=== PATIENT | male | born 1995 | race African-American/Black ===

== ENCOUNTER 2023-03-18 09:49 | Inpatient (IN) | payer OTHER, SELFPAY ==
[2023-03-18 09:55] VITALS: BP 158/92; PULSE 88; O2SAT 97
[2023-03-18 10:01] VITALS: BP 141/85; PULSE 95; RESP 18; TEMP 37; O2SAT 96; BMI 43.0
--- NOTE | 2023-03-18 10:01 | ED_ITS ---
HPI - Psych General Chief Complaint: Anxiety Stated Complaint: ANXIETY Time Seen by Provider: 03/18/23 09:56 Source: patient and EMS Mode of arrival: EMS Limitations: no limitations History of Present Illness HPI Narrative: 27 yo male who reportedly has a history of bipolar disorder comes via EMS after having a verbal argument with his mother. Patient cannot recall what the arugment was about. He tells me this happens to him occasionally and he needs to separate himself from his mother to calm down. He is currently calm and cooperative. He denies SI/HI,hallucinations. He tells me that he takes his medications when he remembers but sometimes he does forget to do this. He currently has no complaints. Related Data Home Medications Medication Instructions Recorded Confirmed amlodipine 5 mg tablet 5 mg PO DAILY 03/18/23 03/18/23 cariprazine 6 mg capsule (Vraylar) 6 mg PO DAILY 03/18/23 03/18/23 guanfacine 1 mg tablet 1 mg PO QPM 03/18/23 03/18/23 guanfacine 3 mg tablet,extended 3 mg PO QAM 03/18/23 03/18/23 release 24 hr lithium carbonate 300 mg capsule 900 mg PO DAILY 03/18/23 03/18/23 metformin 1,000 mg tablet 1,000 mg PO BID 03/18/23 03/18/23 propranolol 80 mg capsule,24 80 mg PO DAILY 03/18/23 03/18/23 hr,extended release Allergies Allergy/AdvReac Type Severity Reaction Status Date / Time No Known Allergies Allergy Verified 03/18/23 10:01 Review of Systems Review of Systems: Yes all other systems are reviewed and are negative Constitutional: Constitutional: Reports no additional constitutional complaints, Denies body ache(s), Denies chills, Denies fever(s), Denies headache(s) and Denies weakness Eyes: Eyes: Reports no additional eye complaints and Denies change in vision ENT: Reports system reviewed and no additional complaints, except as document ed, Denies dizziness, Denies headache(s), Denies nasal congestion, Denies nasal discharge and Denies neck pain Cardiovascular: Cardiovascular: Reports no additional cardiovascular complaints, Denies chest pain, Denies leg edema and Denies dyspnea Respiratory: Respiratory: Reports no additional respiratory complaints, Denies cough and Denies dyspnea Gastrointestinal: Gastrointestinal: Reports no additional gastrointestinal complaints, Denies abdominal pain, Denies diarrhea, Denies nausea and Denies vomiting Genitourinary: Genitourinary: Denies urinary incontinence Musculoskeletal: Musculoskeletal: Reports no additional musculoskeletal complaints, Denies back pain, Denies arthralgias, Denies joint swelling, Denies neck pain, Denies numbness and Denies tingling Integumentary/Breasts: Skin/Breast: Reports system reviewed and no additional complaints, except as docu and Denies rash Neurologic: Reports system reviewed and no additional complaints, except as documented, Denies Abnormal speech present, Denies dizziness, Denies headache(s) , Denies numbness, Denies tingling and Denies weakness Psychiatric: Psychiatric: Denies anxiety, Denies depression, Denies homicidal ideation and Denies suicidal ideation [facility] Past Medical History Attestation statement: The following information was validated with the patient. Source: old records reviewed and nursing notes reviewed Social History Social History Advance Directives: No Advance Directives Information Provided: Yes Physical Exam Vital Signs: Vital Signs: Last Vital Signs Temp 97.1 F 03/18/23 15:43 Pulse 94 03/18/23 15:43 Resp 18 03/18/23 15:43 BP 127/86 03/18/23 15:43 Pulse Ox 96 03/18/23 15:43 O2 Del Method Room Air 03/18/23 15:43 BMI result Body Mass Index 43.0 Const: General: cooperative, healthy appearing, comfortable and no acute distress Orientation/consciousness: patient oriented x3 Limitations: no limitations HEENT: Head: Yes normal to inspection Ears: hearing grossly normal bilaterally General nose exam: Normal external nose present Face and sinus: Yes normal facial exam Mouth: Normal oral and palatal mucosa present Throat: Yes posterior oropharynx normal Eyes: General: appearance normal, both eyes and all related structures Pupils: Equal, round and reactive pupils present Neck: Neck: Yes normal visual inspection Chest: Chest palpation & inspection: normal inspection of the chest Resp: Effort & Inspection: normal respiratory effort Auscultation: clear to auscultation bilaterally Cardio: Rate: regular rate Rhythm: regular rhythm Peripheral pulses: Peripheral pulses 2+ throughout GI: Inspection: Yes normal to inspection Palpation (GI): Soft to palpation and nontender Auscultation: normal bowel sounds Back/Spine/Pelvis: Thoracic/Lumbar Spine: thoracic and lumbar spine normal to inspection Skin: General skin exam: no rashes or lesions noted Neuro: General: patient oriented x3, no focal motor deficits and normal sensation to monofilament Cranial nerves: Yes Equal, round and reactive pupils present Cognition (Neuro): normal cognition Speech: No Abnormal speech present Gait exam (Neuro): Normal gait present Motor exam (neuro): 5/5 motor strength present throughout Extrem: General: Yes normal to inspection Course Course Course Narrative: 1230-plan is for inpatient bed search on Section 12. Charge nurse and patients nurse was notified. Patient will be moved to the behavioral pod. Will obtain labs, drug screen Medical Decision Making Medical Decision Making MDM Narrative: 27 yo male who has a reported history of bipolar disorder here after having a verbal argument with his mother. Patient has no current complaints, he is calm and cooperative. He arrives via EMS alone. He is unsure what additional medical history he has, what his allergies are. Unclear if patient also has developmental delay or if he is responsible for making his own decisions. I did attempt to contact his mother to obtain additional information but she did not answer and so I left a voicemail. Differential Diagnosis Differential Diagnoses: The differential diagnosis associated with the presentation includes adjustment disorder Consult Healthcare Provider Management of the patient was discussed with: Network Services Project Manager Patient was seen by care team-they were able to obtain collateral information from the mother. Patient has a history of bipolar disorder and developmental delay but is his own guardian. Mom is concerned because he has had increasing aggressive outbursts over the last few weeks and has been non med compliant. Plan is for patient to be placed on a Section 12 for inpatient bed search Lab Data 03/18/23 13:55 03/18/23 13:55 Labs: Lab Results 03/18/23 03/18/23 03/18/23 Range/Units 13:39 13:39 13:55 WBC 10.9 H (4.8-10.8) X10*3/uL RBC 5.47 (4.60-5.80) X10*6/uL Hgb 15.1 (14.0-18.0) g/dl Hct 45.1 (42.0-52.0) % MCV 82.4 (80.0-98.0) fL MCH 27.6 (27.0-33.0) pg MCHC 33.5 (31.0-36.0) g/dl RDW 13.0 (11.0-16.0) % Plt Count 261 (160-400) X10*3/uL MPV 9.6 (9.4-12.4) fL Immature Gran % (Auto) 0.6 H (0.0-0.4) % Neut % (Auto) 60.2 (45-73) % Lymph % (Auto) 28.9 (20-40) % Henry % (Auto) 4.7 (2-11) % Eos % (Auto) 5.0 H (0-4) % Baso % (Auto) 0.6 (0-2) % Lymph # (Auto) 3.2 (1.2-4.9) X10*3/uL Henry # (Auto) 0.5 (0.1-1.2) X10*3/uL Eos # (Auto) 0.6 H (0.0-0.4) X10*3/uL Baso # (Auto) 0.1 (0.0-0.2) X10*3/uL Abs Immat Gran (auto) 0.07 H (0.00-0.03) X10*3/uL Absolute Neuts (auto) 6.6 (2.0-8.3) x10*3/uL Absolute Nucleated RBC 0.000 (0.0-0.012) X10*3/uL Nucleated RBC % (auto) 0.0 (0.0-0.2) /100WBC Sodium (135-145) mmol/L Potassium (3.3-5.1) mmol/L Chloride (96-108) mmol/L Carbon Dioxide (22-29) mmol/L Anion Gap (12-20) BUN (9-16) mg/dL Creatinine (0.5-1.4) mg/dL Estim Creat Clear Calc Estimated GFR Random Glucose (60-115) mg/dL Calcium (8.4-10.2) mg/dL Total Bilirubin (0.0-1.0) mg/dL Direct Bilirubin (0.0-0.5) mg/dL AST (5-37) U/L ALT (0-40) U/L Alkaline Phosphatase (39-117) U/L Total Protein (6.5-8.0) g/dL Albumin (3.5-5.0) g/dL Urine Opiates Screen Not Detected (Not Detect) Urine Fentanyl Screen Not Detected (Not Detect) Ur Barbiturates Screen Not Detected (Not Detect) Ur Phencyclidine Scrn Not Detected (Not Detect) Ur Amphetamines Screen Not Detected (Not Detect) U Benzodiazepines Scrn Not Detected (Not Detect) Urine Cocaine Screen Not Detected (Not Detect) U Marijuana (THC) Screen Not Detected (Not Detect) Ethyl Alcohol mg/dL COVID-19 ([facility]) Negative (Negative) COVID-19 Clin Com See Note 03/18/23 Range/Units 13:55 WBC (4.8-10.8) X10*3/uL RBC (4.60-5.80) X10*6/uL Hgb (14.0-18.0) g/dl Hct (42.0-52.0) % MCV (80.0-98.0) fL MCH (27.0-33.0) pg MCHC (31.0-36.0) g/dl RDW (11.0-16.0) % Plt Count (160-400) X10*3/uL MPV (9.4-12.4) fL Immature Gran % (Auto) (0.0-0.4) % Neut % (Auto) (45-73) % Lymph % (Auto) (20-40) % Henry % (Auto) (2-11) % Eos % (Auto) (0-4) % Baso % (Auto) (0-2) % Lymph # (Auto) (1.2-4.9) X10*3/uL Henry # (Auto) (0.1-1.2) X10*3/uL Eos # (Auto) (0.0-0.4) X10*3/uL Baso # (Auto) (0.0-0.2) X10*3/uL Abs Immat Gran (auto) (0.00-0.03) X10*3/uL Absolute Neuts (auto) (2.0-8.3) x10*3/uL Absolute Nucleated RBC (0.0-0.012) X10*3/uL Nucleated RBC % (auto) (0.0-0.2) /100WBC Sodium 141 (135-145) mmol/L Potassium 4.3 (3.3-5.1) mmol/L Chloride 106 (96-108) mmol/L Carbon Dioxide 24 (22-29) mmol/L Anion Gap 15 (12-20) BUN 12 (9-16) mg/dL Creatinine 1.02 (0.5-1.4) mg/dL Estim Creat Clear Calc 161.6 Estimated GFR > 60 Random Glucose 148 H (60-115) mg/dL Calcium 10.8 H (8.4-10.2) mg/dL Total Bilirubin 0.8 (0.0-1.0) mg/dL Direct Bilirubin 0.2 (0.0-0.5) mg/dL AST 59 H (5-37) U/L ALT 120 H (0-40) U/L Alkaline Phosphatase 97 (39-117) U/L Total Protein 7.9 (6.5-8.0) g/dL Albumin 5.2 H (3.5-5.0) g/dL Urine Opiates Screen (Not Detect) Urine Fentanyl Screen (Not Detect) Ur Barbiturates Screen (Not Detect) Ur Phencyclidine Scrn (Not Detect) Ur Amphetamines Screen (Not Detect) U Benzodiazepines Scrn (Not Detect) Urine Cocaine Screen (Not Detect) U Marijuana (THC) Screen (Not Detect) Ethyl Alcohol < 10 mg/dL COVID-19 ([facility]) (Negative) COVID-19 Clin Com Independent Historian Clinical information obtained from an independent historian. History obtained from or confirmed by: EMS Discharge Plan Discharge Clinical Impression: Bipolar disorder Patient Disposition: Still a Patient Prescriptions: No Action amlodipine 5 mg tablet 5 mg PO DAILY lithium carbonate 300 mg capsule 900 mg PO DAILY metformin 1,000 mg tablet 1,000 mg PO BID propranolol 80 mg capsule,extended release 24hr 80 mg PO DAILY guanfacine 1 mg tablet 1 mg PO QPM Vraylar 6 mg capsule 6 mg PO DAILY guanfacine 3 mg tablet extended release 24 hr 3 mg PO QAM
[2023-03-18 13:56] LABS: COVID-19 Test Negative (Negative); IDNOW Serial# BCCEAD1C
[2023-03-18 14:00] LABS: MANUAL DIFF FLAG NO
[2023-03-18 14:04] LABS: Basophils Absolute Auto 0.1 X10*3/uL (0.0-0.2); Basophils Percent Auto 0.6 % (0-2); Eosinophils Absolute Auto 0.6 X10*3/uL (0.0-0.4); Hematocrit 45.1 % (42.0-52.0); Hemoglobin 15.1 g/dl (14.0-18.0); Imm Gran Abs Auto 0.07 X10*3/uL (0.00-0.03); Imm Gran Pct Auto 0.6 % (0.0-0.4); Lymphocytes Absolute Auto 3.2 X10*3/uL (1.2-4.9); Lymphocytes Percent Auto 28.9 % (20-40); Mean Corpuscular HGB Conc 33.5 g/dl (31.0-36.0); Mean Corpuscular Hemoglobin 27.6 pg (27.0-33.0); Mean Corpuscular Volume 82.4 fL (80.0-98.0); Mean Platelet Volume 9.6 fL (9.4-12.4); Monocytes Absolute Auto 0.5 X10*3/uL (0.1-1.2); Monocytes Percent Auto 4.7 % (2-11); Neutrophils Absolute Auto 6.6 x10*3/uL (2.0-8.3); Neutrophils Percent Auto 60.2 % (45-73); Platelet Count 261 X10*3/uL (160-400); Red Blood Count 5.47 X10*6/uL (4.60-5.80); White Blood Count 10.9 X10*3/uL (4.8-10.8)
[2023-03-18 14:11] LABS: Amphetamine Screen Urine Not Detected (Not Detect); Barbiturates, Urine Not Detected (Not Detect); Benzodiazepines Screen Urine Not Detected (Not Detect); Cannabinoid Screen Urine Not Detected (Not Detect); Cocaine Screen Urine Not Detected (Not Detect); Fentanyl, urine Not Detected (Not Detect); Opiate Screen Urine Not Detected (Not Detect); Phencyclidine Screen Urine Not Detected (Not Detect)
[2023-03-18 14:25] LABS: Alanine Aminotransferase 120 U/L (0-40); Albumin Level 5.2 g/dL (3.5-5.0); Alkaline Phosphatase 97 U/L (39-117); Anion Gap 15 (12-20); Aspartate Amino Transferase 59 U/L (5-37); Bilirubin Direct 0.2 mg/dL (0.0-0.5); Bilirubin Total 0.8 mg/dL (0.0-1.0); Blood Urea Nitrogen 12 mg/dL (9-16); Calcium 10.8 mg/dL (8.4-10.2); Carbon Dioxide 24 mmol/L (22-29); Chloride 106 mmol/L (96-108); Creatinine Clr Calc Pharmacy 161.6; Estimated Glomerular Filt Rate > 60; Ethanol < 10 mg/dL; Glucose Random 148 mg/dL (60-115); Potassium 4.3 mmol/L (3.3-5.1); Sodium 141 mmol/L (135-145); Total Protein 7.9 g/dL (6.5-8.0)
[2023-03-18 15:43] VITALS: BP 127/86; PULSE 94; RESP 18; TEMP 36.2; O2SAT 96
--- NOTE | 2023-03-19 | ECG_ITS ---
Test Reason : check qt interval Blood Pressure : / mmHG Vent. Rate : 074 BPM Atrial Rate : 074 BPM P-R Int : 170 ms QRS Dur : 102 ms QT Int : 372 ms P-R-T Axes : 009 -16 039 degrees QTc Int : 412 ms Normal sinus rhythm Minimal voltage criteria for LVH, may be normal variant ( R in aVL ) Cannot rule out Anterior infarct , age undetermined Abnormal ECG No previous ECGs available Referred By: Matt Doe Electronically Signed By:JESSEE SUMMERS MD
[2023-03-19 04:19] VITALS: RESP 12
--- NOTE | 2023-03-19 04:20 | PC.NURSE ---
Pt sleeping at the bedside in no apparent distress. Breaths are even, regular, and unlabored with equal chest rises. Will continue to monitor.
[2023-03-19 06:14] VITALS: BP 126/69; PULSE 71; RESP 17; TEMP 37.1; O2SAT 98
--- NOTE | 2023-03-19 07:54 | PC.NURSE ---
pharmacy called for propranolol and intuniv.
[2023-03-19 08:02] VITALS: BP 144/80; PULSE 86; RESP 20; TEMP 36.7; O2SAT 94
[2023-03-19 08:32] LABS: Lithium 0.35 mmol/L (0.60-1.20)
[2023-03-19] MEDS: Lithium Carbonate 300 MG CAPSULE 900 MG PO (09:02)
[2023-03-19] MEDS: amLODIPine Besylate 5 MG TABLET PO (09:03)
[2023-03-19] MEDS: metFORMIN HCl 1,000 MG TABLET 1000 MG PO ×2 (09:03→17:10)
[2023-03-19] MEDS: Cariprazine HCl 3 MG CAPSULE 6 MG PO (09:03)
[2023-03-19] MEDS: Propranolol HCL LA 80 MG CAP.SA.24H PO (10:31)
[2023-03-19] MEDS: guanFACINE HCl ER 1 MG TAB.ER.24H 3 MG PO (10:32)
[2023-03-19 16:04] VITALS: BP 110/61; PULSE 64; RESP 18; TEMP 36.5; O2SAT 93
--- NOTE | 2023-03-19 18:27 | PC.ADMIT ---
Addendum entered by Jocelyn Torres RN 03/19/23 18:46: AST and ALT elevated. Dr. Tan aware prior to arrival. Tox screen negative. Original Note: Lit was admitted to M3 on a CV from [facility] at 17:50 for treatment of Unspecified Bipolar and Unspecified intellectual disability. Patient is alert and oriented x3. Admission was completed using crisis assessment as patient reported that he didn't want to talk right now . Patient is a 27 year old male coming from home. Presented after an altercation, verbal and physical, with his mom. Per moms report patient has had multiple aggressive outbursts in the last few weeks that are escalating quickly and more frequently. Per crisis patient will react violently when upset and can not self regulate. Patient denies SI/HI/AH/VH upon admission. Endorsed anxiety due to being here. Patient reported I sometimes just get really angry and will need space . Does not appear to be responding to internal stimuli. Reports that sleep and appetite are appropriate. Did report I may get up a few times in the middle of the night to pee . Patient carries a medical diagnosis of diabetes and hypertension. 15 minute safety checks initiated.
[2023-03-19 21:36] VITALS: BP 141/92; PULSE 95; TEMP 36.7; O2SAT 96
[2023-03-20 07:59] LABS: Alanine Aminotransferase 93 U/L (0-40); Albumin Level 4.5 g/dL (3.5-5.0); Alkaline Phosphatase 92 U/L (39-117); Anion Gap 13 (12-20); Aspartate Amino Transferase 36 U/L (5-37); Bilirubin Total 0.4 mg/dL (0.0-1.0); Blood Urea Nitrogen 12 mg/dL (9-16); Calcium 10.1 mg/dL (8.4-10.2); Carbon Dioxide 24 mmol/L (22-29); Chloride 109 mmol/L (96-108); Cholesterol 218 mg/dL; Creatinine Clr Calc Pharmacy 208.7; Estimated Glomerular Filt Rate > 60; Glucose Fasting 115 mg/dL (60-99); HDL Cholesterol 23 mg/dL; Potassium 3.8 mmol/L (3.3-5.1); Sodium 142 mmol/L (135-145); Total Protein 6.7 g/dL (6.5-8.0); Triglycerides 560 mg/dL
[2023-03-20 08:02] VITALS: BP 146/85; PULSE 85; RESP 18; TEMP 35.6; O2SAT 96
[2023-03-20 08:02] LABS: Glucose, Whole Blood 149 mg/dL (60-115)
[2023-03-20] MEDS: amLODIPine Besylate 5 MG TABLET PO (08:05)
[2023-03-20] MEDS: Lithium Carbonate 300 MG CAPSULE 900 MG PO (08:06)
[2023-03-20] MEDS: Propranolol HCL LA 80 MG CAP.SA.24H PO (08:06)
[2023-03-20] MEDS: Acetaminophen 325 MG TABLET 650 MG PO (08:07)
[2023-03-20] MEDS: guanFACINE HCl ER 1 MG TAB.ER.24H 3 MG PO (08:07)
[2023-03-20] MEDS: metFORMIN HCl 1,000 MG TABLET 1000 MG PO ×2 (08:08→17:39)
[2023-03-20] MEDS: Cariprazine HCl 3 MG CAPSULE 6 MG PO (08:08)
[2023-03-20 08:19] LABS: Estimated Average Glucose 140 mg/dL; Hemoglobin A1c % 6.5 %
[2023-03-20 08:30] LABS: Folate 15.2 ng/mL (> or = 4.0); Free T4 (Free Thyroxine) 0.94 ng/dL (0.71-1.85); Vitamin B12 868 pg/mL (200-900)
--- NOTE | 2023-03-20 10:27 | HO.PSYADMNOT ---
HPI Date of Service: 03/20/23 Chief Complaint: Aggressive Behaviors Sources of Information: patient interviewed, chart reviewed and crisis/core team assessment reviewed HPI Subjective Notes: Fleming Warning (given and shows understanding) and Conditional Voluntary Narrative: Mr. Noriega is a 27 year-old male with hx of intellectual disability, intermittent explosive disorder who was assessed by crisis after pt presented as agitated, breaking things. In the ED, utox is negative. On the unit, pt presented as calm and cooperative. Pt reports he got very upset and was breaking things in the home. When asked what provoked his reaction, pt states he can't remember and asked this sql report writer to contact his mother for further details as to triggers to behavioral outburst. Pt denies SI/HI. He also denies hx of visual or auditory hallucinations. Pt reports that when he gets upset and not given space he has tendency to loose control over his reactions and quickly breaks objects and becomes quiet explosive. He reports taking his medications as prescribed. He does have a bilateral tremor- most likely related to lithium. He reports sleeping and eating well. Collateral information was gathered by EMELI Reed from [facility] worker who reports pt was at [facility] long-term for years up until 2021 when mother decided to take him out of long-term apparently due to mother being upset that pt's brother was not employed at long-term due to not passing background check. Per [facility], pt did not have any episodes of explosive behaviors nor required inpatient level of care while he was at the long-term. Family recently moved from [place] to [place] and pt still pending to be connected with [facility] office. Past Psychiatric History: Inpatient: total of 6- most recent ones in 2021 OP: [facility] Parrish Past medication trials: lithium, guanfacine, propanolol Hx of suicide attempts: denies. Medical Evaluation Reviewed: Yes [facility] Family History: unknown Social History: Pt currently lives with father, mother and brother. Pt used to live at [facility] long-term up until last year. Mother took him out apparently because pt's brother was not employed at such [facility] due to not passing background checks. Substance History: None Trauma History: denies Diagnostics Vital Signs (24Hr): Vital Signs - 24 hr 03/19/23 16:04 03/19/23 21:36 03/20/23 08:02 Temperature 97.7 F 98.1 F 96.1 F L Pulse Rate 64 95 85 Respiratory Rate 18 18 Blood Pressure 110/61 141/92 H 146/85 H Pulse Oximetry 93 96 96 Oxygen Delivery Method Room Air Room Air Room Air BMI result Body Mass Index 43.0 Labs 03/18/23 13:55 03/20/23 07:00 Labs: Laboratory Results - last 48 hr 03/18/23 03/18/23 03/18/23 13:39 13:39 13:55 WBC 10.9 H RBC 5.47 Hgb 15.1 Hct 45.1 MCV 82.4 MCH 27.6 MCHC 33.5 RDW 13.0 Plt Count 261 MPV 9.6 Immature Gran % (Auto) 0.6 H Neut % (Auto) 60.2 Lymph % (Auto) 28.9 Mckean % (Auto) 4.7 Eos % (Auto) 5.0 H Baso % (Auto) 0.6 Lymph # (Auto) 3.2 Mckean # (Auto) 0.5 Eos # (Auto) 0.6 H Baso # (Auto) 0.1 Abs Immat Gran (auto) 0.07 H Absolute Neuts (auto) 6.6 Absolute Nucleated RBC 0.000 Nucleated RBC % (auto) 0.0 Sodium Potassium Chloride Carbon Dioxide Anion Gap BUN Creatinine Estim Creat Clear Calc Estimated GFR POC Glucose Random Glucose Fasting Glucose Estimat Average Glucose Hemoglobin A1c % Calcium Total Bilirubin Direct Bilirubin AST ALT Alkaline Phosphatase Total Protein Albumin Triglycerides Cholesterol LDL Cholesterol, Calc HDL Cholesterol Vitamin B12 Folate TSH Free T4 Urine Opiates Screen Not Detected Urine Fentanyl Screen Not Detected Ur Barbiturates Screen Not Detected Ur Phencyclidine Scrn Not Detected Ur Amphetamines Screen Not Detected U Benzodiazepines Scrn Not Detected [place] Urine Cocaine Screen Not Detected U Marijuana (THC) Screen Not Detected Ethyl Alcohol COVID-19 ([facility]) Negative COVID-19 Clin Com See Note 03/18/23 03/19/23 03/20/23 13:55 08:01 07:00 WBC RBC Hgb Hct MCV MCH MCHC RDW Plt Count MPV Immature Gran % (Auto) Neut % (Auto) Lymph % (Auto) Mckean % (Auto) Eos % (Auto) Baso % (Auto) Lymph # (Auto) Mckean # (Auto) Eos # (Auto) Baso # (Auto) Abs Immat Gran (auto) Absolute Neuts (auto) Absolute Nucleated RBC Nucleated RBC % (auto) Sodium 141 142 Potassium 4.3 3.8 Chloride 106 109 H Carbon Dioxide 24 24 Anion Gap 15 13 BUN 12 12 Creatinine 1.02 0.79 Estim Creat Clear Calc 161.6 208.7 Estimated GFR > 60 > 60 POC Glucose Random Glucose 148 H Fasting Glucose 115 H Estimat Average Glucose Hemoglobin A1c % Calcium 10.8 H 10.1 D Total Bilirubin 0.8 0.4 Direct Bilirubin 0.2 AST 59 H 36 ALT 120 H 93 H Alkaline Phosphatase 97 92 Total Protein 7.9 6.7 Albumin 5.2 H 4.5 Triglycerides 560 Cholesterol 218 LDL Cholesterol, Calc TNP HDL Cholesterol 23 Vitamin B12 868 Folate 15.2 TSH 1.50 Free T4 0.94 Urine Opiates Screen Urine Fentanyl Screen Ur Barbiturates Screen Ur Phencyclidine Scrn Ur Amphetamines Screen U Benzodiazepines Scrn [place] 0.35 L Urine Cocaine Screen U Marijuana (THC) Screen Ethyl Alcohol < 10 COVID-19 ([facility]) COVID-[place] 03/20/23 03/20/23 07:00 07:59 WBC RBC Hgb Hct MCV MCH MCHC RDW Plt Count MPV Immature Gran % (Auto) Neut % (Auto) Lymph % (Auto) Mckean % (Auto) Eos % (Auto) Baso % (Auto) Lymph # (Auto) Mckean # (Auto) Eos # (Auto) Baso # (Auto) Abs Immat Gran (auto) Absolute Neuts (auto) Absolute Nucleated RBC Nucleated RBC % (auto) Sodium Potassium Chloride Carbon Dioxide Anion Gap BUN Creatinine Estim Creat Clear Calc Estimated GFR POC Glucose 149 H Random Glucose Fasting Glucose Estimat Average Glucose 140 Hemoglobin A1c % 6.5 Calcium Total Bilirubin Direct Bilirubin AST ALT Alkaline Phosphatase Total Protein Albumin Triglycerides Cholesterol LDL Cholesterol, Calc HDL Cholesterol Vitamin B12 Folate TSH Free T4 Urine Opiates Screen Urine Fentanyl Screen Ur Barbiturates Screen Ur Phencyclidine Scrn Ur Amphetamines Screen U Benzodiazepines Scrn [place] Urine Cocaine Screen U Marijuana (THC) Screen Ethyl Alcohol COVID-19 ([facility]) COVID-19 [employer] Meds/Allergies Meds Home Medications Medication Instructions Recorded Confirmed Type amlodipine 5 mg tablet 5 mg PO DAILY 03/18/23 03/18/23 History cariprazine 6 mg capsule (Vraylar) 6 mg PO DAILY 03/18/23 03/18/23 History guanfacine 1 mg tablet 1 mg PO QPM 03/18/23 03/18/23 History guanfacine 3 mg tablet,extended 3 mg PO QAM 03/18/23 03/18/23 History release 24 hr lithium carbonate 300 mg capsule 900 mg PO DAILY 03/18/23 03/18/23 History metformin 1,000 mg tablet 1,000 mg PO BID 03/18/23 03/18/23 History propranolol 80 mg capsule,24 80 mg PO DAILY 03/18/23 03/18/23 History hr,extended release Allergies Allergies Allergy/AdvReac Type Severity Reaction Status Date / Time No Known Allergies Allergy Verified 03/18/23 10:01 Mental Status Exam Mental Status Exam Narrative: Appearance: MO, casually groomed, fair hygiene, somewhat malodorous, in NAD behavior: friendly, cooperative Psychomotor: bilat resting tremors, suspect s/s to lithium Speech: clear, normal rate/rhythm/volume, spontaneous TP: mostly linear, TC: no signs of psychosis, future oriented in that he hopes to return home soon Mood: fine Affect: congruent SI: none HI: none AH/VH: none Delusions: none Insight/judgment: poor-fair Memory/cog: alert, oriented x 3. underlying intellectual disability. Assessment & Plan Assessment & Plan (1) Intermittent explosive disorder in adult: Status: Acute Code(s): F63.81 - Intermittent explosive disorder (2) Intellectual disability: Status: Acute Code(s): F79 - Unspecified intellectual disabilities Plan Mr. Noriega is a 27 year-old male with hx of intellectual/developmental disability and intermittent explosive behaviors who was brought via EMS to [facility] ED due to pt presenting with explosive destructive behaviors at home. On the unit, pt reports he does not remember why he was so upset but does report that he has tendency to lose control when frustrated. It appears that [facility] but has struggled with explosive behaviors since he has been at home with mother. Pt's family also recently relocated from [place] to [place] and pt not connected with services in the area. However, DDS worker and psychiatric prescriber from [facility] are managing pt's care until connected here. PLAN 1. Admit to , CV, 15 minutes checks 2. continue current medications 3. obtain collateral information 4. Aftercare planning. Patient educated on: diagnosis and medication risk/benefits Reason for continued inpatient stay Substantial Risk for: harm to others and inability to function Statement Statement: I have reviewed the history and physical and performed a pertinent examination on my patient. No changes have occurred unless specified. If the History and Physical was not performed prior to admission, the Hospitalist's service will be consulted for completing the admission physical. Time Spent With Patient Time: Total time managing care of this patient today ____ minutes.
[2023-03-20 20:00] VITALS: BP 138/71; PULSE 78; RESP 16; TEMP 36.6; O2SAT 94
[2023-03-21] MEDS: Acetaminophen 325 MG TABLET 650 MG PO ×2 (05:56→16:03)
[2023-03-21 06:05] LABS: Glucose, Whole Blood 135 mg/dL (60-115)
[2023-03-21] MEDS: Cariprazine HCl 3 MG CAPSULE 6 MG PO (08:40)
[2023-03-21] MEDS: Lithium Carbonate 300 MG CAPSULE 900 MG PO (08:40)
[2023-03-21] MEDS: amLODIPine Besylate 5 MG TABLET PO (08:40)
[2023-03-21] MEDS: guanFACINE HCl ER 1 MG TAB.ER.24H 3 MG PO (08:40)
[2023-03-21] MEDS: Propranolol HCL LA 80 MG CAP.SA.24H PO (08:40)
[2023-03-21] MEDS: metFORMIN HCl 1,000 MG TABLET 1000 MG PO ×2 (08:40→16:03)
[2023-03-21 10:15] VITALS: BP 134/82; PULSE 78; RESP 18; TEMP 37.1; O2SAT 93
[2023-03-21 16:25] VITALS: BP 137/66; PULSE 73; RESP 18; TEMP 36.7; O2SAT 96
[2023-03-21 20:15] VITALS: BP 129/60; PULSE 80; RESP 16; TEMP 36.7; O2SAT 97
--- NOTE | 2023-03-21 21:32 | P.PNPSI_ITS ---
Subjective Subjective Date of Service: 03/21/23 Reason For Visit: Aggressive Behaviors Subjective Notes: Conditional Voluntary Interim History: Pt reports sleeping and eating well, which was confirmed by nursing. Pt denies symptoms of depression or anxiety. He reports tolerating the medications. He has been visible and has attended some groups. He denies SI/HI. Insight into how when frustrated can lose control over reactions and break things. We discussed increasing lithium to more therapeutic dose. Medication Compliance: Yes Side effects from medications: No Review of Systems Review of Systems Pt denies chest pain, changes in vision. Pt denies abdominal pain, denies vomiting/nausea, constipation or diarrhea. He reports back pain No headaches, no hx of seizures. Yes all other systems are reviewed and are negative Constitutional: Reports no additional constitutional complaints, Denies body ach e(s), Denies chills, Denies fever(s), Denies headache(s) and Denies weakness Eyes: Reports no additional eye complaints and Denies change in vision Reports system reviewed and no additional complaints, except as documented, Denies dizziness, Denies headache(s), Denies nasal congestion, Denies nasal discharge and Denies neck pain Cardiovascular: Reports no additional cardiovascular complaints, Denies chest pain, Denies leg edema and Denies dyspnea Respiratory: Reports no additional respiratory complaints, Denies cough and D enies dyspnea Gastrointestinal: Reports no additional gastrointestinal complaints, Denies abdominal pain, Denies diarrhea, Denies nausea and Denies vomiting Genitourinary: Denies urinary incontinence Musculoskeletal: Reports no additional musculoskeletal complaints, Denies back pain, Denies arthralgias, Denies joint swelling, Denies neck pain, Denies numbness and Denies tingling Skin/Breast: Reports system reviewed and no additional complaints, except as docu and Denies rash Reports system reviewed and no additional complaints, except as documented, Denies Abnormal speech present, Denies dizziness, Denies headache(s), Denies numbness, Denies tingling and Denies weakness Psychiatric: Denies anxiety, Denies depression, Denies homicidal ideation and Denies suicidal ideation Mental Status Exam Mental Status Exam Narrative: Appearance: MO, casually groomed, fair hygiene, somewhat malodorous, in NAD behavior: friendly, cooperative Psychomotor: bilat resting tremors, suspect s/s to lithium Speech: clear, normal rate/rhythm/volume, spontaneous TP: mostly linear, TC: no signs of psychosis, future oriented in that he hopes to return home soon Mood: fine Affect: congruent SI: none HI: none AH/VH: none Delusions: none Insight/judgment: poor-fair Memory/cog: alert, oriented x 3. underlying intellectual disability. Diagnostics Vital Signs (24Hr): Vital Signs - 24 hr 03/21/23 10:15 03/21/23 16:25 03/21/23 20:15 Temperature 98.7 F 98.1 F 98.1 F Pulse Rate 78 73 80 Respiratory Rate 18 18 16 Blood Pressure 134/82 137/66 129/60 Pulse Oximetry 93 96 97 Oxygen Delivery Method Room Air Room Air Room Air BMI result Body Mass Index 43.0 Labs 03/18/23 13:55 03/20/23 07:00 Labs: Laboratory Results - last 48 hr 03/20/23 03/20/23 03/20/23 07:00 07:00 07:59 Sodium 142 Potassium 3.8 Chloride 109 H Carbon Dioxide 24 Anion Gap 13 BUN 12 Creatinine 0.79 Estim Creat Clear Calc 208.7 Estimated GFR > 60 POC Glucose 149 H Fasting Glucose 115 H Estimat Average Glucose 140 Hemoglobin A1c % 6.5 Calcium 10.1 D Total Bilirubin 0.4 AST 36 ALT 93 H Alkaline Phosphatase 92 Total Protein 6.7 Albumin 4.5 Triglycerides 560 Cholesterol 218 LDL Cholesterol, Calc TNP HDL Cholesterol 23 Vitamin B12 868 Folate 15.2 TSH 1.50 Free T4 0.94 03/21/23 06:00 Sodium Potassium Chloride Carbon Dioxide Anion Gap BUN Creatinine Estim Creat Clear Calc Estimated GFR POC Glucose 135 H Fasting Glucose Estimat Average Glucose Hemoglobin A1c % Calcium Total Bilirubin AST ALT Alkaline Phosphatase Total Protein Albumin Triglycerides Cholesterol LDL Cholesterol, Calc HDL Cholesterol Vitamin B12 Folate TSH Free T4 Medications Medications Current Medications Acetaminophen (Acetaminophen 325 Mg Tablet) 650 mg PO Q6H PRN PRN Reason: Headache/Pain Mild Scale (1-3) Last Admin: 03/21/23 16:03 Dose: 650 mg Al Hydroxide/Mg Hydroxide (Magnesium Hydrox/Alum Hydrox 30 Ml Oral.Susp) 30 ml PO Q6H PRN PRN Reason: Heartburn/Nausea Amlodipine Besylate (Amlodipine Besylate 5 Mg Tablet) 5 mg PO DAILY [facility]; Protocol Last Admin: 03/21/23 08:40 Dose: 5 mg Cariprazine (Cariprazine Hcl 3 Mg Capsule) 6 mg PO DAILY [facility] Last Admin: 03/21/23 08:40 Dose: 6 mg Guanfacine HCl (Guanfacine Hcl Er 1 Mg Tab.Er.24h) 3 mg PO DAILY [facility] Last Admin: 03/21/23 08:40 Dose: 3 mg Hydroxyzine HCl (Hydroxyzine Hcl 25 Mg Tablet) 25 mg PO Q6H PRN PRN Reason: Anxiety [place] Carbonate ([place] Carbonate Er 300 Mg Tablet.Er) 1,200 mg PO BEDTIME [facility] Magnesium Hydroxide (Milk Of Magnesia 30 Ml Oral.Susp) 30 ml PO DAILY PRN PRN Reason: Constipation Metformin HCl (Metformin Hcl 1,000 Mg Tablet) 1,000 mg PO BIDWM [facility] Last Admin: 03/21/23 16:03 Dose: 1,000 mg Nicotine Polacrilex (Nicotine Polacrilex 2 Mg Gum) 4 mg BUCCAL Q2H PRN PRN Reason: Nicotine Cravings Non-Formulary Medication (Guanfacine) 1 mg PO BEDTIME [facility] Propranolol HCl (Propranolol Hcl La 80 Mg Cap.Sa.24h) 80 mg PO DAILY [facility]; Protocol Last Admin: 03/21/23 08:40 Dose: 80 mg Trazodone HCl (Trazodone Hcl 50 Mg Tablet) 50 mg PO BEDTIME MRX1 PRN PRN Reason: Insomnia Allergies Allergies Allergy/AdvReac Type Severity Reaction Status Date / Time No Known Allergies Allergy Verified 03/18/23 10:01 Assessment & Plan Assessment & Plan (1) Intermittent explosive disorder in adult: Status: Acute Code(s): F63.81 - Intermittent explosive disorder (2) Intellectual disability: Status: Acute Code(s): F79 - Unspecified intellectual disabilities Plan Mr. Noriega is a 27 year-old male with hx of intellectual/developmental disability and intermittent explosive behaviors who was brought via EMS to [facility] due to pt presenting with explosive destructive behaviors at home. On the unit, pt reports he does not remember why he was so upset but does report that he has tendency to lose control when frustrated. It appears that [facility] but has struggled with explosive behaviors since he has been at home with mother. Pt's family also recently relocated from [place] to [place] and pt not connected with services in the area. However, DDS worker and psychiatric prescriber from [facility] are managing pt's care until connected here. PLAN 1. Admit to M3, CV, 15 minutes checks 2. continue current medications / continue tx. increase lithium to 1200mg po qhs extended release bedtime dose. Reason for continued inpatient stay Substantial Risk for: inability to function Time Spent With Patient Time: Total time managing care of this patient today ____ minutes.
[2023-03-22] MEDS: Propranolol HCL LA 80 MG CAP.SA.24H PO (08:10)
[2023-03-22] MEDS: Cariprazine HCl 3 MG CAPSULE 6 MG PO (08:10)
[2023-03-22] MEDS: amLODIPine Besylate 5 MG TABLET PO (08:10)
[2023-03-22] MEDS: guanFACINE HCl ER 1 MG TAB.ER.24H 3 MG PO (08:10)
[2023-03-22] MEDS: metFORMIN HCl 1,000 MG TABLET 1000 MG PO ×2 (08:10→16:05)
[2023-03-22 10:37] LABS: Glucose, Whole Blood 255 mg/dL (60-115)
[2023-03-22 11:04] VITALS: BMI 42.3
[2023-03-22 11:07] VITALS: BP 110/80; PULSE 80; TEMP 36.9; O2SAT 96
[2023-03-22 20:35] VITALS: BP 136/72; PULSE 74; RESP 18; TEMP 36.4; O2SAT 97
[2023-03-22] MEDS: Throat Lozenge, Medicated LOZENGE 1 LOZENGE MUCOUS MEM (21:00)
[2023-03-22] MEDS: Lithium Carbonate ER 300 MG TABLET.ER 1200 MG PO (21:00)
[2023-03-23 06:00] VITALS: BP 132/82; PULSE 82; RESP 16; TEMP 36.4; O2SAT 96
--- NOTE | 2023-03-23 07:10 | HO.PSYCHPN ---
Subjective Subjective Date of Service: 03/22/23 Reason For Visit: Aggressive Behaviors Subjective Notes: Conditional Voluntary Interim History: Pt continues to report sleeping and eating well, which was confirmed by nursing. Pt denies symptoms of depression or anxiety. He reports tolerating the medications. He has been visible and has attended some groups. He denies SI/HI. We discussed increasing lithium to more therapeutic dose. Medication Compliance: Yes Side effects from medications: No Review of Systems Review of Systems Pt denies chest pain, changes in vision. Pt denies abdominal pain, denies vomiting/nausea, constipation or diarrhea. He reports back pain No headaches, no hx of seizures. Yes all other systems are reviewed and are negative Constitutional: Reports no additional constitutional complaints, Denies body ache(s), Denies chills, Denies fever(s), Denies headache(s) and Denies weakness Eyes: Reports no additional eye complaints and Denies change in vision Reports system reviewed and no additional complaints, except as documented, Denies dizziness, Denies headache(s), Denies nasal congestion, Denies nasal discharge and Denies neck pain Cardiovascular: Reports no additional cardiovascular complaints, Denies chest pain, Denies leg edema and Denies dyspnea Respiratory: Reports no additional respiratory complaints, Denies cough and Denies dyspnea Gastrointestinal: Reports no additional gastrointestinal complaints, Denies abdominal pain, Denies diarrhea, Denies nausea and Denies vomiting Genitourinary: Denies urinary incontinence Musculoskeletal: Reports no additional musculoskeletal complaints, Denies back pain, Denies arthralgias, Denies joint swelling, Denies neck pain, Denies numbness and Denies tingling Skin/Breast: Reports system reviewed and no additional complaints, except as docu and Denies rash Reports system reviewed and no additional complaints, except as documented, Denies Abnormal speech present, Denies dizziness, Denies headache(s), Denies numbness, Denies tingling and Denies weakness Psychiatric: Denies anxiety, Denies depression, Denies homicidal ideation and Denies suicidal ideation Mental Status Exam Mental Status Exam Narrative: Appearance: MO, casually groomed, fair hygiene, somewhat malodorous, in NAD behavior: friendly, cooperative Psychomotor: bilat resting tremors, suspect s/s to lithium Speech: clear, normal rate/rhythm/volume, spontaneous TP: mostly linear, TC: no signs of psychosis, future oriented in that he hopes to return home soon Mood: fine Affect: congruent SI: none HI: none AH/VH: none Delusions: none Insight/judgment: poor-fair Memory/cog: alert, oriented x 3. underlying intellectual disability. Diagnostics Vital Signs (24Hr): Vital Signs - 24 hr 03/22/23 11:07 03/22/23 20:35 Temperature 98.4 F 97.6 F Pulse Rate 80 74 Respiratory Rate 18 Blood Pressure 110/80 136/72 Pulse Oximetry 96 97 Oxygen Delivery Method Room Air Room Air BMI result Body Mass Index 42.3 Labs 03/18/23 13:55 03/20/23 07:00 Labs: Laboratory Results - last 48 hr 03/22/23 10:25 POC Glucose 255 H Medications Medications Current Medications Acetaminophen (Acetaminophen 325 Mg Tablet) 650 mg PO Q6H PRN PRN Reason: Headache/Pain Mild Scale (1-3) Last Admin: 03/21/23 16:03 Dose: 650 mg Al Hydroxide/Mg Hydroxide (Magnesium Hydrox/Alum Hydrox 30 Ml Oral.Susp) 30 ml PO Q6H PRN PRN Reason: Heartburn/Nausea Amlodipine Besylate (Amlodipine Besylate 5 Mg Tablet) 5 mg PO DAILY [facility]; Protocol Last Admin: 03/22/23 08:10 Dose: 5 mg Benzocaine (Throat Lozenge, Medicated Lozenge) 1 lozenge MUCOUS MEM Q2H PRN PRN Reason: Sore Throat Last Admin: 03/22/23 21:00 Dose: 1 lozenge Cariprazine (Cariprazine Hcl 3 Mg Capsule) 6 mg PO DAILY [facility] Last Admin: 03/22/23 08:10 Dose: 6 mg Guanfacine HCl (Guanfacine Hcl Er 1 Mg Tab.Er.24h) 3 mg PO DAILY [facility] Last Admin: 03/22/23 08:10 Dose: 3 mg Hydroxyzine HCl (Hydroxyzine Hcl 25 Mg Tablet) 25 mg PO Q6H PRN PRN Reason: Anxiety [place] Carbonate ([place] Carbonate Er 300 Mg Tablet.Er) 1,200 mg PO BEDTIME [facility] Last Admin: 03/22/23 21:00 Dose: 1,200 mg Magnesium Hydroxide (Milk Of Magnesia 30 Ml Oral.Susp) 30 ml PO DAILY PRN PRN Reason: Constipation Metformin HCl (Metformin Hcl 1,000 Mg Tablet) 1,000 mg PO BIDWM [facility] Last Admin: 03/22/23 16:05 Dose: 1,000 mg Multi-Ingred Medicated Throat [place] (Throat [place], Medicated 177 Ml Bottle) 1 spray MUCOUS MEM Q2H PRN PRN Reason: Sore Throat Nicotine Polacrilex (Nicotine Polacrilex 2 Mg Gum) 4 mg BUCCAL Q2H PRN PRN Reason: Nicotine Cravings Non-Formulary Medication (Guanfacine) 1 mg PO BEDTIME [facility] Propranolol HCl (Propranolol Hcl La 80 Mg Cap.Sa.24h) 80 mg PO DAILY [facility]; Protocol Last Admin: 03/22/23 08:10 Dose: 80 mg Trazodone HCl (Trazodone Hcl 50 Mg Tablet) 50 mg PO BEDTIME MRX1 PRN PRN Reason: Insomnia Allergies Allergies Allergy/AdvReac Type Severity Reaction Status Date / Time No Known Allergies Allergy Verified 03/18/23 10:01 Assessment & Plan Assessment & Plan (1) Intermittent explosive disorder in adult: Status: Acute Code(s): F63.81 - Intermittent explosive disorder (2) Intellectual disability: Status: Acute Code(s): F79 - Unspecified intellectual disabilities Plan Mr. Noriega is a 27 year-old male with hx of intellectual/developmental disability and intermittent explosive behaviors who was brought via EMS to [facility] due to pt presenting with explosive destructive behaviors at home. On the unit, pt reports he does not remember why he was so upset but does report that he has tendency to lose control when frustrated. It appears that pt had been [facility] but has struggled with explosive behaviors since he has been at home with mother. Pt's family also recently relocated from [place] to [place] and pt not connected with services in the area. However, DDS worker and psychiatric prescriber from [facility] are managing pt's care until connected here. PLAN 1. Admit to M3, CV, 15 minutes checks 2. continue current medications 3. obtain collateral information 4. Aftercare planning. 03/22 continue tx. Reason for continued inpatient stay Substantial Risk for: rapid decompensation Time Spent With Patient Time: Total time managing care of this patient today ____ minutes.
[2023-03-23] MEDS: guanFACINE HCl ER 1 MG TAB.ER.24H 3 MG PO (08:21)
[2023-03-23] MEDS: amLODIPine Besylate 5 MG TABLET PO (08:21)
[2023-03-23] MEDS: metFORMIN HCl 1,000 MG TABLET 1000 MG PO ×2 (08:21→16:20)
[2023-03-23] MEDS: Cariprazine HCl 3 MG CAPSULE 6 MG PO (08:21)
[2023-03-23] MEDS: Propranolol HCL LA 80 MG CAP.SA.24H PO (08:21)
[2023-03-23 08:47] LABS: Glucose, Whole Blood 126 mg/dL (60-115)
--- NOTE | 2023-03-23 10:32 | P.PNPSI_ITS ---
Subjective Subjective Date of Service: 03/23/23 Reason For Visit: Aggressive Behaviors Subjective Notes: Conditional Voluntary Interim History: Pt continues to report sleeping and eating well, which was confirmed by nursing. Pt denies symptoms of depression or anxiety. He reports tolerating the medications. He has been visible and has attended some groups. He denies SI/HI. No aggression towards self or others. Review of Systems Review of Systems Pt denies chest pain, changes in vision. Pt denies abdominal pain, denies vomiting/nausea, constipation or diarrhea. He reports back pain No headaches, no hx of seizures. Yes all other systems are reviewed and are negative Constitutional: Reports no additional constitutional complaints, Denies body ache(s), Denies chills, Denies fever(s), Denies headache(s) and Denies weakness Eyes: Reports no additional eye complaints and Denies change in vision Reports system reviewed and no additional complaints, except as documented, Denies dizziness, Denies headache(s), Denies nasal congestion, Denies nasal discharge and Denies neck pain Cardiovascular: Reports no additional cardiovascular complaints, Denies chest pain, Denies leg edema and Denies dyspnea Respiratory: Reports no additional respiratory complaints, Denies cough and De nies dyspnea Gastrointestinal: Reports no additional gastrointestinal complaints, Denies abdominal pain, Denies diarrhea, Denies nausea and Denies vomiting Genitourinary: Denies urinary incontinence Musculoskeletal: Reports no additional musculoskeletal complaints, Denies back pain, Denies arthralgias, Denies joint swelling, Denies neck pain, Denies numbness and Denies tingling Skin/Breast: Reports system reviewed and no additional complaints, except as docu and Denies rash Reports system reviewed and no additional complaints, except as documented, Denies Abnormal speech present, Denies dizziness, Denies headache(s), Denies numbness, Denies tingling and Denies weakness Psychiatric: Denies anxiety, Denies depression, Denies homicidal ideation and Denies suicidal ideation Mental Status Exam Mental Status Exam Narrative: Appearance: MO, casually groomed, fair hygiene, somewhat malodorous, in NAD behavior: friendly, cooperative Psychomotor: bilat resting tremors, suspect s/s to lithium Speech: clear, normal rate/rhythm/volume, spontaneous TP: mostly linear, TC: no signs of psychosis, future oriented in that he hopes to return home soon Mood: fine Affect: congruent SI: none HI: none AH/VH: none Delusions: none Insight/judgment: poor-fair Memory/cog: alert, oriented x 3. underlying intellectual disability. Diagnostics Vital Signs (24Hr): Vital Signs - 24 hr 03/22/23 11:07 03/22/23 20:35 03/23/23 06:00 Temperature 98.4 F 97.6 F 97.6 F Pulse Rate 80 74 82 Respiratory Rate 18 16 Blood Pressure 110/80 136/72 132/82 Pulse Oximetry 96 97 96 Oxygen Delivery Method Room Air Room Air Room Air BMI result Body Mass Index 42.3 Labs 03/18/23 13:55 03/20/23 07:00 Labs: Laboratory Results - last 48 hr 03/22/23 03/23/23 10:25 08:43 POC Glucose 255 H 126 H Medications Medications Current Medications Acetaminophen (Acetaminophen 325 Mg Tablet) 650 mg PO Q6H PRN PRN Reason: Headache/Pain Mild Scale (1-3) Last Admin: 03/21/23 16:03 Dose: 650 mg Al Hydroxide/Mg Hydroxide (Magnesium Hydrox/Alum Hydrox 30 Ml Oral.Susp) 30 ml PO Q6H PRN PRN Reason: Heartburn/Nausea Amlodipine Besylate (Amlodipine Besylate 5 Mg Tablet) 5 mg PO DAILY [facility]; Protocol Last Admin: 03/23/23 08:21 Dose: 5 mg Benzocaine (Throat Lozenge, Medicated Lozenge) 1 lozenge MUCOUS MEM Q2H PRN PRN Reason: Sore Throat Last Admin: 03/22/23 21:00 Dose: 1 lozenge Cariprazine (Cariprazine Hcl 3 Mg Capsule) 6 mg PO DAILY [facility] Last Admin: 03/23/23 08:21 Dose: 6 mg Guanfacine HCl (Guanfacine Hcl Er 1 Mg Tab.Er.24h) 3 mg PO DAILY [facility] Last Admin: 03/23/23 08:21 Dose: 3 mg Hydroxyzine HCl (Hydroxyzine Hcl 25 Mg Tablet) 25 mg PO Q6H PRN PRN Reason: Anxiety [place] Carbonate ([place] Carbonate Er 300 Mg Tablet.Er) 1,200 mg PO BEDTIME [facility] Last Admin: 03/22/23 21:00 Dose: 1,200 mg Magnesium Hydroxide (Milk Of Magnesia 30 Ml Oral.Susp) 30 ml PO DAILY PRN PRN Reason: Constipation Metformin HCl (Metformin Hcl 1,000 Mg Tablet) 1,000 mg PO BIDWM [facility] Last Admin: 03/23/23 08:21 Dose: 1,000 mg Multi-Ingred Medicated Throat [place] (Thro[place], Medicated 177 Ml Bottle) 1 spray MUCOUS MEM Q2H PRN PRN Reason: Sore Throat Nicotine Polacrilex (Nicotine Polacrilex 2 Mg Gum) 4 mg BUCCAL Q2H PRN PRN Reason: Nicotine Cravings Non-Formulary Medication (Guanfacine) 1 mg PO BEDTIME [facility] Propranolol HCl (Propranolol Hcl La 80 Mg Cap.Sa.24h) 80 mg PO DAILY [facility]; Protocol Last Admin: 03/23/23 08:21 Dose: 80 mg Trazodone HCl (Trazodone Hcl 50 Mg Tablet) 50 mg PO BEDTIME MRX1 PRN PRN Reason: Insomnia Allergies Allergies Allergy/AdvReac Type Severity Reaction Status Date / Time No Known Allergies Allergy Verified 03/18/23 10:01 Assessment & Plan Assessment & Plan (1) Intermittent explosive disorder in adult: Status: Acute Code(s): F63.81 - Intermittent explosive disorder (2) Intellectual disability: Status: Acute Code(s): F79 - Unspecified intellectual disabilities Plan Mr. Noriega is a 27 year-old male with hx of intellectual/developmental disability and intermittent explosive behaviors who was brought via EMS to [facility] due to pt presenting with explosive destructive behaviors at home. On the unit, pt reports he does not remember why he was so upset but does report that he has tendency to lose control when frustrated. It appears that pt had been stable while at [facility] but has struggled with explosive behaviors since he has been at home with mother. Pt's family also recently relocated from [place] to [place] and pt not connected with services in the area. However, DDS worker and psychiatric prescriber from [facility] are managing pt's care until connected here. PLAN 1. Admit to M3, CV, 15 minutes checks 2. continue current medications 3. obtain collateral information 4. Aftercare planning. 03/22 continue tx. 03/23 continue tx. Reason for continued inpatient stay Substantial Risk for: stable for discharge Time Spent With Patient Time: Total time managing care of this patient today ____ minutes.
[2023-03-23] MEDS: Throat Lozenge, Medicated LOZENGE 1 LOZENGE MUCOUS MEM (13:54)
[2023-03-23 19:45] VITALS: BP 134/62; PULSE 79; RESP 16; TEMP 36.6; O2SAT 95
[2023-03-23] MEDS: Lithium Carbonate ER 300 MG TABLET.ER 1200 MG PO (20:47)
--- NOTE | 2023-03-23 23:38 | PC.NURSE ---
Lit is admitted to [facility] for safety, observation and medication management, diagnosis bipolar disorder and intermittent explosive disorder, he is alsi intellectually challenged. This evening he was watching BB game in the dayroom with peers, social, receptive to 1:1 contact, denies SI/AVH, med adherent, No behavior issues. Scheduled for possible discharge next week. POC as outlined, 15 min unit safety observation.
[2023-03-24 08:21] VITALS: BP 141/68; PULSE 59; RESP 16; TEMP 36.4; O2SAT 98
[2023-03-24] MEDS: amLODIPine Besylate 5 MG TABLET PO (08:21)
[2023-03-24] MEDS: guanFACINE HCl ER 1 MG TAB.ER.24H 3 MG PO (08:21)
[2023-03-24] MEDS: metFORMIN HCl 1,000 MG TABLET 1000 MG PO ×2 (08:21→16:52)
[2023-03-24] MEDS: Cariprazine HCl 3 MG CAPSULE 6 MG PO (08:21)
[2023-03-24] MEDS: Acetaminophen 325 MG TABLET 650 MG PO ×2 (08:22→21:17)
[2023-03-24] MEDS: Propranolol HCL LA 80 MG CAP.SA.24H PO (08:22)
[2023-03-24 08:54] LABS: Glucose, Whole Blood 154 mg/dL (60-115)
--- NOTE | 2023-03-24 19:52 | HO.PSYCHPN ---
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 Engaged. [place] and very focused on writers accent and sports. Attending groups. Discussed admission circumstances. Remorseful ref aggression at home. Hopes to return home in [place]. Enjoying [employer] playoffs/[employer]ics. Denies depression, SI, HI, psychosis. Feels supported. Medication Compliance: Yes Side effects from medications: No Attending Groups: Yes Review of Systems Acute medical concerns: No Review of Systems Review of Systems knee pain relieved by tylenol Mental Status Exam Mental Status Exam Narrative: Appearance: Green hair. MO, casually groomed, fair hygiene, somewhat malodorous, in NAD behavior: friendly, cooperative Psychomotor: bilat resting tremors, suspect s/s to lithium Speech: clear, normal rate/rhythm/volume, spontaneous TP: mostly linear, TC: no signs of psychosis, future oriented in that he hopes to return home soon Mood: fine Affect: congruent SI: none HI: none AH/VH: none Delusions: none Insight/judgment: poor-fair Memory/cog: alert, oriented x 3. underlying intellectual disability. Diagnostics Vital Signs (24Hr): Vital Signs - 24 hr 03/24/23 08:21 Temperature 97.6 F Pulse Rate 59 Respiratory Rate 16 Blood Pressure 141/68 H Pulse Oximetry 98 Oxygen Delivery Method Room Air BMI result Body Mass Index 42.3 Labs 03/18/23 13:55 03/20/23 07:00 Labs: Laboratory Results - last 48 hr 03/23/23 03/24/23 08:43 08:50 POC Glucose 126 H 154 H Medications Medications Current Medications Acetaminophen (Acetaminophen 325 Mg Tablet) 650 mg PO Q6H PRN PRN Reason: Headache/Pain Mild Scale (1-3) Last Admin: 03/24/23 08:22 Dose: 650 mg Al Hydroxide/Mg Hydroxide (Magnesium Hydrox/Alum Hydrox 30 Ml Oral.Susp) 30 ml PO Q6H PRN PRN Reason: Heartburn/Nausea Amlodipine Besylate (Amlodipine Besylate 5 Mg Tablet) 5 mg PO DAILY [facility]; Protocol Last Admin: 03/24/23 08:21 Dose: 5 mg Benzocaine (Throat Lozenge, Medicated Lozenge) 1 lozenge MUCOUS MEM Q2H PRN PRN Reason: Sore Throat Last Admin: 03/23/23 13:54 Dose: 1 lozenge Cariprazine (Cariprazine Hcl 3 Mg Capsule) 6 mg PO DAILY [facility] Last Admin: 03/24/23 08:21 Dose: 6 mg Guanfacine HCl (Guanfacine Hcl Er 1 Mg Tab.Er.24h) 3 mg PO DAILY [facility] Last Admin: 03/24/23 08:21 Dose: 3 mg Hydroxyzine HCl (Hydroxyzine Hcl 25 Mg Tablet) 25 mg PO Q6H PRN PRN Reason: Anxiety [place] Carbonate ([place] Carbonate Er 300 Mg Tablet.Er) 1,200 mg PO BEDTIME [facility] Last Admin: 03/23/23 20:47 Dose: 1,200 mg Magnesium Hydroxide (Milk Of Magnesia 30 Ml Oral.Susp) 30 ml PO DAILY PRN PRN Reason: Constipation Metformin HCl (Metformin Hcl 1,000 Mg Tablet) 1,000 mg PO BIDWM [facility] Last Admin: 03/24/23 16:52 Dose: 1,000 mg Multi-Ingred Medicated Throat [place] (Throat [place], Medicated 177 Ml Bottle) 1 spray MUCOUS MEM Q2H PRN PRN Reason: Sore Throat Nicotine Polacrilex (Nicotine Polacrilex 2 Mg Gum) 4 mg BUCCAL Q2H PRN PRN Reason: Nicotine Cravings Non-Formulary Medication (Guanfacine) 1 mg PO BEDTIME [facility] Propranolol HCl (Propranolol Hcl La 80 Mg Cap.Sa.24h) 80 mg PO DAILY [facility]; Protocol Last Admin: 03/24/23 08:22 Dose: 80 mg Trazodone HCl (Trazodone Hcl 50 Mg Tablet) 50 mg PO BEDTIME MRX1 PRN PRN Reason: Insomnia Allergies Allergies Allergy/AdvReac Type Severity Reaction Status Date / Time No Known Allergies Allergy Verified 03/18/23 10:01 Assessment & Plan Assessment & Plan (1) Intermittent explosive disorder in adult: Status: Acute Code(s): F63.81 - Intermittent explosive disorder (2) Intellectual disability: Status: Acute Code(s): F79 - Unspecified intellectual disabilities Plan Mr. Noriega is a 27 year-old male with hx of intellectual/developmental disability and intermittent explosive behaviors who was brought via EMS to [facility] ED due to pt presenting with explosive destructive behaviors at home. On the unit, pt reports he does not remember why he was so upset but does report that he has tendency to lose control when frustrated. It appears that [facility] but has struggled with explosive behaviors since he has been at home with mother. Pt's family also recently relocated from [place] to [place] and pt not connected with services in the area. However, DDS worker and psychiatric prescriber from [facility] are managing pt's care until connected here. PLAN 1. Admit to M3, CV, 15 minutes checks 2. continue current medications 3. obtain collateral information 4. Aftercare planning. 03/22 continue tx. 03/24 continue tx. Reason for continued inpatient stay Substantial Risk for: rapid decompensation Time Spent With Patient Time: Total time managing care of this patient today ____ minutes.
[2023-03-24 20:00] VITALS: BP 150/76; PULSE 72; RESP 16; TEMP 36.6; O2SAT 97
[2023-03-24] MEDS: Lithium Carbonate ER 300 MG TABLET.ER 1200 MG PO (21:17)
[2023-03-25 06:00] VITALS: BP 133/72; PULSE 80; RESP 16; TEMP 36.6; O2SAT 97
[2023-03-25 07:47] LABS: Lithium 0.54 mmol/L (0.60-1.20)
[2023-03-25 07:54] LABS: Glucose, Whole Blood 116 mg/dL (60-115)
[2023-03-25] MEDS: Cariprazine HCl 3 MG CAPSULE 6 MG PO (08:03)
[2023-03-25] MEDS: guanFACINE HCl ER 1 MG TAB.ER.24H 3 MG PO (08:03)
[2023-03-25] MEDS: Propranolol HCL LA 80 MG CAP.SA.24H PO (08:03)
[2023-03-25] MEDS: metFORMIN HCl 1,000 MG TABLET 1000 MG PO ×2 (08:03→17:07)
[2023-03-25] MEDS: amLODIPine Besylate 5 MG TABLET PO (08:04)
[2023-03-25] MEDS: Acetaminophen 325 MG TABLET 650 MG PO ×2 (09:19→20:36)
--- NOTE | 2023-03-25 12:50 | HO.PSYCHPN ---
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 Engaged. Feeling cared for and supportive. Hopeful ref family and home. Enjoying [employer] playoffs/[employer] game today. Denies depression, SI, HI, psychosis. Left knee discomfort/ No obvious swelling. Will order Capsaicin cream. Medication Compliance: Yes Side effects from medications: No Attending Groups: Yes Review of Systems Acute medical concerns: No Review of Systems Review of Systems knee pain relieved by tylenol Mental Status Exam Mental Status Exam Narrative: Appearance: Green hair. MO, casually groomed, fair hygiene, somewhat malodorous, in NAD behavior: friendly, cooperative Psychomotor: left knee discomfort Speech: clear, normal rate/rhythm/volume, spontaneous TP: mostly linear, TC: no signs of psychosis, future oriented in that he hopes to return home soon Mood: fine Affect: congruent SI: none HI: none AH/VH: none Delusions: none Insight/judgment: poor-fair Memory/cog: alert, oriented x 3. underlying intellectual disability. Diagnostics Vital Signs (24Hr): Vital Signs - 24 hr 03/24/23 20:00 03/25/23 06:00 Temperature 97.8 F 97.8 F Pulse Rate 72 80 Respiratory Rate 16 16 Blood Pressure 150/76 H 133/72 Pulse Oximetry 97 97 Oxygen Delivery Method Room Air Room Air BMI result Body Mass Index 42.3 Labs 03/18/23 13:55 03/20/23 07:00 Labs: Laboratory Results - last 48 hr 03/24/23 03/25/23 03/25/23 08:50 07:12 07:50 POC Glucose 154 H 116 H [place] 0.54 L Medications Medications Current Medications Acetaminophen (Acetaminophen 325 Mg Tablet) 650 mg PO Q6H PRN PRN Reason: Headache/Pain Mild Scale (1-3) Last Admin: 03/25/23 09:19 Dose: 650 mg Al Hydroxide/Mg Hydroxide (Magnesium Hydrox/Alum Hydrox 30 Ml Oral.Susp) 30 ml PO Q6H PRN PRN Reason: Heartburn/Nausea Amlodipine Besylate (Amlodipine Besylate 5 Mg Tablet) 5 mg PO DAILY [facility]; Protocol Last Admin: 03/25/23 08:04 Dose: 5 mg Benzocaine (Throat Lozenge, Medicated Lozenge) 1 lozenge MUCOUS MEM Q2H PRN PRN Reason: Sore Throat Last Admin: 03/23/23 13:54 Dose: 1 lozenge Capsaicin (Capsaicin 0.025% Cream 60 Gm Tube) 1 appl TOPICAL TID PRN; Protocol PRN Reason: knee pain Cariprazine (Cariprazine Hcl 3 Mg Capsule) 6 mg PO DAILY [facility] Last Admin: 03/25/23 08:03 Dose: 6 mg Guanfacine HCl (Guanfacine Hcl Er 1 Mg Tab.Er.24h) 3 mg PO DAILY [facility] Last Admin: 03/25/23 08:03 Dose: 3 mg Hydroxyzine HCl (Hydroxyzine Hcl 25 Mg Tablet) 25 mg PO Q6H PRN PRN Reason: Anxiety [place] Carbonate ([place] Carbonate Er 300 Mg Tablet.Er) 1,200 mg PO BEDTIME [facility] Last Admin: 03/24/23 21:17 Dose: 1,200 mg Magnesium Hydroxide (Milk Of Magnesia 30 Ml Oral.Susp) 30 ml PO DAILY PRN PRN Reason: Constipation Metformin HCl (Metformin Hcl 1,000 Mg Tablet) 1,000 mg PO BIDWM [facility] Last Admin: 03/25/23 08:03 Dose: 1,000 mg Multi-Ingred Medicated Throat [place] (Thro[place], Medicated 177 Ml Bottle) 1 spray MUCOUS MEM Q2H PRN PRN Reason: Sore Throat Nicotine Polacrilex (Nicotine Polacrilex 2 Mg Gum) 4 mg BUCCAL Q2H PRN PRN Reason: Nicotine Cravings Non-Formulary Medication (Guanfacine) 1 mg PO BEDTIME [facility] Propranolol HCl (Propranolol Hcl La 80 Mg Cap.Sa.24h) 80 mg PO DAILY [facility]; Protocol Last Admin: 03/25/23 08:03 Dose: 80 mg Trazodone HCl (Trazodone Hcl 50 Mg Tablet) 50 mg PO BEDTIME MRX1 PRN PRN Reason: Insomnia Allergies Allergies Allergy/AdvReac Type Severity Reaction Status Date / Time No Known Allergies Allergy Verified 03/18/23 10:01 Assessment & Plan Assessment & Plan (1) Intermittent explosive disorder in adult: Status: Acute Code(s): F63.81 - Intermittent explosive disorder (2) Intellectual disability: Status: Acute Code(s): F79 - Unspecified intellectual disabilities Plan Mr. Noriega is a 27 year-old male with hx of intellectual/developmental disability and intermittent explosive behaviors who was brought via EMS to [facility] ED due to pt presenting with explosive destructive behaviors at home. On the unit, pt reports he does not remember why he was so upset but does report that he has tendency to lose control when frustrated. It appears that pt had been stable while at [facility] but has struggled with explosive behaviors since he has been at home with mother. Pt's family also recently relocated from [place] to [place] and pt not connected with services in the area. However, DDS worker and psychiatric prescriber from [facility] are managing pt's care until connected here. PLAN 1. Admit to M3, CV, 15 minutes checks 2. continue current medications 3. obtain collateral information 4. Aftercare planning. 03/22 continue tx. 03/25 continue tx. Will order Capsaicin cream for knee discomfort Reason for continued inpatient stay Substantial Risk for: inability to function Time Spent With Patient Time: Total time managing care of this patient today ____ minutes.
[2023-03-25 20:33] VITALS: BP 140/74; PULSE 80; RESP 18; TEMP 36.6; O2SAT 98
[2023-03-25] MEDS: Lithium Carbonate ER 300 MG TABLET.ER 1200 MG PO (20:36)
[2023-03-26] MEDS: Cariprazine HCl 3 MG CAPSULE 6 MG PO (08:32)
[2023-03-26] MEDS: guanFACINE HCl ER 1 MG TAB.ER.24H 3 MG PO (08:33)
[2023-03-26] MEDS: Propranolol HCL LA 80 MG CAP.SA.24H PO (08:33)
[2023-03-26] MEDS: metFORMIN HCl 1,000 MG TABLET 1000 MG PO ×2 (08:34→16:16)
[2023-03-26] MEDS: amLODIPine Besylate 5 MG TABLET PO (08:34)
[2023-03-26 08:36] VITALS: BP 132/65; PULSE 65; RESP 18; TEMP 36.6; O2SAT 98
[2023-03-26 08:50] LABS: Glucose, Whole Blood 132 mg/dL (60-115)
[2023-03-26] MEDS: Acetaminophen 325 MG TABLET 650 MG PO (18:01)
[2023-03-26 20:35] VITALS: BP 140/71; PULSE 80; RESP 18; TEMP 36.6; O2SAT 98
[2023-03-26] MEDS: Lithium Carbonate ER 300 MG TABLET.ER 1200 MG PO (20:46)
--- NOTE | 2023-03-26 21:39 | HO.PSYCHPN ---
Subjective Subjective Date of Service: 03/26/23 Reason For Visit: Aggressive Behaviors Subjective Notes: Conditional Voluntary and 3 Day Interim History: Pt had a great weekend. He was visible on the unit, social with select peers. No signs of aggression towards self or others. He is taking medications as prescribed. No side effects noted reported. This procedure writer spoke with pt's mother, update on medications and presentation here in the hospital. Plan for d/c tomorrow. left VM to OP provider with update. Medication Compliance: Yes Review of Systems Review of Systems knee pain relieved by tylenol Yes all other systems are reviewed and are negative Constitutional: Reports no additional constitutional complaints, Denies body ache(s), Denies chills, Denies fever(s), Denies headache(s) and Denies weakness Eyes: Reports no additional eye complaints and Denies change in vision Reports system reviewed and no additional complaints, except as documented, Denies dizziness, Denies headache(s), Denies nasal congestion, Denies nasal discharge and Denies neck pain Cardiovascular: Reports no additional cardiovascular complaints, Denies chest pain, Denies leg edema and Denies dyspnea Respiratory: Reports no additional respiratory complaints, Denies cough and Denies dyspnea Gastrointestinal: Reports no additional gastrointestinal complaints, Denies abdominal pain, Denies diarrhea, Denies nausea and Denies vomiting Genitourinary: Denies urinary incontinence Musculoskeletal: Reports no additional musculoskeletal complaints, Denies back pain, Denies arthralgias, Denies joint swelling, Denies neck pain, Denies numbness and Denies tingling Skin/Breast: Reports system reviewed and no additional complaints, except as docu and Denies rash Reports system reviewed and no additional complaints, except as documented, Denies Abnormal speech present, Denies dizziness, Denies headache(s), Denies numbness, Denies tingling and Denies weakness Psychiatric: Denies anxiety, Denies depression, Denies homicidal ideation and Denies suicidal ideation Mental Status Exam Mental Status Exam Narrative: Appearance: Green hair. MO, casually groomed, fair hygiene, somewhat malodorous, in NAD behavior: friendly, cooperative Psychomotor: left knee discomfort Speech: clear, normal rate/rhythm/volume, spontaneous TP: mostly linear, TC: no signs of psychosis, future oriented in that he hopes to return home soon Mood: fine Affect: congruent SI: none HI: none AH/VH: none Delusions: none Insight/judgment: poor-fair Memory/cog: alert, oriented x 3. underlying intellectual disability. Diagnostics Vital Signs (24Hr): Vital Signs - 24 hr 03/26/23 08:36 03/26/23 20:35 Temperature 97.8 F 97.9 F Pulse Rate 65 80 Respiratory Rate 18 18 Blood Pressure 132/65 140/71 H Pulse Oximetry 98 98 Oxygen Delivery Method Room Air Room Air BMI result Body Mass Index 42.3 Labs 03/18/23 13:55 03/20/23 07:00 Labs: Laboratory Results - last 48 hr 03/25/23 03/25/23 03/26/23 07:12 07:50 08:32 POC Glucose 116 H 132 H [place] 0.54 L Medications Medications Current Medications Acetaminophen (Acetaminophen 325 Mg Tablet) 650 mg PO Q6H PRN PRN Reason: Headache/Pain Mild Scale (1-3) Last Admin: 03/26/23 18:01 Dose: 650 mg Al Hydroxide/Mg Hydroxide (Magnesium Hydrox/Alum Hydrox 30 Ml Oral.Susp) 30 ml PO Q6H PRN PRN Reason: Heartburn/Nausea Amlodipine Besylate (Amlodipine Besylate 5 Mg Tablet) 5 mg PO DAILY [facility]; Protocol Last Admin: 03/26/23 08:34 Dose: 5 mg Benzocaine (Throat Lozenge, Medicated Lozenge) 1 lozenge MUCOUS MEM Q2H PRN PRN Reason: Sore Throat Last Admin: 03/23/23 13:54 Dose: 1 lozenge Capsaicin (Capsaicin 0.025% Cream 60 Gm Tube) 1 appl TOPICAL TID PRN; Protocol PRN Reason: knee pain Cariprazine (Cariprazine Hcl 3 Mg Capsule) 6 mg PO DAILY [facility] Last Admin: 03/26/23 08:32 Dose: 6 mg Guanfacine HCl (Guanfacine Hcl Er 1 Mg Tab.Er.24h) 3 mg PO DAILY [facility] Last Admin: 03/26/23 08:33 Dose: 3 mg Hydroxyzine HCl (Hydroxyzine Hcl 25 Mg Tablet) 25 mg PO Q6H PRN PRN Reason: Anxiety [place] Carbonate ([place] Carbonate Er 300 Mg Tablet.Er) 1,200 mg PO BEDTIME [facility] Last Admin: 03/26/23 20:46 Dose: 1,200 mg Magnesium Hydroxide (Milk Of Magnesia 30 Ml Oral.Susp) 30 ml PO DAILY PRN PRN Reason: Constipation Metformin HCl (Metformin Hcl 1,000 Mg Tablet) 1,000 mg PO BIDWM [facility] Last Admin: 03/26/23 16:16 Dose: 1,000 mg Multi-Ingred Medicated Throat [place] (Thro[place], Medicated 177 Ml Bottle) 1 spray MUCOUS MEM Q2H PRN PRN Reason: Sore Throat Nicotine Polacrilex (Nicotine Polacrilex 2 Mg Gum) 4 mg BUCCAL Q2H PRN PRN Reason: Nicotine Cravings Non-Formulary Medication (Guanfacine) 1 mg PO BEDTIME [facility] Propranolol HCl (Propranolol Hcl La 80 Mg Cap.Sa.24h) 80 mg PO DAILY [facility]; Protocol Last Admin: 03/26/23 08:33 Dose: 80 mg Trazodone HCl (Trazodone Hcl 50 Mg Tablet) 50 mg PO BEDTIME MRX1 PRN PRN Reason: Insomnia Allergies Allergies Allergy/AdvReac Type Severity Reaction Status Date / Time No Known Allergies Allergy Verified 03/18/23 10:01 Assessment & Plan Assessment & Plan (1) Intermittent explosive disorder in adult: Status: Acute Code(s): F63.81 - Intermittent explosive disorder (2) Intellectual disability: Status: Acute Code(s): F79 - Unspecified intellectual disabilities Plan Mr. Noriega is a 27 year-old male with hx of intellectual/developmental disability and intermittent explosive behaviors who was brought via EMS to [facility] ED due to pt presenting with explosive destructive behaviors at home. On the unit, pt reports he does not remember why he was so upset but does report that he has tendency to lose control when frustrated. It appears [facility] but has struggled with explosive behaviors since he has been at home with mother. Pt's family also recently relocated from [place] to [place] and pt not connected with services in the area. However, DDS worker and psychiatric prescriber from [facility] are managing pt's care until connected here. PLAN 1. Admit to M3, CV, 15 minutes checks 2. continue current medications 3. obtain collateral information 4. Aftercare planning. 03/22 continue tx. 03/25 continue tx. Will order Capsaicin cream for knee discomfort 03/26 continue tx. Reason for continued inpatient stay Substantial Risk for: stable for discharge Time Spent With Patient Time: Total time managing care of this patient today ____ minutes.
[2023-03-27 06:00] VITALS: BP 152/86; PULSE 75; TEMP 36.6; O2SAT 96
[2023-03-27] MEDS: Acetaminophen 325 MG TABLET 650 MG PO (06:22)
[2023-03-27] MEDS: guanFACINE HCl ER 1 MG TAB.ER.24H 3 MG PO (08:54)
[2023-03-27] MEDS: Cariprazine HCl 3 MG CAPSULE 6 MG PO (08:55)
[2023-03-27] MEDS: amLODIPine Besylate 5 MG TABLET PO (08:55)
[2023-03-27] MEDS: metFORMIN HCl 1,000 MG TABLET 1000 MG PO (08:55)
[2023-03-27] MEDS: Propranolol HCL LA 80 MG CAP.SA.24H PO (08:56)
[2023-03-27 08:57] LABS: Glucose, Whole Blood 113 mg/dL (60-115)
--- NOTE | 2023-03-27 09:23 | P.DS_ITS ---
DS: Providers Provider Date of Service: 03/27/23 Date of admission: 03/19/23 16:47 Primary care physician: Unknown Physician DS: Diagnosis Discharge Diagnosis (1) Intermittent explosive disorder in adult: Status: Acute (2) Intellectual disability: Status: Acute DS: Medications Discharge Medications Home Medications: Previous Rx's Medication Instructions Recorded amlodipine 5 mg tablet 5 mg PO DAILY #30 tabs 03/27/23 capsaicin 0.025 % topical cream 1 appl topical TID PRN knee pain 03/27/23 #25 grams cariprazine 3 mg capsule (Vraylar) 6 mg PO DAILY #60 caps 03/27/23 guanfacine 1 mg tablet 1 mg PO BEDTIME #30 tabs 03/27/23 guanfacine 3 mg tablet,extended 3 mg PO DAILY #30 tabs 03/27/23 release 24 hr lithium carbonate 450 mg 1,350 mg PO BEDTIME #90 tabs 03/27/23 tablet,extended release metformin 1,000 mg tablet 1,000 mg PO BIDWM #60 tabs 03/27/23 propranolol 80 mg capsule,24 80 mg PO DAILY #30 caps 03/27/23 hr,extended release Mental Status Exam Mental Status Exam Narrative: Appearance: Green hair. MO, casually groomed, fair hygiene, somewhat malodorous, in NAD behavior: friendly, cooperative Psychomotor: no agitation or retardation noted Speech: clear, normal rate/rhythm/volume, spontaneous TP: mostly linear, TC: no signs of psychosis, future oriented in that he hopes to return home soon Mood: fine Affect: congruent SI: none HI: none AH/VH: none Delusions: none Insight/judgment: poor-fair Memory/cog: alert, oriented x 3. underlying intellectual disability. Data Data Completed and Pending Completed studies during hospitalization [Text1]: 03/21/23 03/22/23 03/23/23 06:00 10:25 08:43 Creatinine Estim Creat Clear Calc Estimated GFR POC Glucose 135 H 255 H 126 H Shelly 03/24/23 03/25/23 03/25/23 08:50 07:12 07:50 Creatinine Estim Creat Clear Calc Estimated GFR POC Glucose 154 H 116 H Shelly 0.54 L 03/26/23 03/27/23 03/27/23 08:32 08:31 08:51 Creatinine Pending Estim Creat Clear Calc Pending Estimated GFR Pending POC Glucose 132 H 113 Shelly DS: Summary Hospital Course Hospital Course: Mr. Noriega is a 27 year-old male with hx of intellectual disability, intermittent explosive disorder who was assessed by crisis after pt presented as agitated, breaking things. In the ED, utox is negative. On the unit, pt presented as calm and cooperative. Pt reports he got very upset and was breaking things in the home. When asked what provoked his reaction, pt states he can't remember and asked this business writer to contact his mother for further details as to triggers to behavioral outburst. Pt denies SI/HI. He also denies hx of visual or auditory hallucinations. Pt reports that when he gets upset and not given space he has tendency to loose control over his reactions and quickly breaks objects and becomes quiet explosive. He reports taking his medications as prescribed. He does have a bilateral tremor- most likely related to lithium. He reports sleeping and eating well. Collateral information was gathered by EMELI Reed from [facility] worker who reports pt was at [facility] halfway for years up until 2021 when mother decided to take him out of halfway apparently due to mother being upset that pt's brother was not employed at halfway due to not passing background check. Per [facility], pt did not have any episodes of explosive behaviors nor required inpatient level of care while he was at the halfway. Family recently moved from [place] to [place] and pt still pending to be connected with [facility] office. Past Psychiatric History: Inpatient: total of 6- most recent ones in 2021 OP: Xiomara Parrish Past medication trials: lithium, guanfacine, propanolol Hx of suicide attempts: denies. Medical Evaluation Reviewed: Yes HOSPITAL COURSE On the unit, pt was admitted on a CV and placed on 15 minutes checks for safety. Pt signed 3 day notice. On admission, pt reported that when feeling frustrated he can get angry and break things. He did not remember specific reason for him feeling so frustrated, other than he reported his relationship with brother is difficult. Pt reports taking medications as prescribed. He denied psychosis or delusions and did not appear to be internally preoccupied at any time during this admissions. On the unit, pt was very pleasant and social. He did not show any signs of aggression towards self or others. He denied symptoms of depression. He reported sleeping well but not with hospital mattress. Llithium level was low on admission. We discussed switching lithium to once daily to decrease effects intermediate frame tender on renal function and reach maintenance/ therapeutic dose with level around 0.6. DDS reported pt did very well with no 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iatric admission while he was at [facility]. He has struggled adjusting to living with parents and brother. It appears that there is significant conflict with brother that triggers him. Referrals were made for pt to reconnect with outpatient psychiatric providers in the area as [place] [facility] and DDS services have not been transitioned to [facility]. Mother to bring pt to day programs, information given on discharge. Status at Discharge Cognitive/behavioral status at discharge: Pt with bright, non labile. No SI/HI. No VH/AH. Pt very pleasant with no signs of depression. Pt very friendly social. He did not show any signs of aggression towards self or others. Pt sleeping, eating well. Taking medications as prescribed. Functional status at discharge: independent ambulation Overall status at discharge: patient is progressing back to baseline Time Spent with Patient Time attestation: Total time managing care of this patient today ____ minutes. Discharge Plan Discharge Anticipated Discharge Date/Time: 03/27/23 09:09 Patient Disposition: Home, Self-Care Discharge Diagnosis: Intermittent Explosive Disorder Intellectual Disability Referrals: [facility] [place] [Other] - 03/29/23 3:00 pm (Assessment- In office -Janet Wu) [facility] [Other] - 04/25/23 11:00 am (Psychiatric Assessment- Alisson Jacobo- [facility]) [facility] [Other] - 05/24/23 2:00 pm (Medication Management- Alisson Jacobo- [facility]) Physician,Unknown J [Primary Care Provider] - 04/11/23 2:30 pm (DR. Gigi Carrillo Follow up appoinment 04/11/23 @230pm) Discharge Medications: New amlodipine 5 mg Tablet 5 mg PO DAILY Qty: 30 0RF Protocol: Hold for SBP< HOLD for SBP < : 90 propranolol 80 mg Capsule,Extended Release 24hr 80 mg PO DAILY Qty: 30 0RF Protocol: Hold for SBP/HR < HOLD for SBP < : 90 HOLD for HR < : 60 guanfacine 1 mg Tablet 1 mg PO BEDTIME Qty: 30 0RF Vraylar 3 mg Capsule 6 mg PO DAILY Qty: 60 0RF guanfacine 3 mg tablet extended release 24 hr 3 mg PO DAILY Qty: 30 0RF lithium carbonate 450 mg tablet extended release 1,350 mg PO BEDTIME Qty: 90 0RF metformin 1,000 mg Tablet 1,000 mg PO BIDWM Qty: 60 0RF capsaicin 0.025 % Cream 1 appl topical TID PRN (Reason: knee pain) Qty: 25 0RF Protocol: Apply to: Apply to: knee Discontinued amlodipine 5 mg tablet 5 mg PO DAILY lithium carbonate 300 mg capsule 900 mg PO DAILY metformin 1,000 mg tablet 1,000 mg PO BID propranolol 80 mg capsule,extended release 24hr 80 mg PO DAILY guanfacine 1 mg tablet 1 mg PO QPM Vraylar 6 mg capsule 6 mg PO DAILY guanfacine 3 mg tablet extended release 24 hr 3 mg PO QAM Discharge Orders: Discharge Order (Routine); Ordered 03/27/23 Ordered By: Ayanna Hudson Diet: Diabetic diet Activity on Discharge: As tolerated Stand Alone Forms: Patient Portal Discharge page Care Plan Goals: 1. Maintain mood 2. No SI/HI 3. no explosive behaviors Health Concerns: Follow up with PCP- high triglycerides, management of DM. Plan of Treatment: 1. Take medications as prescribed 2. Go to nearest ED or call 911 in event of emergency. Assessment: Pt with bright, non labile affect. No SI/HI. No signs of psychosis or delusions. No aggression towards self or others. Future oriented. Pt visible on the unit, social.
[2023-03-27 11:11] LABS: Creatinine Clr Calc Pharmacy 212.1; Estimated Glomerular Filt Rate > 60
== END 2023-03-27 14:05 | disposition home or self-care (01) | DRG 758 ==
LOC: HO.ED 03-19 10:56 → HO.PADLT16 03-19 17:02
PROVIDERS: Internal Medicine; Nurse Practitioner Family; Admitting Provider Psychiatry & Neurology Psychiatry; Emergency Provider Emergency Medicine; Visit Provider Social Worker
DX: F63.81 Intermittent explosive disorder (principal); F79 Unspecified intellectual disabilities; Z20.822 Contact with and (suspected) exposure to COVID-19; Z79.84 Long term (current) use of oral hypoglycemic drugs; Z79.899 Other long term (current) drug therapy
CPT/HCPCS: 36415; 80048; 80053; 80061; 80076; 80178; 80307; 82077; 82565; 82607; 82746; 82947; 83036; 84439; 84443; 85025; 87635; 93005; 99285; S9485

== ENCOUNTER 2023-05-24 13:12 | Emergency (ER) | payer OTHER, SELFPAY ==
[2023-05-24 13:20] VITALS: BP 140/100; PULSE 84; O2SAT 98; BMI 27.5
[2023-05-24 13:33] VITALS: BP 146/70; PULSE 86; RESP 15; TEMP 36.1; O2SAT 96
--- NOTE | 2023-05-24 14:08 | ED.PSYCH ---
HPI - Psych General Chief Complaint: Psychiatric Symptoms Stated Complaint: anger, depression, anxiety per EMS Time Seen by Provider: 05/24/23 13:24 Source: patient Mode of arrival: EMS Limitations: other (Intellectual disability) History of Present Illness HPI Narrative: Patient comes to the emergency room after having an anger outburst. Patient states that his mother reinaldo food, accidentally gave his foot to the patient's father, this triggered anger. Patient states that he slammed the door and it fell off the hinge. Ambulance was called and patient was brought to the emergency room. Patient was agreeable to come, states that he needed to come down. Patient denies suicidal or homicidal ideation Related Data Home Medications Medication Instructions Recorded Confirmed guanfacine 1 mg tablet 1 mg PO DAILY 05/24/23 05/24/23 guanfacine 3 mg tablet,extended 3 mg PO BEDTIME 05/24/23 05/24/23 release 24 hr Previous Rx's Medication Instructions Recorded cariprazine 3 mg capsule (Vraylar) 6 mg PO DAILY #60 caps 03/27/23 lithium carbonate 450 mg 1,350 mg PO BEDTIME #90 tabs 03/27/23 tablet,extended release metformin 1,000 mg tablet 1,000 mg PO BIDWM #60 tabs 03/27/23 propranolol 80 mg capsule,24 80 mg PO DAILY #30 caps 03/27/23 hr,extended release Allergies Allergy/AdvReac Type Severity Reaction Status Date / Time No Known Allergies Allergy Verified 03/18/23 10:01 Review of Systems Review of Systems: Constitutional : No Weight loss, No Fever, No Chills, No Night Sweats, No Fatigue, No Malaise ENT/Mouth : No Hearing loss, No Ear Pain, No Nasal Congestion, No Sinus Pain, No Hoarseness, No sore throat, No Rhinorrhea, No Swallowing Difficulty Eyes: No Eye Pain, No Swelling, No Redness, No Foreign Body, No Discharge, No Vision Changes Cardiovascular : No Chest Pain, No SOB, No Dyspnea on Exertion, No Orthopnea, No Edema, No Palpitations Respiratory : No Cough, No Sputum, No Wheezing, No Smoke Exposure, No Dyspnea Gastrointestinal : No Nausea, No Vomiting, No Diarrhea, No Constipation, No abdominal Pain, No Hematochezia, No Melena Genitourinary : no irregular bleeding, No Dysuria, No Urinary Frequency, No Hematuria, No Urinary Incontinence, No Urgency, No Flank Pain, No Urinary Flow Changes, No Hesitancy Musculoskeletal : No joint pain, No Myalgias, No Joint Swelling Skin : No Skin Lesions, No rash Neuro : No Weakness, No Numbness, No Paresthesias, No Loss of Consciousness, No Dizziness, No Headache Psych : No Anxiety/Panic, complaining of and aggression outburst, No Depression, No SI/HI/AH/VH, No Social Issues, Heme/Lymph: No Bruising, No Bleeding,No Lymphadenopathy Endocrine : No Polyuria, No Polydipsia, No Temperature Intolerance [facility] Past Medical History Medical History Intellectual disability Intermittent explosive disorder in adult Social History Social History Household Members: Family Do you presently have visiting nurse or other home services: No Alcohol intake: current Alcohol intake frequency: a few times a week Alcohol type: wine Patient Tobacco Use Status: Never used Tobacco Smoked in Last 30 Days: No Use of substances other than those prescribed or required for medical reasons: No Advance Directives: No Advance Directives Information Provided: No service: No Sexual orientation: Decline to Answer Physical Exam Vital Signs: Vital Signs: Last Vital Signs Temp 97 F 05/24/23 13:33 Pulse 86 05/24/23 13:33 Resp 15 05/24/23 13:33 BP 146/70 H 05/24/23 13:33 Pulse Ox 96 05/24/23 13:33 O2 Del Method Room Air 05/24/23 13:33 BMI result Body Mass Index 27.5 Const: Other: Appearance: Alert. Oriented X3. No acute distress. Disheveled Eyes: Pupils equal, round and reactive to light. ENT: Pharynx normal. Neck: Normal inspection. Neck supple. No lymph nodes noted. No crepitus CVS: Normal heart rate and rhythm. Pulses normal. Normal S1 and S2 Respiratory: No respiratory distress. Breath sounds normal. No Wheezing. No rales Abdomen: Soft and nontender. No rigidity. No distention. Skin: Skin warm and dry. Normal skin color. Normal skin turgor. Extremities: No lower extremity edema. No Lacerations. No Rash Neuro: Oriented X 3. No motor deficit. No sensory deficit. Moving all extremities. No slurred speech. CN 2 through 12 grossly intact Psych: calm, cooperative, normal affect Course Course Course Narrative: -patient had an anger outburst, no SI no HI, no need for Section 12. At this time, patient, cooperative. -U tox pending -care team consult pending -physician observation started at 14:15 Medical Decision Making Medical Decision Making MDM Narrative: -the care team evaluated the patient, patient is not suicidal homicidal, not angry. -care team recommends discharge home. However, the patient's mother refused to take him back. -case management consult pending Lab Data 05/24/23 14:53 05/24/23 14:53 Labs: Lab Results 05/24/23 05/24/23 05/24/23 Range/Units 14:26 14:26 14:26 WBC (4.8-10.8) X10*3/uL RBC (4.60-5.80) X10*6/uL Hgb (14.0-18.0) g/dl Hct (42.0-52.0) % MCV (80.0-98.0) fL MCH (27.0-33.0) pg MCHC (31.0-36.0) g/dl RDW (11.0-16.0) % Plt Count (160-400) X10*3/uL MPV (9.4-12.4) fL Immature Gran % (Auto) (0.0-0.4) % Neut % (Auto) (45-73) % Lymph % (Auto) (20-40) % Piatt % (Auto) (2-11) % Eos % (Auto) (0-4) % Baso % (Auto) (0-2) % Lymph # (Auto) (1.2-4.9) X10*3/uL Piatt # (Auto) (0.1-1.2) X10*3/uL Eos # (Auto) (0.0-0.4) X10*3/uL Baso # (Auto) (0.0-0.2) X10*3/uL Abs Immat Gran (auto) (0.00-0.03) X10*3/uL Absolute Neuts (auto) (2.0-8.3) x10*3/uL Absolute Nucleated RBC (0.0-0.012) X10*3/uL Nucleated RBC % (auto) (0.0-0.2) /100WBC Sodium (135-145) mmol/L Potassium (3.3-5.1) mmol/L Chloride (96-108) mmol/L Carbon Dioxide (22-29) mmol/L Anion Gap (12-20) BUN (9-16) mg/dL Creatinine (0.5-1.4) mg/dL Estim Creat Clear Calc Estimated GFR Random Glucose (60-115) mg/dL Calcium (8.4-10.2) mg/dL Total Bilirubin (0.0-1.0) mg/dL AST (5-37) U/L ALT (0-40) U/L Alkaline Phosphatase (39-117) U/L Total Protein (6.5-8.0) g/dL Albumin (3.5-5.0) g/dL Urine Color Dark Yellow Urine Appearance Clear Urine pH 5.5 (5.0-9.0) Ur Specific [place] 1.025 (1.005-1.025) Urine Protein 300 (3+) H (Neg-Trace) mg/dL Urine Glucose (UA) Negative (Negative) mg/dL Urine Ketones Trace (Negative) mg/dL Urine Blood Negative (Negative) Urine Nitrite Negative (Negative) Ur Leukocyte Esterase Negative (Negative) Urine RBC 0-2 (0-2) /HPF Urine WBC 0-5 (0-5) /HPF Ur Squamous Epith Cells 3-5 (0-2) /HPF Urine Bacteria None Seen (None Seen) Hyaline Casts >20 (0-2) /LPF Urine Opiates Screen Not Detected (Not Detect) Urine Fentanyl Screen Not Detected (Not Detect) Ur Barbiturates Screen Not Detected (Not Detect) Ur Phencyclidine Scrn Not Detected (Not Detect) Ur Amphetamines Screen Not Detected (Not Detect) U Benzodiazepines Scrn Not Detected (Not Detect) Urine Cocaine Screen Not Detected (Not Detect) U Marijuana (THC) Screen Not Detected (Not Detect) Ethyl Alcohol mg/dL COVID-19 ([facility]) Negative (Negative) COVID-19 Clin Com See Note 05/24/23 05/24/23 05/24/23 Range/Units 14:53 14:53 14:53 WBC 8.2 (4.8-10.8) X10*3/uL RBC 5.55 (4.60-5.80) X10*6/uL Hgb 15.3 (14.0-18.0) g/dl Hct 46.3 (42.0-52.0) % MCV 83.4 (80.0-98.0) fL MCH 27.6 (27.0-33.0) pg MCHC 33.0 (31.0-36.0) g/dl RDW 12.9 (11.0-16.0) % Plt Count 222 (160-400) X10*3/uL MPV 9.9 (9.4-12.4) fL Immature Gran % (Auto) 0.5 H (0.0-0.4) % Neut % (Auto) 55.8 (45-73) % Lymph % (Auto) 31.4 (20-40) % Piatt % (Auto) 8.5 (2-11) % Eos % (Auto) 3.2 (0-4) % Baso % (Auto) 0.6 (0-2) % Lymph # (Auto) 2.6 (1.2-4.9) X10*3/uL Piatt # (Auto) 0.7 (0.1-1.2) X10*3/uL Eos # (Auto) 0.3 (0.0-0.4) X10*3/uL Baso # (Auto) 0.1 (0.0-0.2) X10*3/uL Abs Immat Gran (auto) 0.04 H (0.00-0.03) X10*3/uL Absolute Neuts (auto) 4.6 (2.0-8.3) x10*3/uL Absolute Nucleated RBC 0.000 (0.0-0.012) X10*3/uL Nucleated RBC % (auto) 0.0 (0.0-0.2) /100WBC Sodium 138 (135-145) mmol/L Potassium 3.7 (3.3-5.1) mmol/L Chloride 104 (96-108) mmol/L Carbon Dioxide 20 L (22-29) mmol/L Anion Gap 18 (12-20) BUN 15 (9-16) mg/dL Creatinine 1.05 (0.5-1.4) mg/dL Estim Creat Clear Calc 127.4 Estimated GFR > 60 Random Glucose 160 H (60-115) mg/dL Calcium 10.6 H (8.4-10.2) mg/dL Total Bilirubin 0.5 (0.0-1.0) mg/dL AST 41 H (5-37) U/L ALT 87 H (0-40) U/L Alkaline Phosphatase 81 (39-117) U/L Total Protein 7.9 (6.5-8.0) g/dL Albumin 4.7 (3.5-5.0) g/dL Urine Color Urine Appearance Urine pH (5.0-9.0) Ur Specific [place] (1.005-1.025) Urine Protein (Neg-Trace) mg/dL Urine Glucose (UA) (Negative) mg/dL Urine Ketones (Negative) mg/dL Urine Blood (Negative) Urine Nitrite (Negative) Ur Leukocyte Esterase (Negative) Urine RBC (0-2) /HPF Urine WBC (0-5) /HPF Ur Squamous Epith Cells (0-2) /HPF Urine Bacteria (None Seen) Hyaline Casts (0-2) /LPF Urine Opiates Screen (Not Detect) Urine Fentanyl Screen (Not Detect) Ur Barbiturates Screen (Not Detect) Ur Phencyclidine Scrn (Not Detect) Ur Amphetamines Screen (Not Detect) U Benzodiazepines Scrn (Not Detect) Urine Cocaine Screen (Not Detect) U Marijuana (THC) Screen (Not Detect) Ethyl Alcohol < 10 mg/dL COVID-19 ([facility]) (Negative) COVID-19 Clin Com Discharge Plan Discharge Clinical Impression: Outbursts of anger Patient Disposition: Still a Patient Prescriptions: No Action propranolol 80 mg Capsule,Extended Release 24hr 80 mg PO DAILY Qty: 30 0RF Protocol: Hold for SBP/HR < HOLD for SBP < : 90 HOLD for HR < : 60 Vraylar 3 mg Capsule 6 mg PO DAILY Qty: 60 0RF lithium carbonate 450 mg tablet extended release 1,350 mg PO BEDTIME Qty: 90 0RF metformin 1,000 mg Tablet 1,000 mg PO BIDWM Qty: 60 0RF guanfacine 1 mg tablet 1 mg PO DAILY guanfacine 3 mg tablet extended release 24 hr 3 mg PO BEDTIME Interventions: Grulla-Suicide Risk Severity Scale Last Done: 07/06/23 14:04
[2023-05-24 15:27] LABS: Alanine Aminotransferase 87 U/L (0-40); Albumin Level 4.7 g/dL (3.5-5.0); Alkaline Phosphatase 81 U/L (39-117); Anion Gap 18 (12-20); Aspartate Amino Transferase 41 U/L (5-37); Bilirubin Total 0.5 mg/dL (0.0-1.0); Blood Urea Nitrogen 15 mg/dL (9-16); Calcium 10.6 mg/dL (8.4-10.2); Carbon Dioxide 20 mmol/L (22-29); Chloride 104 mmol/L (96-108); Creatinine Clr Calc Pharmacy 127.4; Estimated Glomerular Filt Rate > 60; Glucose Random 160 mg/dL (60-115); Potassium 3.7 mmol/L (3.3-5.1); Sodium 138 mmol/L (135-145); Total Protein 7.9 g/dL (6.5-8.0)
--- NOTE | 2023-05-24 15:48 | PHA.MEDREC ---
Pharmacy Consult ? Medication Reconciliation Pharmacy has completed the medication reconciliation. Spoke to patients mother
--- NOTE | 2023-05-24 16:03 | MHC.CARE ---
This is a 27 year old single black male, DDS involved, BIBA to the ED. EMS called by his mother. He is a tall male, with dyed green hair. He is domiciled with his mother, father and brother. Patient reports that things are okay at home but that he's worried because he broke the door to his room. With prompting questions he goes on to state my mom got me some food and it was wrong and I got mad. He does acknowledge he's been more irritable lately. He reports his mood is so so. Affect is congruent. He admits to being tired, stating he does not sleep well. Appetite wnl. Denies SI/ HI and denies attempt hx. Denies AH/ VH and does not appear to be responding to internal stimuli. T/w speaks with patient's mother, Stephanie [phone], who reports that she called EMS after patient snapped and broke the door for getting the wrong sandwich. She does report that he has seemed under the weather lately. She reports he is medication and treatment compliant, attending [facility] for both therapy and psychiatry. She confirms that Dorinda Ahn is still his DDS worker. Stephanie states that [facility] [place] [facility] [place] [facility] [place] [facility] to get [place] into without much luck. She could not recall the name of the program off hand. When meeting with client, he seemed to struggle to articulate what would be beneficial at this time. He appeared nervous when this travel writer suggested we call his mother to discuss returning home and agreed he would rest for a bit and then we would call his mother together and see about patient returning home as he is expressing appropriate remorse and appears to have awareness/ insight that pulling a door off it's hinges was a large reaction to a small problem. Per mother and patient's past assessment, it does not appear that this destructive behavior is common/ frequent in the home. Plan to meet with patient again and call his mother re: return home. He has been admitted inpt at this facility in the recent past and his admission to unit appears to have been uneventful, without concerning behavior and with medication change of an increase to [place] dose.
--- NOTE | 2023-05-24 18:18 | MHC.CARE ---
patient to remain in the ED while a discharge from ED plan is determined.
--- NOTE | 2023-05-24 18:25 | PC.NURSE ---
Lit arrived to the unit and was tierney and cooperative. Lit reports he came in because he broke a door after getting angry at his mother for getting his food order wrong. Lit was extremely malodorous upon admission and agreed to shower but did not come out with wet hair and was very quick. Appetite is good and Lit has been in good behavioral control since arriving. He denies any SI/HI/AVH.
[2023-05-24 20:11] VITALS: BP 138/78; PULSE 85; RESP 20; TEMP 36.6; O2SAT 96
[2023-05-25 00:16] VITALS: BP 158/88; PULSE 83; RESP 19; TEMP 36.2; O2SAT 98
--- NOTE | 2023-05-25 06:19 | PC.NURSE ---
Patient slept through the night, no distress observed/reported, med rec completed/pending provider's approval, per care team verbal report patient is a case management case however the care note has no mention case management referral, overnight care team clinician made aware, plan for the patient seems like care team calling mother again to discuss the discharge back to her care, behavior non concerning, will continue to monitor.
--- NOTE | 2023-05-25 07:30 | PC.NURSE ---
pt is a/o no sob/lorie noted speaks in full. pt amb (i) gait steady. pt is sitting in common area watching tv.
[2023-05-25 07:58] VITALS: BP 127/71; PULSE 76; RESP 16; TEMP 36.6; O2SAT 96
--- NOTE | 2023-05-25 10:25 | PC.NURSE ---
pt's mother called and pt spoke with her.
--- NOTE | 2023-05-25 12:03 | MHC.CM.ED ---
Received case management consult from Dr Jesus. Patient came to the ER due to aggression. Patient was cleared by Care Team and consult was sent to Case Management. Patient originally was in a care home in the [place] area. Apparently patient took patient out of that care home and brought him to her home. Patient was inpatient at [facility] in March 2023. Patient had a follow up PCP appointment with Gigi Carrillo in [place] after that discharge. Received notification from Dr Jesus that patient's mother will be picking him up and he will be discharged. T/W spoke with Kamila BERRIOS, who verified that patient's mother called and asked when he would be ready to be picked up. Kamila provided Stephanie's telephone number to Care Team. T/W spoke with Cherri in Care Team. Cherri did not call mom. T/W call patient's mother, Stephanie, via telephone at [phone]. Stephanie verified that patient did she Gigi Carrillo after he was discharged from 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. T/W attempted to verify that Stephanie would be taking patient home when discharged from the ER. Stephanie became irrate and stated I will be filing a complaint against this hospital. If one more person tells me its my fault my son acts like this, I will rashel this hospital. Attempted to provide emotional support to Stephanie. Attempted to provide Risk Management info at this time. Stephanie declined. Attempted to verify what time Stephanie would be arriving at the ER, so patient would be ready. Stephanie became upset and stated and now you're rushing me. I'll be there when I get there! Unable to explain to Stephanie that rushing her was not my intention. Incident report completed about Stephanie's concerns. Kamila BERRIOS and Dr Jesus aware Stephanie will be taking patient home. Attempted to call DDS worker, Dorinda Garcia at [facility]. She is a [facility] DDS worker. She can be reached at [phone]. Attempted to speak to Dorinda via telephone. Voicemail answered but T/W was unable to leave a message because her mailbox is full. Continue to monitor for d/c needs.
== END 2023-05-25 12:21 | disposition home or self-care (01) ==
PROVIDERS: Emergency Provider Emergency Medicine
DX: F63.81 Intermittent explosive disorder (principal); F79 Unspecified intellectual disabilities; Z20.822 Contact with and (suspected) exposure to COVID-19; Z79.899 Other long term (current) drug therapy
CPT/HCPCS: 36415; 80053; 80307; 81001; 82947; 85025; 87635; 99284; 99285

== ENCOUNTER 2023-12-30 04:04 | Emergency (ER) | payer OTHER, SELFPAY ==
[2023-12-30 04:10] VITALS: BP 170/107; PULSE 118; RESP 18; TEMP 36.8; O2SAT 96; BMI 39.1
--- NOTE | 2023-12-30 04:12 | ED.EYEPROB ---
HPI - Eye Problem General Chief complaint: Eye Problems Stated complaint: eye pain Time Seen by Provider: 12/30/23 04:11 Source: patient Mode of arrival: EMS Limitations: no limitations History of Present Illness HPI Narrative: Patient ordered which was breath arrival noticed redness and pain in the right eye no blurred vision no trauma no injury having clear drainage no upper respiratory symptoms Related Data Home Medications Medication Instructions Recorded Confirmed guanfacine 1 mg tablet 1 mg PO DAILY 05/24/23 05/24/23 guanfacine 3 mg tablet,extended 3 mg PO BEDTIME 05/24/23 05/24/23 release 24 hr Previous Rx's Medication Instructions Recorded cariprazine 3 mg capsule (Vraylar) 6 mg (2 x 3 mg) PO DAILY #60 caps 03/27/23 lithium carbonate 450 mg 1,350 mg (3 x 450 mg) PO BEDTIME 03/27/23 tablet,extended release #90 tabs metformin 1,000 mg tablet 1,000 mg PO BIDWM #60 tabs 03/27/23 propranolol 80 mg capsule,24 80 mg PO DAILY #30 caps 03/27/23 hr,extended release tobramycin 0.3 % eye drops 2 drp ophthalmic-Right Q4H #5 mL 12/30/23 Allergies Allergy/AdvReac Type Severity Reaction Status Date / Time No Known Allergies Allergy Verified 12/30/23 04:09 Review of Systems Review of Systems: Yes all other systems are reviewed and are negative [facility] Past Medical History Medical History Intellectual disability Intermittent explosive disorder in adult Social History Social History Household Members: Family Do you presently have visiting nurse or other home services: No Alcohol intake: current Alcohol intake frequency: a few times a week Alcohol type: wine Patient Tobacco Use Status: Never used Tobacco Advance Directives: No Advance Directives Information Provided: No service: No Sexual orientation: Decline to Answer Physical Exam Vital Signs: Vital Signs: Last Vital Signs Temp 98.3 F 12/30/23 04:10 Pulse 118 H 12/30/23 04:10 Resp 18 12/30/23 04:10 BP 170/107 H 12/30/23 04:10 Pulse Ox 96 12/30/23 04:10 O2 Del Method Room Air 12/30/23 04:10 BMI result Body Mass Index 39.1 Appearance: Alert. No acute distress. Eyes: Inflamed right palpebral and scleral conjunctiva with watery discharge, anterior chamber normal ENT: Pharynx normal. Oral Mucosa moist Neuro: Autism alert and awake Medical Decision Making Medical Decision Making MDM Narrative: Patient with conjunctivitis likely viral with watery discharge will give prescription tobramycin Lab Data Labs: Lab Results 12/30/23 Range/Units 04:40 POC Glucose 268 H (60-115) mg/dL Discharge Plan Discharge Clinical Impression: Acute conjunctivitis Patient Disposition: Home, Self-Care Instructions: Conjunctivitis (ED) Additional Instructions: Likely it is viral conjunctivitis Use eyedrops as prescribed for possible bacterial infection Prescriptions: New tobramycin 0.3 % drops 2 drp ophthalmic-Right Q4H Qty: 5 0RF No Action propranolol 80 mg Capsule,Extended Release 24hr 80 mg PO DAILY Qty: 30 0RF Protocol: Hold for SBP/HR < HOLD for SBP < : 90 HOLD for HR < : 60 Vraylar 3 mg Capsule 6 mg PO DAILY Qty: 60 0RF lithium carbonate 450 mg tablet extended release 1,350 mg PO BEDTIME Qty: 90 0RF metformin 1,000 mg Tablet 1,000 mg PO BIDWM Qty: 60 0RF guanfacine 1 mg tablet 1 mg PO DAILY guanfacine 3 mg tablet extended release 24 hr 3 mg PO BEDTIME
--- OUTSIDE RECORDS SUMMARY | 2023-12-30 04:38 | XMS_ITS | Continuity of Care Document ---
Author Name Unknown Organization [facility] [place] Address [address] [place] [id number]- Care Team Providers Care Supervisor Chemical Name Role Phone Not on Staff, PCP Primary Care Physician Unavail able Encounter [facility] Date(s): 01/16/23 - 01/17/[address] [address]- Encounter Diagnosis Bipolar 1 disorder(Final) - 01/16/23 Prediabetes(Final) - 01/16/23 Discharge Disposition: A-D/C Home Attending Physician: Hubert Mcneill MD Admitting Physician: Hubert Mcneill MD Referring Physician: Not on Staff, Referring MD Allergies, Adverse Reactions, Alerts No Known Allergies Medications olanzapine 5 mg oral tablet 5 mg, 1, tablet, By Mouth, Daily, PRN, TAKE ONE TABLET BY MOUTH DAILY NEEDED FOR AGITATION, # 7 tablet, Refills 0, Tot. Refills 0, Maintenance, Agitation, 01/17/23 10:20:00 EST, Route to Pharmacy Electronically, [facility], Partial fi... Start Date: 01/17/23 Stop Date: 01/24/23 Status: Ordered Results Radiology Reports * Exam Date Time Procedure Performing Provider Status 01/16/23 7:33 PM Forearm 2 Views Left Lore , Demetri; Aut h (Verified) Notes: (Forearm 2 Views Left) Reason For Exam: with Pain;Trauma RESULT: Forearm 2 Views Left Forearm 2 Views Left INDICATION: Posttraumatic pain. COMPARISON: None. FINDINGS: 2 views of the left arm demonstrate no fractures or focal osseous lesions. IMPRESSION: No acute osseous abnormality. WSN: [id number] Ordering Physician: Rickey Lopez Dictated By: Landon Shen MD Dictated Date/Time: 01/16/23 7:37 pm Reviewed By: Landon Shen MD Signed By: Landon Shen MD Signed Date/Time: 01/16/23 7:37 pm Transcribed By: REESE Transcribed Date/Time: 01/16/23 7:36 pm Vital Signs Most recent to oldest [Reference Range]: 1 2 Oxygen Saturation [94-100 %] 100 % (01/17/23 6:45 AM) 98 % (01/16/23 6:09 PM) Pulse Rate [55-90 bpm] 87 bpm (01/17/23 6:45 AM) 89 bpm (01/16/23 6:09 PM) Blood Pressure [90-138/55-84 mm Hg] 122/ 84mm Hg (01/17/23 6:45 AM) 133/90mm Hg (01/16/23 6:09 PM) Respiratory Rate [16-30 br/min] 24 br/mi n (01/17/23 6:45 AM) 16 br/min (01/16/23 6:09 PM) Temperature [96.8-100.4 DegF] 97.7 DegF (01/17/23 6:45 AM) 98.1 DegF (01/16/23 6:09 PM) Mode of Delivery (Oxygen) Room air (01/17/23 6:45 AM) Room air (01/16/23 6:09 PM) Blood pressure sites Arm, left (01/17/23 6:45 AM) Arm, left (01/16/23 6:09 PM) Temperature Route Oral (01/17/23 6:45 AM) Oral (01/16/23 6:09 PM) Social History Social History Type Response Smoking Status Never (less than 100 in lifetime) entered on: 01/16/23 Sex XR Radius and Ulna - left 2 Views * [facility] , CIS S: TRANSCRIBE Landon Shen MD: VERIFY Event Display: Result: Authored Date: [id number] Forearm 2 Views Left INDICATION: Posttraumatic pain. COMPARISON: None. FINDINGS: 2 views of the left arm demonstrate no fractures or focal osseous lesions. IMPRESSION: No acute osseous abnormality. WSN: [id number] Ordering Physician: Rickey Lopez Dictated By: Landon Shen MD Dictated Date/Time: 01/16/23 7:37 pm Reviewed By: Landon Shen MD Signed By: Landon Shen MD Signed Date/Time: 01/16/23 7:37 pm Transcribed By: REESE Transcribed Date/Time: 01/16/23 7:36 pm Patient Care team information Care Team Personnel Name: Not on Staff, PCP Position: [facility] Physician (General Medicine) Member Role: PCP Name: *[facility], ED Attending Position: [facility] ED Attendings Patient Name: Kwaku RNBridgett Position: [facility] ED RN W/OE and Tasks Member Role: Patient Care Provider Name: Laura Villalta Position: [facility] ED TA [facility] Name: Hubert Mcneill MD Position: [facility] ED Medicine MD Member Role: Admitting Physician Address: Address: [address] [place] [address]
[2023-12-30 04:43] LABS: Glucose, Whole Blood 268 mg/dL (60-115)
[2023-12-30] MEDS: Tobramycin Sulfate 0.3% Sol Op 5 ML BTL 2 DROP EYE-RIGHT (05:20)
== END 2023-12-30 05:30 | disposition home or self-care (01) ==
PROVIDERS: Emergency Provider Internal Medicine; PCP Podiatrist
DX: H10.31 Unspecified acute conjunctivitis, right eye (principal)
CPT/HCPCS: 82947; 99283; 99284

== ENCOUNTER 2024-02-23 22:03 | Emergency (ER) | payer OTHER, SELFPAY ==
[2024-02-23 22:18] VITALS: BP 140/91; PULSE 103; RESP 18; TEMP 36.3; O2SAT 97; BMI 37.4
== END 2024-02-23 22:54 | disposition left against medical advice (07) ==
LOC: HO.ED 22:49
PROVIDERS: Emergency Provider Emergency Medicine; PCP Podiatrist
DX: H10.023 Other mucopurulent conjunctivitis, bilateral (principal)
CPT/HCPCS: 99281

== ENCOUNTER 2024-03-27 17:15 | Inpatient (IN) | payer OTHER, SELFPAY ==
[2024-03-27 17:24] VITALS: BP 160/100; PULSE 103; O2SAT 97
[2024-03-27 17:30] VITALS: BP 152/94; PULSE 103; RESP 18; TEMP 36.6; O2SAT 95; BMI 35.0
[2024-03-27 17:35] VITALS: BP 153/94; PULSE 103; RESP 18; TEMP 36.6; O2SAT 95
--- NOTE | 2024-03-27 17:35 | ED.PSYCH ---
HPI - Psych General Chief Complaint: Psychiatric Symptoms Stated Complaint: SI,SECT 12. Time Seen by Provider: 03/27/24 17:27 Source: patient and EMS Mode of arrival: EMS Limitations: no limitations History of Present Illness HPI Narrative: 28 yo male with PMH of intermittent explosive disorder, intellectual disability and what sounds like possibly volatile relationship with brother that puts strain on him here with c/o SI after having fight with his brother. States he lives with his mother, brother and father complaint: suicidal ideation Onset (ago): day(s) (1) Duration: constant History of same: Yes Relieving factors: none Exacerbating factors: other Context: other Associated psychiatric symptoms: suicidal ideation Associated symptoms: denies other symptoms Treatments prior to arrival: none If self harm: admits thoughts of self harm Related Data Home Medications ?Medication ?Instructions ?Recorded ?Confirmed guanfacine 1 mg tablet 1 mg PO DAILY 05/24/23 05/24/23 guanfacine 3 mg tablet,extended 3 mg PO BEDTIME 05/24/23 05/24/23 release 24 hr Previous Rx's ?Medication ?Instructions ?Recorded cariprazine 3 mg capsule (Vraylar) 6 mg (2 x 3 mg) PO DAILY #60 caps 03/27/23 lithium carbonate 450 mg 1,350 mg (3 x 450 mg) PO BEDTIME 03/27/23 tablet,extended release #90 tabs metformin 1,000 mg tablet 1,000 mg PO BIDWM #60 tabs 03/27/23 propranolol 80 mg capsule,24 80 mg PO DAILY #30 caps 03/27/23 hr,extended release tobramycin 0.3 % eye drops 2 drp ophthalmic-Right Q4H #5 mL 12/30/23 Allergies Allergy/AdvReac Type Severity Reaction Status Date / Time No Known Allergies Allergy Verified 03/27/24 17:33 Review of Systems Review of Systems: Constitutional : No Fever, No Chills ENT/Mouth : No Ear Pain, No Nasal Congestion, No sore throat Eyes: No Eye Pain, No Swelling, No Redness Cardiovascular : No Chest Pain, No SOB Respiratory : No Cough, No Sputum, No Dyspnea Gastrointestinal : No Nausea, No Vomiting, No Diarrhea, No Hematochezia, No Melena Genitourinary : No Dysuria, No Urinary Frequency, No Hematuria Musculoskeletal : No Myalgias Skin : No Skin Lesions, No rash Neuro : No Weakness, No Numbness, No Paresthesias, No Dizziness, No Headache Psych : positive Anxiety, positive Depression, positive SI no HI Heme/Lymph: No Lymphadenopathy Endocrine : No Polyuria, No Polydipsia All other systems reviewed and are negative [facility] Past Medical History Attestation statement: The following information was validated with the patient. Source: old records reviewed Medical History Intellectual disability Intermittent explosive disorder in adult Social History Social History Household Members: Family Do you presently have visiting nurse or other home services: No Alcohol intake: current Alcohol intake frequency: holidays/special occasions only Alcohol type: wine Patient Tobacco Use Status: Never used Tobacco service: No Sexual orientation: Decline to Answer Physical Exam Vital Signs: Vital Signs: Last Vital Signs Temp 97.9 F 03/27/24 17:30 Pulse 103 H 03/27/24 17:30 Resp 18 03/27/24 17:30 BP 152/94 H 03/27/24 17:30 Pulse Ox 95 03/27/24 17:30 O2 Del Method Room Air 03/27/24 17:30 BMI result Body Mass Index 35.0 Appearance: Alert. Oriented X3. No acute distress. happy talking to another patient Eyes: Pupils equal, round and reactive to light. ENT: Pharynx normal. Neck: Normal inspection. Neck supple. CVS: Normal heart rate and rhythm. Pulses normal. Respiratory: No respiratory distress. Breath sounds normal. Abdomen: Soft and nontender. Skin: Skin warm and dry. Normal skin color. Normal skin turgor. Extremities: No lower extremity edema. No calf ttp Neuro: Oriented X 3. No motor deficit. No sensory deficit. CN2-12 intact Medical Decision Making Medical Decision Making [facility] Narrative: 28 yo male with PMH of intermittent explosive disorder, intellectual disability here with c/o SI after having fight with his brother at this time labs and CARE team consult ordered. Differential Diagnosis Differential Diagnoses: The differential diagnosis associated with the presentation includes anxiety, SI, stress Admission/Observation Consideration of admission/observation: Escalation of care including admission/observation considered physician observation started at 538pm pending CARE team input Consult Healthcare Provider Management of the patient was discussed with: Behavioral Health Provider Lab Data MDM Lab Attestation statement: I reviewed the patient's lab results. Independent Historian Clinical information obtained from an independent historian. History obtained from or confirmed by: EMS External Record Review External record reviewed: Inpatient record Social Determinants Patient?s care significantly limited by Social Determinants of Health including: Problems related to primary support group Discharge Plan Discharge Clinical Impression: Acute anxiety Patient Disposition: Still a Patient Prescriptions: No Action propranolol 80 mg Capsule,Extended Release 24hr 80 mg PO DAILY Qty: 30 0RF Protocol: Hold for SBP/HR < HOLD for SBP < : 90 HOLD for HR < : 60 Vraylar 3 mg Capsule 6 mg PO DAILY Qty: 60 0RF lithium carbonate 450 mg tablet extended release 1,350 mg PO BEDTIME Qty: 90 0RF metformin 1,000 mg Tablet 1,000 mg PO BIDWM Qty: 60 0RF tobramycin 0.3 % drops 2 drp ophthalmic-Right Q4H Qty: 5 0RF guanfacine 1 mg tablet 1 mg PO DAILY guanfacine 3 mg tablet extended release 24 hr 3 mg PO BEDTIME Interventions: [place]-Suicide Risk Severity Scale Last Done: 03/27/24 17:36 Print Language: Polish
[2024-03-27 18:10] LABS: Amphetamine Screen Urine Not Detected (Not Detect); Barbiturates, Urine Not Detected (Not Detect); Benzodiazepines Screen Urine Not Detected (Not Detect); Buprenorphine Scr Not Detected (Not Detect); Cannabinoid Screen Urine Not Detected (Not Detect); Cocaine Screen Urine Not Detected (Not Detect); Fentanyl, urine Not Detected (Not Detect); Methadone Screen, Urine Not Detected (Not Detect); Opiate Screen Urine Not Detected (Not Detect); Oxycodone Screen Urine Not Detected (Not Detect); Phencyclidine Screen Urine Not Detected (Not Detect)
[2024-03-27 18:26] LABS: MANUAL DIFF FLAG NO
[2024-03-27 18:29] LABS: Basophils Absolute Auto 0.1 X10*3/uL (0.0-0.2); Basophils Percent Auto 0.6 % (0-2); Eosinophils Absolute Auto 0.3 X10*3/uL (0.0-0.4); Eosinophils Percent Auto 2.4 % (0-4); Hematocrit 43.1 % (42.0-52.0); Hemoglobin 14.2 g/dl (14.0-18.0); Imm Gran Abs Auto 0.05 X10*3/uL (0.00-0.03); Imm Gran Pct Auto 0.5 % (0.0-0.4); Lymphocytes Absolute Auto 2.7 X10*3/uL (1.2-4.9); Lymphocytes Percent Auto 26.4 % (20-40); Mean Corpuscular HGB Conc 32.9 g/dl (31.0-36.0); Mean Corpuscular Hemoglobin 27.3 pg (27.0-33.0); Mean Corpuscular Volume 82.7 fL (80.0-98.0); Mean Platelet Volume 9.4 fL (9.4-12.4); Monocytes Absolute Auto 0.5 X10*3/uL (0.1-1.2); Monocytes Percent Auto 4.8 % (2-11); Neutrophils Absolute Auto 6.7 x10*3/uL (2.0-8.3); Neutrophils Percent Auto 65.3 % (45-73); Platelet Count 227 X10*3/uL (160-400); Red Blood Count 5.21 X10*6/uL (4.60-5.80); Red Cell Distribution Width 13.3 % (11.0-16.0); White Blood Count 10.3 X10*3/uL (4.8-10.8)
[2024-03-27 18:37] LABS: Lithium < 0.10 mmol/L (0.60-1.20)
[2024-03-27 18:45] LABS: Alanine Aminotransferase 65 U/L (0-40); Albumin Level 4.4 g/dL (3.5-5.0); Alkaline Phosphatase 88 U/L (39-117); Anion Gap 14 (12-20); Aspartate Amino Transferase 37 U/L (5-37); Bilirubin Direct 0.1 mg/dL (0.0-0.5); Bilirubin Total 0.4 mg/dL (0.0-1.0); Blood Urea Nitrogen 10 mg/dL (9-16); Carbon Dioxide 24 mmol/L (22-29); Chloride 107 mmol/L (96-108); Creatinine Clr Calc Pharmacy 154.6; Estimated Glomerular Filt Rate > 60; Ethanol < 10 mg/dL; Glucose Random 164 mg/dL (60-115); Potassium 3.7 mmol/L (3.3-5.1); Sodium 141 mmol/L (135-145); Total Protein 7.3 g/dL (6.5-8.0)
[2024-03-27] MEDS: guanFACINE HCl ER 1 MG TAB.ER.24H 3 MG PO (20:09)
[2024-03-27] MEDS: Acetaminophen 325 MG TABLET 650 MG PO (20:09)
[2024-03-27] MEDS: traZODone HCL 100 MG TABLET PO (20:10)
[2024-03-27] MEDS: Lithium Carbonate ER 450 MG TABLET.ER 1350 MG PO (20:10)
[2024-03-27] MEDS: Melatonin 3 MG TABLET 6 MG PO (20:10)
[2024-03-28 06:15] VITALS: BP 140/79; PULSE 85; RESP 17; TEMP 36.9; O2SAT 97
--- NOTE | 2024-03-28 07:09 | PC.NURSE ---
Assumed care of patient at 0645, patient up walking around BH pod, eating breakfast and participating in ADLS. Offers no complaints to this RN at this time. Continue plan of care for inpt bedsearch
[2024-03-28] MEDS: Propranolol HCL LA 80 MG CAP.SA.24H PO (09:20)
[2024-03-28] MEDS: Cariprazine HCl 3 MG CAPSULE 6 MG PO (09:20)
[2024-03-28] MEDS: metFORMIN HCl 1,000 MG TABLET 1000 MG PO ×2 (09:20→16:23)
[2024-03-28] MEDS: guanFACINE HCl ER 1 MG TAB.ER.24H PO (09:20)
--- NOTE | 2024-03-28 09:22 | MHC.CARE ---
Spoke with DDS coordinator Brianna Kamara ([phone]), who called CARE Team.? Ms. ?Asad was updated on pt?s status.
--- NOTE | 2024-03-28 12:39 | HO.PSYADMNOT ---
HPI Date of Service: 03/28/24 Chief Complaint: Crisis Sources of Information: patient interviewed, chart reviewed and crisis/core team assessment reviewed HPI Subjective Notes: [place] Warning and Conditional Voluntary Narrative: Patient is a 28 year old male with hx of Bipolar d/o, intellectual disability and intermittent explosive d/o who presented to [facility] ER d/t suicidal ideation with plan of slicing his throat secondary to medication non-compliance. Per crisis report, pt had suicidal ideation with plan of slicing his throat ; he reported being non-compliant with his medications for the past three days. Pts mother reported, pt has been refusing to take his medications for the past three days. Pt is engaged with his outpatient providers and attends a day program. Pt has a hx of VNA, no longer has one d/t conflict of times with patient's day program. During admission assessment, pt presents alert and oriented, calm, cooperative and friendly. Pt reports feeling okay today; pt stated, I came here because I was having suicidal thoughts. I don't know why I was feeling that way. I really don't remember. I'm doing okay today and don't feel that way anymore . Pt denies SI/HI/VH/AH. Pt reports being medication compliant sometimes ; pt stated, sometimes I take my medications, sometimes my mom forgets to give them to me because she is busy and it messes up things . Pt reports he would like to stay until his lithium level is therapeutic and return home. Lowrey level <0.10 on 03/27/24. UTOX negative. Past Psychiatric History: Multiple inpatient hospitalizations. Hx of living in a detention. Psychiatric prescriber: SAILAJA Bauman [facility] worker: Frieda [phone] Denies hx of SIB or SA. Medical Evaluation Reviewed: Yes [facility] Medical History Intellectual disability Intermittent explosive disorder in adult Family History: unknown Social History: Pt currently lives with father, mother and brother. Pt used to live at [facility] detention. Single, no children. Substance History: denies Trauma History: denies Diagnostics Vital Signs (24Hr): Vital Signs - 24 hr 03/27/24 17:30 03/27/24 17:35 03/28/24 06:15 Temperature 97.9 F 97.9 F 98.4 F Pulse Rate 103 H 103 H 85 Respiratory Rate 18 18 17 Blood Pressure 152/94 H 153/94 H 140/79 H Pulse Oximetry 95 95 97 Oxygen Delivery Method Room Air Room Air Room Air BMI result Body Mass Index 35.0 Labs 03/27/24 Unknown 03/27/24 Unknown Labs: Laboratory Results - last 48 hr 03/27/24 03/27/24 17:54 Unknown WBC 10.3 RBC 5.21 Hgb 14.2 Hct 43.1 MCV 82.7 MCH 27.3 MCHC 32.9 RDW 13.3 Plt Count 227 MPV 9.4 Immature Gran % (Auto) 0.5 H Neut % (Auto) 65.3 Lymph % (Auto) 26.4 Vernon % (Auto) 4.8 Eos % (Auto) 2.4 Baso % (Auto) 0.6 Lymph # (Auto) 2.7 Vernon # (Auto) 0.5 Eos # (Auto) 0.3 Baso # (Auto) 0.1 Abs Immat Gran (auto) 0.05 H Absolute Neuts (auto) 6.7 Absolute Nucleated RBC 0.000 Nucleated RBC % (auto) 0.0 Sodium 141 Potassium 3.7 Chloride 107 Carbon Dioxide 24 Anion Gap 14 BUN 10 Creatinine 1.03 Estim Creat Clear Calc 154.6 Estimated GFR > 60 Random Glucose 164 H Calcium 10.0 Magnesium 2.0 Total Bilirubin 0.4 Direct Bilirubin 0.1 AST 37 ALT 65 H Alkaline Phosphatase 88 Total Protein 7.3 Albumin 4.4 Urine Opiates Screen Not Detected Ur Buprenorphine Scrn Not Detected Ur Oxycodone Screen Not Detected Urine Methadone Screen Not Detected Urine Fentanyl Screen Not Detected Ur Barbiturates Screen Not Detected Ur Phencyclidine Scrn Not Detected Ur Amphetamines Screen Not Detected U Benzodiazepines Scrn Not Detected Lowrey < 0.10 L Urine Cocaine Screen Not Detected U Marijuana (THC) Screen Not Detected Ethyl Alcohol < 10 Meds/Allergies Meds Home Medications ?Medication ?Instructions ?Recorded ?Confirmed ?Type guanfacine 1 mg tablet 1 mg PO DAILY 05/24/23 03/27/24 History guanfacine 3 mg tablet,extended 3 mg PO BEDTIME 05/24/23 03/27/24 History release 24 hr melatonin 3 mg capsule 6 mg PO BEDTIME 03/27/24 03/27/24 History trazodone 100 mg tablet 100 mg PO BEDTIME 03/27/24 03/27/24 History Allergies Allergies Allergy/AdvReac Type Severity Reaction Status Date / Time No Known Allergies Allergy Verified 03/27/24 17:33 Mental Status Exam Mental Status Exam Narrative: Pt is alert and oriented; behavior is cooperative, friendly and calm; dressed in hospital attire, malodorous; mood is described as fine ; eye contact appropriate; Speech is normal rate, volume and prosody and not pressured; thought process is organized and goal directed; Thought content is on tx; otherwise pertinent to relevant topics and without any delusional content, paranoid ideations or grandiosity; denies SI/HI/VH/AH. Assessment & Plan Assessment & Plan (1) Bipolar 1 disorder: Status: Acute Code(s): F31.9 - Bipolar disorder, unspecified (2) Intellectual disability: Status: Acute Code(s): F79 - Unspecified intellectual disabilities (3) Intermittent explosive disorder in adult: Status: Acute Code(s): F63.81 - Intermittent explosive disorder Plan Patient is a 28 year old male with hx of Bipolar d/o, intellectual disability and intermittent explosive d/o who presented to [facility] ER d/t suicidal ideation with plan of slicing his throat secondary to medication non-compliance. Plan: CV 15 minute safety checks continue home medications discharge planning Patient educated on: diagnosis and medication risk/benefits Informed Consent: understands Reason for continued inpatient stay Substantial Risk for: med/psych decompensation Statement Statement: I have reviewed the history and physical and performed a pertinent examination on my patient. No changes have occurred unless specified. If the History and Physical was not performed prior to admission, the Hospitalist's service will be consulted for completing the admission physical. Time Spent With Patient Time: Total time managing care of this patient today _60___ minutes.
[2024-03-28 13:57] VITALS: BP 139/82; PULSE 86; RESP 18; TEMP 36.3; O2SAT 98
--- NOTE | 2024-03-28 16:54 | PC.NURSE ---
Lit was admitted on a CV from the POD. He presented after experiencing SI in the context of non med compliance x 3 days. Deo is pleasant when engaged with this insurance writer and verbalized that he wasn't sure what happened at home but that he is not experiencing SI or any urges to self-harm currently. Lit presents as cognitively limited and struggles to answer questions regarding his history. Consent signed to communicate with his mother. Skin assessment was WNL and Lit was pleasant during the admission process. Lit denies any history of violence or restraints but also verbalized when he gets angry at home after being told no or someone yelling at me to do something more then once he gets really mad and then the angry stuff happens. He was unsure about how to describe this and answered direct questions about punching carpenter or striking people as I'm not sure . On observation Lit is pleasant and calm. He is watching TV in the milieu with peers.
[2024-03-28] MEDS: Acetaminophen 325 MG TABLET 650 MG PO (18:41)
[2024-03-28 20:15] VITALS: BP 135/63; PULSE 83; RESP 18; TEMP 36.9; O2SAT 97
[2024-03-28] MEDS: guanFACINE HCl ER 1 MG TAB.ER.24H 3 MG PO (21:42)
[2024-03-28] MEDS: Lithium Carbonate ER 450 MG TABLET.ER 1350 MG PO (21:42)
[2024-03-28] MEDS: traZODone HCL 100 MG TABLET PO (21:43)
[2024-03-28] MEDS: Melatonin 3 MG TABLET 6 MG PO (21:43)
[2024-03-28 21:52] LABS: Glucose, Whole Blood 120 mg/dL (60-115)
[2024-03-29 07:43] VITALS: BP 131/62; PULSE 82; RESP 16; TEMP 36.6; O2SAT 98
[2024-03-29 08:10] LABS: Glucose, Whole Blood 170 mg/dL (60-115)
[2024-03-29] MEDS: Propranolol HCL LA 80 MG CAP.SA.24H PO (08:14)
[2024-03-29] MEDS: guanFACINE HCl ER 1 MG TAB.ER.24H PO (08:14)
[2024-03-29] MEDS: metFORMIN HCl 1,000 MG TABLET 1000 MG PO ×2 (08:14→16:41)
[2024-03-29] MEDS: Cariprazine HCl 3 MG CAPSULE 6 MG PO (08:14)
[2024-03-29] MEDS: Acetaminophen 325 MG TABLET 650 MG PO ×2 (08:47→16:41)
[2024-03-29 08:53] LABS: Alanine Aminotransferase 63 U/L (0-40); Albumin Level 4.6 g/dL (3.5-5.0); Alkaline Phosphatase 94 U/L (39-117); Anion Gap 17 (12-20); Aspartate Amino Transferase 29 U/L (5-37); Bilirubin Total 0.4 mg/dL (0.0-1.0); Blood Urea Nitrogen 12 mg/dL (9-16); Calcium 10.4 mg/dL (8.4-10.2); Carbon Dioxide 19 mmol/L (22-29); Chloride 106 mmol/L (96-108); Cholesterol 216 mg/dL (<200); Estimated Glomerular Filt Rate > 60; Glucose Fasting 192 mg/dL (60-99); HDL Cholesterol 32 mg/dL (>40); Potassium 3.7 mmol/L (3.3-5.1); Sodium 138 mmol/L (135-145); Total Protein 7.9 g/dL (6.5-8.0); Triglycerides 428 mg/dL (<150)
--- NOTE | 2024-03-29 10:46 | P.PNPSI_ITS ---
Subjective Subjective Date of Service: 03/29/24 Reason For Visit: Crisis Subjective Notes: Conditional Voluntary Interim History: Reviewed with Dr. Valdivia. active on unit, social with peers. attending groups. pt reports feeling good today; pt stated, I'm trying to go to groups and I'm taking my meds . Pt denies SI/HI/VH/AH. Medication Compliance: Yes Side effects from medications: No Attending Groups: Yes Review of Systems Constitutional: Reports as per HPI Eyes: Reports as per HPI Reports as per HPI Cardiovascular: Reports as per HPI Respiratory: Reports as per HPI Gastrointestinal: Reports as per HPI Genitourinary: Reports as per HPI Musculoskeletal: Reports as per HPI Skin/Breast: Reports as per HPI Reports as per HPI Psychiatric: Reports as per HPI Endocrine: Reports as per HPI Hematologic/Lymphatic: Reports as per HPI Allergic/Immunologic: Reports as per HPI Mental Status Exam Mental Status Exam Narrative: Pt is alert and oriented; behavior is cooperative, friendly and calm; dressed in hospital attire; mood is described as good ; eye contact appropriate; Speech is normal rate, volume and prosody and not pressured; thought process is organized and goal directed; Thought content is on tx; otherwise pertinent to relevant topics and without any delusional content, paranoid ideations or grandiosity; denies SI/HI/VH/AH. Diagnostics Vital Signs (24Hr): Vital Signs - 24 hr 03/28/24 13:57 03/28/24 20:15 03/29/24 07:43 Temperature 97.4 F 98.5 F 97.8 F Pulse Rate 86 83 82 Respiratory Rate 18 18 16 Blood Pressure 139/82 135/63 131/62 Pulse Oximetry 98 97 98 Oxygen Delivery Method Room Air Room Air Room Air BMI result Body Mass Index 35.0 Labs 03/27/24 Unknown 03/29/24 07:31 Labs: Laboratory Results - last 48 hr 03/27/24 03/27/24 03/28/24 17:54 Unknown 21:38 WBC 10.3 RBC 5.21 Hgb 14.2 Hct 43.1 MCV 82.7 MCH 27.3 MCHC 32.9 RDW 13.3 Plt Count 227 MPV 9.4 Immature Gran % (Auto) 0.5 H Neut % (Auto) 65.3 Lymph % (Auto) 26.4 [place] % (Auto) 4.8 Eos % (Auto) 2.4 Baso % (Auto) 0.6 Lymph # (Auto) 2.7 [place] # (Auto) 0.5 Eos # (Auto) 0.3 Baso # (Auto) 0.1 Abs Immat Gran (auto) 0.05 H Absolute Neuts (auto) 6.7 Absolute Nucleated RBC 0.000 Nucleated RBC % (auto) 0.0 Sodium 141 Potassium 3.7 Chloride 107 Carbon Dioxide 24 Anion Gap 14 BUN 10 Creatinine 1.03 Estim Creat Clear Calc 154.6 Estimated GFR > 60 POC Glucose 120 H Random Glucose 164 H Fasting Glucose Calcium 10.0 Magnesium 2.0 Total Bilirubin 0.4 Direct Bilirubin 0.1 AST 37 ALT 65 H Alkaline Phosphatase 88 Total Protein 7.3 Albumin 4.4 Triglycerides Cholesterol LDL Cholesterol, Calc HDL Cholesterol Urine Opiates Screen Not Detected Ur Buprenorphine Scrn Not Detected Ur Oxycodone Screen Not Detected Urine Methadone Screen Not Detected Urine Fentanyl Screen Not Detected Ur Barbiturates Screen Not Detected Ur Phencyclidine Scrn Not Detected Ur Amphetamines Screen Not Detected U Benzodiazepines Scrn Not Detected [place] < 0.10 L Urine Cocaine Screen Not Detected U Marijuana (THC) Screen Not Detected Ethyl Alcohol < 10 03/29/24 03/29/24 07:31 08:06 WBC RBC Hgb Hct MCV MCH MCHC RDW Plt Count MPV Immature Gran % (Auto) Neut % (Auto) Lymph % (Auto) [place] % (Auto) Eos % (Auto) Baso % (Auto) Lymph # (Auto) [place] # (Auto) Eos # (Auto) Baso # (Auto) Abs Immat Gran (auto) Absolute Neuts (auto) Absolute Nucleated RBC Nucleated RBC % (auto) Sodium 138 Potassium 3.7 Chloride 106 Carbon Dioxide 19 L Anion Gap 17 BUN 12 Creatinine 0.90 Estim Creat Clear Calc 177.0 Estimated GFR > 60 POC Glucose 170 H Random Glucose Fasting Glucose 192 H Calcium 10.4 H Magnesium Total Bilirubin 0.4 Direct Bilirubin AST 29 ALT 63 H Alkaline Phosphatase 94 Total Protein 7.9 Albumin 4.6 Triglycerides 428 H Cholesterol 216 H LDL Cholesterol, Calc TNP HDL Cholesterol 32 L Urine Opiates Screen Ur Buprenorphine Scrn Ur Oxycodone Screen Urine Methadone Screen Urine Fentanyl Screen Ur Barbiturates Screen Ur Phencyclidine Scrn Ur Amphetamines Screen U Benzodiazepines Scrn [place] Urine Cocaine Screen U Marijuana (THC) Screen Ethyl Alcohol Medications Medications Current Medications Acetaminophen (Acetaminophen 325 Mg Tablet) 650 mg PO Q6H PRN PRN Reason: Headache/Pain Mild Scale (1-3) Last Admin: 03/29/24 08:47 Dose: 650 mg Al Hydroxide/Mg Hydroxide (Magnesium Hydrox/Alum Hydrox 30 Ml Oral.Susp) 30 ml PO Q6H PRN PRN Reason: Heartburn/Nausea Cariprazine (Cariprazine Hcl 3 Mg Capsule) 6 mg PO DAILY [facility] Last Admin: 03/29/24 08:14 Dose: 6 mg Guanfacine HCl (Guanfacine Hcl Er 1 Mg Tab.Er.24h) 1 mg PO DAILY [facility] Last Admin: 03/29/24 08:14 Dose: 1 mg Guanfacine HCl (Guanfacine Hcl Er 1 Mg Tab.Er.24h) 3 mg PO BEDTIME [facility] Last Admin: 03/28/24 21:42 Dose: 3 mg Hydroxyzine HCl (Hydroxyzine Hcl 25 Mg Tablet) 25 mg PO Q6H PRN PRN Reason: Anxiety [place] Carbonate ([place] Carbonate Er 450 Mg Tablet.Er) 1,350 mg PO BEDTIME [facility] Last Admin: 03/28/24 21:42 Dose: 1,350 mg Magnesium Hydroxide (Milk Of Magnesia 30 Ml Oral.Susp) 30 ml PO DAILY PRN PRN Reason: Constipation Melatonin (Melatonin 3 Mg Tablet) 6 mg PO BEDTIME [facility] Last Admin: 03/28/24 21:43 Dose: 6 mg Metformin HCl (Metformin Hcl 1,000 Mg Tablet) 1,000 mg PO BIDWM [facility] Last Admin: 03/29/24 08:14 Dose: 1,000 mg Nicotine Polacrilex (Nicotine Polacrilex 2 Mg Gum) 4 mg BUCCAL Q2H PRN PRN Reason: Nicotine Cravings Propranolol HCl (Propranolol Hcl La 80 Mg Cap.Sa.24h) 80 mg PO DAILY [facility]; Protocol Last Admin: 03/29/24 08:14 Dose: 80 mg Trazodone HCl (Trazodone Hcl 100 Mg Tablet) 100 mg PO BEDTIME [facility] Last Admin: 03/28/24 21:43 Dose: 100 mg Allergies Allergies Allergy/AdvReac Type Severity Reaction Status Date / Time No Known Allergies Allergy Verified 03/27/24 17:33 Assessment & Plan Assessment & Plan (1) Bipolar 1 disorder: Status: Acute Code(s): F31.9 - Bipolar disorder, unspecified (2) Intellectual disability: Status: Acute Code(s): F79 - Unspecified intellectual disabilities (3) Intermittent explosive disorder in adult: Status: Acute Code(s): F63.81 - Intermittent explosive disorder Plan Patient is a 28 year old male with hx of Bipolar d/o, intellectual disability and intermittent explosive d/o who presented to [facility] ER d/t suicidal ideation with plan of slicing his throat secondary to medication non-compliance. Plan: CV 15 minute safety checks continue home medications discharge planning 03/29: continue current tx plan. Patient educated on: diagnosis, medication risk/benefits and therapeutic strategies Informed Consent: understands Reason for continued inpatient stay Substantial Risk for: med/psych decompensation Time Spent With Patient Time: Total time managing care of this patient today _20___ minutes.
[2024-03-29 19:15] VITALS: BP 115/68; PULSE 77; RESP 16; TEMP 37; O2SAT 98
[2024-03-29] MEDS: traZODone HCL 100 MG TABLET PO (20:42)
[2024-03-29] MEDS: guanFACINE HCl ER 1 MG TAB.ER.24H 3 MG PO (20:42)
[2024-03-29] MEDS: Lithium Carbonate ER 450 MG TABLET.ER 1350 MG PO (20:42)
[2024-03-29] MEDS: Melatonin 3 MG TABLET 6 MG PO (20:42)
[2024-03-29 20:49] LABS: Glucose, Whole Blood 96 mg/dL (60-115)
[2024-03-30 08:20] LABS: Glucose, Whole Blood 269 mg/dL (60-115)
--- NOTE | 2024-03-30 08:32 | HO.PSYCHPN ---
Subjective Subjective Date of Service: 03/30/24 Reason For Visit: Crisis Subjective Notes: Conditional Voluntary Interim History: Reviewed with Dr. Valdivia. active on unit, social with peers. attending groups. pt reports feeling pretty good today; pt stated, I just want to get my meds situated before going home . Pt denies SI/HI/VH/AH. Medication Compliance: Yes Side effects from medications: No Attending Groups: Yes Review of Systems Constitutional: Reports as per HPI Eyes: Reports as per HPI Reports as per HPI Cardiovascular: Reports as per HPI Respiratory: Reports as per HPI Gastrointestinal: Reports as per HPI Genitourinary: Reports as per HPI Musculoskeletal: Reports as per HPI Skin/Breast: Reports as per HPI Reports as per HPI Psychiatric: Reports as per HPI Endocrine: Reports as per HPI Hematologic/Lymphatic: Reports as per HPI Allergic/Immunologic: Reports as per HPI Mental Status Exam Mental Status Exam Narrative: Pt is alert and oriented; behavior is cooperative, friendly and calm; dressed in hospital attire; mood is described as good ; eye contact appropriate; Speech is normal rate, volume and prosody and not pressured; thought process is organized and goal directed; Thought content is on tx; otherwise pertinent to relevant topics and without any delusional content, paranoid ideations or grandiosity; denies SI/HI/VH/AH. Diagnostics Vital Signs (24Hr): Vital Signs - 24 hr 03/29/24 19:15 Temperature 98.6 F Pulse Rate 77 Respiratory Rate 16 Blood Pressure 115/68 Pulse Oximetry 98 Oxygen Delivery Method Room Air BMI result Body Mass Index 35.0 Labs 03/27/24 Unknown 03/29/24 07:31 Labs: Laboratory Results - last 48 hr 03/28/24 03/29/24 03/29/24 21:38 07:31 08:06 Sodium 138 Potassium 3.7 Chloride 106 Carbon Dioxide 19 L Anion Gap 17 BUN 12 Creatinine 0.90 Estim Creat Clear Calc 177.0 Estimated GFR > 60 POC Glucose 120 H 170 H Fasting Glucose 192 H Calcium 10.4 H Total Bilirubin 0.4 AST 29 ALT 63 H Alkaline Phosphatase 94 Total Protein 7.9 Albumin 4.6 Triglycerides 428 H Cholesterol 216 H LDL Cholesterol, Calc TNP HDL Cholesterol 32 L 03/29/24 03/30/24 20:40 08:14 Sodium Potassium Chloride Carbon Dioxide Anion Gap BUN Creatinine Estim Creat Clear Calc Estimated GFR POC Glucose 96 269 H Fasting Glucose Calcium Total Bilirubin AST ALT Alkaline Phosphatase Total Protein Albumin Triglycerides Cholesterol LDL Cholesterol, Calc HDL Cholesterol Medications Medications Current Medications Acetaminophen (Acetaminophen 325 Mg Tablet) 650 mg PO Q6H PRN PRN Reason: Headache/Pain Mild Scale (1-3) Last Admin: 03/29/24 16:41 Dose: 650 mg Al Hydroxide/Mg Hydroxide (Magnesium Hydrox/Alum Hydrox 30 Ml Oral.Susp) 30 ml PO Q6H PRN PRN Reason: Heartburn/Nausea Cariprazine (Cariprazine Hcl 3 Mg Capsule) 6 mg PO DAILY [facility] Last Admin: 03/29/24 08:14 Dose: 6 mg Guanfacine HCl (Guanfacine Hcl Er 1 Mg Tab.Er.24h) 1 mg PO DAILY [facility] Last Admin: 03/29/24 08:14 Dose: 1 mg Guanfacine HCl (Guanfacine Hcl Er 1 Mg Tab.Er.24h) 3 mg PO BEDTIME [facility] Last Admin: 03/29/24 20:42 Dose: 3 mg Hydroxyzine HCl (Hydroxyzine Hcl 25 Mg Tablet) 25 mg PO Q6H PRN PRN Reason: Anxiety [place] Carbonate ([place] Carbonate Er 450 Mg Tablet.Er) 1,350 mg PO BEDTIME [facility] Last Admin: 03/29/24 20:42 Dose: 1,350 mg Magnesium Hydroxide (Milk Of Magnesia 30 Ml Oral.Susp) 30 ml PO DAILY PRN PRN Reason: Constipation Melatonin (Melatonin 3 Mg Tablet) 6 mg PO BEDTIME [facility] Last Admin: 03/29/24 20:42 Dose: 6 mg Metformin HCl (Metformin Hcl 1,000 Mg Tablet) 1,000 mg PO BIDWM [facility] Last Admin: 03/29/24 16:41 Dose: 1,000 mg Nicotine Polacrilex (Nicotine Polacrilex 2 Mg Gum) 4 mg BUCCAL Q2H PRN PRN Reason: Nicotine Cravings Propranolol HCl (Propranolol Hcl La 80 Mg Cap.Sa.24h) 80 mg PO DAILY [facility]; Protocol Last Admin: 03/29/24 08:14 Dose: 80 mg Trazodone HCl (Trazodone Hcl 100 Mg Tablet) 100 mg PO BEDTIME [facility] Last Admin: 03/29/24 20:42 Dose: 100 mg Allergies Allergies Allergy/AdvReac Type Severity Reaction Status Date / Time No Known Allergies Allergy Verified 03/27/24 17:33 Assessment & Plan Assessment & Plan (1) Bipolar 1 disorder: Status: Acute Code(s): F31.9 - Bipolar disorder, unspecified (2) Intellectual disability: Status: Acute Code(s): F79 - Unspecified intellectual disabilities (3) Intermittent explosive disorder in adult: Status: Acute Code(s): F63.81 - Intermittent explosive disorder Plan Patient is a 28 year old male with hx of Bipolar d/o, intellectual disability and intermittent explosive d/o who presented to [facility] ER d/t suicidal ideation with plan of slicing his throat secondary to medication non-compliance. Plan: CV 15 minute safety checks continue home medications discharge planning 03/29: continue current tx plan. 03/30: continue current tx plan. Patient educated on: diagnosis, medication risk/benefits and therapeutic strategies Informed Consent: understands Reason for continued inpatient stay Substantial Risk for: med/psych decompensation Time Spent With Patient Time: Total time managing care of this patient today _20___ minutes.
[2024-03-30 08:59] VITALS: BP 122/58; PULSE 65; RESP 16; TEMP 36.6; O2SAT 98
[2024-03-30] MEDS: Cariprazine HCl 3 MG CAPSULE 6 MG PO (09:18)
[2024-03-30] MEDS: Propranolol HCL LA 80 MG CAP.SA.24H PO (09:18)
[2024-03-30] MEDS: metFORMIN HCl 1,000 MG TABLET 1000 MG PO ×2 (09:19→17:12)
[2024-03-30] MEDS: guanFACINE HCl ER 1 MG TAB.ER.24H PO (09:19)
[2024-03-30] MEDS: Acetaminophen 325 MG TABLET 650 MG PO (11:21)
[2024-03-30 21:00] VITALS: BP 117/60; PULSE 18; RESP 18; TEMP 36.5; O2SAT 96
[2024-03-30] MEDS: Lithium Carbonate ER 450 MG TABLET.ER 1350 MG PO (21:03)
[2024-03-30] MEDS: guanFACINE HCl ER 1 MG TAB.ER.24H 3 MG PO (21:03)
[2024-03-30] MEDS: Melatonin 3 MG TABLET 6 MG PO (21:04)
[2024-03-30] MEDS: traZODone HCL 100 MG TABLET PO (21:04)
[2024-03-31] MEDS: Acetaminophen 325 MG TABLET 650 MG PO (06:26)
[2024-03-31 07:34] VITALS: BP 128/61; PULSE 74; RESP 16; TEMP 36.6; O2SAT 98
[2024-03-31 08:09] LABS: Glucose, Whole Blood 257 mg/dL (60-115)
[2024-03-31] MEDS: Cariprazine HCl 3 MG CAPSULE 6 MG PO (08:59)
[2024-03-31] MEDS: Propranolol HCL LA 80 MG CAP.SA.24H PO (08:59)
[2024-03-31] MEDS: guanFACINE HCl ER 1 MG TAB.ER.24H PO (08:59)
[2024-03-31] MEDS: metFORMIN HCl 1,000 MG TABLET 1000 MG PO ×2 (08:59→17:08)
--- NOTE | 2024-03-31 09:19 | P.PNPSI_ITS ---
Subjective Subjective Date of Service: 03/31/24 Reason For Visit: Crisis Subjective Notes: Conditional Voluntary Interim History: Reviewed with Dr. Valdivia. active on unit, social with peers. attending groups. pt reports feeling good today; Pt denies SI/HI/VH/AH. lithium level to be drawn tomorrow. Medication Compliance: Yes Side effects from medications: No Attending Groups: Yes Review of Systems Constitutional: Reports as per HPI Eyes: Reports as per HPI Reports as per HPI Cardiovascular: Reports as per HPI Respiratory: Reports as per HPI Gastrointestinal: Reports as per HPI Genitourinary: Reports as per HPI Musculoskeletal: Reports as per HPI Skin/Breast: Reports as per HPI Reports as per HPI Psychiatric: Reports as per HPI Endocrine: Reports as per HPI Hematologic/Lymphatic: Reports as per HPI Allergic/Immunologic: Reports as per HPI Mental Status Exam Mental Status Exam Narrative: Pt is alert and oriented; behavior is cooperative, friendly and calm; dressed in hospital attire; mood is described as good ; eye contact appropriate; Speech is normal rate, volume and prosody and not pressured; thought process is organized and goal directed; Thought content is on tx; otherwise pertinent to relevant topics and without any delusional content, paranoid ideations or grandiosity; denies SI/HI/VH/AH. Diagnostics Vital Signs (24Hr): Vital Signs - 24 hr 03/30/24 21:00 03/31/24 07:34 Temperature 97.7 F 97.8 F Pulse Rate 18 L 74 Respiratory Rate 18 16 Blood Pressure 117/60 128/61 Pulse Oximetry 96 98 Oxygen Delivery Method Room Air Room Air BMI result Body Mass Index 35.0 Labs 03/27/24 Unknown 03/29/24 07:31 Labs: Laboratory Results - last 48 hr 03/29/24 03/30/24 03/31/24 20:40 08:14 08:05 POC Glucose 96 269 H 257 H Medications Medications Current Medications Acetaminophen (Acetaminophen 325 Mg Tablet) 650 mg PO Q6H PRN PRN Reason: Headache/Pain Mild Scale (1-3) Last Admin: 03/31/24 06:26 Dose: 650 mg Al Hydroxide/Mg Hydroxide (Magnesium Hydrox/Alum Hydrox 30 Ml Oral.Susp) 30 ml PO Q6H PRN PRN Reason: Heartburn/Nausea Cariprazine (Cariprazine Hcl 3 Mg Capsule) 6 mg PO DAILY [facility] Last Admin: 03/31/24 08:59 Dose: 6 mg Guanfacine HCl (Guanfacine Hcl Er 1 Mg Tab.Er.24h) 1 mg PO DAILY [facility] Last Admin: 03/31/24 08:59 Dose: 1 mg Guanfacine HCl (Guanfacine Hcl Er 1 Mg Tab.Er.24h) 3 mg PO BEDTIME [facility] Last Admin: 03/30/24 21:03 Dose: 3 mg Hydroxyzine HCl (Hydroxyzine Hcl 25 Mg Tablet) 25 mg PO Q6H PRN PRN Reason: Anxiety [place] Carbonate ([place] Carbonate Er 450 Mg Tablet.Er) 1,350 mg PO BEDTIME [facility] Last Admin: 03/30/24 21:03 Dose: 1,350 mg Magnesium Hydroxide (Milk Of Magnesia 30 Ml Oral.Susp) 30 ml PO DAILY PRN PRN Reason: Constipation Melatonin (Melatonin 3 Mg Tablet) 6 mg PO BEDTIME [facility] Last Admin: 03/30/24 21:04 Dose: 6 mg Metformin HCl (Metformin Hcl 1,000 Mg Tablet) 1,000 mg PO BIDWM [facility] Last Admin: 03/31/24 08:59 Dose: 1,000 mg Nicotine Polacrilex (Nicotine Polacrilex 2 Mg Gum) 4 mg BUCCAL Q2H PRN PRN Reason: Nicotine Cravings Propranolol HCl (Propranolol Hcl La 80 Mg Cap.Sa.24h) 80 mg PO DAILY [facility]; Protocol Last Admin: 03/31/24 08:59 Dose: 80 mg Trazodone HCl (Trazodone Hcl 100 Mg Tablet) 100 mg PO BEDTIME [facility] Last Admin: 03/30/24 21:04 Dose: 100 mg Allergies Allergies Allergy/AdvReac Type Severity Reaction Status Date / Time No Known Allergies Allergy Verified 03/27/24 17:33 Assessment & Plan Assessment & Plan (1) Bipolar 1 disorder: Status: Acute Code(s): F31.9 - Bipolar disorder, unspecified (2) Intellectual disability: Status: Acute Code(s): F79 - Unspecified intellectual disabilities (3) Intermittent explosive disorder in adult: Status: Acute Code(s): F63.81 - Intermittent explosive disorder Plan Patient is a 28 year old male with hx of Bipolar d/o, intellectual disability and intermittent explosive d/o who presented to [facility] ER d/t suicidal ideation with plan of slicing his throat secondary to medication non-compliance. Plan: CV 15 minute safety checks continue home medications discharge planning 03/29: continue current tx plan. 03/30: continue current tx plan. 03/31: active on unit, social with peers. attending groups. pt reports feeling good today; Pt denies SI/HI/VH/AH. lithium level to be drawn tomorrow. Patient educated on: diagnosis, medication risk/benefits and therapeutic strategies Informed Consent: understands Reason for continued inpatient stay Substantial Risk for: med/psych decompensation Time Spent With Patient Time: Total time managing care of this patient today _20___ minutes.
[2024-03-31 20:00] VITALS: BP 126/69; PULSE 78; RESP 16; TEMP 36.9; O2SAT 98
[2024-03-31 20:50] LABS: Glucose, Whole Blood 180 mg/dL (60-115)
[2024-03-31] MEDS: guanFACINE HCl ER 1 MG TAB.ER.24H 3 MG PO (21:10)
[2024-03-31] MEDS: Lithium Carbonate ER 450 MG TABLET.ER 1350 MG PO (21:10)
[2024-03-31] MEDS: Melatonin 3 MG TABLET 6 MG PO (21:10)
[2024-03-31] MEDS: traZODone HCL 100 MG TABLET PO (21:11)
[2024-04-01 07:42] LABS: Glucose, Whole Blood 131 mg/dL (60-115)
[2024-04-01] MEDS: Propranolol HCL LA 80 MG CAP.SA.24H PO (08:11)
[2024-04-01] MEDS: metFORMIN HCl 1,000 MG TABLET 1000 MG PO ×2 (08:11→17:33)
[2024-04-01] MEDS: Cariprazine HCl 3 MG CAPSULE 6 MG PO (08:11)
[2024-04-01 08:12] VITALS: BP 126/56; PULSE 68; RESP 18; TEMP 36.6; O2SAT 98
[2024-04-01] MEDS: guanFACINE HCl ER 1 MG TAB.ER.24H PO (08:12)
[2024-04-01 08:19] LABS: Lithium 0.87 mmol/L (0.60-1.20)
[2024-04-01 08:24] LABS: Anion Gap 15 (12-20); Blood Urea Nitrogen 9 mg/dL (9-16); Carbon Dioxide 25 mmol/L (22-29); Chloride 107 mmol/L (96-108); Creatinine Clr Calc Pharmacy 194.2; Estimated Glomerular Filt Rate > 60; Potassium 4.1 mmol/L (3.3-5.1); Sodium 143 mmol/L (135-145)
[2024-04-01 08:40] LABS: TSH reflex Free T4 1.45 uIU/mL (0.32-4.0)
[2024-04-01] MEDS: Acetaminophen 325 MG TABLET 650 MG PO ×2 (08:52→21:44)
--- NOTE | 2024-04-01 15:17 | HO.PSYCHPN ---
Subjective Subjective Date of Service: 04/01/24 Reason For Visit: Crisis Interim History: feling well, no complaints or requests. misses home, wants to return to see his mother. per staff, no SI/HI. attending groups. no anx/dep. taking meds. slept 7+ hours. lithium level 0.87. Mental Status Exam Mental Status Exam Narrative: Pt is alert and oriented; behavior is cooperative, friendly and calm; dressed in hospital attire; mood is described as good. great ; eye contact appropriate; Speech is normal rate, volume and prosody and not pressured; thought process is organized and goal directed; Thought content is on tx; otherwise pertinent to relevant topics and without any delusional content, paranoid ideations or grandiosity; denies SI/HI/VH/AH. Diagnostics Vital Signs (24Hr): Vital Signs - 24 hr 03/31/24 20:00 04/01/24 08:12 Temperature 98.4 F 97.9 F Pulse Rate 78 68 Respiratory Rate 16 18 Blood Pressure 126/69 126/56 L Pulse Oximetry 98 98 Oxygen Delivery Method Room Air Room Air BMI result Body Mass Index 35.0 Labs 03/27/24 Unknown 04/01/24 07:56 Labs: Laboratory Results - last 48 hr 03/31/24 03/31/24 04/01/24 08:05 20:45 07:39 Sodium Potassium Chloride Carbon Dioxide Anion Gap BUN Creatinine Estim Creat Clear Calc Estimated GFR POC Glucose 257 H 180 H 131 H TSH [place] 04/01/24 07:56 Sodium 143 Potassium 4.1 Chloride 107 Carbon Dioxide 25 Anion Gap 15 BUN 9 Creatinine 0.82 Estim Creat Clear Calc 194.2 Estimated GFR > 60 POC Glucose TSH 1.45 [place] 0.87 Medications Medications Current Medications Acetaminophen (Acetaminophen 325 Mg Tablet) 650 mg PO Q6H PRN PRN Reason: Headache/Pain Mild Scale (1-3) Last Admin: 04/01/24 08:52 Dose: 650 mg Al Hydroxide/Mg Hydroxide (Magnesium Hydrox/Alum Hydrox 30 Ml Oral.Susp) 30 ml PO Q6H PRN PRN Reason: Heartburn/Nausea Cariprazine (Cariprazine Hcl 3 Mg Capsule) 6 mg PO DAILY [facility] Last Admin: 04/01/24 08:11 Dose: 6 mg Guanfacine HCl (Guanfacine Hcl Er 1 Mg Tab.Er.24h) 1 mg PO DAILY [facility] Last Admin: 04/01/24 08:12 Dose: 1 mg Guanfacine HCl (Guanfacine Hcl Er 1 Mg Tab.Er.24h) 3 mg PO BEDTIME [facility] Last Admin: 03/31/24 21:10 Dose: 3 mg Hydroxyzine HCl (Hydroxyzine Hcl 25 Mg Tablet) 25 mg PO Q6H PRN PRN Reason: Anxiety [place] Carbonate ([place] Carbonate Er 450 Mg Tablet.Er) 1,350 mg PO BEDTIME [facility] Last Admin: 03/31/24 21:10 Dose: 1,350 mg Magnesium Hydroxide (Milk Of Magnesia 30 Ml Oral.Susp) 30 ml PO DAILY PRN PRN Reason: Constipation Melatonin (Melatonin 3 Mg Tablet) 6 mg PO BEDTIME [facility] Last Admin: 03/31/24 21:10 Dose: 6 mg Metformin HCl (Metformin Hcl 1,000 Mg Tablet) 1,000 mg PO BIDWM [facility] Last Admin: 04/01/24 08:11 Dose: 1,000 mg Nicotine Polacrilex (Nicotine Polacrilex 2 Mg Gum) 4 mg BUCCAL Q2H PRN PRN Reason: Nicotine Cravings Propranolol HCl (Propranolol Hcl La 80 Mg Cap.Sa.24h) 80 mg PO DAILY [facility]; Protocol Last Admin: 04/01/24 08:11 Dose: 80 mg Trazodone HCl (Trazodone Hcl 100 Mg Tablet) 100 mg PO BEDTIME [facility] Last Admin: 03/31/24 21:11 Dose: 100 mg Allergies Allergies Allergy/AdvReac Type Severity Reaction Status Date / Time No Known Allergies Allergy Verified 03/27/24 17:33 Assessment & Plan Assessment & Plan (1) Bipolar 1 disorder: Status: Acute Code(s): F31.9 - Bipolar disorder, unspecified (2) Intellectual disability: Status: Acute Code(s): F79 - Unspecified intellectual disabilities (3) Intermittent explosive disorder in adult: Status: Acute Code(s): F63.81 - Intermittent explosive disorder Plan Patient is a 28 year old male with hx of Bipolar d/o, intellectual disability and intermittent explosive d/o who presented to [facility] ER d/t suicidal ideation with plan of slicing his throat secondary to medication non-compliance. Plan: CV 15 minute safety checks continue home medications discharge planning 03/29: continue current tx plan. 03/30: continue current tx plan. 03/31: active on unit, social with peers. attending groups. pt reports feeling good today; Pt denies SI/HI/VH/AH. lithium level to be drawn tomorrow. 04/01: BMP WNL, lithium level 0.87. calm, cooperative, well. discharge to home once dispo appointments in place. Reason for continued inpatient stay Substantial Risk for: rapid decompensation Time Spent With Patient Time: Total time managing care of this patient today __25__ minutes.
[2024-04-01 21:00] VITALS: BP 130/60; PULSE 74; RESP 16; TEMP 35.9; O2SAT 98
[2024-04-01] MEDS: traZODone HCL 100 MG TABLET PO (21:20)
[2024-04-01] MEDS: Lithium Carbonate ER 450 MG TABLET.ER 1350 MG PO (21:20)
[2024-04-01] MEDS: Melatonin 3 MG TABLET 6 MG PO (21:20)
[2024-04-01] MEDS: guanFACINE HCl ER 1 MG TAB.ER.24H 3 MG PO (21:20)
[2024-04-01 21:44] LABS: Glucose, Whole Blood 106 mg/dL (60-115)
[2024-04-02 07:33] VITALS: BP 106/56; PULSE 72; RESP 16; TEMP 35.7; O2SAT 98
[2024-04-02] MEDS: Propranolol HCL LA 80 MG CAP.SA.24H PO (08:41)
[2024-04-02] MEDS: metFORMIN HCl 1,000 MG TABLET 1000 MG PO ×2 (08:41→17:15)
[2024-04-02] MEDS: Cariprazine HCl 3 MG CAPSULE 6 MG PO (08:41)
[2024-04-02] MEDS: guanFACINE HCl ER 1 MG TAB.ER.24H PO (08:41)
[2024-04-02 08:42] VITALS: BP 128/70; PULSE 72
[2024-04-02 09:07] LABS: Glucose, Whole Blood 188 mg/dL (60-115)
--- NOTE | 2024-04-02 14:49 | HO.PSYCHPN ---
Subjective Subjective Date of Service: 04/02/24 Reason For Visit: Crisis Interim History: calm, cooperative. c/o knee pain. mood good and stable, no safety concerns. Mental Status Exam Mental Status Exam Narrative: Pt is alert and oriented; behavior is cooperative, friendly and calm; dressed in hospital attire; mood is described as good ; eye contact appropriate; Speech is normal rate, volume and prosody and not pressured; thought process is organized and goal directed; Thought content is on tx; otherwise pertinent to relevant topics and without any delusional content, paranoid ideations or grandiosity; denies SI/HI/VH/AH. Diagnostics Vital Signs (24Hr): Vital Signs - 24 hr 04/01/24 21:00 04/02/24 07:33 04/02/24 08:42 Temperature 96.6 F L 96.2 F L Pulse Rate 74 72 72 Respiratory Rate 16 16 Blood Pressure 130/60 106/56 L 128/70 Pulse Oximetry 98 98 Oxygen Delivery Method Room Air Room Air BMI result Body Mass Index 35.0 Labs 03/27/24 Unknown 04/01/24 07:56 Labs: Laboratory Results - last 48 hr 03/31/24 04/01/24 04/01/24 20:45 07:39 07:56 Sodium 143 Potassium 4.1 Chloride 107 Carbon Dioxide 25 Anion Gap 15 BUN 9 Creatinine 0.82 Estim Creat Clear Calc 194.2 Estimated GFR > 60 POC Glucose 180 H 131 H TSH 1.45 [place] 0.87 04/01/24 04/02/24 21:39 09:02 Sodium Potassium Chloride Carbon Dioxide Anion Gap BUN Creatinine Estim Creat Clear Calc Estimated GFR POC Glucose 106 188 H TSH [place] Medications Medications Current Medications Acetaminophen (Acetaminophen 325 Mg Tablet) 650 mg PO Q6H PRN PRN Reason: Headache/Pain Mild Scale (1-3) Last Admin: 04/01/24 21:44 Dose: 650 mg Al Hydroxide/Mg Hydroxide (Magnesium Hydrox/Alum Hydrox 30 Ml Oral.Susp) 30 ml PO Q6H PRN PRN Reason: Heartburn/Nausea Cariprazine (Cariprazine Hcl 3 Mg Capsule) 6 mg PO DAILY [facility] Last Admin: 04/02/24 08:41 Dose: 6 mg Guanfacine HCl (Guanfacine Hcl Er 1 Mg Tab.Er.24h) 1 mg PO DAILY [facility] Last Admin: 05/15/24 08:41 Dose: 1 mg Guanfacine HCl (Guanfacine Hcl Er 1 Mg Tab.Er.24h) 3 mg PO BEDTIME [facility] Last Admin: 04/01/24 21:20 Dose: 3 mg Hydroxyzine HCl (Hydroxyzine Hcl 25 Mg Tablet) 25 mg PO Q6H PRN PRN Reason: Anxiety [place] Carbonate ([place] Carbonate Er 450 Mg Tablet.Er) 1,350 mg PO BEDTIME LOLA Last Admin: 04/01/24 21:20 Dose: 1,350 mg Magnesium Hydroxide (Milk Of Magnesia 30 Ml Oral.Susp) 30 ml PO DAILY PRN PRN Reason: Constipation Melatonin (Melatonin 3 Mg Tablet) 6 mg PO BEDTIME LOLA Last Admin: 04/01/24 21:20 Dose: 6 mg Metformin HCl (Metformin Hcl 1,000 Mg Tablet) 1,000 mg PO BIDWM LOLA Last Admin: 04/02/24 08:41 Dose: 1,000 mg Nicotine Polacrilex (Nicotine Polacrilex 2 Mg Gum) 4 mg BUCCAL Q2H PRN PRN Reason: Nicotine Cravings Propranolol HCl (Propranolol Hcl La 80 Mg Cap.Sa.24h) 80 mg PO DAILY LOLA; Protocol Last Admin: 04/02/24 08:41 Dose: 80 mg Trazodone HCl (Trazodone Hcl 100 Mg Tablet) 100 mg PO BEDTIME LOLA Last Admin: 04/01/24 21:20 Dose: 100 mg Allergies Allergies Allergy/AdvReac Type Severity Reaction Status Date / Time No Known Allergies Allergy Verified 03/27/24 17:33 Assessment & Plan Assessment & Plan (1) Bipolar 1 disorder: Status: Acute Code(s): F31.9 - Bipolar disorder, unspecified (2) Intellectual disability: Status: Acute Code(s): F79 - Unspecified intellectual disabilities (3) Intermittent explosive disorder in adult: Status: Acute Code(s): F63.81 - Intermittent explosive disorder Plan Patient is a 28 year old male with hx of Bipolar d/o, intellectual disability and intermittent explosive d/o who presented to [facility] [place] d/t suicidal ideation with plan of slicing his throat secondary to medication non-compliance. Plan: CV 15 minute safety checks continue home medications discharge planning 03/29: continue current tx plan. 03/30: continue current tx plan. 03/31: active on unit, social with peers. attending groups. pt reports feeling good today; Pt denies SI/HI/VH/AH. lithium level to be drawn tomorrow. 04/01: BMP WNL, lithium level 0.87. calm, cooperative, well. discharge to home once dispo appointments in place. 04/02: knee brace for torn ACL requested. otherwise continue current mgmt. treaters' mtg tomorrow to ensure all adequate services are in place prior to discharge. Reason for continued inpatient stay Substantial Risk for: rapid decompensation Time Spent With Patient Time: Total time managing care of this patient today _25___ minutes.
[2024-04-02 19:05] VITALS: BP 127/58; PULSE 73; RESP 18; TEMP 36.9; O2SAT 97
[2024-04-02] MEDS: Melatonin 3 MG TABLET 6 MG PO (20:52)
[2024-04-02] MEDS: guanFACINE HCl ER 1 MG TAB.ER.24H 3 MG PO (20:52)
[2024-04-02] MEDS: traZODone HCL 100 MG TABLET PO (20:52)
[2024-04-02] MEDS: Lithium Carbonate ER 450 MG TABLET.ER 1350 MG PO (20:52)
[2024-04-02 21:00] LABS: Glucose, Whole Blood 185 mg/dL (60-115)
[2024-04-03 07:00] VITALS: BMI 37.4
[2024-04-03 07:34] VITALS: BP 106/67; PULSE 70; RESP 16; TEMP 36.7; O2SAT 98
[2024-04-03 08:21] LABS: Glucose, Whole Blood 121 mg/dL (60-115)
[2024-04-03] MEDS: guanFACINE HCl ER 1 MG TAB.ER.24H PO (08:28)
[2024-04-03] MEDS: Cariprazine HCl 3 MG CAPSULE 6 MG PO (08:28)
[2024-04-03] MEDS: Propranolol HCL LA 80 MG CAP.SA.24H PO (08:29)
[2024-04-03] MEDS: metFORMIN HCl 1,000 MG TABLET 1000 MG PO ×2 (08:29→16:34)
--- NOTE | 2024-04-03 10:10 | PM.PSYDC ---
DS: Providers Provider Date of Service: 04/03/24 Date of admission: 03/28/24 11:59 Primary care physician: Unknown Physician DS: Diagnosis Discharge Diagnosis (1) Bipolar 1 disorder: Status: Acute (2) Intellectual disability: Status: Acute (3) Intermittent explosive disorder in adult: Status: Acute DS: Medications Discharge Medications Home Medications: Home Medications ?Medication ?Instructions ?Recorded ?Confirmed guanfacine 1 mg tablet 1 mg PO DAILY 05/24/23 03/27/24 guanfacine 3 mg tablet,extended 3 mg PO BEDTIME 05/24/23 03/27/24 release 24 hr melatonin 3 mg capsule 6 mg PO BEDTIME 03/27/24 03/27/24 trazodone 100 mg tablet 100 mg PO BEDTIME 03/27/24 03/27/24 Previous Rx's ?Medication ?Instructions ?Recorded cariprazine 3 mg capsule (Vraylar) 6 mg (2 x 3 mg) PO DAILY #60 caps 03/27/23 lithium carbonate 450 mg 1,350 mg (3 x 450 mg) PO BEDTIME 03/27/23 tablet,extended release #90 tabs metformin 1,000 mg tablet 1,000 mg PO BIDWM #60 tabs 03/27/23 propranolol 80 mg capsule,24 80 mg PO DAILY #30 caps 03/27/23 hr,extended release Mental Status Exam Mental Status Exam Narrative: Pt is alert and oriented; behavior is cooperative, friendly and calm; dressed in hospital attire; mood is described as great ; eye contact appropriate; Speech is normal rate, volume and prosody and not pressured; thought process is organized and goal directed; Thought content is on tx; otherwise pertinent to relevant topics and without any delusional content, paranoid ideations or grandiosity; denies SI/HI/VH/AH. Data Data Completed and Pending Completed studies during hospitalization [Text1]: 03/27/24 03/27/24 03/28/24 17:54 Unknown 21:38 WBC 10.3 RBC 5.21 Hgb 14.2 Hct 43.1 MCV 82.7 MCH 27.3 MCHC 32.9 RDW 13.3 Plt Count 227 MPV 9.4 Immature Gran % (Auto) 0.5 H Neut % (Auto) 65.3 Lymph % (Auto) 26.4 [place] % (Auto) 4.8 Eos % (Auto) 2.4 Baso % (Auto) 0.6 Lymph # (Auto) 2.7 [place] # (Auto) 0.5 Eos # (Auto) 0.3 Baso # (Auto) 0.1 Abs Immat Gran (auto) 0.05 H Absolute Neuts (auto) 6.7 Absolute Nucleated RBC 0.000 Nucleated RBC % (auto) 0.0 Sodium 141 Potassium 3.7 Chloride 107 Carbon Dioxide 24 Anion Gap 14 BUN 10 Creatinine 1.03 Estim Creat Clear Calc 154.6 Estimated GFR > 60 POC Glucose 120 H Random Glucose 164 H Fasting Glucose Calcium 10.0 Magnesium 2.0 Total Bilirubin 0.4 Direct Bilirubin 0.1 AST 37 ALT 65 H Alkaline Phosphatase 88 Total Protein 7.3 Albumin 4.4 Triglycerides Cholesterol LDL Cholesterol, Calc HDL Cholesterol TSH Urine Opiates Screen Not Detected Ur Buprenorphine Scrn Not Detected Ur Oxycodone Screen Not Detected Urine Methadone Screen Not Detected Urine Fentanyl Screen Not Detected Ur Barbiturates Screen Not Detected Ur Phencyclidine Scrn Not Detected Ur Amphetamines Screen Not Detected U Benzodiazepines Scrn Not Detected [place] < 0.10 L Urine Cocaine Screen Not Detected U Marijuana (THC) Screen Not Detected Ethyl Alcohol < 10 03/29/24 03/29/24 03/29/24 07:31 08:06 20:40 WBC RBC Hgb Hct MCV MCH MCHC RDW Plt Count MPV Immature Gran % (Auto) Neut % (Auto) Lymph % (Auto) [place] % (Auto) Eos % (Auto) Baso % (Auto) Lymph # (Auto) [place] # (Auto) Eos # (Auto) Baso # (Auto) Abs Immat Gran (auto) Absolute Neuts (auto) Absolute Nucleated RBC Nucleated RBC % (auto) Sodium 138 Potassium 3.7 Chloride 106 Carbon Dioxide 19 L Anion Gap 17 BUN 12 Creatinine 0.90 Estim Creat Clear Calc 177.0 Estimated GFR > 60 POC Glucose 170 H 96 Random Glucose Fasting Glucose 192 H Calcium 10.4 H Magnesium Total Bilirubin 0.4 Direct Bilirubin AST 29 ALT 63 H Alkaline Phosphatase 94 Total Protein 7.9 Albumin 4.6 Triglycerides 428 H Cholesterol 216 H LDL Cholesterol, Calc TNP HDL Cholesterol 32 L TSH Urine Opiates Screen Ur Buprenorphine Scrn Ur Oxycodone Screen Urine Methadone Screen Urine Fentanyl Screen Ur Barbiturates Screen Ur Phencyclidine Scrn Ur Amphetamines Screen U Benzodiazepines Scrn [place] Urine Cocaine Screen U Marijuana (THC) Screen Ethyl Alcohol 05/12/24 05/13/24 05/13/24 08:14 08:05 20:45 WBC RBC Hgb Hct MCV MCH MCHC RDW Plt Count MPV Immature Gran % (Auto) Neut % (Auto) Lymph % (Auto) [place] % (Auto) Eos % (Auto) Baso % (Auto) Lymph # (Auto) [place] # (Auto) Eos # (Auto) Baso # (Auto) Abs Immat Gran (auto) Absolute Neuts (auto) Absolute Nucleated RBC Nucleated RBC % (auto) Sodium Potassium Chloride Carbon Dioxide Anion Gap BUN Creatinine Estim Creat Clear Calc Estimated GFR POC Glucose 269 H 257 H 180 H Random Glucose Fasting Glucose Calcium Magnesium Total Bilirubin Direct Bilirubin AST ALT Alkaline Phosphatase Total Protein Albumin Triglycerides Cholesterol LDL Cholesterol, Calc HDL Cholesterol TSH Urine Opiates Screen Ur Buprenorphine Scrn Ur Oxycodone Screen Urine Methadone Screen Urine Fentanyl Screen Ur Barbiturates Screen Ur Phencyclidine Scrn Ur Amphetamines Screen U Benzodiazepines Scrn [place] Urine Cocaine Screen U Marijuana (THC) Screen Ethyl Alcohol 04/01/24 04/01/24 04/01/24 07:39 07:56 21:39 WBC RBC Hgb Hct MCV MCH MCHC RDW Plt Count MPV Immature Gran % (Auto) Neut % (Auto) Lymph % (Auto) [place] % (Auto) Eos % (Auto) Baso % (Auto) Lymph # (Auto) [place] # (Auto) Eos # (Auto) Baso # (Auto) Abs Immat Gran (auto) Absolute Neuts (auto) Absolute Nucleated RBC Nucleated RBC % (auto) Sodium 143 Potassium 4.1 Chloride 107 Carbon Dioxide 25 Anion Gap 15 BUN 9 Creatinine 0.82 Estim Creat Clear Calc 194.2 Estimated GFR > 60 POC Glucose 131 H 106 Random Glucose Fasting Glucose Calcium Magnesium Total Bilirubin Direct Bilirubin AST ALT Alkaline Phosphatase Total Protein Albumin Triglycerides Cholesterol LDL Cholesterol, Calc HDL Cholesterol TSH 1.45 Urine Opiates Screen Ur Buprenorphine Scrn Ur Oxycodone Screen Urine Methadone Screen Urine Fentanyl Screen Ur Barbiturates Screen Ur Phencyclidine Scrn Ur Amphetamines Screen U Benzodiazepines Scrn [place] 0.87 Urine Cocaine Screen U Marijuana (THC) Screen Ethyl Alcohol 04/02/24 04/02/24 04/03/24 09:02 20:50 08:17 WBC RBC Hgb Hct MCV MCH MCHC RDW Plt Count MPV Immature Gran % (Auto) Neut % (Auto) Lymph % (Auto) [place] % (Auto) Eos % (Auto) Baso % (Auto) Lymph # (Auto) [place] # (Auto) Eos # (Auto) Baso # (Auto) Abs Immat Gran (auto) Absolute Neuts (auto) Absolute Nucleated RBC Nucleated RBC % (auto) Sodium Potassium Chloride Carbon Dioxide Anion Gap BUN Creatinine Estim Creat Clear Calc Estimated GFR POC Glucose 188 H 185 H 121 H Random Glucose Fasting Glucose Calcium Magnesium Total Bilirubin Direct Bilirubin AST ALT Alkaline Phosphatase Total Protein Albumin Triglycerides Cholesterol LDL Cholesterol, Calc HDL Cholesterol TSH Urine Opiates Screen Ur Buprenorphine Scrn Ur Oxycodone Screen Urine Methadone Screen Urine Fentanyl Screen Ur Barbiturates Screen Ur Phencyclidine Scrn Ur Amphetamines Screen U Benzodiazepines Scrn [place] Urine Cocaine Screen U Marijuana (THC) Screen Ethyl Alcohol DS: Summary Hospital Course Hospital Course: per 03/28 admission note: Patient is a 28 year old male with hx of Bipolar d/o, intellectual disability and intermittent explosive d/o who presented to [facility] ER d/t suicidal ideation with plan of slicing his throat secondary to medication non-compliance. Per crisis report, pt had suicidal ideation with plan of slicing his throat ; he reported being non-compliant with his medications for the past three days. Pts mother reported, pt has been refusing to take his medications for the past three days. Pt is engaged with his outpatient providers and attends a day program. Pt has a hx of VNA, no longer has one d/t conflict of times with patient's day program. During admission assessment, pt presents alert and oriented, calm, cooperative and friendly. Pt reports feeling okay today; pt stated, I came here because I was having suicidal thoughts. I don't know why I was feeling that way. I really don't remember. I'm doing okay today and don't feel that way anymore . Pt denies SI/HI/VH/AH. Pt reports being medication compliant sometimes ; pt stated, sometimes I take my medications, sometimes my mom forgets to give them to me because she is busy and it messes up things . Pt reports he would like to stay until his lithium level is therapeutic and return home. [place] level <0.10 on 03/27/24. UTOX negative. Past Psychiatric History: Multiple inpatient hospitalizations. Hx of living in a shelter. Psychiatric prescriber: Júnior Reynolds [facility] Guerrero S worker: Frieda [phone] Denies hx of SIB or SA. Medical Evaluation [facility]ed: [facility] Medical History Intellectual disability Intermittent explosive disorder in adult Family History: unknown Social History: Pt currently lives with father, mother and brother. Pt used to live at [facility] shelter. Single, no children. Substance History: denies Trauma History: denies Precis: Patient is a 28 year old male with hx of Bipolar d/o, intellectual disability and intermittent explosive d/o who presented to [facility] ER d/t suicidal ideation with plan of slicing his throat secondary to medication non-compliance. 03/28: continue home medications. discharge planning. 03/29: continue current tx plan. 03/30: continue current tx plan. 03/31: active on unit, social with peers. attending groups. pt reports feeling good today; Pt denies SI/HI/VH/AH. lithium level to be drawn tomorrow. 04/01: BMP WNL, lithium level 0.87. calm, cooperative, well. discharge to home once dispo appointments in place. 04/02: knee brace for torn ACL requested. otherwise continue current mgmt. treaters' mtg tomorrow to ensure all adequate services are in place prior to discharge. 04/03: pt stable, safe. discharge tomorrow. 04/04: remains stable and safe, no events overnight. discharged to home as per plan. Time Spent with Patient Time attestation: Total time managing care of this patient today __35__ minutes. Discharge Plan Discharge Anticipated Discharge Date/Time: 04/04/24 11:00 Patient Disposition: Home, Self-Care Discharge Diagnosis: Bipolar I Disorder Intermittent Explosive Disorder Intellectual Disability Referrals: [facility]- Joe Reynolds (Therapist) [Other] - 04/09/24 2:00 pm [facility]- Alisson aJcobo [Other] - 04/10/24 3:50 pm [facility] [Provider Group] - 1 Week (Patient will call for appointment) Discharge Medications: Continued propranolol 80 mg Capsule,Extended Release 24hr 80 mg PO DAILY Qty: 30 0RF Protocol: Hold for SBP/HR < HOLD for SBP < : 90 HOLD for HR < : 60 Vraylar 3 mg Capsule 6 mg PO DAILY Qty: 60 0RF lithium carbonate 450 mg tablet extended release 1,350 mg PO BEDTIME Qty: 90 0RF metformin 1,000 mg Tablet 1,000 mg PO BIDWM Qty: 60 0RF trazodone 100 mg Tablet 100 mg PO BEDTIME melatonin 3 mg Capsule 6 mg PO BEDTIME guanfacine 1 mg tablet 1 mg PO DAILY guanfacine 3 mg tablet extended release 24 hr 3 mg PO BEDTIME Discharge Orders: Discharge Order (Routine); Ordered 04/04/24 Ordered By: Paddy Tan Diet: Diabetic diet Activity on Discharge: As tolerated Stand Alone Forms: Patient Portal Discharge page, Community Support Print Language: Bulgarian Care Plan Goals: remain safe and stable in the outpatient treatment setting Health Concerns: Diabetes Mellitus Obesity Plan of Treatment: take medications as prescribed, attend appointments as scheduled Assessment: not at imminent risk of harm to self or others Discharge Date/Time: 04/04/24 11:10
[2024-04-03 19:25] VITALS: BP 125/60; PULSE 74; RESP 16; TEMP 36.8; O2SAT 98
[2024-04-03 20:57] LABS: Glucose, Whole Blood 159 mg/dL (60-115)
[2024-04-03] MEDS: Lithium Carbonate ER 450 MG TABLET.ER 1350 MG PO (21:18)
[2024-04-03] MEDS: Melatonin 3 MG TABLET 6 MG PO (21:19)
[2024-04-03] MEDS: traZODone HCL 100 MG TABLET PO (21:19)
[2024-04-03] MEDS: guanFACINE HCl ER 1 MG TAB.ER.24H 3 MG PO (21:19)
[2024-04-04 07:37] VITALS: BP 132/75; PULSE 75; RESP 16; TEMP 36.6; O2SAT 95
[2024-04-04 07:53] LABS: Glucose, Whole Blood 128 mg/dL (60-115)
[2024-04-04] MEDS: metFORMIN HCl 1,000 MG TABLET 1000 MG PO (08:46)
[2024-04-04] MEDS: Propranolol HCL LA 80 MG CAP.SA.24H PO (08:46)
[2024-04-04] MEDS: guanFACINE HCl ER 1 MG TAB.ER.24H PO (08:46)
[2024-04-04] MEDS: Cariprazine HCl 3 MG CAPSULE 6 MG PO (08:47)
== END 2024-04-04 11:10 | disposition home or self-care (01) | DRG 753 ==
LOC: HO.ED 17:47 → HO.PADLT16 03-28 12:25
PROVIDERS: Psychiatry & Neurology Psychiatry; Admitting Provider Registered Nurse; Emergency Provider Emergency Medicine; Responsible Provider Psychiatry & Neurology Psychiatry; Visit Provider Psychiatry & Neurology Psychiatry
DX: F31.9 Bipolar disorder, unspecified (principal); R45.851 Suicidal ideations; F79 Unspecified intellectual disabilities; F63.81 Intermittent explosive disorder; Z79.84 Long term (current) use of oral hypoglycemic drugs; Z79.899 Other long term (current) drug therapy
CPT/HCPCS: 36415; 80048; 80051; 80053; 80061; 80076; 80178; 80307; 82565; 82947; 83735; 84443; 84520; 85025; 99285; S9485

== ENCOUNTER → 2024-03-28 11:59 | Outpatient (BNV) | payer OTHER, SELFPAY | PROVIDERS: Admitting Provider Registered Nurse; Emergency Provider Emergency Medicine; Responsible Provider Registered Nurse; Visit Provider Registered Nurse | DX: F31.4 Bipolar disorder, current episode depressed, severe, without psychotic features (principal); F79 Unspecified intellectual disabilities; F63.81 Intermittent explosive disorder | CPT/HCPCS: 90792; 99231; 99232; 99239 ==

== ENCOUNTER 2024-06-17 09:33 | Emergency (ER) | payer OTHER, SELFPAY ==
[2024-06-17 09:43] VITALS: BP 130/88; PULSE 106; O2SAT 96
[2024-06-17 09:50] VITALS: BP 153/96; PULSE 109; RESP 22; TEMP 36.4; O2SAT 99; BMI 31.2
[2024-06-17 09:54] VITALS: BP 153/96; PULSE 109; RESP 18; TEMP 36.4; O2SAT 99
[2024-06-17 10:20] LABS: MANUAL DIFF FLAG NO
[2024-06-17 10:24] LABS: Basophils Absolute Auto 0.1 X10*3/uL (0.0-0.2); Basophils Percent Auto 0.7 % (0-2); Eosinophils Absolute Auto 0.2 X10*3/uL (0.0-0.4); Eosinophils Percent Auto 1.8 % (0-4); Hematocrit 45.1 % (42.0-52.0); Hemoglobin 15.2 g/dl (14.0-18.0); Imm Gran Abs Auto 0.08 X10*3/uL (0.00-0.03); Imm Gran Pct Auto 0.9 % (0.0-0.4); Lymphocytes Absolute Auto 2.2 X10*3/uL (1.2-4.9); Lymphocytes Percent Auto 24.4 % (20-40); Mean Corpuscular HGB Conc 33.7 g/dl (31.0-36.0); Mean Corpuscular Hemoglobin 27.6 pg (27.0-33.0); Mean Platelet Volume 9.3 fL (9.4-12.4); Monocytes Absolute Auto 0.5 X10*3/uL (0.1-1.2); Monocytes Percent Auto 5.1 % (2-11); Neutrophils Absolute Auto 6.1 x10*3/uL (2.0-8.3); Neutrophils Percent Auto 67.1 % (45-73); Platelet Count 239 X10*3/uL (160-400); Red Cell Distribution Width 13.2 % (11.0-16.0); White Blood Count 9.1 X10*3/uL (4.8-10.8)
[2024-06-17 10:40] LABS: Appearance Urine Cloudy; Color Urine Yellow; Glucose Urine UA Negative (Negative); Leukocyte Esterase Urine Negative (Negative); Nitrite Urine Negative (Negative); PH 5.5 (5.0-9.0); Specific Gravity - Urine 1.025 (1.005-1.025); UMIC TRIGGER UACC YES; Urine Blood Trace (Negative); Urine Ketones Negative (Negative); Urine Protein 300 (3+) mg/dL (Neg-Trace)
[2024-06-17 10:41] LABS: Alanine Aminotransferase 48 U/L (0-40); Albumin Level 4.9 g/dL (3.5-5.0); Alkaline Phosphatase 93 U/L (39-117); Anion Gap 11 (12-20); Aspartate Amino Transferase 28 U/L (5-37); Bilirubin Total 0.4 mg/dL (0.0-1.0); Blood Urea Nitrogen 12 mg/dL (9-16); Calcium 10.7 mg/dL (8.4-10.2); Carbon Dioxide 25 mmol/L (22-29); Chloride 109 mmol/L (96-108); Creatinine Clr Calc Pharmacy 153.8; Estimated Glomerular Filt Rate > 60; Ethanol < 10 mg/dL; Glucose Random 136 mg/dL (60-115); Potassium 3.9 mmol/L (3.3-5.1); Sodium 141 mmol/L (135-145); Total Protein 7.7 g/dL (6.5-8.0)
[2024-06-17 10:51] LABS: Amphetamine Screen Urine Not Detected (Not Detect); Barbiturates, Urine Not Detected (Not Detect); Benzodiazepines Screen Urine Not Detected (Not Detect); Buprenorphine Scr Not Detected (Not Detect); Cannabinoid Screen Urine Not Detected (Not Detect); Cocaine Screen Urine Not Detected (Not Detect); Fentanyl, urine Not Detected (Not Detect); Methadone Screen, Urine Not Detected (Not Detect); Opiate Screen Urine Not Detected (Not Detect); Oxycodone Screen Urine Not Detected (Not Detect); Phencyclidine Screen Urine Not Detected (Not Detect)
[2024-06-17 11:18] LABS: Bacteria Urine None Seen (None Seen); Granular Casts Urine Present; Hyaline Casts Urine >20 /LPF (0-2); RBC Urine 0-2 /HPF (0-2); WBC Urine 0-5 /HPF (0-5)
[2024-06-17] MEDS: Acetaminophen 325 MG TABLET 975 MG PO (13:36)
--- NOTE | 2024-06-17 14:52 | ED_ITS ---
HPI - General Adult General Chief complaint: Behavioral Concerns Stated complaint: CRISIS WANTS MED ADJ Time Seen by Provider: 06/17/24 09:57 Source: patient Limitations: no limitations History of Present Illness ED Provider: Urvashi Elizabeth PA-C HPI narrative: 28-year-old male with history of bipolar, intermittent explosive disorder and intellectual disability presents with aggressive behaviors at home. Patient states he has been having ?issues at home ?, due to medication nonadherence. Patient states ?my mom's post put my meds together and she has an?. Patient denies SI or HI at this time. Patient denies use of illicit substances or alcohol. Related Data Home Medications ?Medication ?Instructions ?Recorded ?Confirmed guanfacine 1 mg tablet 1 mg PO DAILY 05/24/23 06/17/24 guanfacine 3 mg tablet,extended 3 mg PO BEDTIME 05/24/23 06/17/24 release 24 hr melatonin 3 mg capsule 6 mg PO BEDTIME 03/27/24 06/17/24 trazodone 100 mg tablet 100 mg PO BEDTIME 03/27/24 06/17/24 Previous Rx's ?Medication ?Instructions ?Recorded lithium carbonate 450 mg 1,350 mg (3 x 450 mg) PO BEDTIME 03/27/23 tablet,extended release #90 tabs metformin 1,000 mg tablet 1,000 mg PO BIDWM #60 tabs 03/27/23 propranolol 80 mg capsule,24 80 mg PO DAILY #30 caps 03/27/23 hr,extended release Allergies Allergy/AdvReac Type Severity Reaction Status Date / Time No Known Allergies Allergy Verified 06/17/24 09:50 Review of Systems 2 Review of Systems: Yes all other systems are reviewed and are negative Constitutional: Constitutional: Denies fever(s) Cardiovascular: Cardiovascular: Denies chest pain and Denies dyspnea Respiratory: Respiratory: Denies dyspnea Gastrointestinal: Gastrointestinal: Denies nausea Integumentary/Breasts: Skin/Breast: Denies rash Psychiatric: Psychiatric: Reports irritability, Denies homicidal ideation and Denies suicidal ideation [facility] Past Medical History Attestation statement: The following information was validated with the patient. Medical History Intellectual disability Intermittent explosive disorder in adult Social History Social History Household Members: Family Housing: House Do you presently have visiting nurse or other home services: No Alcohol intake: current Alcohol intake frequency: holidays/special occasions only Alcohol type: wine Patient Tobacco Use Status: Never used Tobacco Smoked in Last 30 Days: No Use of substances other than those prescribed or required for medical reasons: No Advance Directives: No Advance Directives Information Provided: Yes Do you have a plan to hurt others: No Plan service: No Sexual orientation: Straight/Heterosexual Physical Exam ED Vital Signs: Vital Signs - 24 hr 06/17/24 09:50 06/17/24 09:54 Temperature 97.6 F 97.6 F Pulse Rate 109 H 109 H Respiratory Rate 22 H 18 Blood Pressure 153/96 H 153/96 H Pulse Oximetry 99 99 Oxygen Delivery Method Room Air Room Air BMI result Body Mass Index 31.2 Const Other: Awake, well in appearance Orientation/consciousness: patient oriented x3 Resp Other: Nonlabored respiration Cardio Other: Normal peripheral perfusion Skin Other: Warm dry no rash Neuro General: patient oriented x3, no focal motor deficits and CN's II-XI intact bilaterally Psych Other: Cooperative here in the ED Course Course Course Narrative: 28-year-old male with history of bipolar, intermittent explosive disorder and intellectual disability presents with aggressive behaviors at home. Patient states he has been having ?issues at home ?, due to medication nonadherence. Patient states ?my mom's post put my meds together and she has an?. Patient denies SI or HI at this time. Patient denies use of illicit substances or alcohol. Problem: Psychiatric illness History: Per patient I have considered the following differential diagnoses: Drug/alcohol intoxication, SI, HI, decompensated psychiatric illness Plan: The patient will be seen by our behavioral health team, screening labs including U tox serum ethanol an additional screening labs obtained. The patient will likely be a bed search given He has decompensated at this point. I have independently reviewed the following tests: Labs: No leukocytosis, not anemic, no electrolyte abnormality, serum ethanol negative, U tox negative, lithium level noted to be low Patient will remain a physician arbs as his behavioral health assessment is pending, again he will likely be a bed search Medications Administered Discontinued Medications Generic Name Dose Route Start Last Admin Trade Name Freq PRN Reason Stop Dose Admin Acetaminophen 975 mg 06/17/24 13:18 06/17/24 13:36 Acetaminophen 325 Mg Tablet PO 06/17/24 13:19 975 mg ONCE ONE Administration Medical Decision Making Lab Data 06/17/24 10:16 06/17/24 10:16 Labs: Lab Results 06/17/24 06/17/24 Range/Units 10:16 10:30 WBC 9.1 (4.8-10.8) X10*3/uL RBC 5.50 (4.60-5.80) X10*6/uL Hgb 15.2 (14.0-18.0) g/dl Hct 45.1 (42.0-52.0) % MCV 82.0 (80.0-98.0) fL MCH 27.6 (27.0-33.0) pg MCHC 33.7 (31.0-36.0) g/dl RDW 13.2 (11.0-16.0) % Plt Count 239 (160-400) X10*3/uL MPV 9.3 L (9.4-12.4) fL Immature Gran % (Auto) 0.9 H (0.0-0.4) % Neut % (Auto) 67.1 (45-73) % Lymph % (Auto) 24.4 (20-40) % [place] % (Auto) 5.1 (2-11) % Eos % (Auto) 1.8 (0-4) % Baso % (Auto) 0.7 (0-2) % Lymph # (Auto) 2.2 (1.2-4.9) X10*3/uL [place] # (Auto) 0.5 (0.1-1.2) X10*3/uL Eos # (Auto) 0.2 (0.0-0.4) X10*3/uL Baso # (Auto) 0.1 (0.0-0.2) X10*3/uL Abs Immat Gran (auto) 0.08 H (0.00-0.03) X10*3/uL Absolute Neuts (auto) 6.1 (2.0-8.3) x10*3/uL Absolute Nucleated RBC 0.000 (0.0-0.012) X10*3/uL Nucleated RBC % (auto) 0.0 (0.0-0.2) /100WBC Sodium 141 (135-145) mmol/L Potassium 3.9 (3.3-5.1) mmol/L Chloride 109 H (96-108) mmol/L Carbon Dioxide 25 (22-29) mmol/L Anion Gap 11 L (12-20) BUN 12 (9-16) mg/dL Creatinine 0.98 (0.5-1.4) mg/dL Estim Creat Clear Calc 153.8 Estimated GFR > 60 Random Glucose 136 H (60-115) mg/dL Calcium 10.7 H (8.4-10.2) mg/dL Total Bilirubin 0.4 (0.0-1.0) mg/dL AST 28 (5-37) U/L ALT 48 H (0-40) U/L Alkaline Phosphatase 93 (39-117) U/L Total Protein 7.7 (6.5-8.0) g/dL Albumin 4.9 (3.5-5.0) g/dL Urine Color Yellow Urine Appearance Cloudy Urine pH 5.5 (5.0-9.0) Ur Specific [place] 1.025 (1.005-1.025) Urine Protein 300 (3+) H (Neg-Trace) mg/dL Urine Glucose (UA) Negative (Negative) mg/dL Urine Ketones Negative (Negative) mg/dL Urine Blood Trace H (Negative) Urine Nitrite Negative (Negative) Ur Leukocyte Esterase Negative (Negative) Urine RBC 0-2 (0-2) /HPF Urine WBC 0-5 (0-5) /HPF Ur Squamous Epith Cells 3-5 (0-2) /HPF Urine Bacteria None Seen (None Seen) Hyaline Casts >20 (0-2) /LPF Granular Casts Present Urine Opiates Screen Not Detected (Not Detect) Ur Buprenorphine Scrn Not Detected (Not Detect) ng/mL Ur Oxycodone Screen Not Detected (Not Detect) ng/mL Urine Methadone Screen Not Detected (Not Detect) ng/mL Urine Fentanyl Screen Not Detected (Not Detect) Ur Barbiturates Screen Not Detected (Not Detect) Ur Phencyclidine Scrn Not Detected (Not Detect) Ur Amphetamines Screen Not Detected (Not Detect) U Benzodiazepines Scrn Not Detected (Not Detect) Urine Cocaine Screen Not Detected (Not Detect) U Marijuana (THC) Screen Not Detected (Not Detect) Ethyl Alcohol < 10 mg/dL Discharge Plan Discharge Clinical Impression: Aggression Patient Disposition: Still a Patient Prescriptions: No Action propranolol 80 mg Capsule,Extended Release 24hr 80 mg PO DAILY Qty: 30 0RF Protocol: Hold for SBP/HR < HOLD for SBP < : 90 HOLD for HR < : 60 lithium carbonate 450 mg tablet extended release 1,350 mg PO BEDTIME Qty: 90 0RF metformin 1,000 mg Tablet 1,000 mg PO BIDWM Qty: 60 0RF trazodone 100 mg Tablet 100 mg PO BEDTIME melatonin 3 mg Capsule 6 mg PO BEDTIME guanfacine 1 mg tablet 1 mg PO DAILY guanfacine 3 mg tablet extended release 24 hr 3 mg PO BEDTIME Print Language: Chinese
[2024-06-17 17:32] VITALS: BP 154/85; PULSE 80; RESP 18; TEMP 36.6; O2SAT 97
[2024-06-17 22:40] VITALS: BP 144/82; PULSE 73; RESP 16; TEMP 36.6; O2SAT 97
[2024-06-18] MEDS: guanFACINE HCl ER 1 MG TAB.ER.24H 3 MG PO (00:42)
[2024-06-18] MEDS: Melatonin 3 MG TABLET 6 MG PO (00:42)
--- NOTE | 2024-06-18 01:02 | PC.NURSE ---
patient although he had agreed to lab draw earlier in [facility] presently declined for lithium draw, stated he would allow in am.
--- NOTE | 2024-06-18 03:37 | PC.NURSE ---
report given Ximena BERRIOS, ok for pt to go to the POD
[2024-06-18 06:00] VITALS: BP 113/60; PULSE 73; RESP 14; TEMP 36.8; O2SAT 98
--- NOTE | 2024-06-18 06:47 | PHA.MEDREC ---
Pharmacy Consult ? Medication Reconciliation Pharmacy has completed the medication reconciliation. Pharmacy reviewed med rec done by nursing (Vani Hernandez).
--- NOTE | 2024-06-18 08:05 | PC.NURSE ---
Assumed care of patient at 0645, patient appears to be in no apparent distress this am, sitting at table in common area watching TV. Continue plan of care for re-eval by CARE team this am
[2024-06-18 08:16] LABS: Lithium < 0.10 mmol/L (0.60-1.20)
[2024-06-18] MEDS: metFORMIN HCl 1,000 MG TABLET 1000 MG PO (08:20)
[2024-06-18] MEDS: Propranolol HCL LA 80 MG CAP.SA.24H PO (08:20)
[2024-06-18] MEDS: guanFACINE HCl ER 1 MG TAB.ER.24H PO (08:21)
[2024-06-18 11:00] VITALS: BP 119/56; PULSE 71; TEMP 36.6; O2SAT 98
[2024-06-18 13:32] VITALS: BP 130/70; PULSE 80; RESP 18; TEMP 36.8; O2SAT 98
== END 2024-06-18 13:33 | disposition home or self-care (01) ==
PROVIDERS: Emergency Medicine; Emergency Provider Emergency Medicine
DX: R45.4 Irritability and anger (principal); Z79.899 Other long term (current) drug therapy; Z91.148 Patient's other noncompliance with medication regimen for other reason
CPT/HCPCS: 36415; 80053; 80178; 80307; 81001; 81003; 85025; 99285; S9485

== ENCOUNTER 2024-07-20 21:26 | Inpatient (IN) | payer OTHER, SELFPAY ==
[2024-07-20 21:28] VITALS: BP 152/104; PULSE 93; O2SAT 98
[2024-07-20 22:12] VITALS: BP 143/91; PULSE 92; RESP 18; TEMP 36.6; O2SAT 98; BMI 37.9
--- NOTE | 2024-07-21 01:22 | PC.NURSE ---
Pt ca&ox3, no signs of distress Pt reports 3/10 finger pain from cutting him self on fan that he threw after having an argument with his family. Plan of care ongoing.
--- NOTE | 2024-07-21 01:44 | PC.NURSE ---
This RN called pts mother Stephanie @ [phone] and there was no answer. Plan of care ongoing.
--- NOTE | 2024-07-21 01:51 | PC.NURSE ---
Pt requested and given a pillow
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
[2024-07-21 04:17] VITALS: BP 113/49; PULSE 66; RESP 16; TEMP 36.6; O2SAT 97
[2024-07-21 06:36] LABS: Amphetamine Screen Urine Not Detected (Not Detect); Barbiturates, Urine Not Detected (Not Detect); Benzodiazepines Screen Urine Not Detected (Not Detect); Buprenorphine Scr Not Detected (Not Detect); Cannabinoid Screen Urine Not Detected (Not Detect); Cocaine Screen Urine Not Detected (Not Detect); Fentanyl, urine Not Detected (Not Detect); Methadone Screen, Urine Not Detected (Not Detect); Opiate Screen Urine Not Detected (Not Detect); Oxycodone Screen Urine Not Detected (Not Detect); Phencyclidine Screen Urine Not Detected (Not Detect)
--- NOTE | 2024-07-21 07:54 | PC.NURSE ---
patient awake, laying in ED stretcher. Given breakfast tray. patient is calm and cooperative. no signs of acute distress, respirations equal and unlabored, skin dry and intact
[2024-07-21 10:45] VITALS: BP 147/88; PULSE 72; RESP 18; TEMP 36.2; O2SAT 97
--- NOTE | 2024-07-21 13:30 | PC.NURSE ---
patient changed over into hosptal attire with security
[2024-07-21 16:05] LABS: MANUAL DIFF FLAG NO
[2024-07-21 16:07] LABS: Basophils Absolute Auto 0.1 X10*3/uL (0.0-0.2); Basophils Percent Auto 0.5 % (0-2); Eosinophils Absolute Auto 0.3 X10*3/uL (0.0-0.4); Eosinophils Percent Auto 2.6 % (0-4); Hematocrit 41.9 % (42.0-52.0); Hemoglobin 14.3 g/dl (14.0-18.0); Imm Gran Abs Auto 0.05 X10*3/uL (0.00-0.03); Imm Gran Pct Auto 0.5 % (0.0-0.4); Lymphocytes Absolute Auto 2.7 X10*3/uL (1.2-4.9); Lymphocytes Percent Auto 27.7 % (20-40); Mean Corpuscular HGB Conc 34.1 g/dl (31.0-36.0); Mean Platelet Volume 9.6 fL (9.4-12.4); Monocytes Absolute Auto 0.6 X10*3/uL (0.1-1.2); Neutrophils Absolute Auto 6.1 x10*3/uL (2.0-8.3); Neutrophils Percent Auto 62.7 % (45-73); Platelet Count 219 X10*3/uL (160-400); Red Blood Count 5.11 X10*6/uL (4.60-5.80); Red Cell Distribution Width 13.2 % (11.0-16.0); White Blood Count 9.7 X10*3/uL (4.8-10.8)
[2024-07-21 16:30] LABS: Alanine Aminotransferase 59 U/L (0-40); Albumin Level 4.4 g/dL (3.5-5.0); Alkaline Phosphatase 86 U/L (39-117); Anion Gap 14 (12-20); Aspartate Amino Transferase 37 U/L (5-37); Bilirubin Direct 0.1 mg/dL (0.0-0.5); Bilirubin Total 0.5 mg/dL (0.0-1.0); Blood Urea Nitrogen 12 mg/dL (9-16); Calcium 10.3 mg/dL (8.4-10.2); Carbon Dioxide 24 mmol/L (22-29); Chloride 107 mmol/L (96-108); Creatinine Clr Calc Pharmacy 190.7; Estimated Glomerular Filt Rate > 60; Glucose Random 161 mg/dL (60-115); Lithium 0.15 mmol/L (0.60-1.20); Magnesium 2.1 mg/dL (1.6-2.6); Potassium 3.4 mmol/L (3.3-5.1); Sodium 142 mmol/L (135-145)
[2024-07-21 16:39] LABS: Acetaminophen LAB < 3 mcg/mL (<30); Salicylate < 5.0 mg/dL (15-30)
[2024-07-21] MEDS: Acetaminophen 325 MG TABLET 975 MG PO (18:43)
[2024-07-21 21:23] LABS: Appearance Urine Clear; Color Urine Yellow; Glucose Urine UA Negative (Negative); Leukocyte Esterase Urine Small (1+) (Negative); Nitrite Urine Negative (Negative); UMIC TRIGGER UACC YES; Urine Blood Negative (Negative); Urine Ketones Negative (Negative); Urine Protein Trace mg/dL (Neg-Trace)
[2024-07-21 21:25] LABS: Bacteria Urine None Seen (None Seen); Hyaline Casts Urine 0-2 /LPF (0-2); RBC Urine 0-2 /HPF (0-2); UACC Culture Trigger YES
--- NOTE | 2024-07-22 04:32 | PC.NURSE ---
This leader writer assumed care of this Pt at 2300. Pt awake, calm requested TV to be turned off.
[2024-07-22 04:33] VITALS: RESP 16
--- NOTE | 2024-07-22 07:12 | PC.NURSE ---
Assumed care of patient at 0645, patient appears to be in no apparent distress this am, sleeping, respirations even and unlabored. Continue plan of care for inpatient bedsearch at this time
[2024-07-22 09:30] VITALS: BP 146/77; PULSE 92; RESP 16; TEMP 36.7; O2SAT 97
[2024-07-22 16:53] VITALS: BP 155/110; PULSE 87; RESP 20; TEMP 36.1; O2SAT 97
[2024-07-22] MEDS: Acetaminophen 325 MG TABLET 975 MG PO (16:53)
--- NOTE | 2024-07-22 19:02 | PC.NURSE ---
this rn assumed care of pt, pt walking around main area, no acute distress noted.
--- NOTE | 2024-07-22 19:38 | PC.NURSE ---
pt mother at bedside with pt, pt appears happy and sitting in 8 room comfortably.
--- NOTE | 2024-07-22 21:04 | PC.NURSE ---
report given to Dorothy on M3.
--- NOTE | 2024-07-22 21:13 | PC.NURSE ---
report given to Luda BERRIOS on M3, Dorothy whitley and Ken from security transporting pt to [id number] at this time.
[2024-07-22 21:25] VITALS: BP 142/96; PULSE 100; RESP 16; TEMP 36.1; O2SAT 97
[2024-07-22] MEDS: Lithium Carbonate ER 450 MG TABLET.ER 1350 MG PO (22:03)
[2024-07-22] MEDS: guanFACINE HCl ER 1 MG TAB.ER.24H 3 MG PO (22:04)
[2024-07-22] MEDS: traZODone HCL 100 MG TABLET PO (23:04)
[2024-07-22] MEDS: Melatonin 3 MG TABLET 6 MG PO (23:05)
[2024-07-22] MEDS: Acetaminophen 325 MG TABLET 650 MG PO (23:06)
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
[2024-07-23 08:00] VITALS: BP 134/71; PULSE 90; RESP 18; TEMP 36.7; O2SAT 96; O2SAT 98
[2024-07-23] MEDS: metFORMIN HCl 1,000 MG TABLET 1000 MG PO ×2 (08:05→16:49)
[2024-07-23] MEDS: Propranolol HCL LA 80 MG CAP.SA.24H PO (08:05)
[2024-07-23 08:21] LABS: Estimated Average Glucose 123 mg/dL; Hemoglobin A1c % 5.9 % (<6.0)
[2024-07-23 08:22] LABS: Cholesterol 212 mg/dL (<200); HDL Cholesterol 30 mg/dL (>40); LDL Cholesterol Calculated 131 mg/dL (<100); Triglycerides 258 mg/dL (<150)
[2024-07-23] MEDS: Acetaminophen 325 MG TABLET 650 MG PO ×2 (09:20→22:13)
[2024-07-23] MEDS: Flu Vacc TS2024-25(6mos up)/PF 0.5 ML SYRINGE IM (13:19)
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
[2024-07-23 19:55] VITALS: BP 142/83; PULSE 72; RESP 16; TEMP 36.3; O2SAT 96
[2024-07-23] MEDS: guanFACINE HCl ER 1 MG TAB.ER.24H 3 MG PO (20:08)
[2024-07-23] MEDS: Lithium Carbonate ER 450 MG TABLET.ER 1350 MG PO (20:08)
[2024-07-23] MEDS: traZODone HCL 100 MG TABLET PO (22:10)
[2024-07-23] MEDS: Melatonin 3 MG TABLET 6 MG PO (22:10)
[2024-07-24 07:32] VITALS: BP 113/58; PULSE 60; RESP 14; TEMP 36.8; O2SAT 97
[2024-07-24] MEDS: Cariprazine HCl 3 MG CAPSULE 6 MG PO (08:17)
[2024-07-24] MEDS: guanFACINE HCl ER 1 MG TAB.ER.24H PO (08:17)
[2024-07-24] MEDS: metFORMIN HCl 1,000 MG TABLET 1000 MG PO ×2 (08:17→16:15)
[2024-07-24 09:15] VITALS: BMI 37.6
[2024-07-24 11:36] VITALS: BMI 37.6
--- NOTE | 2024-07-24 15:49 | HO.PSYCHPN ---
Subjective Subjective Date of Service: 07/24/24 Reason For Visit: dysregulation Interim History: appears sedated this morning, the first morning restarting vraylar and guanfacine. agreeable to change vraylar to HS. will give 3 mg tonight, then none in the morning, then 6 tomorrow night. agreeable to stay in the hospital through early next week for lithium titration. per staff, no anx/dep. visible, social, pleasant. slept 8 hours. Mental Status Exam Mental Status Exam Narrative: Pt is alert and oriented; behavior is cooperative, friendly and calm; dressed in hospital attire; mood is described as fine; eye contact appropriate; Speech is normal rate, volume and prosody and not pressured; thought process is organized and goal directed; Thought content is on tx; otherwise pertinent to relevant topics and without any delusional content, paranoid ideations or grandiosity; denies SI/HI/VH/AH. Diagnostics Vital Signs (24Hr): Vital Signs - 24 hr 07/23/24 19:55 07/24/24 07:32 Temperature 97.4 F 98.2 F Pulse Rate 72 60 Respiratory Rate 16 14 Blood Pressure 142/83 H 113/58 L Pulse Oximetry 96 97 Oxygen Delivery Method Room Air Room Air BMI result Body Mass Index 37.6 Labs 07/21/24 15:59 07/21/24 15:59 Labs: Laboratory Results - last 48 hr 07/23/24 08:02 Estimat Average Glucose 123 Hemoglobin A1c % 5.9 Triglycerides 258 H Cholesterol 212 H LDL Cholesterol, Calc 131 H HDL Cholesterol 30 L Medications Medications Current Medications Acetaminophen (Acetaminophen 325 Mg Tablet) 650 mg PO Q6H PRN PRN Reason: Headache/Pain Mild Scale (1-3) Last Admin: 07/23/24 22:13 Dose: 650 mg Al Hydroxide/Mg Hydroxide (Magnesium Hydrox/Alum Hydrox 30 Ml Oral.Susp) 30 ml PO Q6H PRN PRN Reason: Heartburn/Nausea Cariprazine (Cariprazine Hcl 3 Mg Capsule) 6 mg PO BEDTIME LOLA Cariprazine (Cariprazine Hcl 3 Mg Capsule) 3 mg PO ONCE ONE Stop: 07/24/24 21:01 Guanfacine HCl (Guanfacine Hcl Er 1 Mg Tab.Er.24h) 3 mg PO BEDTIME LOLA Last Admin: 07/23/24 20:08 Dose: 3 mg Guanfacine HCl (Guanfacine Hcl Er 1 Mg Tab.Er.24h) 1 mg PO DAILY [facility] Last Admin: 07/24/24 08:17 Dose: 1 mg Hydroxyzine HCl (Hydroxyzine Hcl 25 Mg Tablet) 25 mg PO Q6H PRN PRN Reason: Anxiety [place] Carbonate ([place] Carbonate Er 450 Mg Tablet.Er) 1,350 mg PO BEDTIME [facility] Last Admin: 07/23/24 20:08 Dose: 1,350 mg Magnesium Hydroxide (Milk Of Magnesia 30 Ml Oral.Susp) 30 ml PO DAILY PRN PRN Reason: Constipation Melatonin (Melatonin 3 Mg Tablet) 6 mg PO BEDTIME LOLA Last Admin: 07/23/24 22:10 Dose: 6 mg Metformin HCl (Metformin Hcl 1,000 Mg Tablet) 1,000 mg PO BIDWM LOLA Last Admin: 07/24/24 08:17 Dose: 1,000 mg Nicotine (Nicotine 21 Mg Patch.Td24) 21 mg TRANSDERMA DAILY PRN PRN Reason: smoking cessation Olanzapine (Olanzapine 5 Mg Tablet) 5 mg PO TID PRN PRN Reason: agitation Propranolol HCl (Propranolol Hcl La 80 Mg Cap.Sa.24h) 80 mg PO DAILY [facility]; Protocol Last Admin: 07/24/24 08:18 Dose: Not Given Trazodone HCl (Trazodone Hcl 50 Mg Tablet) 50 mg PO BEDTIME MRX1 PRN PRN Reason: Insomnia Trazodone HCl (Trazodone Hcl 100 Mg Tablet) 100 mg PO BEDTIME [facility] Last Admin: 07/23/24 22:10 Dose: 100 mg Allergies Allergies Allergy/AdvReac Type Severity Reaction Status Date / Time No Known Allergies Allergy Verified 07/20/24 22:13 Assessment & Plan Assessment & Plan (1) Superficial laceration of finger: Status: Acute Code(s): S61.219A - Laceration without foreign body of unspecified finger without damage to nail, initial encounter (2) Intermittent explosive disorder in adult: Status: Acute Code(s): F63.81 - Intermittent explosive disorder (3) Intellectual disability: Status: Acute Code(s): F79 - Unspecified intellectual disabilities (4) Bipolar 1 disorder: Status: Acute Code(s): F31.9 - Bipolar disorder, unspecified Plan 07/23: continue home meds for now. call placed to pt's mother yg pedraza at [phone], meds reviewed and reconciled. 07/24: restarted vraylar and guanfacine in the morning, sedated. switch vraylar to HS, otherwise continue current mgmt. recheck lithium and labs in 5 days. Reason for continued inpatient stay Substantial Risk for: harm to self and harm to others Time Spent With Patient Time: Total time managing care of this patient today _25___ minutes.
[2024-07-24 19:50] VITALS: BP 125/74; PULSE 86; RESP 18; TEMP 36.7; O2SAT 98
[2024-07-24] MEDS: Cariprazine HCl 3 MG CAPSULE PO (22:36)
[2024-07-24] MEDS: Lithium Carbonate ER 450 MG TABLET.ER 1350 MG PO (22:36)
[2024-07-24] MEDS: guanFACINE HCl ER 1 MG TAB.ER.24H 3 MG PO (22:36)
[2024-07-24] MEDS: Melatonin 3 MG TABLET 6 MG PO (22:41)
[2024-07-24] MEDS: traZODone HCL 100 MG TABLET PO (22:41)
[2024-07-25 08:00] VITALS: BP 139/71; PULSE 72; RESP 16; TEMP 36.7; O2SAT 98
[2024-07-25] MEDS: metFORMIN HCl 1,000 MG TABLET 1000 MG PO ×2 (09:38→16:20)
[2024-07-25] MEDS: Propranolol HCL LA 80 MG CAP.SA.24H PO (09:38)
[2024-07-25] MEDS: guanFACINE HCl ER 1 MG TAB.ER.24H PO (09:39)
--- NOTE | 2024-07-25 13:26 | HO.PSYCHPN ---
Subjective Subjective Date of Service: 07/25/24 Reason For Visit: dysregulation Interim History: calm, cooperative. slept ok. less sedated than yesterday. assumed regimen for discharge starts tonight. no questions or complaints. amenable to DC sunday. per staff, denies dep/anx. taking meds. isolative in a.m., out and about in the afternoon. social. slept 7 hours. Mental Status Exam Mental Status Exam Narrative: Pt is alert and oriented; behavior is cooperative, friendly and calm; dressed in hospital attire; mood is described as fine; eye contact appropriate; Speech is normal rate, volume and prosody and not pressured; thought process is organized and goal directed; Thought content is on tx; otherwise pertinent to relevant topics and without any delusional content, paranoid ideations or grandiosity; no SI/HI/VH/AH expressed. Diagnostics Vital Signs (24Hr): Vital Signs - 24 hr 07/24/24 19:50 07/25/24 08:00 Temperature 98.0 F 98.0 F Pulse Rate 86 72 Respiratory Rate 18 16 Blood Pressure 125/74 139/71 Pulse Oximetry 98 98 Oxygen Delivery Method Room Air Room Air BMI result Body Mass Index 37.6 Labs 07/21/24 15:59 07/21/24 15:59 Medications Medications Current Medications Acetaminophen (Acetaminophen 325 Mg Tablet) 650 mg PO Q6H PRN PRN Reason: Headache/Pain Mild Scale (1-3) Last Admin: 07/23/24 22:13 Dose: 650 mg Al Hydroxide/Mg Hydroxide (Magnesium Hydrox/Alum Hydrox 30 Ml Oral.Susp) 30 ml PO Q6H PRN PRN Reason: Heartburn/Nausea Cariprazine (Cariprazine Hcl 3 Mg Capsule) 6 mg PO BEDTIME LOLA Guanfacine HCl (Guanfacine Hcl Er 1 Mg Tab.Er.24h) 3 mg PO BEDTIME LOLA Last Admin: 07/24/24 22:36 Dose: 3 mg Guanfacine HCl (Guanfacine Hcl Er 1 Mg Tab.Er.24h) 1 mg PO DAILY LOLA Last Admin: 07/25/24 09:39 Dose: 1 mg Hydroxyzine HCl (Hydroxyzine Hcl 25 Mg Tablet) 25 mg PO Q6H PRN PRN Reason: Anxiety [place] Carbonate ([place] Carbonate Er 450 Mg Tablet.Er) 1,350 mg PO BEDTIME LOLA Last Admin: 07/24/24 22:36 Dose: 1,350 mg Magnesium Hydroxide (Milk Of Magnesia 30 Ml Oral.Susp) 30 ml PO DAILY PRN PRN Reason: Constipation Melatonin (Melatonin 3 Mg Tablet) 6 mg PO BEDTIME [facility] Last Admin: 07/24/24 22:41 Dose: 6 mg Metformin HCl (Metformin Hcl 1,000 Mg Tablet) 1,000 mg PO BIDWM [facility] Last Admin: 07/25/24 09:38 Dose: 1,000 mg Nicotine (Nicotine 21 Mg Patch.Td24) 21 mg TRANSDERMA DAILY PRN PRN Reason: smoking cessation Olanzapine (Olanzapine 5 Mg Tablet) 5 mg PO TID PRN PRN Reason: agitation Propranolol HCl (Propranolol Hcl La 80 Mg Cap.Sa.24h) 80 mg PO DAILY [facility]; Protocol Last Admin: 07/25/24 09:38 Dose: 80 mg Trazodone HCl (Trazodone Hcl 50 Mg Tablet) 50 mg PO BEDTIME MRX1 PRN PRN Reason: Insomnia Trazodone HCl (Trazodone Hcl 100 Mg Tablet) 100 mg PO BEDTIME [facility] Last Admin: 07/24/24 22:41 Dose: 100 mg Allergies Allergies Allergy/AdvReac Type Severity Reaction Status Date / Time No Known Allergies Allergy Verified 07/20/24 22:13 Assessment & Plan Assessment & Plan (1) Superficial laceration of finger: Status: Acute Code(s): S61.219A - Laceration without foreign body of unspecified finger without damage to nail, initial encounter (2) Intermittent explosive disorder in adult: Status: Acute Code(s): F63.81 - Intermittent explosive disorder (3) Intellectual disability: Status: Acute Code(s): F79 - Unspecified intellectual disabilities (4) Bipolar 1 disorder: Status: Acute Code(s): F31.9 - Bipolar disorder, unspecified Plan 07/23: continue home meds for now. call placed to pt's mother yg pedraza at [phone], meds reviewed and reconciled. 07/24: restarted vraylar and guanfacine in the morning, sedated. switch vraylar to HS, otherwise continue current mgmt. recheck lithium and labs in 5 days. 07/25: sleeping in again today. al vraylar at HS from tonight on. observe through w/e, check lithium and labs next week, planning for sunday discharge. Reason for continued inpatient stay Substantial Risk for: harm to self, harm to others, inability to function and rapid decompensation Time Spent With Patient Time: Total time managing care of this patient today _25___ minutes.
[2024-07-25 20:00] VITALS: BP 116/57; PULSE 78; RESP 16; TEMP 36.4; O2SAT 97
[2024-07-25] MEDS: guanFACINE HCl ER 1 MG TAB.ER.24H 3 MG PO (20:38)
[2024-07-25] MEDS: Lithium Carbonate ER 450 MG TABLET.ER 1350 MG PO (20:38)
[2024-07-25] MEDS: Cariprazine HCl 3 MG CAPSULE 6 MG PO (20:38)
[2024-07-25] MEDS: Melatonin 3 MG TABLET 6 MG PO (22:54)
[2024-07-25] MEDS: traZODone HCL 100 MG TABLET PO (22:54)
[2024-07-26 07:20] VITALS: BP 119/56; PULSE 53; RESP 14; TEMP 36.4; O2SAT 99
--- NOTE | 2024-07-26 08:05 | P.PNPSI_ITS ---
Subjective Subjective Date of Service: 07/26/24 Reason For Visit: dysregulation Subjective Notes: Conditional Voluntary Medical Problems Affecting Mental Status: No Interim History: met with patient. Discussed with Nursing. Overall no management issues. Accepting medications. Sleeping well. In the milieu and doing well. Denies depression. Denies feeling agitated. No psychosis. Looking forward to discharge planning And returning home with family Medication Compliance: Yes Side effects from medications: No Attending Groups: Yes Review of Systems Acute medical concerns: No Review of Systems Review of Systems Yes all other systems are reviewed and are negative Mental Status Exam Mental Status Exam Narrative: Pt is alert and oriented; behavior is cooperative, friendly and calm; dressed in casual clothing; mood is described as good; eye contact appropriate; Speech is normal rate, volume and prosody and not pressured; thought process is organized and goal directed; Thought content is on tx; otherwise pertinent to relevant topics and without any delusional content, paranoid ideations or grandiosity; no SI/HI/VH/AH expressed. Diagnostics Vital Signs (24Hr): Vital Signs - 24 hr 07/25/24 20:00 Temperature 97.6 F Pulse Rate 78 Respiratory Rate 16 Blood Pressure 116/57 L Pulse Oximetry 97 Oxygen Delivery Method Room Air BMI result Body Mass Index 37.6 Labs 07/21/24 15:59 07/21/24 15:59 Medications Medications Current Medications Acetaminophen (Acetaminophen 325 Mg Tablet) 650 mg PO Q6H PRN PRN Reason: Headache/Pain Mild Scale (1-3) Last Admin: 07/23/24 22:13 Dose: 650 mg Al Hydroxide/Mg Hydroxide (Magnesium Hydrox/Alum Hydrox 30 Ml Oral.Susp) 30 ml PO Q6H PRN PRN Reason: Heartburn/Nausea Cariprazine (Cariprazine Hcl 3 Mg Capsule) 6 mg PO BEDTIME LOLA Last Admin: 07/25/24 20:38 Dose: 6 mg Guanfacine HCl (Guanfacine Hcl Er 1 Mg Tab.Er.24h) 3 mg PO BEDTIME LOLA Last Admin: 07/25/24 20:38 Dose: 3 mg Guanfacine HCl (Guanfacine Hcl Er 1 Mg Tab.Er.24h) 1 mg PO DAILY LOLA Last Admin: 07/25/24 09:39 Dose: 1 mg Hydroxyzine HCl (Hydroxyzine Hcl 25 Mg Tablet) 25 mg PO Q6H PRN PRN Reason: Anxiety [place] Carbonate ([place] Carbonate Er 450 Mg Tablet.Er) 1,350 mg PO BEDTIME [facility] Last Admin: 07/25/24 20:38 Dose: 1,350 mg Magnesium Hydroxide (Milk Of Magnesia 30 Ml Oral.Susp) 30 ml PO DAILY PRN PRN Reason: Constipation Melatonin (Melatonin 3 Mg Tablet) 6 mg PO BEDTIME [facility] Last Admin: 07/25/24 22:54 Dose: 6 mg Metformin HCl (Metformin Hcl 1,000 Mg Tablet) 1,000 mg PO BIDWM LOLA Last Admin: 07/25/24 16:20 Dose: 1,000 mg Nicotine (Nicotine 21 Mg Patch.Td24) 21 mg TRANSDERMA DAILY PRN PRN Reason: smoking cessation Olanzapine (Olanzapine 5 Mg Tablet) 5 mg PO TID PRN PRN Reason: agitation Propranolol HCl (Propranolol Hcl La 80 Mg Cap.Sa.24h) 80 mg PO DAILY [facility]; Protocol Last Admin: 07/25/24 09:38 Dose: 80 mg Trazodone HCl (Trazodone Hcl 50 Mg Tablet) 50 mg PO BEDTIME MRX1 PRN PRN Reason: Insomnia Trazodone HCl (Trazodone Hcl 100 Mg Tablet) 100 mg PO BEDTIME [facility] Last Admin: 07/25/24 22:54 Dose: 100 mg Allergies Allergies Allergy/AdvReac Type Severity Reaction Status Date / Time No Known Allergies Allergy Verified 07/20/24 22:13 Assessment & Plan Assessment & Plan (1) Superficial laceration of finger: Status: Acute Code(s): S61.219A - Laceration without foreign body of unspecified finger without damage to nail, initial encounter (2) Intermittent explosive disorder in adult: Status: Acute Code(s): F63.81 - Intermittent explosive disorder (3) Intellectual disability: Status: Acute Code(s): F79 - Unspecified intellectual disabilities (4) Bipolar 1 disorder: Status: Acute Code(s): F31.9 - Bipolar disorder, unspecified Plan 07/23: continue home meds for now. call placed to pt's mother yg pedraza at [phone], meds reviewed and reconciled. 07/24: restarted vraylar and guanfacine in the morning, sedated. switch vraylar to HS, otherwise continue current mgmt. recheck lithium and labs in 5 days. 07/25: sleeping in again today. edwin francis at HS from [facility] on. observe through w/e, check lithium and labs next week, planning for sunday discharge. 07/26: no changes Reason for continued inpatient stay Substantial Risk for: rapid decompensation Time Spent With Patient Time: Total time managing care of this patient today ____ minutes.
[2024-07-26] MEDS: Propranolol HCL LA 80 MG CAP.SA.24H PO (09:09)
[2024-07-26] MEDS: metFORMIN HCl 1,000 MG TABLET 1000 MG PO ×2 (09:09→17:11)
[2024-07-26] MEDS: guanFACINE HCl ER 1 MG TAB.ER.24H PO (09:09)
[2024-07-26 09:10] VITALS: BP 118/62; PULSE 62
[2024-07-26 20:00] VITALS: BP 133/76; PULSE 69; RESP 18; TEMP 36.9; O2SAT 98
[2024-07-26] MEDS: guanFACINE HCl ER 1 MG TAB.ER.24H 3 MG PO (20:44)
[2024-07-26] MEDS: Cariprazine HCl 3 MG CAPSULE 6 MG PO (20:44)
[2024-07-26] MEDS: Lithium Carbonate ER 450 MG TABLET.ER 1350 MG PO (20:45)
[2024-07-26] MEDS: traZODone HCL 100 MG TABLET PO (22:38)
[2024-07-26] MEDS: traZODone HCL 50 MG TABLET PO (22:38)
[2024-07-26] MEDS: Melatonin 3 MG TABLET 6 MG PO (22:38)
[2024-07-27 07:39] VITALS: BP 112/53; PULSE 72; RESP 18; TEMP 36.4; O2SAT 98
--- NOTE | 2024-07-27 08:11 | P.PNPSI_ITS ---
Subjective Subjective Date of Service: 07/27/24 Reason For Visit: dysregulation Medical Problems Affecting Mental Status: No Interim History: met with patient. Discussed with Nursing. Overall no management issues. Sleeping well. In the milieu and doing well. Looking forward to football today. Denies depression. Denies feeling agitated. No psychosis. Looking forward to discharge planning and returning home with family on Sunday 07/29 Medication Compliance: Yes Side effects from medications: No Attending Groups: Yes Review of Systems Acute medical concerns: No Review of Systems Review of Systems Yes all other systems are reviewed and are negative Mental Status Exam Mental Status Exam Narrative: Pt is alert and oriented; behavior is cooperative, friendly and calm; dressed in casual clothing; mood is described as good; eye contact appropriate; Speech is normal rate, volume and prosody and not pressured; thought process is organized and goal directed; Thought content is on tx; otherwise pertinent to relevant topics and without any delusional content, paranoid ideations or grandiosity; no SI/HI/VH/AH expressed. Diagnostics Vital Signs (24Hr): Vital Signs - 24 hr 07/26/24 09:10 07/26/24 20:00 07/27/24 07:39 Temperature 98.4 F 97.5 F Pulse Rate 62 69 72 Respiratory Rate 18 18 Blood Pressure 118/62 133/76 112/53 L Pulse Oximetry 98 98 Oxygen Delivery Method Room Air Room Air BMI result Body Mass Index 37.6 Labs 07/21/24 15:59 07/21/24 15:59 Medications Medications Current Medications Acetaminophen (Acetaminophen 325 Mg Tablet) 650 mg PO Q6H PRN PRN Reason: Headache/Pain Mild Scale (1-3) Last Admin: 07/23/24 22:13 Dose: 650 mg Al Hydroxide/Mg Hydroxide (Magnesium Hydrox/Alum Hydrox 30 Ml Oral.Susp) 30 ml PO Q6H PRN PRN Reason: Heartburn/Nausea Cariprazine (Cariprazine Hcl 3 Mg Capsule) 6 mg PO BEDTIME LOLA Last Admin: 07/26/24 20:44 Dose: 6 mg Guanfacine HCl (Guanfacine Hcl Er 1 Mg Tab.Er.24h) 3 mg PO BEDTIME LOLA Last Admin: 07/26/24 20:44 Dose: 3 mg Guanfacine HCl (Guanfacine Hcl Er 1 Mg Tab.Er.24h) 1 mg PO DAILY LOLA Last Admin: 07/26/24 09:09 Dose: 1 mg Hydroxyzine HCl (Hydroxyzine Hcl 25 Mg Tablet) 25 mg PO Q6H PRN PRN Reason: Anxiety [place] Carbonate ([place] Carbonate Er 450 Mg Tablet.Er) 1,350 mg PO BEDTIME LOLA Last Admin: 07/26/24 20:45 Dose: 1,350 mg Magnesium Hydroxide (Milk Of Magnesia 30 Ml Oral.Susp) 30 ml PO DAILY PRN PRN Reason: Constipation Melatonin (Melatonin 3 Mg Tablet) 6 mg PO BEDTIME LOLA Last Admin: 07/26/24 22:38 Dose: 6 mg Metformin HCl (Metformin Hcl 1,000 Mg Tablet) 1,000 mg PO BIDWM LOLA Last Admin: 07/26/24 17:11 Dose: 1,000 mg Nicotine (Nicotine 21 Mg Patch.Td24) 21 mg TRANSDERMA DAILY PRN PRN Reason: smoking cessation Olanzapine (Olanzapine 5 Mg Tablet) 5 mg PO TID PRN PRN Reason: agitation Propranolol HCl (Propranolol Hcl La 80 Mg Cap.Sa.24h) 80 mg PO DAILY [facility]; Protocol Last Admin: 07/26/24 09:09 Dose: 80 mg Trazodone HCl (Trazodone Hcl 50 Mg Tablet) 50 mg PO BEDTIME MRX1 PRN PRN Reason: Insomnia Last Admin: 07/26/24 22:38 Dose: 50 mg Trazodone HCl (Trazodone Hcl 100 Mg Tablet) 100 mg PO BEDTIME LOLA Last Admin: 07/26/24 22:38 Dose: 100 mg Allergies Allergies Allergy/AdvReac Type Severity Reaction Status Date / Time No Known Allergies Allergy Verified 07/20/24 22:13 Assessment & Plan Assessment & Plan (1) Superficial laceration of finger: Status: Acute Code(s): S61.219A - Laceration without foreign body of unspecified finger without damage to nail, initial encounter (2) Intermittent explosive disorder in adult: Status: Acute Code(s): F63.81 - Intermittent explosive disorder (3) Intellectual disability: Status: Acute Code(s): F79 - Unspecified intellectual disabilities (4) Bipolar 1 disorder: Status: Acute Code(s): F31.9 - Bipolar disorder, unspecified Plan 07/23: continue home meds for now. call placed to pt's mother yg pedraza at [phone], meds reviewed and reconciled. 07/24: restarted vraylar and guanfacine in the morning, sedated. switch vraylar to HS, otherwise continue current mgmt. recheck lithium and labs in 5 days. 07/25: sleeping in again today. al vraylar at from [place] on. observe through w/e, check lithium and labs next week, planning for sunday discharge. 07/27: no changes Reason for continued inpatient stay Substantial Risk for: rapid decompensation Time Spent With Patient Time: Total time managing care of this patient today ____ minutes.
[2024-07-27] MEDS: metFORMIN HCl 1,000 MG TABLET 1000 MG PO ×2 (08:23→16:23)
[2024-07-27] MEDS: guanFACINE HCl ER 1 MG TAB.ER.24H PO (08:23)
[2024-07-27 20:00] VITALS: BP 133/69; PULSE 74; RESP 18; TEMP 36.4; O2SAT 99
[2024-07-27] MEDS: Cariprazine HCl 3 MG CAPSULE 6 MG PO (21:46)
[2024-07-27] MEDS: guanFACINE HCl ER 1 MG TAB.ER.24H 3 MG PO (21:46)
[2024-07-27] MEDS: traZODone HCL 100 MG TABLET PO (21:46)
[2024-07-27] MEDS: Melatonin 3 MG TABLET 6 MG PO (21:46)
[2024-07-27] MEDS: Lithium Carbonate ER 450 MG TABLET.ER 1350 MG PO (21:46)
[2024-07-28 07:55] VITALS: BP 117/56; PULSE 68; RESP 14; TEMP 36.6; O2SAT 98
[2024-07-28] MEDS: metFORMIN HCl 1,000 MG TABLET 1000 MG PO ×2 (08:04→16:02)
[2024-07-28] MEDS: guanFACINE HCl ER 1 MG TAB.ER.24H PO (08:04)
[2024-07-28 09:05] LABS: Creatinine Clr Calc Pharmacy 187.6; Estimated Glomerular Filt Rate > 60
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
[2024-07-28 19:35] VITALS: BP 120/59; PULSE 82; RESP 18; TEMP 36.7; O2SAT 98
[2024-07-28 20:37] LABS: Lithium 0.41 mmol/L (0.60-1.20)
[2024-07-28 20:42] LABS: Anion Gap 18 (12-20); Blood Urea Nitrogen 15 mg/dL (9-16); Calcium 10.8 mg/dL (8.4-10.2); Carbon Dioxide 23 mmol/L (22-29); Chloride 107 mmol/L (96-108); Creatinine Clr Calc Pharmacy 179.5; Estimated Glomerular Filt Rate > 60; Glucose Random 144 mg/dL (60-115); Potassium 3.8 mmol/L (3.3-5.1); Sodium 144 mmol/L (135-145)
[2024-07-28] MEDS: guanFACINE HCl ER 1 MG TAB.ER.24H 3 MG PO (20:51)
[2024-07-28] MEDS: Cariprazine HCl 3 MG CAPSULE 6 MG PO (20:52)
[2024-07-28] MEDS: Lithium Carbonate ER 450 MG TABLET.ER 1350 MG PO (20:52)
[2024-07-28] MEDS: traZODone HCL 100 MG TABLET PO (23:05)
[2024-07-28] MEDS: Melatonin 3 MG TABLET 6 MG PO (23:05)
[2024-07-29 08:00] VITALS: BP 105/60; PULSE 69; RESP 16; TEMP 36.4; O2SAT 97
[2024-07-29] MEDS: guanFACINE HCl ER 1 MG TAB.ER.24H PO (08:31)
[2024-07-29] MEDS: Propranolol HCL LA 80 MG CAP.SA.24H PO (08:31)
[2024-07-29] MEDS: metFORMIN HCl 1,000 MG TABLET 1000 MG PO (08:32)
== END 2024-07-29 11:23 | disposition home or self-care (01) | DRG 758 ==
LOC: HO.ED 07-21 15:00 → HO.PADLT16 07-22 19:11
PROVIDERS: Emergency Medicine; Physician Assistant; Admitting Provider Psychiatry & Neurology Psychiatry; Emergency Provider Internal Medicine; Visit Provider Psychiatry & Neurology Psychiatry
DX: F63.81 Intermittent explosive disorder (principal); F79 Unspecified intellectual disabilities; F31.9 Bipolar disorder, unspecified; S61.213A Laceration without foreign body of left middle finger without damage to nail, initial encounter; Z23 Encounter for immunization; W29.2XXA Contact with other powered household machinery, initial encounter; Z79.899 Other long term (current) drug therapy
CPT/HCPCS: 36415; 80048; 80061; 80076; 80143; 80178; 80179; 80307; 81001; 82565; 83036; 83735; 85025; 87086; 90656; 99285; S9485

== ENCOUNTER → 2024-07-22 18:51 | Outpatient (BNV) | payer OTHER, SELFPAY | PROVIDERS: Admitting Provider Psychiatry & Neurology Psychiatry; Emergency Provider Internal Medicine; Visit Provider Psychiatry & Neurology Psychiatry | DX: F31.9 Bipolar disorder, unspecified (principal); S61.219A Laceration without foreign body of unspecified finger without damage to nail, initial encounter; F63.81 Intermittent explosive disorder; F79 Unspecified intellectual disabilities | CPT/HCPCS: 99231; 99232; 99233; 99239 ==

== ENCOUNTER 2024-08-07 10:59 | Outpatient (AMB) | payer OTHER, SELFPAY ==
--- NOTE | 2024-08-07 11:09 | MHC.PC.OV ---
Vital Signs 08/07/24 11:34 Height 6 ft 2.8 in Weight 304 lb 8 oz BMI 38.3 BP 120/72 Blood Pressure Location Rt brachial Position Sitting Respiration 18 Pulse 72 Pulse Source Pulse Oximeter Temp 98.1 F Temp Source Temporal Artery Scan Pulse Oximetry (%) 97 Oxygen Delivery Method Room Air Intake Visit Reasons: TCM ?Hospital Intake Note: New patient visit. Went to [facility] end of May. 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 Allergies No Known Allergies Allergy (Verified 08/07/24 11:10) Medication List - Last Reconciled 08/07/24 by Renata Barnes PA-C cariprazine (Vraylar) 6 mg PO BEDTIME guanfacine ER 3 mg PO BEDTIME guanfacine ER 1 mg PO DAILY lithium carbonate ER 1,350 mg (3 x 450 mg) PO BEDTIME melatonin 6 mg PO BEDTIME metformin 1,000 mg PO BIDWM propranolol ER 80 mg See Protocol PO DAILY trazodone 100 mg PO BEDTIME Tobacco use date assessed: 08/07/24 Dental Screening Dental Screen Date: 08/07/24 Did you have a dental visit in the last 12 months?: No Did you have a dental problem in the last 6 months where you did not have access to dental care?: No Was dental information given to patient?: No HPI TCM ?Hospital HPI Details Pt is a 28 y/o male who presents today to community health care. he has a hx of bipolar type 1, intellectual delay, t2dm, and chronic left knee pain. Psych: he has a hx of bipolar type 1 w/ anger outbursts and insomnia. Overall stable. -mom thinks he has sleep apnea. he snores but no witnessed apnea. She thinks that this is the cause of insomnia Endo: His last a1c was 7.1. He is on metformin 1000 mg bid. -dx a few years ago, he has a fam hx of t2dm (parents, grandparents). He did not have dm education and does not want that today. Musculoskeletal: he reports ongoing left knee pain x 3-4 years. His mother states that he has arthritis, acl and pcl injury. He states that he has to wear a brace. He states [facility] refuses to do surgery but they would like a consult to a different ortho group. He states he has had xrays and mris. [facility] Medical History Intellectual disability Intermittent explosive disorder in adult Social History Household Members: Family Housing: House Do you presently have visiting nurse or other home services: No Alcohol intake: current Alcohol intake frequency: holidays/special occasions only Alcohol type: wine Patient Tobacco Use Status: Never used Tobacco e-Cigarette/Vaping Use: Never Used Second Hand Smoke Exposure: No service: No Current occupational status: unemployed Sexual orientation: Did not discuss Cognitive needs: Yes Hearing needs: No Vision needs: No Questionnaire PHQ-9 Over the last 2 weeks, how often have you been bothered by any of the following problems? 1. Little interest or pleasure in doing things: several days 2. Feeling down, depressed, or hopeless: several days 3. Trouble falling or staying asleep, or sleeping too much: more than half the days 4. Feeling tired or having little energy: nearly every day 5. Poor appetite or overeating: more than half the days 6. Feeling bad about yourself - or that you are a failure or have let yourself or your family down: several days 7. Trouble concentrating on things, such as reading the newspaper or watching television: several days 8. Moving or speaking so slowly that other people could have noticed. Or the opposite - being so fidgety or restless that you have been moving around a lot more than usual: several days 9. Thoughts that you would be better off or of hurting yourself in some way: not at all Total score: 12 Depression Screening Interpretation: Positive Depression Screening Done: Yes 74743 - PHQ-9 Billing: Yes Source: Developed by Drs. Dustin Villanueva, Sabina Barkley, Helio Melton and colleagues, with an educational marley from [employer]. Thrive Questionnaire Date Thrive assessed: 08/07/24 I am a: Parent/Caregiver What is your living situation today?: I have a steady place to live Within the past 12 months, did the food you bought not last and you didn't have the money to get more?: I choose not to answer this question Within the past 12 months, did you worry whether your food would run out before you got money to buy more?: I choose not to answer this question Do you have trouble paying for medicines?: No Do you have trouble getting transportation to medical appointments?: No Do you have trouble paying your heating and electricity bill?: Yes Do you have trouble taking care of your child, family member or friend?: No Do you have trouble with day-to-day activities such as bathing, preparing meals, shopping, managing finances, etc.?: Yes Are you currently unemployed and looking for a job?: No Are you interested in more education?: No Please select the resources that you would like help with: Utilities Currently or been in a relationship where the following occur: No concerns reported THRIVE Score: 1 AUDIT C Alcohol Use Questionnaire (AUDIT-C) 1. How often do you have a drink containing alcohol?: Monthly or less 2. How many drinks containing alcohol do you have on a typical day when you are drinking?: 1 or 2 3. How often do you have six or more drinks on one occasion?: Never Total Score: 1 DELORES-7 AMB Questionnaire DELORES-7 Date DELORES - 7 assessed: 08/07/24 Feeling nervous, anxious, or on edge: 1 = Several days Not being able to stop or control worryin = Several days Worrying too much about different things: 1 = Several days Trouble relaxin = Several days Being so restless that it is hard to sit still: 1 = Several days Becoming easily annoyed or irritable: 1 = Several days Feeling afraid as if something awful might happen: 1 = Several days Total DELORES-7 score (0-4 normal; 5-9 mild; 10-14 moderate; 15-21 severe): 7 Source: Developed by Drs. Dustin Villanueva, Sabina Barkley, Helio Melton and colleagues, with an educational marley from [employer]. DELORES-7 Assessment Billing DELORES-7 Assessment Tool: DELORES-7 Assessment 24487 Physical exam (Primary Care) Vital Signs: Last Vital Signs Temp 98.1 F 08/07/24 11:34 Pulse 72 08/07/24 11:34 Resp 18 08/07/24 11:34 BP 120/72 08/07/24 11:34 Pulse Ox 97 08/07/24 11:34 Oxygen Delivery Method Room Air 08/07/24 11:34 BMI result Body Mass Index 38.3 Tobacco/Smoking Status: Tobacco use Status Tobacco use date assessed 08/07/24 08/07/24 11:11 Patient Tobacco Use Status Never used Tobacco 08/07/24 11:11 e-Cigarette/Vaping Use Never Used 08/07/24 11:11 PHQ-9: PHQ-9 Score PHQ-9: Total score 12 08/07/24 11:11 Depression Screening Interpretation: Positive Thrive Assessment: Date of Thrive Assessment Date Thrive assessed 08/07/24 08/07/24 11:11 Currently or been in a relationship where the following occur: No concerns reported Const Orientation/consciousness: patient oriented x3 HENMT Ears: hearing grossly normal bilaterally Neck Thyroid: Thyroid normal Lymphatic: no lymphadenopathy noted Resp Auscultation: clear to auscultation bilaterally Cardio Rate: regular rate Rhythm: regular rhythm Heart sounds: S1 normal heart sound present and S2 normal heart sound present GI Inspection: Yes normal to inspection Palpation (GI): Soft to palpation and Other GI palpation findings present (nontender, no cva tenderness) Auscultation: normoactive bowel sounds Rectal Exam - Male: Yes deferred Skin General skin exam: no rashes or lesions noted Neuro General: patient oriented x3, gait normal and no focal motor deficits Assessment and Plan Assessment & Plan (1) Intermittent explosive disorder in adult: Code(s): F63.81 - Intermittent explosive disorder Plan: Following with [facility]. (2) Bipolar 1 disorder: Code(s): F31.9 - Bipolar disorder, unspecified Plan: As above. Currently stable. (3) Uncontrolled type 2 diabetes mellitus with hyperglycemia: Code(s): E11.65 - Type 2 diabetes mellitus with hyperglycemia Plan: Continue metformin. Does not have any testing supplies at home. I have ordered this today. Diabetic labs ordered. Does not require refill today on metformin. We will let me know when he does. We discussed diet changes. Advised patient to follow up in a couple of months. Sooner if needed. (4) Fatigue: Code(s): R53.83 - Other fatigue Plan: Sleep study ordered. Patient's mother would like this done in a lab because patient has anger outbursts and intellectual delay and would struggle doing this at home. (5) Chronic pain of left knee: Code(s): M25.562 - Pain in left knee; G89.29 - Other chronic pain Plan: X-ray ordered. Referral to ortho. Orders: Orders RT PSG in-lab sleep study Today Renata Barnes PA-C F63.81 - Intermittent explosive disorder, R53.83 - Other fatigue Complete Blood Count Auto Diff Today Renata Barnes PA-C E11.65 - Type 2 diabetes mellitus with hyperglycemia, F31.9 - Bipolar disorder, unspecified, F63.81 - Intermittent explosive disorder, R53.83 - Other fatigue Comprehensive Bailey. Panel Fast Today Renata Barnes PA-C E11.65 - Type 2 diabetes mellitus with hyperglycemia, F31.9 - Bipolar disorder, unspecified, F63.81 - Intermittent explosive disorder, R53.83 - Other fatigue Lipid Panel Today Renata Barnes PA-C E11.65 - Type 2 diabetes mellitus with hyperglycemia, F31.9 - Bipolar disorder, unspecified, F63.81 - Intermittent explosive disorder, R53.83 - Other fatigue Hemoglobin A1c Today Renata Barnes PA-C E11.65 - Type 2 diabetes mellitus with hyperglycemia, F31.9 - Bipolar disorder, unspecified, F63.81 - Intermittent explosive disorder, R53.83 - Other fatigue Vitamin B12 and Folate Today Renata Barnes PA-C E11.65 - Type 2 diabetes mellitus with hyperglycemia, F31.9 - Bipolar disorder, unspecified, F63.81 - Intermittent explosive disorder, R53.83 - Other fatigue Ferritin Today Renata Barnes PA-C E11.65 - Type 2 diabetes mellitus with hyperglycemia, F31.9 - Bipolar disorder, unspecified, F63.81 - Intermittent explosive disorder, R53.83 - Other fatigue XR knee LT 3V Today Renata Barnes PA-C G89.29 - Other chronic pain, M25.562 - Pain in left knee TSH reflex Free T4 Today Renata Barnes PA-C E11.65 - Type 2 diabetes mellitus with hyperglycemia, F31.9 - Bipolar disorder, unspecified, F63.81 - Intermittent explosive disorder, R53.83 - Other fatigue Microalbumin, Random (w Creat) Today Renata Barnes PA-C E11.65 - Type 2 diabetes mellitus with hyperglycemia, F31.9 - Bipolar disorder, unspecified, F63.81 - Intermittent explosive disorder, R53.83 - Other fatigue Magnesium Today Renata Barnes PA-C E11.65 - Type 2 diabetes mellitus with hyperglycemia, F31.9 - Bipolar disorder, unspecified, F63.81 - Intermittent explosive disorder, R53.83 - Other fatigue IRON PROFILE Today Renata Barnes PA-C E11.65 - Type 2 diabetes mellitus with hyperglycemia, F31.9 - Bipolar disorder, unspecified, F63.81 - Intermittent explosive disorder, R53.83 - Other fatigue Referrals Orthopedics Referral Renata Barnes PA-C G89.29 - Other chronic pain, M25.562 - Pain in left knee Medications: New blood sugar diagnostic (FreeStyle Lite Strips) Use daily As directed to check blood glucose 100 ea 3RF Renata Barnes PA-C E11.9 - Type 2 diabetes mellitus without complications lancets (FreeStyle Lancets) use daily as directed to check blood glucose 100 ea 3RF Renata Barnes PA-C Changed From cariprazine (Vraylar) 6 mg (2 x 3 mg) PO BEDTIME 0 caps 0RF To cariprazine (Vraylar) 6 mg PO BEDTIME Paddy Tan MD Coding Level of Care Code New Pt Level 4 (46920) Complex EM visit Add On G2211 Diagnoses Intermittent explosive disorder in adult F63.81 Bipolar 1 disorder F31.9 Uncontrolled type 2 diabetes mellitus with hyperglycemia E11.65 Fatigue R53.83 Chronic pain of left knee M25.562; G89.29 Additional Codes DELORES-7 Assessment Billing - DELORES-7 Assessment Tool: DELORES-7 Assessment 13827 ([id number])
[2024-08-07 11:34] VITALS: BP 120/72; PULSE 72; RESP 18; TEMP 36.7; O2SAT 97; BMI 38.3
== END 2024-08-07 12:12 | disposition home or self-care (01) ==
PROVIDERS: PCP Physician Assistant; Visit Provider Physician Assistant
DX: F63.81 Intermittent explosive disorder (principal); F31.9 Bipolar disorder, unspecified; E11.65 Type 2 diabetes mellitus with hyperglycemia; R53.83 Other fatigue; M25.562 Pain in left knee; G89.29 Other chronic pain

== ENCOUNTER → 2024-08-07 10:59 | Outpatient (BNVA) | payer OTHER, SELFPAY | PROVIDERS: Visit Provider Physician Assistant | DX: F63.81 Intermittent explosive disorder (principal); F31.9 Bipolar disorder, unspecified; E11.65 Type 2 diabetes mellitus with hyperglycemia; R53.83 Other fatigue; M25.562 Pain in left knee; G89.29 Other chronic pain | CPT/HCPCS: 96127; 99202 ==

== ENCOUNTER 2024-08-20 08:15 | Outpatient (REF) | payer OTHER, SELFPAY ==
--- NOTE | ~2024-08-20 | XR_ITS ---
EXAMINATION: XR KNEE LEFT 4 VIEWS CLINICAL INFORMATION: Pain in left knee M25.562. COMPARISON: None available. TECHNIQUE: Four views of the left knee. FINDINGS: Examination demonstrates mild tricompartmental osteoarthritis of the knee. No fracture or dislocation is seen. Suspect trace suprapatellar fluid. Well-circumscribed, sclerotic as well as mixed lytic and sclerotic lesions appear to involve the distal femur, suggesting healing nonossifying fibromas and/or bone islands. No significant abnormal soft tissue calcification identified. XR/XR knee LT 3V IMPRESSION: Findings as above. Electronically signed by: David Johnson MD 10/31/2024 12:21 PM [facility]
[2024-08-20 10:05] LABS: MANUAL DIFF FLAG NO
[2024-08-20 10:09] LABS: Basophils Absolute Auto 0.1 X10*3/uL (0.0-0.2); Basophils Percent Auto 0.7 % (0-2); Eosinophils Absolute Auto 0.5 X10*3/uL (0.0-0.4); Eosinophils Percent Auto 4.7 % (0-4); Hematocrit 44.2 % (42.0-52.0); Hemoglobin 14.4 g/dl (14.0-18.0); Imm Gran Abs Auto 0.06 X10*3/uL (0.00-0.03); Imm Gran Pct Auto 0.5 % (0.0-0.4); Lymphocytes Absolute Auto 3.1 X10*3/uL (1.2-4.9); Mean Corpuscular HGB Conc 32.6 g/dl (31.0-36.0); Mean Corpuscular Hemoglobin 27.3 pg (27.0-33.0); Mean Corpuscular Volume 83.7 fL (80.0-98.0); Mean Platelet Volume 10.4 fL (9.4-12.4); Monocytes Absolute Auto 0.6 X10*3/uL (0.1-1.2); Monocytes Percent Auto 5.6 % (2-11); Neutrophils Absolute Auto 6.7 x10*3/uL (2.0-8.3); Neutrophils Percent Auto 60.5 % (45-73); Platelet Count 286 X10*3/uL (160-400); Red Blood Count 5.28 X10*6/uL (4.60-5.80); Red Cell Distribution Width 13.3 % (11.0-16.0); White Blood Count 11.1 X10*3/uL (4.8-10.8)
[2024-08-20 10:27] LABS: Estimated Average Glucose 123 mg/dL; Hemoglobin A1C 152.5216 umol/L; Hemoglobin A1c % 5.9 % (<6.0); Total Hemoglobin (HGBA1C) 3679.8157 umol/L
[2024-08-20 10:44] LABS: Alanine Aminotransferase 49 U/L (0-40); Albumin Level 4.7 g/dL (3.5-5.0); Alkaline Phosphatase 94 U/L (39-117); Anion Gap 13 (12-20); Aspartate Amino Transferase 25 U/L (5-37); Bilirubin Total 0.3 mg/dL (0.0-1.0); Blood Urea Nitrogen 14 mg/dL (9-16); Calcium 10.4 mg/dL (8.4-10.2); Carbon Dioxide 24 mmol/L (22-29); Chloride 111 mmol/L (96-108); Cholesterol 207 mg/dL (<200); Estimated Glomerular Filt Rate > 60; Glucose Fasting 117 mg/dL (60-99); HDL Cholesterol 31 mg/dL (>40); Iron 62 mcg/dL (45-160); Magnesium 2.2 mg/dL (1.6-2.6); Percent Iron Saturation 20 % (15-50); Potassium 4.2 mmol/L (3.3-5.1); Sodium 144 mmol/L (135-145); Total Iron Binding Capacity 316 mcg/dL (228-428); Total Protein 7.6 g/dL (6.5-8.0); Triglycerides 456 mg/dL (<150); Unsaturated Iron Binding 254 ug/dL
[2024-08-20 10:46] LABS: Ferritin 545 ng/mL (20-250); TSH reflex Free T4 2.66 uIU/mL (0.32-4.0)
[2024-08-20 10:46] LABS: Creatinine Urine 119.42 mg/dL; Microalbum/Creatinine Ratio Ur 38.5 ug/mg cr (<30)
[2024-08-20 10:54] LABS: Folate 8.8 ng/mL (> or = 4.0); Vitamin B12 637 pg/mL (200-900)
== END 2024-08-20 08:16 | disposition home or self-care (01) ==
LOC: HO.HMGCX 08:15
PROVIDERS: PCP Physician Assistant; Visit Provider Physician Assistant
DX: M25.562 Pain in left knee (principal); G89.29 Other chronic pain; E11.65 Type 2 diabetes mellitus with hyperglycemia; R53.83 Other fatigue; F31.9 Bipolar disorder, unspecified; F63.81 Intermittent explosive disorder
CPT/HCPCS: 36415; 73562; 80053; 80061; 82043; 82570; 82607; 82728; 82746; 83036; 83540; 83735; 84443; 85025

== ENCOUNTER 2024-08-26 12:01 | Outpatient (REF) | payer OTHER, SELFPAY | END 2024-08-26 12:02 | disposition home or self-care (01) | LOC: HO.HOSX 12:01 | PROVIDERS: Visit Provider Physician Assistant | DX: M25.562 Pain in left knee (principal); M25.561 Pain in right knee; M22.42 Chondromalacia patellae, left knee; S83.207A Unspecified tear of unspecified meniscus, current injury, left knee, initial encounter; S83.512A Sprain of anterior cruciate ligament of left knee, initial encounter | CPT/HCPCS: 73560; 99202 ==

== ENCOUNTER 2024-08-26 13:44 | Outpatient (AMB) | payer OTHER, SELFPAY ==
--- NOTE | 2024-08-26 13:53 | A.OFFVIS_ITS ---
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 ongoing for . His leg feels like it will give out.. HX of developemental delays and bipolar. NO help with PT and bracing tylneol and motrin. little releif with topical cream. Constant pain and swelling. taping little taping. slipped on a plastic hangar twisted his knee. Seen [facility]. Allergies aripiprazole [From Abilify] Allergy (Verified 08/26/24 13:59) tremors divalproex sodium [From Depakote] Allergy (Verified 08/26/24 13:59) Agitated risperidone [From Risperdal] Allergy (Verified 08/26/24 13:59) Unknown Medication List - Last Reconciled 08/26/24 by Isela Hayes PA-C blood sugar diagnostic (FreeStyle Lite Strips) Use daily As directed to check blood glucose cariprazine (Vraylar) 6 mg PO BEDTIME guanfacine ER 3 mg PO BEDTIME guanfacine ER 1 mg PO DAILY lancets (FreeStyle Lancets) use daily as directed to check blood glucose lithium carbonate ER 1,350 mg (3 x 450 mg) PO BEDTIME melatonin 6 mg PO BEDTIME metformin 1,000 mg PO BIDWM propranolol ER 80 mg See Protocol PO DAILY trazodone 100 mg PO BEDTIME HPI 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 Patient is developmentally delayed but he is cooperative in today's visit. Patient complains of left knee pain. He recalls tripping over a clothes loom changer and falling sometime last year. He states that he had significant left knee pain and swelling after this incident. He states at the time he did not notice any instability but currently he does experience instability and feels as though the knee is going to give out. Family states he was seen at [facility] where he had MRI performed and was told that he has ACL tear with some osteoarthritis. He had physical therapy and steroid injections without significant improvement. Does have a brace that was bought [id number] with minimal relief. [facility] Medical History Intellectual disability Intermittent explosive disorder in adult Social History Household Members: Family Housing: House Do you presently have visiting nurse or other home services: No Alcohol intake: current Alcohol intake frequency: holidays/special occasions only Alcohol type: wine Patient Tobacco Use Status: Never used Tobacco e-Cigarette/Vaping Use: Never Used Second Hand Smoke Exposure: No service: No Current occupational status: unemployed Sexual orientation: Did not discuss Cognitive needs: Yes Hearing needs: No Vision needs: No Review of Systems Const All systems reviewed & are unremarkable except as noted in HPI and below Physical Exam Const General: cooperative and no acute distress Orientation/consciousness: patient oriented x3 Resp Effort & Inspection: normal respiratory effort and able to speak in complete sentences Cardio Peripheral pulses: Peripheral pulses 2+ throughout Neuro General: patient oriented x3 Extrem Other: Left knee normal to inspection. He does have diffuse tenderness throughout the knee with medial and lateral tenderness present. No significant laxity on the left knee when compared to contralateral side. Range of motion full. Calf supple nontender. Neurovascularly intact. Results Reviewed Results Reviewed: X-rays of the left knee obtained in the office today do show some mild patellofemoral arthritis. MRI of the left knee obtained from [facility] on 02/05/2023: 1. Full-thickness ACL tear 2. Thickened but intact PCL 3. Chronic MCL grade 1 injury 4. Chronic ITP band sprain 5. Mild proximal patellar and distal quad tendinosis with enthesopathy 6. Chondromalacia patella 7. Small suprapatellar effusion Assessment & Plan Assessment & Plan (1) Chondromalacia of left patella: Code(s): M22.42 - Chondromalacia patellae, left knee Category: Medical (2) Tears of meniscus and ACL of left knee: Code(s): S83.207A - Unspecified tear of unspecified meniscus, current injury, left knee, initial encounter; S83.512A - Sprain of anterior cruciate ligament of left knee, initial encounter Category: Medical Plan I had a lengthy discussion with the patient, his brother and his mom in the office today about the extent of his injury and options available. The brother and mom are adamant that the patient would benefit from some type of surgical intervention claiming he is not able to walk and perform daily activities without pain and instability. Patient does also express that he has significant limitations and feels unstable . I explained at great length the process in which we would proceed with potential surgical intervention which may include but not limited to left knee arthroscopy versus ACL reconstruction. I explained at length these procedures in detail and the difference in recovery from a knee arthroscopy versus an ACL reconstruction. There was also questions about knee replacement. I explained in great detail how this is not warranted at this time given the lack of severe osteoarthritis, lack of significantly debilitated lifestyle, and his age. I explained a knee replacement is something that is typically done for patients with the above- mentioned and also knee replacements in patients who are under 40 to 50 years old would typically have to undergo at least 1 revision arthroplasty in her lifetime and I explained at length what this includes which is risks of infection, stiffness, significant bone loss. After lengthy discussion the patient and his family were all in agreement that we should further discuss left knee arthroscopy versus ACL reconstruction and this would be best done with Dr. Oliveira in the office. Appointment was made for August [address] Oliveira to discuss this further patient was fit for a hinged knee brace and all questions were answered. Orders: Orders XR knee LT 2V Today M25.562 - Pain in left knee XR knee RT 1V Today M25.561 - Pain in right knee Coding Level of Care Code New Pt Level 4 (47251) Complex EM visit Add On G2211 Diagnoses Chondromalacia of left patella M22.42 Tears of meniscus and ACL of left knee S83.207A; S83.512A
== END 2024-08-26 14:35 | disposition home or self-care (01) ==
LOC: HO.HOS 13:44
PROVIDERS: PCP Physician Assistant; Visit Provider Physician Assistant
DX: M22.42 Chondromalacia patellae, left knee (principal); S83.207A Unspecified tear of unspecified meniscus, current injury, left knee, initial encounter; S83.512A Sprain of anterior cruciate ligament of left knee, initial encounter
CPT/HCPCS: 99204; G2211

== ENCOUNTER 2024-08-28 08:59 | Outpatient (AMB) | payer OTHER, SELFPAY ==
[2024-08-28 09:00] VITALS: BMI 39.0
--- NOTE | 2024-08-28 09:00 | A.OFFVIS_ITS ---
Vital Signs 08/28/24 09:00 Height 6 ft 2 in Weight 304 lb BMI 39.0 Intake Visit Reasons: OV - Left Knee ACL - Discuss Surg per TM Intake Note: Lit is a 28 year old male who presents today for a follow up of his left knee. He was last seen with Isela where he reported that he slipped on a plastic hangar and twisted the knee. MRI of the left knee obtained from [place] on 02/05/2023: 1. Full-thickness ACL tear 2. Thickened but intact PCL 3. Chronic MCL grade 1 injury 4. Chronic ITP band sprain 5. Mild proximal patellar and distal quad tendinosis with enthesopathy 6. Chondromalacia patella 7. Small suprapatellar effusion Allergies aripiprazole [From Abilify] Allergy (Verified 08/26/24 13:59) tremors divalproex sodium [From Depakote] Allergy (Verified 08/26/24 13:59) Agitated risperidone [From Risperdal] Allergy (Verified 08/26/24 13:59) Unknown HPI HPI OV - Left Knee ACL - Discuss Surg per TM: Details: Lit is a 28 year old male who presents today for a follow up of his left knee. He was last seen with Isela where he reported that he slipped on a plastic hangar and twisted the knee. He has been seen by other orthopedic surgeons in the past. When he initially injured his ACL surgery was not recommended according to his family because of his mental delay. Now he states that he has pain and swelling intermittently and feels like his leg is going to give way. He does not play sports but he is active. He is here today with his brother and his mother. [facility] Medical History Superficial laceration of finger Intellectual disability Intermittent explosive disorder in adult Social History Household Members: Family Housing: House Do you presently have visiting nurse or other home services: No Alcohol intake: current Alcohol intake frequency: holidays/special occasions only Alcohol type: wine Patient Tobacco Use Status: Never used Tobacco e-Cigarette/Vaping Use: Never Used Second Hand Smoke Exposure: No service: No Current occupational status: unemployed Sexual orientation: Did not discuss Cognitive needs: Yes Hearing needs: No Vision needs: No Physical Exam Vital Signs: BMI result Body Mass Index 39.0 Extrem Other: On exam he has 0-120 degrees of motion with a stable Reed's. It is difficult to assess because he does not relax but he also has a moderate suprapatellar effusion. Results Reviewed Results Reviewed: Radiographs demonstrate moderate tricompartmental osteoarthritis of the left knee MRI of the left knee obtained from [place] on 02/05/2023: 1. Full-thickness ACL tear 2. Thickened but intact PCL 3. Chronic MCL grade 1 injury 4. Chronic ITP band sprain 5. Mild proximal patellar and distal quad tendinosis with enthesopathy 6. Chondromalacia patella 7. Small suprapatellar effusion Assessment & Plan Assessment & Plan (1) Tears of meniscus and ACL of left knee: Code(s): S83.207A - Unspecified tear of unspecified meniscus, current injury, left knee, initial encounter; S83.512A - Sprain of anterior cruciate ligament of left knee, initial encounter Category: Medical Plan: This is a 28-year-old gentleman who has a chronic ACL deficient left knee. Radiographs demonstrate arthritis and this is a contraindication to ACL reconstruction. I would manage him with physical therapy and symptomatic management with NSAIDs, ice and rest when needed. I discussed this with his family and they are in agreement. (2) Intellectual disability: Code(s): F79 - Unspecified intellectual disabilities Category: Medical Plan: (3) Osteoarthritis of left knee: Code(s): M17.12 - Unilateral primary osteoarthritis, left knee Category: Medical Plan: Left knee osteoarthritis. I have sent a prescription for meloxicam and a prescription for physical therapy he will follow up in 3 months. Orders: Orders PT Evaluation and Treatment Today M17.12 - Unilateral primary osteoarthritis, left knee, S83.207A - Unspecified tear of unspecified meniscus, current injury, left knee, initial encounter, S83.512A - Sprain of anterior cruciate ligament of left knee, initial encounter Medications: New meloxicam 15 mg PO DAILY 90 tabs 2RF Coding Level of Care Code Est Pt Level 3 (85809) Complex EM visit Add On G2211 Diagnoses Tears of meniscus and ACL of left knee S83.207A; S83.512A Intellectual disability F79 Osteoarthritis of left knee M17.12
== END 2024-08-28 11:01 | disposition home or self-care (01) ==
PROVIDERS: PCP Physician Assistant; Visit Provider Orthopaedic Surgery
DX: S83.512A Sprain of anterior cruciate ligament of left knee, initial encounter (principal); S83.412A Sprain of medial collateral ligament of left knee, initial encounter; F79 Unspecified intellectual disabilities; M17.12 Unilateral primary osteoarthritis, left knee
CPT/HCPCS: 99214; G2211

== ENCOUNTER → 2024-08-28 08:59 | Outpatient (BNVA) | payer OTHER, SELFPAY | PROVIDERS: PCP Physician Assistant; Visit Provider Orthopaedic Surgery | DX: M17.12 Unilateral primary osteoarthritis, left knee (principal); S83.207D Unspecified tear of unspecified meniscus, current injury, left knee, subsequent encounter; S83.512D Sprain of anterior cruciate ligament of left knee, subsequent encounter; F79 Unspecified intellectual disabilities; W01.0XXD Fall on same level from slipping, tripping and stumbling without subsequent striking against object, subsequent encounter | CPT/HCPCS: 99212 ==

== ENCOUNTER → 2024-09-04 20:30 | Outpatient (REF) | payer OTHER, SELFPAY | LOC: HO.SL 20:30 | PROVIDERS: PCP Physician Assistant; Visit Provider Physician Assistant | DX: R53.83 Other fatigue (principal); F63.81 Intermittent explosive disorder | CPT/HCPCS: 95810 ==

== ENCOUNTER → 2024-09-04 21:22 | Outpatient (BNV) | payer OTHER, SELFPAY | PROVIDERS: PCP Physician Assistant; Visit Provider Internal Medicine | DX: G47.33 Obstructive sleep apnea (adult) (pediatric) (principal) | CPT/HCPCS: 95810 ==

== ENCOUNTER 2024-09-09 08:41 | Outpatient (REF) | payer OTHER, SELFPAY ==
--- NOTE | ~2024-09-09 | US_ITS ---
EXAMINATION: US ABDOMEN COMPLETE CLINICAL INFORMATION: Abnormal results of liver function studies. COMPARISON: None available. TECHNIQUE: Real-time imaging of the abdominal viscera. Technically difficult study secondary to bowel gas and large/tall body habitus. FINDINGS: PANCREAS: Poorly visualized. ABDOMINAL AORTA: Poorly visualized. INFERIOR VENA CAVA: Poorly visualized. LIVER: Right hepatic lobe measures 19.7 cm which is enlarged, although correlation with physical exam/height recommended. Increased hepatic parenchymal heterogeneity and echogenicity could be associated with hepatocellular disease/hepatic steatosis and substantially limits visualization. Correlation with liver function tests and clinical exam recommended to determine further management. GALLBLADDER: No gallstones. No gallbladder wall thickening. COMMON BILE DUCT: Normal in caliber measuring 0.31 cm in diameter. RIGHT KIDNEY: No hydronephrosis. No renal calculi. Limited visualization. The kidney measures 13.1 cm in maximum dimension. LEFT KIDNEY: No hydronephrosis. No renal calculi. Limited visualization. The kidney measures 13.2 cm in maximum dimension. SPLEEN: Normal. The spleen measures 14.6 cm in maximum dimension. FREE FLUID: None. US/US abdomen complete IMPRESSION: 1. Right hepatic lobe measures 19.7 cm which is enlarged, although correlation with physical exam/height recommended. Increased hepatic parenchymal heterogeneity and echogenicity could be associated with hepatocellular disease/hepatic steatosis and substantially limits visualization. Correlation with liver function tests and clinical exam recommended to determine further management. 2. No gallbladder wall thickening. No gallstones. 3. Splenomegaly. Electronically signed by: Deidre Man MD 10/05/2024 08:47 PM [facility]
== END 2024-09-09 08:42 | disposition home or self-care (01) ==
LOC: HO.HMGCX 08:41
PROVIDERS: PCP Physician Assistant; Visit Provider Physician Assistant
DX: R94.5 Abnormal results of liver function studies (principal); R79.89 Other specified abnormal findings of blood chemistry; E83.52 Hypercalcemia
CPT/HCPCS: 76700

== ENCOUNTER 2024-09-18 13:02 | Outpatient (AMB) | payer OTHER, SELFPAY ==
--- NOTE | 2024-09-18 13:09 | A.OFFPC_ITS ---
Vital Signs 09/18/24 13:12 Height 6 ft 2 in Weight 305 lb BMI 39.2 BP 120/86 Blood Pressure Location Rt brachial Position Sitting Pulse 75 Pulse Oximetry (%) 99 Oxygen Delivery Method Room Air Intake Visit Reasons: Discuss labs and medication Intake Note: Discuss lab results Allergies aripiprazole [From Abilify] Allergy (Verified 09/18/24 13:12) tremors divalproex sodium [From Depakote] Allergy (Verified 09/18/24 13:12) Agitated risperidone [From Risperdal] Allergy (Verified 09/18/24 13:12) Unknown Medication List - Last Reconciled 09/18/24 by Renata Barnes PA-C blood sugar diagnostic (FreeStyle Lite Strips) Use daily As directed to check blood glucose cariprazine (Vraylar) 6 mg PO BEDTIME guanfacine ER 3 mg PO BEDTIME guanfacine ER 1 mg PO DAILY lancets (FreeStyle Lancets) use daily as directed to check blood glucose lithium carbonate ER 1,350 mg (3 x 450 mg) PO BEDTIME melatonin 6 mg PO BEDTIME meloxicam 15 mg PO DAILY metformin 1,000 mg PO BIDWM propranolol ER 80 mg See Protocol PO DAILY trazodone 100 mg PO BEDTIME Tobacco use date assessed: 08/07/24 Dental Screening Dental Screen Date: 08/07/24 HPI Discuss labs and medication HPI Details Pt is a 28 y/o male who presents today to for a follow up. He is accompanied today by his brother. he has a hx of bipolar type 1, intellectual delay, t2dm, and chronic left knee pain. Psych: he has a hx of bipolar type 1 w/ anger outbursts and insomnia. Overall stable. They feel that this current regimen is helpful for him other than his lack of sleep. -He was tested and ruled out for sleep a pnea. Endo: His last a1c was 5.9.. He is on metformin 1000 mg bid. He states that he has been working hard on cutting out soda. He still drinks diet soda but states that he is trying to limit the sugar stuff. His brother states that they are also to get him to be more active and lose weight. He is not interested at all in a GLP 1. He states that he would never want to do an injection but we did discuss this at length today and he is going to think about it. -dx a few years ago, he has a fam hx of t2dm (parents, grandparents). He did not have dm education and does not want that today. Musculoskeletal: The did follow with ortho recently for his ongoing left knee pain. He is going to be starting physical therapy. CV: Blood pressure today in the office is 120/86. His last cholesterol was very elevated. His LFTs were elevated. His abdominal ultrasound is pending. He has never been on a statin before. He does not follow a particularly low-fat diet. We did review the last labs including the elevated calcium and he has not yet completed the repeat test. [facility]LY [facility] Medical History Superficial laceration of finger Intellectual disability Intermittent explosive disorder in adult Social History Household Members: Family Housing: House Do you presently have visiting nurse or other home services: No Alcohol intake: current Alcohol intake frequency: holidays/special occasions only Alcohol type: wine Patient Tobacco Use Status: Never used Tobacco e-Cigarette/Vaping Use: Never Used Second Hand Smoke Exposure: No service: No Current occupational status: unemployed Sexual orientation: Did not discuss Cognitive needs: Yes Hearing needs: No Vision needs: No Questionnaire Thrive Questionnaire Date Thrive assessed: 08/07/24 I am a: Parent/Caregiver What is your living situation today?: I have a steady place to live Within the past 12 months, did the food you bought not last and you didn't have the money to get more?: I choose not to answer this question Within the past 12 months, did you worry whether your food would run out before you got money to buy more?: I choose not to answer this question Do you have trouble paying for medicines?: No Do you have trouble getting transportation to medical appointments?: No Do you have trouble paying your heating and electricity bill?: Yes Do you have trouble taking care of your child, family member or friend?: No Do you have trouble with day-to-day activities such as bathing, preparing meals, shopping, managing finances, etc.?: Yes Are you currently unemployed and looking for a job?: No Are you interested in more education?: No Please select the resources that you would like help with: Utilities Currently or been in a relationship where the following occur: No concerns reported THRIVE Score: 1 DELORES-7 AMB Questionnaire DELORES-7 Date DELORES - 7 assessed: 08/07/24 Source: Developed by Drs. Dustin Villanueva, Sabina Barkley, Helio Melton and colleagues, with an educational marley from [employer]. Physical exam (Primary Care) Vital Signs: Last Vital Signs Pulse 75 09/18/24 13:12 BP 120/86 09/18/24 13:12 Pulse Ox 99 09/18/24 13:12 Oxygen Delivery Method Room Air 09/18/24 13:12 BMI result Body Mass Index 39.2 Tobacco/Smoking Status: Tobacco use Status Tobacco use date assessed 08/07/24 09/18/24 13:13 Patient Tobacco Use Status Never used Tobacco 09/18/24 13:13 e-Cigarette/Vaping Use Never Used 09/18/24 13:13 Thrive Assessment: Date of Thrive Assessment Date Thrive assessed 08/07/24 09/18/24 13:13 Currently or been in a relationship where the following occur: No concerns reported Const Orientation/consciousness: patient oriented x3 HENMT Ears: hearing grossly normal bilaterally Neck Thyroid: Thyroid normal Lymphatic: no lymphadenopathy noted Resp Auscultation: clear to auscultation bilaterally Cardio Rate: regular rate Rhythm: regular rhythm Heart sounds: S1 normal heart sound present and S2 normal heart sound present GI Inspection: Yes normal to inspection Palpation (GI): Soft to palpation and Other GI palpation findings present (nontender, no cva tenderness) Auscultation: normoactive bowel sounds Rectal Exam - Male: Yes deferred Skin General skin exam: no rashes or lesions noted Neuro General: patient oriented x3, gait normal and no focal motor deficits Results Reviewed Results Reviewed: Laboratory Tests 08/20/24 08/20/24 08:12 08:20 Sodium 144 Potassium 4.2 Carbon Dioxide 24 Anion Gap 13 BUN 14 Creatinine 0.89 Estimated GFR > 60 Fasting Glucose 117 H Estimat Average Glucose 123 Hemoglobin A1c % 5.9 Calcium 10.4 H Ferritin 545 H AST 25 ALT 49 H Triglycerides 456 H Cholesterol 207 H HDL Cholesterol 31 L Vitamin B12 637 Folate 8.8 TSH 2.66 Urine Creatinine 119.42 Urine Microalbumin 46.0 Microalb/Creat Ratio 38.5 H Coding Level of Care Code Est Pt Level 4 (70192) Complex EM visit Add On G2211 Diagnoses Dyslipidemia E78.5 Elevated ferritin R79.89 Hypercalcemia E83.52 Uncontrolled type 2 diabetes mellitus with hyperglycemia E11.65 Severe obesity (BMI 35.0-39.9) with comorbidity E66.01 Assessment & Plan Assessment & Plan (1) Dyslipidemia: Code(s): E78.5 - Hyperlipidemia, unspecified Category: Medical Plan: We will start atorvastatin. We discussed risks and benefits and adverse effects of this medication including myalgias. He will let me know if he develops any abdominal pain, dark colored urine or pain in the extremities. We will recheck lipids and LFTs in a couple of months. We discussed a low-fat diet. Does not want to see a barrel planer yet. (2) Elevated ferritin: Code(s): R79.89 - Other specified abnormal findings of blood chemistry Category: Medical Plan: We will recheck labs. (3) Hypercalcemia: Code(s): E83.52 - Hypercalcemia Category: Medical Plan: Labs are ordered for him to complete. Reminded him to get these done (4) Uncontrolled type 2 diabetes mellitus with hyperglycemia: Code(s): E11.65 - Type 2 diabetes mellitus with hyperglycemia Category: Medical Plan: Diabetes is improved. He will let me know his thoughts on starting Ozempic. (5) Severe obesity (BMI 35.0-39.9) with comorbidity: Code(s): E66.01 - Morbid (severe) obesity due to excess calories Category: Medical Plan: As above. Strongly encouraged weight loss and reducing his processed foods, sugar intake and increase his activity. Plan Short term follow up. Sooner if needed. Patient understands and agrees with the plan Orders: Orders Lipid Panel 09/18/24 E11.65 - Type 2 diabetes mellitus with hyperglycemia, E78.5 - Hyperlipidemia, unspecified Liver Panel 09/18/24 E11.65 - Type 2 diabetes mellitus with hyperglycemia, E78.5 - Hyperlipidemia, unspecified Medications: New atorvastatin 10 mg PO BEDTIME 90 tabs 0RF Refilled metformin 1,000 mg PO BIDWM 180 tabs 3RF
[2024-09-18 13:12] VITALS: BP 120/86; PULSE 75; O2SAT 99; BMI 39.2
== END 2024-09-18 15:46 | disposition home or self-care (01) ==
LOC: HO.HMCFM 13:03
PROVIDERS: PCP Physician Assistant; Visit Provider Physician Assistant
DX: E78.5 Hyperlipidemia, unspecified (principal); E11.65 Type 2 diabetes mellitus with hyperglycemia; E66.01 Morbid (severe) obesity due to excess calories; Z68.39 Body mass index [BMI] 39.0-39.9, adult; E83.52 Hypercalcemia

== ENCOUNTER → 2024-09-18 13:02 | Outpatient (BNVA) | payer OTHER, SELFPAY | PROVIDERS: PCP Physician Assistant; Visit Provider Physician Assistant | DX: E78.5 Hyperlipidemia, unspecified (principal); R79.89 Other specified abnormal findings of blood chemistry; E83.52 Hypercalcemia; E11.65 Type 2 diabetes mellitus with hyperglycemia; E66.01 Morbid (severe) obesity due to excess calories | CPT/HCPCS: 99212 ==

== ENCOUNTER 2024-10-30 11:15 | Outpatient (AMB) | payer OTHER, SELFPAY ==
--- NOTE | 2024-10-30 11:02 | MHC.PC.OV ---
Intake Visit Reasons: Discuss ultrasound with Courtney (mom) Allergies aripiprazole [From Abilify] Allergy (Verified 09/18/24 13:12) tremors divalproex sodium [From Depakote] Allergy (Verified 09/18/24 13:12) Agitated risperidone [From Risperdal] Allergy (Verified 09/18/24 13:12) Unknown Tobacco use date assessed: 08/07/24 Dental Screening Dental Screen Date: 08/07/24 HPI Discuss ultrasound with Courtney (mom) HPI Details Pt is a 28 y/o male who presents today to for a follow up. He is accompanied by his mother. His mother was unable to come to his last office visit.. he has a hx of bipolar type 1, intellectual delay, t2dm, and chronic left knee pain. Psych: he has a hx of bipolar type 1 w/ anger outbursts and insomnia. Overall stable. They feel that this current regimen is helpful for him other than his lack of sleep. -He was tested and ruled out for sleep apnea. Endo: His last a1c was 5.9.. He is on metformin 1000 mg bid. At our last visit we discussed starting Ozempic but he did not want to do an injection. I did send in semaglutide to be taken orally but it was obviously not covered by health insurance. Patient's mother states that she prefers him to go on Ozempic over Trulicity because the needle is smaller for the Ozempic pen. She states that he has some needle phobia and as he has multiple medical conditions and intellectual disability she will be the 1 providing the injection. She says that she is also allergic to Trulicity and does not want to have to handle this. -dx a few years ago, he has a fam hx of t2dm (parents, grandparents). He did not have dm education and does not want that today. CV: At our last visit I also started him on atorvastatin for his high cholesterol. Patient is mother states that he is tolerating this. He has not returned to get his labs rechecked. We did review the last labs including the elevated calcium and he has not yet completed the repeat test. [facility]MERLY [facility] Medical History Superficial laceration of finger Intellectual disability Intermittent explosive disorder in adult Social History Household Members: Family Housing: House Do you presently have visiting nurse or other home services: No Alcohol intake: current Alcohol intake frequency: holidays/special occasions only Alcohol type: wine Patient Tobacco Use Status: Never used Tobacco e-Cigarette/Vaping Use: Never Used Second Hand Smoke Exposure: No service: No Current occupational status: unemployed Sexual orientation: Did not discuss Cognitive needs: Yes Hearing needs: No Vision needs: No Questionnaire Thrive Questionnaire Date Thrive assessed: 08/07/24 DELORES-7 AMB Questionnaire DELORES-7 Date DELORES - 7 assessed: 08/07/24 Source: Developed by Drs. Dustin Villanueva, Sabina Barkley, Helio Melton and colleagues, with an educational marley from [employer]. Physical exam (Primary Care) Tobacco/Smoking Status: Tobacco use Status Tobacco use date assessed 08/07/24 10/30/24 11:02 Patient Tobacco Use Status Never used Tobacco 10/30/24 11:02 e-Cigarette/Vaping Use Never Used 10/30/24 11:02 Thrive Assessment: Date of Thrive Assessment Date Thrive assessed 08/07/24 10/30/24 11:02 Telehealth Telehealth Telehealth Platform: Telephone Location of provider rendering services: practice address Location of patient: address on file Patient Identification confirmed using: Name, : Yes Telehealth method: voice only Patient verbally consented to treatment: Yes Patient verbally consented to billing insurance company: Yes Patient informed of any privacy concerns related to visit: Yes Minutes spent on Phone/Video with Pt.: 12 Coding Level of Care Code Tele Est Pt Level 3 (00350) Diagnoses Hepatic steatosis K76.0 Severe obesity (BMI 35.0-39.9) with comorbidity E66.01 Uncontrolled type 2 diabetes mellitus with hyperglycemia E11.65 Dyslipidemia E78.5 Assessment & Plan Assessment & Plan (1) Hepatic steatosis: Code(s): K76.0 - Fatty (change of) liver, not elsewhere classified Category: Medical Plan: Has been referred to GI. Discussed the importance of weight loss and diet changes. Does not want to see a turbine inspector. (2) Severe obesity (BMI 35.0-39.9) with comorbidity: Code(s): E66.01 - Morbid (severe) obesity due to excess calories Category: Medical Plan: As above. We will try Ozempic. (3) Uncontrolled type 2 diabetes mellitus with hyperglycemia: Code(s): E11.65 - Type 2 diabetes mellitus with hyperglycemia Category: Medical Plan: Ozempic ordered. Discussed risks and benefits and adverse effects of this medication including an increased risk of nausea, vomiting and pancreatitis. (4) Dyslipidemia: Code(s): E78.5 - Hyperlipidemia, unspecified Category: Medical Plan: Tolerating the atorvastatin. Advised to return for labs. Medications: New semaglutide (Ozempic) 0.25 mg (0.368 mL) subcut QWEEK 3 mL 3RF Discontinued semaglutide (Rybelsus) Discontinued Reason: Doctor's Order 3 mg PO DAILY 30 days 30 tabs 3RF
== END 2024-10-30 12:49 | disposition home or self-care (01) ==
LOC: HO.HMCFM 11:15
PROVIDERS: PCP Physician Assistant; Visit Provider Physician Assistant
DX: E11.65 Type 2 diabetes mellitus with hyperglycemia (principal); K76.0 Fatty (change of) liver, not elsewhere classified; E66.01 Morbid (severe) obesity due to excess calories; E78.5 Hyperlipidemia, unspecified

== ENCOUNTER → 2024-10-30 11:15 | Outpatient (BNVA) | payer OTHER, SELFPAY | PROVIDERS: PCP Physician Assistant; Visit Provider Physician Assistant ==

== ENCOUNTER 2024-11-06 07:53 | Inpatient (IN) | payer OTHER, SELFPAY ==
--- NOTE | 2024-11-06 08:02 | ED.PSYCH ---
HPI - Psych General Chief Complaint: Psychiatric Symptoms Stated Complaint: THOUGHTS OF SELF HARM PER EMS Time Seen by Provider: 11/06/24 07:55 History of Present Illness HPI Narrative: Patient is a 28-year-old male presents today with having suicidal thoughts yesterday. He had thoughts about cutting himself. Patient denies having suicidal plan currently. Feels depressed. From home. Denies any recreational drug use. History of the same. History of bipolar. Related Data Home Medications ?Medication ?Instructions ?Recorded ?Confirmed guanfacine 3 mg tablet,extended 3 mg PO BEDTIME 05/24/23 11/06/24 release 24 hr melatonin 3 mg capsule 6 mg PO BEDTIME 03/27/24 11/06/24 cariprazine 3 mg capsule (Vraylar) 6 mg PO BEDTIME 08/07/24 11/06/24 Previous Rx's ?Medication ?Instructions ?Recorded lithium carbonate 450 mg 1,350 mg (3 x 450 mg) PO BEDTIME 03/27/23 tablet,extended release #90 tabs propranolol 80 mg capsule,24 80 mg PO DAILY #30 caps 03/27/23 hr,extended release guanfacine 1 mg tablet,extended 1 mg PO DAILY #0 tabs 07/28/24 release 24 hr blood sugar diagnostic (FreeStyle #100 ea 08/07/24 Lite Strips) lancets 28 gauge (FreeStyle #100 ea 08/07/24 Lancets) meloxicam 15 mg tablet 15 mg PO DAILY #90 tabs 08/28/24 atorvastatin 10 mg tablet 10 mg PO BEDTIME #90 tabs 09/18/24 metformin 1,000 mg tablet 1,000 mg PO BIDWM #180 tabs 09/18/24 Allergies Allergy/AdvReac Type Severity Reaction Status Date / Time aripiprazole [From Abilify] Allergy tremors Verified 11/06/24 08:08 divalproex sodium Allergy Agitated Verified 11/06/24 08:08 [From Depakote] risperidone [From Risperdal] Allergy Unknown Verified 11/06/24 08:08 Review of Systems Review of Systems: Positive suicidal thoughts Yes all other systems are reviewed and are negative PMFSH Past Medical History Attestation statement: The following information was validated with the patient. Medical History Superficial laceration of finger Intellectual disability Intermittent explosive disorder in adult Social History Social History Household Members: Family Housing: House Do you presently have visiting nurse or other home services: No Alcohol intake: current Alcohol intake frequency: holidays/special occasions only Alcohol type: wine Patient Tobacco Use Status: Never used Tobacco Smoked in Last 30 Days: No e-Cigarette/Vaping Use: Never Used Second Hand Smoke Exposure: No Use of substances other than those prescribed or required for medical reasons: No Advance Directives: No Do you have a plan to hurt others: No Plan service: No Current occupational status: unemployed Sexual orientation: Did not discuss Cognitive needs: Yes Hearing needs: No Vision needs: No Physical Exam Vital Signs: Vital Signs: Last Vital Signs Temp 97.1 F 11/06/24 08:09 Pulse 84 11/06/24 08:09 Resp 22 H 11/06/24 08:09 BP 175/100 H 11/06/24 08:09 Pulse Ox 97 11/06/24 08:09 O2 Del Method Room Air 11/06/24 08:09 BMI result Body Mass Index 34.4 Appearance: Alert. Oriented X3. No acute distress. Eyes: Pupils equal, round and reactive to light. ENT: Pharynx normal. Neck: Normal inspection. Neck supple. No lymph nodes noted. No crepitus CVS: Normal heart rate and rhythm. Pulses normal. Normal S1 and S2 Respiratory: No respiratory distress. Breath sounds normal. No Wheezing. No rales Abdomen: Soft and nontender. No rigidity. No distention. good BS x4 Skin: Skin warm and dry. Normal skin color. Normal skin turgor. Extremities: No lower extremity edema. Neurovascular intact to all extremities. No Lacerations. No Rash Neuro: Oriented X 3. No motor deficit. No sensory deficit. Moving all extermities. No slurred speech Medical Decision Making Medical Decision Making MDM Narrative: Fair appearing, not in acute distress, awaiting crisis evaluation. Patient's labs are unremarkable. Currently medically clear awaiting crisis evaluation likely admission. Differential Diagnosis Differential Diagnoses: The differential diagnosis associated with the presentation includes Suicidal ideation depression anxiety Consult Healthcare Provider Management of the patient was discussed with: [employer] Experimental Mechanic (Crisis) Lab Data [facility] Lab Attestation statement: I reviewed the patient's lab results. 11/06/24 08:32 11/06/24 08:32 Labs: Lab Results 11/06/24 Range/Units 08:32 WBC 9.2 (4.8-10.8) X10*3/uL RBC 5.18 (4.60-5.80) X10*6/uL Hgb 14.5 (14.0-18.0) g/dl Hct 43.3 (42.0-52.0) % MCV 83.6 (80.0-98.0) fL MCH 28.0 (27.0-33.0) pg MCHC 33.5 (31.0-36.0) g/dl RDW 13.4 (11.0-16.0) % Plt Count 235 (160-400) X10*3/uL MPV 9.7 (9.4-12.4) fL Immature Gran % (Auto) 0.9 H (0.0-0.4) % Neut % (Auto) 59.1 (45-73) % Lymph % (Auto) 28.8 (20-40) % [place] % (Auto) 5.7 (2-11) % Eos % (Auto) 4.9 H (0-4) % Baso % (Auto) 0.6 (0-2) % Lymph # (Auto) 2.7 (1.2-4.9) X10*3/uL [place] # (Auto) 0.5 (0.1-1.2) X10*3/uL Eos # (Auto) 0.5 H (0.0-0.4) X10*3/uL Baso # (Auto) 0.1 (0.0-0.2) X10*3/uL Abs Immat Gran (auto) 0.08 H (0.00-0.03) X10*3/uL Absolute Neuts (auto) 5.5 (2.0-8.3) x10*3/uL Absolute Nucleated RBC 0.000 (0.0-0.012) X10*3/uL Nucleated RBC % (auto) 0.0 (0.0-0.2) /100WBC Sodium 143 (135-145) mmol/L Potassium 4.5 (3.3-5.1) mmol/L Chloride 110 H (96-108) mmol/L Carbon Dioxide 26 (22-29) mmol/L Anion Gap 12 (12-20) BUN 14 (9-16) mg/dL Creatinine 1.01 (0.5-1.4) mg/dL Estim Creat Clear Calc 156.3 Estimated GFR > 60 Random Glucose 147 H (60-115) mg/dL Calcium 10.6 H (8.4-10.2) mg/dL Total Bilirubin 0.2 (0.0-1.0) mg/dL AST 30 (5-37) U/L ALT 55 H (0-40) U/L Alkaline Phosphatase 85 (39-117) U/L Total Protein 7.4 (6.5-8.0) g/dL Albumin 4.6 (3.5-5.0) g/dL Urine Color Yellow Urine Appearance Cloudy Urine pH 5.0 (5.0-9.0) Ur Specific [place] 1.020 (1.005-1.025) Urine Protein 100 (2+) H (Neg-Trace) mg/dL Urine Glucose (UA) Negative (Negative) mg/dL Urine Ketones Negative (Negative) mg/dL Urine Blood Negative (Negative) Urine Nitrite Negative (Negative) Ur Leukocyte Esterase Negative (Negative) Urine RBC 0-2 (0-2) /HPF Urine WBC 0-5 (0-5) /HPF Ur Squamous Epith Cells 0-2 (0-2) /HPF Urine Bacteria None Seen (None Seen) Hyaline Casts 3-5 (0-2) /LPF Salicylates < 5.0 L (15-30) mg/dL Urine Opiates Screen Not Detected (Not Detect) Ur Buprenorphine Scrn Not Detected (Not Detect) ng/mL Ur Oxycodone Screen Not Detected (Not Detect) ng/mL Urine Methadone Screen Not Detected (Not Detect) ng/mL Urine Fentanyl Screen Not Detected (Not Detect) Acetaminophen < 3 (<30) mcg/mL Ur Barbiturates Screen Not Detected (Not Detect) Ur Phencyclidine Scrn Not Detected (Not Detect) Ur Amphetamines Screen Not Detected (Not Detect) U Benzodiazepines Scrn Not Detected (Not Detect) Urine Cocaine Screen Not Detected (Not Detect) U Marijuana (THC) Screen Not Detected (Not Detect) Ethyl Alcohol < 10 mg/dL External Record Review External record reviewed: Inpatient record Discharge Plan Discharge Clinical Impression: Suicidal ideation Patient Disposition: Still a Patient Prescriptions: No Action propranolol 80 mg Capsule,Extended Release 24hr 80 mg PO DAILY Qty: 30 0RF Protocol: Hold for SBP/HR < HOLD for SBP < : 90 HOLD for HR < : 60 lithium carbonate 450 mg tablet extended release 1,350 mg PO BEDTIME Qty: 90 0RF Patient Comments: has not taken his meds for a while, cannot remember the date melatonin 3 mg Capsule 6 mg PO BEDTIME guanfacine 3 mg tablet extended release 24 hr 3 mg PO BEDTIME guanfacine 1 mg Tablet Extended Release 24 Hr 1 mg PO DAILY Qty: 0 0RF Vraylar 3 mg capsule 6 mg PO BEDTIME (DME) FreeStyle Lite Strips Strip See Rx Instructions .MEDSUPPLY Qty: 100 3RF Rx Instructions: Use daily As directed to check blood glucose (DME) lancets [FreeStyle Lancets] 28 gauge misc See Rx Instructions .MEDSUPPLY Qty: 100 3RF Rx Instructions: use daily as directed to check blood glucose meloxicam 15 mg tablet 15 mg PO DAILY Qty: 90 2RF atorvastatin 10 mg tablet 10 mg PO BEDTIME Qty: 90 0RF metformin 1,000 mg tablet 1,000 mg PO BIDWM Qty: 180 3RF Interventions: Leake-Suicide Risk Severity Scale Last Done: 11/06/24 08:09 Print Language: Egyptian
[2024-11-06 08:04] VITALS: BP 150/88; BP 175/100; PULSE 84; PULSE 87; RESP 22; TEMP 36.2; O2SAT 97; O2SAT 98; BMI 34.4
[2024-11-06 08:09] VITALS: BP 175/100; PULSE 84; RESP 22; TEMP 36.2; O2SAT 97
[2024-11-06 08:47] LABS: MANUAL DIFF FLAG NO
[2024-11-06 08:49] LABS: Basophils Absolute Auto 0.1 X10*3/uL (0.0-0.2); Basophils Percent Auto 0.6 % (0-2); Eosinophils Absolute Auto 0.5 X10*3/uL (0.0-0.4); Eosinophils Percent Auto 4.9 % (0-4); Hematocrit 43.3 % (42.0-52.0); Hemoglobin 14.5 g/dl (14.0-18.0); Imm Gran Abs Auto 0.08 X10*3/uL (0.00-0.03); Imm Gran Pct Auto 0.9 % (0.0-0.4); Lymphocytes Absolute Auto 2.7 X10*3/uL (1.2-4.9); Lymphocytes Percent Auto 28.8 % (20-40); Mean Corpuscular HGB Conc 33.5 g/dl (31.0-36.0); Mean Corpuscular Volume 83.6 fL (80.0-98.0); Mean Platelet Volume 9.7 fL (9.4-12.4); Monocytes Absolute Auto 0.5 X10*3/uL (0.1-1.2); Monocytes Percent Auto 5.7 % (2-11); Neutrophils Absolute Auto 5.5 x10*3/uL (2.0-8.3); Neutrophils Percent Auto 59.1 % (45-73); Platelet Count 235 X10*3/uL (160-400); Red Blood Count 5.18 X10*6/uL (4.60-5.80); Red Cell Distribution Width 13.4 % (11.0-16.0); White Blood Count 9.2 X10*3/uL (4.8-10.8)
[2024-11-06 08:50] LABS: Appearance Urine Cloudy; Color Urine Yellow; Glucose Urine UA Negative (Negative); Leukocyte Esterase Urine Negative (Negative); Nitrite Urine Negative (Negative); UMIC TRIGGER UACC YES; Urine Blood Negative (Negative); Urine Ketones Negative (Negative); Urine Protein 100 (2+) mg/dL (Neg-Trace)
[2024-11-06 08:53] LABS: Bacteria Urine None Seen (None Seen); RBC Urine 0-2 /HPF (0-2); Squamous Epithelial Cell Urine 0-2 /HPF (0-2); WBC Urine 0-5 /HPF (0-5)
[2024-11-06 09:00] LABS: Amphetamine Screen Urine Not Detected (Not Detect); Barbiturates, Urine Not Detected (Not Detect); Benzodiazepines Screen Urine Not Detected (Not Detect); Buprenorphine Scr Not Detected (Not Detect); Cannabinoid Screen Urine Not Detected (Not Detect); Cocaine Screen Urine Not Detected (Not Detect); Fentanyl, urine Not Detected (Not Detect); Methadone Screen, Urine Not Detected (Not Detect); Opiate Screen Urine Not Detected (Not Detect); Oxycodone Screen Urine Not Detected (Not Detect); Phencyclidine Screen Urine Not Detected (Not Detect)
[2024-11-06 09:05] LABS: Acetaminophen LAB < 3 mcg/mL (<30); Alanine Aminotransferase 55 U/L (0-40); Albumin Level 4.6 g/dL (3.5-5.0); Alkaline Phosphatase 85 U/L (39-117); Anion Gap 12 (12-20); Aspartate Amino Transferase 30 U/L (5-37); Bilirubin Total 0.2 mg/dL (0.0-1.0); Blood Urea Nitrogen 14 mg/dL (9-16); Calcium 10.6 mg/dL (8.4-10.2); Carbon Dioxide 26 mmol/L (22-29); Chloride 110 mmol/L (96-108); Creatinine Clr Calc Pharmacy 156.3; Estimated Glomerular Filt Rate > 60; Ethanol < 10 mg/dL; Glucose Random 147 mg/dL (60-115); Potassium 4.5 mmol/L (3.3-5.1); Salicylate < 5.0 mg/dL (15-30); Sodium 143 mmol/L (135-145); Total Protein 7.4 g/dL (6.5-8.0)
--- NOTE | 2024-11-06 09:44 | PC.NURSE ---
Med rec completed with Pt. Pt arrives with list of medications he is currently taking and all reviewed. Pt reports he is current with his medications and took is AM medications prior to arrival today. Will notify ED provider for ordering.
--- NOTE | 2024-11-06 09:47 | PC.NURSE ---
Pt arrives to ED via EMS for reports of feeling unsafe at home and SI yesterday. Pt is A&Ox3, VSS, afebrile. Pt is calm and cooperative. Skin is warm and dry Breaths and speech are even and unlabored. Facial symmetry noted Pt arrives with no injuries. Pt denies SI at time of arrival but does report SI yesterday with plan to cut his throat. NAD at this time. Security present for tire changer aircraft. Pt has been resting, he ate breakfast, and has been socializing with other Pts since arrival.
--- NOTE | 2024-11-06 10:44 | MHC.CARE ---
Pt meets the criteria for IPLOC at this time. Provider in agreement.
[2024-11-06 13:08] LABS: Glucose, Whole Blood 136 mg/dL (60-115)
--- NOTE | 2024-11-06 14:53 | PC.NURSE ---
Spoke with AGUSTINA Moran for RN to RN report as Pt is being transferred to an inpatient floor. Report completed and all questions answered to Pts satisfaction. Awaiting transport.
[2024-11-06 15:53] VITALS: BMI 38.6
[2024-11-06 15:54] VITALS: BP 134/69; PULSE 72; RESP 18; TEMP 36.9; O2SAT 98
[2024-11-06 16:16] LABS: Lithium 0.45 mmol/L (0.60-1.20)
[2024-11-06] MEDS: metFORMIN HCl 1,000 MG TABLET 1000 MG PO (17:43)
--- NOTE | 2024-11-06 18:53 | PC.ADMIT ---
Lit was admitted to at approximately 15:55, on a CV, for SI & self-harming thoughts. Lit is cognitively delayed & lives at home with his parents & brother. He is A&Ox4, pleasant & cooperative with admission process. He is unable to state an exact precipitating factor to feeling suicidal. He states that he just didn't feel safe being home. His mother reports that this happens at times, likely dysregulated due to med non-compliance. He has history of multiple psych hospitalizations. He reportedly attends a day program & his family assists with reminding him to take meds. Recently Lit has been giving his brother a difficult time when getting ready for day program. Pt has history of aggression/violent episodes & non-compliance with psych meds. Lit denies current SI/HI/AVH or self-harming thoughts. Skin check was done & unremarkable. Lit was oriented to the unit & now socializing with peers. He is placed on 15min safety checks.
[2024-11-06 20:00] VITALS: BP 146/67; PULSE 74; RESP 16; TEMP 36.6; O2SAT 98
[2024-11-06] MEDS: NaPROXEN 500 MG TABLET PO (20:29)
[2024-11-06] MEDS: Lithium Carbonate ER 450 MG TABLET.ER 1350 MG PO (20:30)
[2024-11-06] MEDS: guanFACINE HCl ER 1 MG TAB.ER.24H 3 MG PO (20:30)
[2024-11-06] MEDS: Atorvastatin Calcium 10 MG TABLET PO (20:30)
[2024-11-06] MEDS: Melatonin 3 MG TABLET 6 MG PO (20:30)
[2024-11-06] MEDS: Cariprazine HCl 3 MG CAPSULE 6 MG PO (20:30)
[2024-11-07 08:00] VITALS: BP 175/75; PULSE 90; RESP 16; TEMP 36.3; O2SAT 97
[2024-11-07] MEDS: Propranolol HCL LA 80 MG CAP.SA.24H PO (08:40)
[2024-11-07] MEDS: guanFACINE HCl ER 1 MG TAB.ER.24H PO (08:40)
[2024-11-07] MEDS: metFORMIN HCl 1,000 MG TABLET 1000 MG PO ×2 (08:40→17:15)
[2024-11-07] MEDS: NaPROXEN 500 MG TABLET PO ×2 (08:40→22:44)
[2024-11-07 09:36] LABS: Estimated Average Glucose 131 mg/dL; Hemoglobin A1C 165.0946 umol/L; Hemoglobin A1c % 6.2 % (<6.0); Total Hemoglobin (HGBA1C) 3768.4446 umol/L
[2024-11-07 09:41] LABS: Cholesterol 171 mg/dL (<200); HDL Cholesterol 32 mg/dL (>40); LDL Cholesterol Calculated 80 mg/dL (<100); Triglycerides 299 mg/dL (<150)
[2024-11-07 09:57] LABS: TSH reflex Free T4 1.41 uIU/mL (0.32-4.0)
--- NOTE | 2024-11-07 10:27 | HO.PSYADMNOT ---
HPI Date of Service: 11/07/24 Chief Complaint: SI Sources of Information: patient interviewed, chart reviewed and crisis/core team assessment reviewed HPI Subjective Notes: [place] Warning and Conditional Voluntary Healthcare Proxy: No Guardianship: No Medical Problems Affecting Mental Status: No Narrative: Seen 11am. 28 yo male, hx of developmental delay, bipolar disorder, intermittent explosive disorder to ER with EMS. Pt reporting SI/HI without intent and not feeling safe at his home, telling crisis that when angry, he becomes violent. Pt was unable to identify precipitants. Family tells crisis he struggles to attend his day program, is not attending to ADL care (showering) and questionable medicine compliance. Pt can become explosive and destructive over small things and has broken 5 televisions in 5 months. Family would like to have a meeting to discuss options and resources per crisis. Met with pt who reports he live at home with parents, an older brother and his dogs- Champagne, Lisette, Spice and Shadow and his cats Bony and Twix. He is unable to identify a precipitant to current SI/HI and encourages us to call his mom as he believes she will know. He reports medicine compliance, I do forget sometimes . He reports feeling safe on the unit and is well engaged in discussion during our meeting. He is pleased to work with the staff and wants to tease one of the counselors about the [employer] Outcome this year. Past Psychiatric History: Multiple inpatient hospitalizations by history. >3 Hx of living in a chcf with DDS, in [place]. He left in 2021 to return home Psychiatric prescriber: Xiomara Parrish in [place], [place], at [phone] therapist: Júnior Reynolds WALKER Masters [phone] DDS worker: Frieda [phone] Denies hx of SIB or SA. PCP Dr. Carrillo [phone] SA: Denies hx Medical Evaluation Reviewed: Yes [facility] Medical History Superficial laceration of finger Intellectual disability Intermittent explosive disorder in adult Narrative: Hx of meniscal, ACL injury to knee- not a surgical candidate, however has a brace that is very helpful Family History: unknown/denies Social History: Pt currently lives with father, mother and brother. Pt used to live at [facility] ch[facility]. Single, no children. aspires to work with animals. Has several dogs/cats. Born in [place], raised in [place] by both parents. Pt is the second of three children. Older brother is his K[employer]HER INSPECTOR Graduated [employer] high school program Substance History: Toxicology negative Trauma History: denies Diagnostics Vital Signs (24Hr): Vital Signs - 24 hr 11/06/24 15:54 11/06/24 20:00 11/07/24 08:00 Temperature 98.5 F 97.8 F 97.3 F Pulse Rate 72 74 90 Respiratory Rate 18 16 16 Blood Pressure 134/69 146/67 H 175/75 H Pulse Oximetry 98 98 97 Oxygen Delivery Method Room Air Room Air Room Air 11/07/24 08:00 Temperature 97.3 F Pulse Rate 90 Respiratory Rate 16 Blood Pressure 175/75 H Pulse Oximetry 97 Oxygen Delivery Method BMI result Body Mass Index 38.6 Labs 11/06/24 08:32 11/06/24 08:32 Labs: Laboratory Results - last 48 hr 11/06/24 11/06/24 11/06/24 08:32 13:04 15:17 WBC 9.2 RBC 5.18 Hgb 14.5 Hct 43.3 MCV 83.6 MCH 28.0 MCHC 33.5 RDW 13.4 Plt Count 235 MPV 9.7 Immature Gran % (Auto) 0.9 H Neut % (Auto) 59.1 Lymph % (Auto) 28.8 [place] % (Auto) 5.7 Eos % (Auto) 4.9 H Baso % (Auto) 0.6 Lymph # (Auto) 2.7 [place] # (Auto) 0.5 Eos # (Auto) 0.5 H Baso # (Auto) 0.1 Abs Immat Gran (auto) 0.08 H Absolute Neuts (auto) 5.5 Absolute Nucleated RBC 0.000 Nucleated RBC % (auto) 0.0 Sodium 143 Potassium 4.5 Chloride 110 H Carbon Dioxide 26 Anion Gap 12 BUN 14 Creatinine 1.01 Estim Creat Clear Calc 156.3 Estimated GFR > 60 POC Glucose 136 H Random Glucose 147 H Estimat Average Glucose Hemoglobin A1c % Calcium 10.6 H Total Bilirubin 0.2 AST 30 ALT 55 H Alkaline Phosphatase 85 Total Protein 7.4 Albumin 4.6 Triglycerides Cholesterol LDL Cholesterol, Calc HDL Cholesterol TSH Urine Color Yellow Urine Appearance Cloudy Urine pH 5.0 Ur Specific [place] 1.020 Urine Protein 100 (2+) H Urine Glucose (UA) Negative Urine Ketones Negative Urine Blood Negative Urine Nitrite Negative Ur Leukocyte Esterase Negative Urine RBC 0-2 Urine WBC 0-5 Ur Squamous Epith Cells 0-2 Urine Bacteria None Seen Hyaline Casts 3-5 Salicylates < 5.0 L Urine Opiates Screen Not Detected Ur Buprenorphine Scrn Not Detected Ur Oxycodone Screen Not Detected Urine Methadone Screen Not Detected Urine Fentanyl Screen Not Detected Acetaminophen < 3 Ur Barbiturates Screen Not Detected Ur Phencyclidine Scrn Not Detected Ur Amphetamines Screen Not Detected U Benzodiazepines Scrn Not Detected [place] 0.45 L Urine Cocaine Screen Not Detected U Marijuana (THC) Screen Not Detected Ethyl Alcohol < 10 11/07/24 08:06 WBC RBC Hgb Hct MCV MCH MCHC RDW Plt Count MPV Immature Gran % (Auto) Neut % (Auto) Lymph % (Auto) [place] % (Auto) Eos % (Auto) Baso % (Auto) Lymph # (Auto) [place] # (Auto) Eos # (Auto) Baso # (Auto) Abs Immat Gran (auto) Absolute Neuts (auto) Absolute Nucleated RBC Nucleated RBC % (auto) Sodium Potassium Chloride Carbon Dioxide Anion Gap BUN Creatinine Estim Creat Clear Calc Estimated GFR POC Glucose Random Glucose Estimat Average Glucose 131 Hemoglobin A1c % 6.2 H Calcium Total Bilirubin AST ALT Alkaline Phosphatase Total Protein Albumin Triglycerides 299 H Cholesterol 171 LDL Cholesterol, Calc 80 HDL Cholesterol 32 L TSH 1.41 Urine Color Urine Appearance Urine pH Ur Specific [place] Urine Protein Urine Glucose (UA) Urine Ketones Urine Blood Urine Nitrite Ur Leukocyte Esterase Urine RBC Urine WBC Ur Squamous Epith Cells Urine Bacteria Hyaline Casts Salicylates Urine Opiates Screen Ur Buprenorphine Scrn Ur Oxycodone Screen Urine Methadone Screen Urine Fentanyl Screen Acetaminophen Ur Barbiturates Screen Ur Phencyclidine Scrn Ur Amphetamines Screen U Benzodiazepines Scrn [place] Urine Cocaine Screen U Marijuana (THC) Screen Ethyl Alcohol Meds/Allergies Meds Home Medications ?Medication ?Instructions ?Recorded ?Confirmed ?Type guanfacine 3 mg tablet,extended 3 mg PO BEDTIME 05/24/23 11/06/24 History release 24 hr melatonin 3 mg capsule 6 mg PO BEDTIME 03/27/24 11/06/24 History cariprazine 3 mg capsule (Vraylar) 6 mg PO BEDTIME 08/07/24 11/06/24 History Allergies Allergies Allergy/AdvReac Type Severity Reaction Status Date / Time aripiprazole [From Abilify] Allergy tremors Verified 11/06/24 08:08 divalproex sodium Allergy Agitated Verified 11/06/24 08:08 [From Depakote] risperidone [From Risperdal] Allergy Unknown Verified 11/06/24 08:08 Mental Status Exam Mental Status Exam Patient Appearance: Appropriate Patient Orientation: Person, Place, Time and Situation Level of Consciousness: Alert Patient Behavior: Appropriate, Talkative, Cooperative and Good Eye Contact Mood Description: Constricted and Apprehensive Affect Description: Constricted and Apprehensive Patient Cognition Impaired: Yes Ability to Follow Directions: Fair Speech Pattern: Spontaneous Speech and Soft-Spoken Memory Description: Episodic Impaired Hallucinations: None Delusions: Not Present Perceptual Disturbances: Derealization Thought Process: Rumination Thought Content: positive for Perseveration Depressive Symptoms: Increased Anxiety and Difficulty Concentrating Judgement: Fair Assessment & Plan Assessment & Plan (1) Suicidal ideation: Status: Acute Code(s): R45.851 - Suicidal ideations (2) Intellectual disability: Status: Acute Code(s): F79 - Unspecified intellectual disabilities (3) Intermittent explosive disorder in adult: Status: Acute Code(s): F63.81 - Intermittent explosive disorder (4) Bipolar 1 disorder: Status: Acute Code(s): F31.9 - Bipolar disorder, unspecified Plan Intellectual Disability, Bipolar Disorder, Intermittent Explosive Disorder, Current SI/HI with unknown precipitant. Plan: Admit, CV. Re-establish regime ([place] level is low) Collateral contact with family with family meeting Collateral contact with providers Encourage milieu participation Diagnostics as needed Discharge/Aftercare planning Patient educated on: therapeutic strategies Reason for continued inpatient stay Substantial Risk for: rapid decompensation Statement Statement: I have reviewed the history and physical and performed a pertinent examination on my patient. No changes have occurred unless specified. If the History and Physical was not performed prior to admission, the Hospitalist's service will be consulted for completing the admission physical. Time Spent With Patient Time: Total time managing care of this patient today ____ minutes.
[2024-11-07 12:11] LABS: Glucose, Whole Blood 128 mg/dL (60-115)
[2024-11-07] MEDS: Acetaminophen 325 MG TABLET 650 MG PO (17:35)
[2024-11-07 20:00] VITALS: BP 130/81; PULSE 75; RESP 16; TEMP 36.5; O2SAT 97
[2024-11-07 21:27] LABS: Glucose, Whole Blood 142 mg/dL (60-115)
[2024-11-07] MEDS: Atorvastatin Calcium 10 MG TABLET PO (22:45)
[2024-11-07] MEDS: guanFACINE HCl ER 1 MG TAB.ER.24H 3 MG PO (22:45)
[2024-11-07] MEDS: Lithium Carbonate ER 450 MG TABLET.ER 1350 MG PO (22:46)
[2024-11-07] MEDS: Melatonin 3 MG TABLET 6 MG PO (22:46)
[2024-11-07] MEDS: Cariprazine HCl 3 MG CAPSULE 6 MG PO (22:46)
[2024-11-08 08:00] VITALS: BP 122/65; PULSE 70; RESP 16; TEMP 36.6; O2SAT 99
[2024-11-08 08:17] LABS: Glucose, Whole Blood 138 mg/dL (60-115)
[2024-11-08] MEDS: NaPROXEN 500 MG TABLET PO ×2 (08:52→21:42)
[2024-11-08] MEDS: Propranolol HCL LA 80 MG CAP.SA.24H PO (08:53)
[2024-11-08] MEDS: metFORMIN HCl 1,000 MG TABLET 1000 MG PO ×2 (08:53→18:01)
[2024-11-08] MEDS: guanFACINE HCl ER 1 MG TAB.ER.24H PO (08:53)
--- NOTE | 2024-11-08 10:39 | HO.PSYCHPN ---
Subjective Subjective Date of Service: 11/08/24 Reason For Visit: SI Subjective Notes: Conditional Voluntary Interim History: Patient was seen and discussed in rounds today. Records and plans were reviewed. He has been stable on the unit, engaged and interactive. He is compliant with medications. He denies any side effects. Slept 6 hours. No dangerous behavior problems. No changes were made today Medication Compliance: Yes Side effects from medications: No Attending Groups: Yes Review of Systems Review of Systems Yes all other systems are reviewed and are negative Mental Status Exam Mental Status Exam Narrative: In today's visit he is alert, pleasant and interactive. Normal speech. Moderate eye contact. Appropriate and varied affect. No signs of psychosis. Cognitively is grossly intact. Able to move all limbs. No gait abnormalities. No SI. Judgment is intact. Diagnostics Vital Signs (24Hr): Vital Signs - 24 hr 11/07/24 20:00 11/08/24 08:00 Temperature 97.7 F 97.8 F Pulse Rate 75 70 Respiratory Rate 16 16 Blood Pressure 130/81 122/65 Pulse Oximetry 97 99 Oxygen Delivery Method Room Air Room Air BMI result Body Mass Index 38.6 Labs 11/06/24 08:32 11/06/24 08:32 Labs: Laboratory Results - last 48 hr 11/06/24 11/06/24 11/07/24 13:04 15:17 08:06 POC Glucose 136 H Estimat Average Glucose 131 Hemoglobin A1c % 6.2 H Triglycerides 299 H Cholesterol 171 LDL Cholesterol, Calc 80 HDL Cholesterol 32 L TSH 1.41 [place] 0.45 L 11/07/24 11/07/24 11/08/24 12:08 21:23 08:13 POC Glucose 128 H 142 H 138 H Estimat Average Glucose Hemoglobin A1c % Triglycerides Cholesterol LDL Cholesterol, Calc HDL Cholesterol TSH [place] Medications Medications Current Medications Acetaminophen (Acetaminophen 325 Mg Tablet) 650 mg PO Q6H PRN PRN Reason: Headache/Pain Mild Scale (1-3) Last Admin: 11/07/24 17:35 Dose: 650 mg Al Hydroxide/Mg Hydroxide (Magnesium Hydrox/Alum Hydrox 30 Ml Oral.Susp) 30 ml PO Q6H PRN PRN Reason: Heartburn/Nausea Atorvastatin Calcium (Atorvastatin Calcium 10 Mg Tablet) 10 mg PO BEDTIME LOLA Last Admin: 11/07/24 22:45 Dose: 10 mg Cariprazine (Cariprazine Hcl 3 Mg Capsule) 6 mg PO BEDTIME LOLA Last Admin: 11/07/24 22:46 Dose: 6 mg Guanfacine HCl (Guanfacine Hcl Er 1 Mg Tab.Er.24h) 1 mg PO DAILY [facility] Last Admin: 11/08/24 08:53 Dose: 1 mg Guanfacine HCl (Guanfacine Hcl Er 1 Mg Tab.Er.24h) 3 mg PO BEDTIME [facility] Last Admin: 11/07/24 22:45 Dose: 3 mg Hydroxyzine HCl (Hydroxyzine Hcl 25 Mg Tablet) 25 mg PO Q6H PRN PRN Reason: Anxiety [place] Carbonate ([place] Carbonate Er 450 Mg Tablet.Er) 1,350 mg PO BEDTIME [facility] Last Admin: 11/07/24 22:46 Dose: 1,350 mg Magnesium Hydroxide (Milk Of Magnesia 30 Ml Oral.Susp) 30 ml PO DAILY PRN PRN Reason: Constipation Melatonin (Melatonin 3 Mg Tablet) 6 mg PO BEDTIME [facility] Last Admin: 11/07/24 22:46 Dose: 6 mg Metformin HCl (Metformin Hcl 1,000 Mg Tablet) 1,000 mg PO BIDWM [facility] Last Admin: 11/08/24 08:53 Dose: 1,000 mg Naproxen (Naproxen 500 Mg Tablet) 500 mg PO BID [facility] Last Admin: 11/08/24 08:52 Dose: 500 mg Nicotine (Nicotine 21 Mg Patch.Td24) 21 mg TRANSDERMA DAILY PRN PRN Reason: smoking cessation Nicotine Polacrilex (Nicotine Polacrilex 2 Mg Gum) 4 mg BUCCAL Q2H PRN PRN Reason: Nicotine Cravings Propranolol HCl (Propranolol Hcl La 80 Mg Cap.Sa.24h) 80 mg PO DAILY [facility]; Protocol Last Admin: 11/08/24 08:53 Dose: 80 mg Trazodone HCl (Trazodone Hcl 50 Mg Tablet) 50 mg PO BEDTIME MRX1 PRN PRN Reason: Insomnia Allergies Allergies Allergy/AdvReac Type Severity Reaction Status Date / Time aripiprazole [From Abilify] Allergy tremors Verified 11/06/24 08:08 divalproex sodium Allergy Agitated Verified 11/06/24 08:08 [From Depakote] risperidone [From Risperdal] Allergy Unknown Verified 11/06/24 08:08 Assessment & Plan Assessment & Plan (1) Suicidal ideation: Status: Acute Code(s): R45.851 - Suicidal ideations (2) Intellectual disability: Status: Acute Code(s): F79 - Unspecified intellectual disabilities (3) Intermittent explosive disorder in adult: Status: Acute Code(s): F63.81 - Intermittent explosive disorder (4) Bipolar 1 disorder: Status: Acute Code(s): F31.9 - Bipolar disorder, unspecified Plan Intellectual Disability, Bipolar Disorder, Intermittent Explosive Disorder, Current SI/HI with unknown precipitant. Plan: Admit, CV. Re-establish regime ([place] level is low) Collateral contact with family with family meeting Collateral contact with providers Encourage milieu participation Diagnostics as needed Discharge/Aftercare planning 11/08:Continue current regimen and plans. Reason for continued inpatient stay Substantial Risk for: rapid decompensation Time Spent With Patient Time: Total time managing care of this patient today ____ minutes.
[2024-11-08] MEDS: Acetaminophen 325 MG TABLET 650 MG PO (13:05)
[2024-11-08 16:54] LABS: Glucose, Whole Blood 115 mg/dL (60-115)
[2024-11-08 20:00] VITALS: BP 132/80; PULSE 76; RESP 16; O2SAT 98
[2024-11-08] MEDS: Melatonin 3 MG TABLET 6 MG PO (21:41)
[2024-11-08] MEDS: Lithium Carbonate ER 450 MG TABLET.ER 1350 MG PO (21:41)
[2024-11-08] MEDS: Atorvastatin Calcium 10 MG TABLET PO (21:42)
[2024-11-08] MEDS: Cariprazine HCl 3 MG CAPSULE 6 MG PO (21:42)
[2024-11-08] MEDS: guanFACINE HCl ER 1 MG TAB.ER.24H 3 MG PO (21:45)
[2024-11-08] MEDS: traZODone HCL 50 MG TABLET PO (21:45)
[2024-11-08 22:08] LABS: Glucose, Whole Blood 91 mg/dL (60-115)
[2024-11-09 08:19] LABS: Glucose, Whole Blood 136 mg/dL (60-115)
--- NOTE | 2024-11-09 08:58 | HO.PSYCHPN ---
Subjective Subjective Date of Service: 11/09/24 Reason For Visit: SI Subjective Notes: Conditional Voluntary Interim History: Patient was seen and discussed in rounds today. Records and plans were reviewed. He is doing well and has been stable. Eating and sleeping adequately, 6 hours. He has visible and social. Moderate depression and anxiety present. He does appear to be responding to internal stimuli but denies AVH. No overt delusions. No side effects. No changes were made today ay Medication Compliance: Yes Side effects from medications: No Attending Groups: Yes Review of Systems Review of Systems Yes all other systems are reviewed and are negative Mental Status Exam Mental Status Exam Narrative: In today's visit he is alert, pleasant and interactive. Normal speech. Moderate eye contact. Appropriate and varied affect. No signs of psychosis. Denies AVH but appears to respond to internal stimuli. Cognitively is grossly intact. Able to move all limbs. No gait abnormalities. No SI. Judgment is intact. Diagnostics Vital Signs (24Hr): Vital Signs - 24 hr 11/08/24 20:00 Pulse Rate 76 Respiratory Rate 16 Blood Pressure 132/80 Pulse Oximetry 98 Oxygen Delivery Method Room Air BMI result Body Mass Index 38.6 Labs 11/06/24 08:32 11/06/24 08:32 Labs: Laboratory Results - last 48 hr 11/07/24 11/07/24 11/07/24 08:06 12:08 21:23 POC Glucose 128 H 142 H Estimat Average Glucose 131 Hemoglobin A1c % 6.2 H Triglycerides 299 H Cholesterol 171 LDL Cholesterol, Calc 80 HDL Cholesterol 32 L TSH 1.41 11/08/24 11/08/24 11/08/24 08:13 16:43 22:03 POC Glucose 138 H 115 91 Estimat Average Glucose Hemoglobin A1c % Triglycerides Cholesterol LDL Cholesterol, Calc HDL Cholesterol TSH 11/09/24 08:11 POC Glucose 136 H Estimat Average Glucose Hemoglobin A1c % Triglycerides Cholesterol LDL Cholesterol, Calc HDL Cholesterol TSH Medications Medications Current Medications Acetaminophen (Acetaminophen 325 Mg Tablet) 650 mg PO Q6H PRN PRN Reason: Headache/Pain Mild Scale (1-3) Last Admin: 11/08/24 13:05 Dose: 650 mg Al Hydroxide/Mg Hydroxide (Magnesium Hydrox/Alum Hydrox 30 Ml Oral.Susp) 30 ml PO Q6H PRN PRN Reason: Heartburn/Nausea Atorvastatin Calcium (Atorvastatin Calcium 10 Mg Tablet) 10 mg PO BEDTIME LOLA Last Admin: 11/08/24 21:42 Dose: 10 mg Cariprazine (Cariprazine Hcl 3 Mg Capsule) 6 mg PO BEDTIME [facility] Last Admin: 11/08/24 21:42 Dose: 6 mg Guanfacine HCl (Guanfacine Hcl Er 1 Mg Tab.Er.24h) 1 mg PO DAILY [facility] Last Admin: 11/08/24 08:53 Dose: 1 mg Guanfacine HCl (Guanfacine Hcl Er 1 Mg Tab.Er.24h) 3 mg PO BEDTIME LOLA Last Admin: 11/08/24 21:45 Dose: 3 mg Hydroxyzine HCl (Hydroxyzine Hcl 25 Mg Tablet) 25 mg PO Q6H PRN PRN Reason: Anxiety [place] Carbonate ([place] Carbonate Er 450 Mg Tablet.Er) 1,350 mg PO BEDTIME [facility] Last Admin: 11/08/24 21:41 Dose: 1,350 mg Magnesium Hydroxide (Milk Of Magnesia 30 Ml Oral.Susp) 30 ml PO DAILY PRN PRN Reason: Constipation Melatonin (Melatonin 3 Mg Tablet) 6 mg PO BEDTIME [facility] Last Admin: 11/08/24 21:41 Dose: 6 mg Metformin HCl (Metformin Hcl 1,000 Mg Tablet) 1,000 mg PO BIDWM [facility] Last Admin: 11/08/24 18:01 Dose: 1,000 mg Naproxen (Naproxen 500 Mg Tablet) 500 mg PO BID [facility] Last Admin: 11/08/24 21:42 Dose: 500 mg Nicotine (Nicotine 21 Mg Patch.Td24) 21 mg TRANSDERMA DAILY PRN PRN Reason: smoking cessation Nicotine Polacrilex (Nicotine Polacrilex 2 Mg Gum) 4 mg BUCCAL Q2H PRN PRN Reason: Nicotine Cravings Propranolol HCl (Propranolol Hcl La 80 Mg Cap.Sa.24h) 80 mg PO DAILY [facility]; Protocol Last Admin: 11/08/24 08:53 Dose: 80 mg Trazodone HCl (Trazodone Hcl 50 Mg Tablet) 50 mg PO BEDTIME MRX1 PRN PRN Reason: Insomnia Last Admin: 11/08/24 21:45 Dose: 50 mg Allergies Allergies Allergy/AdvReac Type Severity Reaction Status Date / Time aripiprazole [From Abilify] Allergy tremors Verified 11/06/24 08:08 divalproex sodium Allergy Agitated Verified 11/06/24 08:08 [From Depakote] risperidone [From Risperdal] Allergy Unknown Verified 11/06/24 08:08 Assessment & Plan Assessment & Plan (1) Suicidal ideation: Status: Acute Code(s): R45.851 - Suicidal ideations (2) Intellectual disability: Status: Acute Code(s): F79 - Unspecified intellectual disabilities (3) Intermittent explosive disorder in adult: Status: Acute Code(s): F63.81 - Intermittent explosive disorder (4) Bipolar 1 disorder: Status: Acute Code(s): F31.9 - Bipolar disorder, unspecified Plan Intellectual Disability, Bipolar Disorder, Intermittent Explosive Disorder, Current SI/HI with unknown precipitant. Plan: Admit, CV. Re-establish regime ([place] level is low) Collateral contact with family with family meeting Collateral contact with providers Encourage milieu participation Diagnostics as needed Discharge/Aftercare planning 11/08:Continue current regimen and plans. 11/09: Continue current regimen and plans Reason for continued inpatient stay Substantial Risk for: med/psych decompensation Time Spent With Patient Time: Total time managing care of this patient today ____ minutes.
[2024-11-09] MEDS: metFORMIN HCl 1,000 MG TABLET 1000 MG PO ×2 (09:11→17:07)
[2024-11-09] MEDS: guanFACINE HCl ER 1 MG TAB.ER.24H PO (09:11)
[2024-11-09] MEDS: Propranolol HCL LA 80 MG CAP.SA.24H PO (09:12)
[2024-11-09] MEDS: NaPROXEN 500 MG TABLET PO ×2 (09:12→21:28)
[2024-11-09 09:36] VITALS: BP 114/78; PULSE 92; TEMP 36.4; O2SAT 98
[2024-11-09 12:14] LABS: Glucose, Whole Blood 132 mg/dL (60-115)
[2024-11-09 17:05] LABS: Glucose, Whole Blood 127 mg/dL (60-115)
[2024-11-09 19:48] VITALS: BP 158/64; PULSE 82; RESP 16; TEMP 36.2; O2SAT 98
[2024-11-09 21:24] LABS: Glucose, Whole Blood 116 mg/dL (60-115)
[2024-11-09] MEDS: Atorvastatin Calcium 10 MG TABLET PO (21:27)
[2024-11-09] MEDS: Cariprazine HCl 3 MG CAPSULE 6 MG PO (21:27)
[2024-11-09] MEDS: traZODone HCL 50 MG TABLET PO (21:27)
[2024-11-09] MEDS: Lithium Carbonate ER 450 MG TABLET.ER 1350 MG PO (21:27)
[2024-11-09] MEDS: guanFACINE HCl ER 1 MG TAB.ER.24H 3 MG PO (21:28)
[2024-11-09] MEDS: Melatonin 3 MG TABLET 6 MG PO (21:28)
[2024-11-10 08:00] VITALS: BP 134/81; PULSE 70; RESP 16; TEMP 35.9; O2SAT 98
[2024-11-10 08:11] LABS: Glucose, Whole Blood 131 mg/dL (60-115)
[2024-11-10] MEDS: Propranolol HCL LA 80 MG CAP.SA.24H PO (08:55)
[2024-11-10] MEDS: NaPROXEN 500 MG TABLET PO ×2 (08:55→22:20)
[2024-11-10] MEDS: metFORMIN HCl 1,000 MG TABLET 1000 MG PO ×2 (08:55→17:20)
[2024-11-10] MEDS: guanFACINE HCl ER 1 MG TAB.ER.24H PO (08:55)
[2024-11-10] MEDS: Acetaminophen 325 MG TABLET 650 MG PO (08:56)
--- NOTE | 2024-11-10 09:55 | HO.PSYCHPN ---
Subjective Subjective Date of Service: 11/10/24 Reason For Visit: SI Subjective Notes: Conditional Voluntary Healthcare Proxy: No Guardianship: No Medical Problems Affecting Mental Status: No Interim History: Pt reports he is feeling good. A peer on the unit is bothersome to him and he has been able to contain his emotions, stating, I can be quick to get mad, but I am holding it together, I know he is sick. Pt is engaged with his peer group. He discussed wanting to be at home for [place], missing his dogs/cats and family. Call to pt's mother to discuss concerns/discharge. She reports she is not feeling well today. She asked about medicine compliance. Review of Ivy level of 11/06 of 0.45 and pt's report that there are some times he forgets and reports sometimes family forgets to remind him as everyone is very busy. We discussed a med minder with alarm however he is not interested in this. Mother reports no concerns about discharge to home. She did ask when the next Ivy level is due and we will schedule this for 11/11. Pt asks that we get the level first and discuss this with him and he will decide at that time if he will remain or discharge to family. Medication Compliance: Yes Side effects from medications: No Attending Groups: Yes Review of Systems Acute medical concerns: No Review of Systems Review of Systems Yes all other systems are reviewed and are negative Mental Status Exam Mental Status Exam Patient Appearance: Appropriate Patient Orientation: Person, Place, Time and Situation Level of Consciousness: Alert Patient Behavior: Appropriate, Talkative, Cooperative and Good Eye Contact Mood Description: Appropriate Affect Description: Appropriate Patient Cognition Impaired: Yes Ability to Follow Directions: Good Speech Pattern: Spontaneous Speech Memory Description: Episodic Impaired Hallucinations: None Delusions: Not Present Thought Process: Intact and Goal Oriented Thought Content: positive for Intact and positive for Goal Oriented Depressive Symptoms: Thoughts of /Suicide (denies) Judgement: Good Diagnostics Vital Signs (24Hr): Vital Signs - 24 hr 11/09/24 19:48 11/10/24 08:00 Temperature 97.1 F 96.7 F L Pulse Rate 82 70 Respiratory Rate 16 16 Blood Pressure 158/64 H 134/81 Pulse Oximetry 98 98 Oxygen Delivery Method Room Air Room Air BMI result Body Mass Index 38.6 Labs 11/06/24 08:32 11/06/24 08:32 Labs: Laboratory Results - last 48 hr 11/08/24 11/08/24 11/09/24 16:43 22:03 08:11 POC Glucose 115 91 136 H 11/09/24 11/09/24 11/09/24 12:07 17:02 21:19 POC Glucose 132 H 127 H 116 H 11/10/24 08:03 POC Glucose 131 H Medications Medications Current Medications Acetaminophen (Acetaminophen 325 Mg Tablet) 650 mg PO Q6H PRN PRN Reason: Headache/Pain Mild Scale (1-3) Last Admin: 11/10/24 08:56 Dose: 650 mg Al Hydroxide/Mg Hydroxide (Magnesium Hydrox/Alum Hydrox 30 Ml Oral.Susp) 30 ml PO Q6H PRN PRN Reason: Heartburn/Nausea Atorvastatin Calcium (Atorvastatin Calcium 10 Mg Tablet) 10 mg PO BEDTIME [facility] Last Admin: 11/09/24 21:27 Dose: 10 mg Cariprazine (Cariprazine Hcl 3 Mg Capsule) 6 mg PO BEDTIME LOLA Last Admin: 11/09/24 21:27 Dose: 6 mg Guanfacine HCl (Guanfacine Hcl Er 1 Mg Tab.Er.24h) 1 mg PO DAILY [facility] Last Admin: 11/10/24 08:55 Dose: 1 mg Guanfacine HCl (Guanfacine Hcl Er 1 Mg Tab.Er.24h) 3 mg PO BEDTIME LOLA Last Admin: 11/09/24 21:28 Dose: 3 mg Hydroxyzine HCl (Hydroxyzine Hcl 25 Mg Tablet) 25 mg PO Q6H PRN PRN Reason: Anxiety [place] Carbonate ([place] Carbonate Er 450 Mg Tablet.Er) 1,350 mg PO BEDTIME [facility] Last Admin: 11/09/24 21:27 Dose: 1,350 mg Magnesium Hydroxide (Milk Of Magnesia 30 Ml Oral.Susp) 30 ml PO DAILY PRN PRN Reason: Constipation Melatonin (Melatonin 3 Mg Tablet) 6 mg PO BEDTIME [facility] Last Admin: 11/09/24 21:28 Dose: 6 mg Metformin HCl (Metformin Hcl 1,000 Mg Tablet) 1,000 mg PO BIDWM [facility] Last Admin: 11/10/24 08:55 Dose: 1,000 mg Naproxen (Naproxen 500 Mg Tablet) 500 mg PO BID [facility] Last Admin: 11/10/24 08:55 Dose: 500 mg Nicotine (Nicotine 21 Mg Patch.Td24) 21 mg TRANSDERMA DAILY PRN PRN Reason: smoking cessation Nicotine Polacrilex (Nicotine Polacrilex 2 Mg Gum) 4 mg BUCCAL Q2H PRN PRN Reason: Nicotine Cravings Propranolol HCl (Propranolol Hcl La 80 Mg Cap.Sa.24h) 80 mg PO DAILY [facility]; Protocol Last Admin: 11/10/24 08:55 Dose: 80 mg Trazodone HCl (Trazodone Hcl 50 Mg Tablet) 50 mg PO BEDTIME MRX1 PRN PRN Reason: Insomnia Last Admin: 11/09/24 21:27 Dose: 50 mg Allergies Allergies Allergy/AdvReac Type Severity Reaction Status Date / Time aripiprazole [From Abilify] Allergy tremors Verified 11/06/24 08:08 divalproex sodium Allergy Agitated Verified 11/06/24 08:08 [From Depakote] risperidone [From Risperdal] Allergy Unknown Verified 11/06/24 08:08 Assessment & Plan Assessment & Plan (1) Suicidal ideation: Status: Acute Code(s): R45.851 - Suicidal ideations (2) Intellectual disability: Status: Acute Code(s): F79 - Unspecified intellectual disabilities (3) Intermittent explosive disorder in adult: Status: Acute Code(s): F63.81 - Intermittent explosive disorder (4) Bipolar 1 disorder: Status: Acute Code(s): F31.9 - Bipolar disorder, unspecified Plan Intellectual Disability, Bipolar Disorder, Intermittent Explosive Disorder, Current SI/HI with unknown precipitant. Plan: Admit, CV. Re-establish regime ([place] level is low) Collateral contact with family with family meeting Collateral contact with providers Encourage milieu participation Diagnostics as needed Discharge/Aftercare planning 11/08:Continue current regimen and plans. 11/09: Continue current regimen and plans 11/10/24: [place] level 11/11. Possible discharge for 11/11. Will continue discussion with pt. Reason for continued inpatient stay Substantial Risk for: rapid decompensation Time Spent With Patient Time: Total time managing care of this patient today ____ minutes.
--- NOTE | 2024-11-10 14:50 | PC.NURSE ---
Report given to Laisha Pena RN and care assumed.
[2024-11-10 20:00] VITALS: BP 156/93; PULSE 75; RESP 16; TEMP 36.6; O2SAT 97
[2024-11-10] MEDS: guanFACINE HCl ER 1 MG TAB.ER.24H 3 MG PO (22:19)
[2024-11-10] MEDS: Melatonin 3 MG TABLET 6 MG PO (22:19)
[2024-11-10] MEDS: Lithium Carbonate ER 450 MG TABLET.ER 1350 MG PO (22:20)
[2024-11-10] MEDS: Cariprazine HCl 3 MG CAPSULE 6 MG PO (22:20)
[2024-11-10] MEDS: Atorvastatin Calcium 10 MG TABLET PO (22:20)
[2024-11-10] MEDS: traZODone HCL 50 MG TABLET PO (22:21)
[2024-11-11 07:42] VITALS: BP 116/74; PULSE 66; RESP 16; TEMP 36.6; O2SAT 98
[2024-11-11] MEDS: guanFACINE HCl ER 1 MG TAB.ER.24H PO (08:11)
[2024-11-11] MEDS: NaPROXEN 500 MG TABLET PO (08:11)
[2024-11-11] MEDS: metFORMIN HCl 1,000 MG TABLET 1000 MG PO (08:11)
[2024-11-11] MEDS: Propranolol HCL LA 80 MG CAP.SA.24H PO (08:11)
[2024-11-11 08:28] LABS: Lithium 0.96 mmol/L (0.60-1.20)
--- NOTE | 2024-11-11 13:09 | PM.PSYDC ---
DS: Providers Provider Date of admission: 11/06/24 14:10 Primary care physician: Unknown Physician DS: Diagnosis Discharge Diagnosis (1) Suicidal ideation: Status: Acute (2) Intellectual disability: Status: Acute (3) Intermittent explosive disorder in adult: Status: Acute (4) Bipolar 1 disorder: Status: Acute DS: Medications Discharge Medications Home Medications: Previous Rx's ?Medication ?Instructions ?Recorded blood sugar diagnostic (FreeStyle #100 ea 08/07/24 Lite Strips) lancets 28 gauge (FreeStyle #100 ea 08/07/24 Lancets) meloxicam 15 mg tablet 15 mg PO DAILY #90 tabs 08/28/24 metformin 1,000 mg tablet 1,000 mg PO BIDWM #180 tabs 09/18/24 atorvastatin 10 mg tablet 10 mg PO BEDTIME #90 tabs 11/11/24 cariprazine 6 mg capsule (Vraylar) 6 mg PO DAILY #30 caps 11/11/24 guanfacine 1 mg tablet 1 mg PO DIRECTED #120 tabs 11/11/24 lithium carbonate 450 mg 1,350 mg (3 x 450 mg) PO BEDTIME 11/11/24 tablet,extended release #90 tabs melatonin 3 mg capsule 6 mg (2 x 3 mg) PO BEDTIME PRN 11/11/24 sleep #60 caps propranolol 80 mg capsule,24 80 mg PO DAILY #30 caps 11/11/24 hr,extended release trazodone 100 mg tablet 100 mg PO BEDTIME #30 tabs 11/11/24 Data Data Completed and Pending Completed studies during hospitalization [Text1]: 11/06/24 11/06/24 11/06/24 08:32 13:04 15:17 WBC 9.2 RBC 5.18 Hgb 14.5 Hct 43.3 MCV 83.6 MCH 28.0 MCHC 33.5 RDW 13.4 Plt Count 235 MPV 9.7 Immature Gran % (Auto) 0.9 H Neut % (Auto) 59.1 Lymph % (Auto) 28.8 [place] % (Auto) 5.7 Eos % (Auto) 4.9 H Baso % (Auto) 0.6 Lymph # (Auto) 2.7 [place] # (Auto) 0.5 Eos # (Auto) 0.5 H Baso # (Auto) 0.1 Abs Immat Gran (auto) 0.08 H Absolute Neuts (auto) 5.5 Absolute Nucleated RBC 0.000 Nucleated RBC % (auto) 0.0 Sodium 143 Potassium 4.5 Chloride 110 H Carbon Dioxide 26 Anion Gap 12 BUN 14 Creatinine 1.01 Estim Creat Clear Calc 156.3 Estimated GFR > 60 POC Glucose 136 H Random Glucose 147 H Estimat Average Glucose Hemoglobin A1c % Calcium 10.6 H Total Bilirubin 0.2 AST 30 ALT 55 H Alkaline Phosphatase 85 Total Protein 7.4 Albumin 4.6 Triglycerides Cholesterol LDL Cholesterol, Calc HDL Cholesterol TSH Urine Color Yellow Urine Appearance Cloudy Urine pH 5.0 Ur Specific [place] 1.020 Urine Protein 100 (2+) H Urine Glucose (UA) Negative Urine Ketones Negative Urine Blood Negative Urine Nitrite Negative Ur Leukocyte Esterase Negative Urine RBC 0-2 Urine WBC 0-5 Ur Squamous Epith Cells 0-2 Urine Bacteria None Seen Hyaline Casts 3-5 Salicylates < 5.0 L Urine Opiates Screen Not Detected Ur Buprenorphine Scrn Not Detected Ur Oxycodone Screen Not Detected Urine Methadone Screen Not Detected Urine Fentanyl Screen Not Detected Acetaminophen < 3 Ur Barbiturates Screen Not Detected Ur Phencyclidine Scrn Not Detected Ur Amphetamines Screen Not Detected U Benzodiazepines Scrn Not Detected [place] 0.45 L Urine Cocaine Screen Not Detected U Marijuana (THC) Screen Not Detected Ethyl Alcohol < 10 11/07/24 11/07/24 11/07/24 08:06 12:08 21:23 WBC RBC Hgb Hct MCV MCH MCHC RDW Plt Count MPV Immature Gran % (Auto) Neut % (Auto) Lymph % (Auto) [place] % (Auto) Eos % (Auto) Baso % (Auto) Lymph # (Auto) [place] # (Auto) Eos # (Auto) Baso # (Auto) Abs Immat Gran (auto) Absolute Neuts (auto) Absolute Nucleated RBC Nucleated RBC % (auto) Sodium Potassium Chloride Carbon Dioxide Anion Gap BUN Creatinine Estim Creat Clear Calc Estimated GFR POC Glucose 128 H 142 H Random Glucose Estimat Average Glucose 131 Hemoglobin A1c % 6.2 H Calcium Total Bilirubin AST ALT Alkaline Phosphatase Total Protein Albumin Triglycerides 299 H Cholesterol 171 LDL Cholesterol, Calc 80 HDL Cholesterol 32 L TSH 1.41 Urine Color Urine Appearance Urine pH Ur Specific [place] Urine Protein Urine Glucose (UA) Urine Ketones Urine Blood Urine Nitrite Ur Leukocyte Esterase Urine RBC Urine WBC Ur Squamous Epith Cells Urine Bacteria Hyaline Casts Salicylates Urine Opiates Screen Ur Buprenorphine Scrn Ur Oxycodone Screen Urine Methadone Screen Urine Fentanyl Screen Acetaminophen Ur Barbiturates Screen Ur Phencyclidine Scrn Ur Amphetamines Screen U Benzodiazepines Scrn [place] Urine Cocaine Screen U Marijuana (THC) Screen Ethyl Alcohol 11/08/24 11/08/24 11/08/24 08:13 16:43 22:03 WBC RBC Hgb Hct MCV MCH MCHC RDW Plt Count MPV Immature Gran % (Auto) Neut % (Auto) Lymph % (Auto) [place] % (Auto) Eos % (Auto) Baso % (Auto) Lymph # (Auto) [place] # (Auto) Eos # (Auto) Baso # (Auto) Abs Immat Gran (auto) Absolute Neuts (auto) Absolute Nucleated RBC Nucleated RBC % (auto) Sodium Potassium Chloride Carbon Dioxide Anion Gap BUN Creatinine Estim Creat Clear Calc Estimated GFR POC Glucose 138 H 115 91 Random Glucose Estimat Average Glucose Hemoglobin A1c % Calcium Total Bilirubin AST ALT Alkaline Phosphatase Total Protein Albumin Triglycerides Cholesterol LDL Cholesterol, Calc HDL Cholesterol TSH Urine Color Urine Appearance Urine pH Ur Specific [place] Urine Protein Urine Glucose (UA) Urine Ketones Urine Blood Urine Nitrite Ur Leukocyte Esterase Urine RBC Urine WBC Ur Squamous Epith Cells Urine Bacteria Hyaline Casts Salicylates Urine Opiates Screen Ur Buprenorphine Scrn Ur Oxycodone Screen Urine Methadone Screen Urine Fentanyl Screen Acetaminophen Ur Barbiturates Screen Ur Phencyclidine Scrn Ur Amphetamines Screen U Benzodiazepines Scrn [place] Urine Cocaine Screen U Marijuana (THC) Screen Ethyl Alcohol 11/09/24 11/09/24 11/09/24 08:11 12:07 17:02 WBC RBC Hgb Hct MCV MCH MCHC RDW Plt Count MPV Immature Gran % (Auto) Neut % (Auto) Lymph % (Auto) [place] % (Auto) Eos % (Auto) Baso % (Auto) Lymph # (Auto) [place] # (Auto) Eos # (Auto) Baso # (Auto) Abs Immat Gran (auto) Absolute Neuts (auto) Absolute Nucleated RBC Nucleated RBC % (auto) Sodium Potassium Chloride Carbon Dioxide Anion Gap BUN Creatinine Estim Creat Clear Calc Estimated GFR POC Glucose 136 H 132 H 127 H Random Glucose Estimat Average Glucose Hemoglobin A1c % Calcium Total Bilirubin AST ALT Alkaline Phosphatase Total Protein Albumin Triglycerides Cholesterol LDL Cholesterol, Calc HDL Cholesterol TSH Urine Color Urine Appearance Urine pH Ur Specific [place] Urine Protein Urine Glucose (UA) Urine Ketones Urine Blood Urine Nitrite Ur Leukocyte Esterase Urine RBC Urine WBC Ur Squamous Epith Cells Urine Bacteria Hyaline Casts Salicylates Urine Opiates Screen Ur Buprenorphine Scrn Ur Oxycodone Screen Urine Methadone Screen Urine Fentanyl Screen Acetaminophen Ur Barbiturates Screen Ur Phencyclidine Scrn Ur Amphetamines Screen U Benzodiazepines Scrn [place] Urine Cocaine Screen U Marijuana (THC) Screen Ethyl Alcohol 11/09/24 11/10/24 11/11/24 21:19 08:03 08:00 WBC RBC Hgb Hct MCV MCH MCHC RDW Plt Count MPV Immature Gran % (Auto) Neut % (Auto) Lymph % (Auto) [place] % (Auto) Eos % (Auto) Baso % (Auto) Lymph # (Auto) [place] # (Auto) Eos # (Auto) Baso # (Auto) Abs Immat Gran (auto) Absolute Neuts (auto) Absolute Nucleated RBC Nucleated RBC % (auto) Sodium Potassium Chloride Carbon Dioxide Anion Gap BUN Creatinine Estim Creat Clear Calc Estimated GFR POC Glucose 116 H 131 H Random Glucose Estimat Average Glucose Hemoglobin A1c % Calcium Total Bilirubin AST ALT Alkaline Phosphatase Total Protein Albumin Triglycerides Cholesterol LDL Cholesterol, Calc HDL Cholesterol TSH Urine Color Urine Appearance Urine pH Ur Specific [place] Urine Protein Urine Glucose (UA) Urine Ketones Urine Blood Urine Nitrite Ur Leukocyte Esterase Urine RBC Urine WBC Ur Squamous Epith Cells Urine Bacteria Hyaline Casts Salicylates Urine Opiates Screen Ur Buprenorphine Scrn Ur Oxycodone Screen Urine Methadone Screen Urine Fentanyl Screen Acetaminophen Ur Barbiturates Screen Ur Phencyclidine Scrn Ur Amphetamines Screen U Benzodiazepines Scrn [place] 0.96 Urine Cocaine Screen U Marijuana (THC) Screen Ethyl Alcohol DS: Summary Time Spent with Patient Time attestation: Total time managing care of this patient today ____ minutes. Discharge Plan Discharge Anticipated Discharge Date/Time: 11/11/24 12:00 Patient Disposition: Home, Self-Care Discharge Diagnosis: Intellectual Disability Bipolar I Disorder Intermittent Explosive Disorder Referrals: Gigi Carrillo (Primary Care Provider) [Other] - 11/17/24 9:30 am (In office follow up visit) Discharge Medications: New propranolol 80 mg Capsule,Extended Release 24 Hr 80 mg PO DAILY Qty: 30 0RF Protocol: Hold for SBP/HR < HOLD for SBP < : 90 HOLD for HR < : 60 Vraylar 6 mg capsule 6 mg PO DAILY Qty: 30 0RF trazodone 100 mg tablet 100 mg PO BEDTIME Qty: 30 0RF melatonin 3 mg capsule 6 mg PO BEDTIME PRN (Reason: sleep) Qty: 60 0RF lithium carbonate 450 mg tablet extended release 1,350 mg PO BEDTIME Qty: 90 0RF atorvastatin 10 mg tablet 10 mg PO BEDTIME Qty: 90 0RF guanfacine 1 mg tablet 1 mg PO DIRECTED Qty: 120 0RF Rx Instructions: Take 1 mg in the a.m.--one tablet Take 3 mg at bedtime.--three tablets Continued (DME) FreeStyle Lite Strips Strip See Rx Instructions .MEDSUPPLY Qty: 100 3RF Rx Instructions: Use daily As directed to check blood glucose (DME) lancets [FreeStyle Lancets] 28 gauge misc See Rx Instructions .MEDSUPPLY Qty: 100 3RF Rx Instructions: use daily as directed to check blood glucose meloxicam 15 mg tablet 15 mg PO DAILY Qty: 90 2RF metformin 1,000 mg tablet 1,000 mg PO BIDWM Qty: 180 3RF Discontinued propranolol 80 mg Capsule,Extended Release 24hr 80 mg PO DAILY Qty: 30 0RF Protocol: Hold for SBP/HR < HOLD for SBP < : 90 HOLD for HR < : 60 lithium carbonate 450 mg tablet extended release 1,350 mg PO BEDTIME Qty: 90 0RF Patient Comments: has not taken his meds for a while, cannot remember the date melatonin 3 mg Capsule 6 mg PO BEDTIME guanfacine 3 mg tablet extended release 24 hr 3 mg PO BEDTIME guanfacine 1 mg Tablet Extended Release 24 Hr 1 mg PO DAILY Qty: 0 0RF V[place] 3 mg capsule 6 mg PO BEDTIME atorvastatin 10 mg tablet 10 mg PO BEDTIME Qty: 90 0RF Discharge Orders: Discharge Order (Routine); Ordered 11/11/24 Ordered By: Araceli Soriano Diet: Advance to usual diet Activity on Discharge: As tolerated Stand Alone Forms: Patient Portal Discharge page, Community Support Print Language: Romansh Care Plan Goals: Mood and Behavioral Stabilization Health Concerns: Mood and Behavioral Stabilization Plan of Treatment: Take medications as directed Attend scheduled appointments Medication review with [facility] --Atorvastatin 10 mg daily- 90 day supply sent per insurance request --Gunafacine-per insurance, prescriptions had to be combined. --1 mg a.m. 3 mg bedtime --[place]-picked up on 10/28 #270, not due to refill --Propranolol- 90 day supply picked up in September too soon to fill --Trazodone--too soon to refill --Vraylar-has a refill that needs to be used first, which they submitted --Lancets refilled in October --Test strips refilled in July Assessment: No SI/HI/AH/VH. No sx of acute marlena or psychosis Behaviors are in control Pt is in agreement for discharge. Family is in agreement for discharge.
--- NOTE | 2024-11-11 15:55 | P.PNPSI_ITS ---
Subjective Subjective Date of Service: 11/11/24 Reason For Visit: SI Subjective Notes: Conditional Voluntary Healthcare Proxy: No Guardianship: No Medical Problems Affecting Mental Status: No Interim History: Pt had his [place] level drawn this a.m. Results 0.96. This was reviewed with him- If my level is good, I want to go home to see my animals and family for [place]. Discharge initiated. Team received a call from mother early this a.m. who asked that [place] level be drawn and if it was normal he should discharge before 9am. She was informed by team that this timing could not be met as the level would need some time to return and pt wanted to discuss the level before he made a decision regarding leaving the hospital. Pt did decide to discharge. He identifies his main decision makers as 1. a therapeutic level; 2. missing his pets and family, 3. feeling his mood is stable and 4. not wanting to miss the holiday with his family. Meds were sent to [facility]. Pt's lithium was sent in error to [facility] but was changed as he has a lithium scrip there that was not filled in the past. Mother called prior to discharge angry,, stating that all meds were incorrect and was accusatory of pt receiving incorrect medications while on the unit. These were reviewed with her and it was found that Melatonin at 6 mg only comes in 3 mg doses for a 6 mg total, Vraylar was sent in as #2 3 mg tabs for 6 mg which was changed at her request. Atorvastatin needed #90 tabs, insurance refusing #30 and insurance wanting Guanfacine dosages consolidated. Trazodone was sent in at 50 mg HS with 50 mg repeat prn, mother wanted 100 mg tab given. These changes, per mother and insurance requirements were made. When pt's brother arrived to transport pt, he asked for a letter for pt to return to day program which was provided. Family was encouraged to call if there are further questions/concerns. Medication Compliance: Yes Side effects from medications: No Attending Groups: Yes Review of Systems Acute medical concerns: No Medical Review of Systems: unchanged Review of Systems Review of Systems Yes all other systems are reviewed and are negative Mental Status Exam Mental Status Exam Patient Appearance: Appropriate Patient Orientation: Person, Place, Time and Situation Level of Consciousness: Alert Patient Behavior: Appropriate, Talkative, Cooperative and Good Eye Contact Mood Description: Appropriate Affect Description: Appropriate Patient Cognition Impaired: Yes Ability to Follow Directions: Good Speech Pattern: Spontaneous Speech Memory Description: Episodic Impaired Hallucinations: None Delusions: Not Present Thought Process: Intact and Goal Oriented Thought Content: positive for Intact and positive for Goal Oriented Depressive Symptoms: Thoughts of /Suicide (denies) Judgement: Good Diagnostics Vital Signs (24Hr): Vital Signs - 24 hr 11/10/24 20:00 11/11/24 07:42 Temperature 97.8 F 98 F Pulse Rate 75 66 Respiratory Rate 16 16 Blood Pressure 156/93 H 116/74 Pulse Oximetry 97 98 Oxygen Delivery Method Room Air Room Air BMI result Body Mass Index 38.6 Labs 11/06/24 08:32 11/06/24 08:32 Labs: Laboratory Results - last 48 hr 11/09/24 11/09/24 11/10/24 17:02 21:19 08:03 POC Glucose 127 H 116 H 131 H [place] 11/11/24 08:00 POC Glucose [place] 0.96 Medications Allergies Allergies Allergy/AdvReac Type Severity Reaction Status Date / Time aripiprazole [From Abilify] Allergy tremors Verified 11/06/24 08:08 divalproex sodium Allergy Agitated Verified 11/06/24 08:08 [From Depakote] risperidone [From Risperdal] Allergy Unknown Verified 11/06/24 08:08 Assessment & Plan Assessment & Plan (1) Suicidal ideation: Status: Acute Code(s): R45.851 - Suicidal ideations (2) Intellectual disability: Status: Acute Code(s): F79 - Unspecified intellectual disabilities (3) Intermittent explosive disorder in adult: Status: Acute Code(s): F63.81 - Intermittent explosive disorder (4) Bipolar 1 disorder: Status: Acute Code(s): F31.9 - Bipolar disorder, unspecified Plan Intellectual Disability, Bipolar Disorder, Intermittent Explosive Disorder, Current SI/HI with unknown precipitant. Plan: Admit, CV. Re-establish regime ([place] level is low) Collateral contact with family with family meeting Collateral contact with providers Encourage milieu participation Diagnostics as needed Discharge/Aftercare planning 11/08:Continue current regimen and plans. 11/09: Continue current regimen and plans 11/10/24: [place] level 11/11. Possible discharge for 11/11. Will continue discussion with pt. 11/11/24: Pt will discharge to home today. Reason for continued inpatient stay Substantial Risk for: rapid decompensation Time Spent With Patient Time: Total time managing care of this patient today ____ minutes.
== END 2024-11-11 14:15 | disposition home or self-care (01) | DRG 753 ==
LOC: HO.ED 12:30 → HO.PM5 14:23
PROVIDERS: Registered Nurse Emergency; Admitting Provider Psychiatry & Neurology Psychiatry; Emergency Provider Emergency Medicine Emergency Medical Services; Visit Provider Clinical Nurse Specialist Psychiatric/Mental Health, Adult
DX: F31.9 Bipolar disorder, unspecified (principal); R45.851 Suicidal ideations; F79 Unspecified intellectual disabilities; F63.81 Intermittent explosive disorder; Z79.84 Long term (current) use of oral hypoglycemic drugs; Z79.899 Other long term (current) drug therapy
CPT/HCPCS: 36415; 80053; 80061; 80143; 80178; 80179; 80307; 81001; 82947; 83036; 84443; 85025; 99285

== ENCOUNTER → 2024-11-06 14:10 | Outpatient (BNV) | payer OTHER, SELFPAY | PROVIDERS: Admitting Provider Psychiatry & Neurology Psychiatry; Emergency Provider Emergency Medicine Emergency Medical Services; Visit Provider Psychiatry & Neurology Psychiatry | DX: F31.4 Bipolar disorder, current episode depressed, severe, without psychotic features (principal); R45.851 Suicidal ideations; F79 Unspecified intellectual disabilities; F63.81 Intermittent explosive disorder | CPT/HCPCS: 90792; 99231; 99232; 99499 ==

== ENCOUNTER 2024-11-20 14:00 | Outpatient (RCR) | payer OTHER, SELFPAY ==
--- NOTE | 2024-09-12 15:21 | MHC.PT.EP ---
[facility] [place] Office [place] Office [place] Office [address] Michelle Prado [address] [phone] F: [phone] F: [phone] F: [phone] F: [phone] Physical Therapy Plan of Care Date of Evaluation: 09/12/24 Date of Surgery: Diagnosis: This is a 28 yo male presenting to skilled PT with a script for OA L knee, tears of meniscus and ACL. Assessment: This is a 28 yo male presenting to skilled PT with a script for OA L knee, tears of meniscus and ACL. Patient reporting that he twisted his knee when tipping on a cord going down to the basement. This happened back in ? 2022 however he does not recall times and dates. He has had PT prior for this same issue but he reports that he did not comply with it too well so he was then DC'd. Pain increases when he stands for >10-15 mins, walking, stairs. He feels better at rest. His pain is described as stinging, sore. His pain is deep and inside/anterior. He has 2 different braces at home that he wears occasionally. He [place] [facility] [place] and will not be undergoing surgery. The ortho note states: Radiographs demonstrate arthritis and this is a contraindication to ACL reconstruction. Assessment reveals pain that ranges from up to a 10/10 at the worst. Patient demos decreased hip and lumbar ROM, strength of gluts and ankles, decreased balance and gait with a wide range of gait deviations and impaired posture with forward head and rounded shoulders, valgus and hyperextension at the knees. Based on functional limitations, impaired QOL and pain tolerance patient is a good candidate for skilled PT 2x/wk for 4wks. Frequency and Duration: The patient will be seen 2x/wk for 4 wks Short Term Goals: (in 2 weeks) Patient will improve knee AROM by at least 10 degs without assist Patient will demo good understanding and performance of quad set in multiple different planes without cues from PT Patient will be I in HEP Peanut Roaster Goals: (in 4 weeks) Patient will report 75% improvement in balance and strength of LLE as evidenced by reports no of falls or buckling in LE Patient will improve LEFs by 10 points Patient will demo WFL AROM of knee and ankle Patient will demo proper squat and lift techniques without increase in pain Treatment Plan: Modalities to reduce pain, spasms and effusion. Manual therapy to restore motion and function. Therapeutic exercise to improve strength and flexibility. Neuromuscular re-education for posture and balance. Therapeutic activities to return to functional activities of daily living. Electronically signed by: Jazmyn Landrum PT Please sign and return to therapist. Thank you for your referral.
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
== END 2024-12-31 13:55 | disposition home or self-care (01) ==
LOC: HO.PTCHIC 14:00
PROVIDERS: PCP Physician Assistant; Visit Provider Orthopaedic Surgery
DX: M17.12 Unilateral primary osteoarthritis, left knee (principal); S83.207A Unspecified tear of unspecified meniscus, current injury, left knee, initial encounter; S83.512A Sprain of anterior cruciate ligament of left knee, initial encounter
CPT/HCPCS: 97110; 97162

== ENCOUNTER 2024-12-12 11:48 | Inpatient (IN) | payer OTHER, SELFPAY ==
--- NOTE | 2024-12-12 | ECG_ITS ---
Test Reason : PROLONG QT Blood Pressure : */* mmHG Vent. Rate : 67 BPM Atrial Rate : 67 BPM P-R Int : 170 ms QRS Dur : 112 ms QT Int : 400 ms P-R-T Axes : 27 7 30 degrees QTcB Int : 422 ms Normal sinus rhythm Nonspecific T wave abnormality Abnormal ECG When compared with ECG of 19-Mar-2023 11:09, Minimal criteria for Anterior infarct are no longer Present Referred By: Sherlyn Marie Electronically Signed By: JESSEE SUMMERS MD
[2024-12-12 11:59] VITALS: BP 131/80; BP 152/86; PULSE 76; PULSE 79; RESP 18; TEMP 36.7; O2SAT 94; O2SAT 96; BMI 35.6
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
[2024-12-12 12:26] LABS: Appearance Urine Clear; Color Urine Yellow; Glucose Urine UA Negative (Negative); Leukocyte Esterase Urine Trace (Negative); Nitrite Urine Negative (Negative); UMIC TRIGGER UACC YES; Urine Blood Negative (Negative); Urine Ketones Trace mg/dL (Negative); Urine Protein Trace mg/dL (Neg-Trace)
[2024-12-12 12:31] LABS: Bacteria Urine None Seen (None Seen); Hyaline Casts Urine 0-2 /LPF (0-2); RBC Urine 0-2 /HPF (0-2); Squamous Epithelial Cell Urine 0-2 /HPF (0-2); WBC Urine 0-5 /HPF (0-5)
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
[2024-12-12 12:43] LABS: MANUAL DIFF FLAG NO
[2024-12-12 12:44] LABS: Basophils Absolute Auto 0.1 X10*3/uL (0.0-0.2); Basophils Percent Auto 0.5 % (0-2); Eosinophils Absolute Auto 0.4 X10*3/uL (0.0-0.4); Eosinophils Percent Auto 3.8 % (0-4); Hematocrit 41.9 % (42.0-52.0); Hemoglobin 14.2 g/dl (14.0-18.0); Imm Gran Abs Auto 0.06 X10*3/uL (0.00-0.03); Imm Gran Pct Auto 0.5 % (0.0-0.4); Lymphocytes Absolute Auto 2.5 X10*3/uL (1.2-4.9); Lymphocytes Percent Auto 22.1 % (20-40); Mean Corpuscular HGB Conc 33.9 g/dl (31.0-36.0); Mean Corpuscular Hemoglobin 28.4 pg (27.0-33.0); Mean Corpuscular Volume 83.8 fL (80.0-98.0); Mean Platelet Volume 9.7 fL (9.4-12.4); Monocytes Absolute Auto 0.6 X10*3/uL (0.1-1.2); Monocytes Percent Auto 5.1 % (2-11); Neutrophils Absolute Auto 7.8 x10*3/uL (2.0-8.3); Platelet Count 226 X10*3/uL (160-400); White Blood Count 11.5 X10*3/uL (4.8-10.8)
[2024-12-12 12:48] LABS: Amphetamine Screen Urine Not Detected (Not Detect); Barbiturates, Urine Not Detected (Not Detect); Benzodiazepines Screen Urine Not Detected (Not Detect); Buprenorphine Scr Not Detected (Not Detect); Cannabinoid Screen Urine Not Detected (Not Detect); Cocaine Screen Urine Not Detected (Not Detect); Fentanyl, urine Not Detected (Not Detect); Methadone Screen, Urine Not Detected (Not Detect); Opiate Screen Urine Not Detected (Not Detect); Oxycodone Screen Urine Not Detected (Not Detect); Phencyclidine Screen Urine Not Detected (Not Detect)
--- NOTE | 2024-12-12 13:00 | PC.NURSE ---
pt speaking w/ care team at this time.
--- NOTE | 2024-12-12 13:00 | MHC.CARE ---
Pt will be an inpatient adult bedsearch
[2024-12-12 13:08] LABS: Ethanol < 10 mg/dL
[2024-12-12 13:11] LABS: Alanine Aminotransferase 70 U/L (0-40); Albumin Level 4.5 g/dL (3.5-5.0); Anion Gap 11 (12-20); Aspartate Amino Transferase 47 U/L (5-37); Bilirubin Direct 0.1 mg/dL (0.0-0.5); Bilirubin Total 0.4 mg/dL (0.0-1.0); Blood Urea Nitrogen 14 mg/dL (9-16); Calcium 9.9 mg/dL (8.4-10.2); Carbon Dioxide 24 mmol/L (22-29); Chloride 112 mmol/L (96-108); Creatinine Clr Calc Pharmacy 183.1; Estimated Glomerular Filt Rate > 60; Glucose Random 132 mg/dL (60-115); Magnesium 1.9 mg/dL (1.6-2.6); Potassium 4.2 mmol/L (3.3-5.1); Sodium 143 mmol/L (135-145); Total Protein 7.3 g/dL (6.5-8.0)
--- NOTE | 2024-12-12 13:49 | PC.NURSE ---
pt's primary contact (mother - yg) called at this time. med reconciliation completed. provider notified/aware.
[2024-12-12 13:56] LABS: Lithium 0.74 mmol/L (0.60-1.20)
[2024-12-12 14:11] LABS: Alkaline Phosphatase 88 U/L (39-117)
--- OUTSIDE RECORDS SUMMARY | 2024-12-12 15:27 | XMS_ITS | Encounter Summary ---
Author Organization [facility] Address [address] [place] [address] Care Team Providers Care Grain Processor Name Role Phone Renata Barnes Primary Care Provider [phone] Reason for Visit * Reason Comments Med Management Elevated LFTs Encounter Details Date Type Department Care Team ([facility] st Contact Info) Description 11/26/2024 11:00 AM EST Office Visit Gastroenterology - [place] [address] [place] [id number] Odilia Escoto PA [address] [place] [address] OSMAN (nonalcoholic steatohepatitis) (Primary Dx); Obesity (BMI 30-39.9) Social History Tobacco Use Types Packs/Day Years Used Date Smoking Tobacco: Never Assessed Sex and Gender Information Value Date Recorded Sex Assigned at Not on file Gender Identity Not on file Sexual Orientation Not on file Job Start Date Occupation Industry Not on file Not on file Not on file documented as of this encounter Last Filed Vital Signs Vital Sign Reading Time Taken Comments Blood Pressure 126/82 11/26/2024 11:01 AM EST Pulse 85 11/26/2024 11:01 AM EST Temperature - - Respiratory Rate - - Oxygen Saturation 98% 11/26/2024 11:01 AM EST Inhaled Oxygen Concentration - - Weight 138 kg (304 lb) 11/26/2024 11:01 AM EST Height 190.5 cm (6' 3 ) 11/26/2024 11:01 AM EST Body Mass Index 38 11/26/2024 11:01 AM EST documented in this encounter Ordered Prescriptions Prescription Sig Dispensed Refills Start Date End Da te resmetirom (Rezdiffra) 100 mg tabletIndications:OSMAN (nonalcoholic steatohepatitis) Take 100 mg by mouth 1 (one) time each day. 30 tablet 3 11/26/2024 12/26/2024 documented in this encounter Progress Notes * SOHAM Ayers - 11/26/2024 11:00 AM EST Images from the original note were not included. CHIEF COMPLAINT: Chief Complaint Patient presents with Med Management Elevated LFTs IDENTIFIER: Lit Noriega is a 29 y.o. old male HPI: Patient comes in for a follow-up. He is mentally delayed. Here with his brother and mom on the phone. Patient does have a history of Osman confirmed by blood work as liver enzyme elevated and FibroSure score showed moderate to severe inflammation and fibrosis score was 0. His mom was quite concernedabout the new medication, Rezdiffra 100 mg, she was worried about his psych medication and side effects. We did have a long discussion about that. From GI standpoint, patient is doing well. We discussed the importance of watching his diet, making sure that his diabetes is under control and weight loss. ROS: GENERAL: No malaise, significant weight loss or fever HEENT: No changes in hearing or vision, nose bleeds or other nasal problems NECK: No lumps, goiter, pain or significant neck swelling RESPIRATORY: No cough, wheezing or shortness of breath CARDIOVASCULAR: No chest pain, leg swelling or palpitations GI: See HPI. MUSCULOSKELETAL: No joint pain or swelling, back pain, or muscle pain. SKIN: No lesions, rash or itching NEURO: No persistent headache, syncope, seizures, weakness or numbness PAST MEDICAL HISTORY: No past medical history on file. No past surgical history on file. SOCIAL HISTORY: Social History Tobacco Use Smoking status: Not on file Smokeless tobacco: Not on file Substance Use Topics Alcohol use: Not on file FAMILY HISTORY: No family history on file. MEDICATIONS DISCONTINUED/REORDERED: There are no discontinued medications. ACTIVE MEDICATIONS: Current Outpatient Medications Medication Sig Dispense Refill atorvastatin (LIPITOR) 10 mg tablet Take 1 tablet (10 mg total) by mouth 1 (one) time each day. at bedtime blood sugar diagnostic (FreeStyle Lite Strips) test strip USE DAILY DIRECTED TO CHECK BLOOD GLUCOSE. blood-glucose meter kit Use as instructed to monitor sugars. capsaicin (ZOSTRIX) 0.025 % cream APPLY TOPICALLY TO THE AFFECTED AREA THREE TIMES DAILY NEEDED FOR KNEE PAIN lithium (ESKALITH) 450 mg CR tablet Take 1 tablet (450 mg total) by mouth at bedtime. melatonin 3 mg tablet Take 1 tablet (3 mg total) by mouth at bedtime as needed for sleep. at bedtime meloxicam (MOBIC) 15 mg tablet Take 1 tablet (15 mg total) by mouth 1 (one) time each day. metFORMIN (GLUCOPHAGE) 1,000 mg tablet Take 1 tablet (1,000 mg total) by mouth 2 (two) times a day with meals. propranolol LA (INDERAL LA) 80 mg 24 hr capsule Take 1 capsule (80 mg total) by mouth 1 (one) time each day in the morning. resmetirom (Rezdiffra) 100 mg tablet Take 100 mg by mouth 1 (one) time each day. 30 tablet 3 traZODone (DESYREL) 100 mg tablet Take 1 tablet (100 mg total) by mouth at bedtime. No current facility-administered medications for this visit. ALLERGIES: Allergies Allergen Reactions Abilify [Aripiprazole] Unknown TREMORS Depakote [Divalproex] Risperdal [Risperidone] Unknown PHYSICAL EXAM: Visit Vitals BP 126/82 (BP Location: Right arm, Patient Position: Sitting, BP Cuff Size: Adult) Pulse 85 Ht 1.905 m (75 ) Wt 138 kg (304 lb) SpO2 98% BMI 38.00 kg/m?? BSA 2.62 m?? APPEARANCE: Alert and in no acute distress NEURO: Awake, alert and oriented x 3 with symmetrical reflexes IMAGING: US Abdomen Complete Order: [id number] Narrative Exam Number: [id number] Report Status: Signed Type: US ABDOMEN COMPLETE [id number] Date/Time: 10/27/2016 09:55 Ordering Provider: CHUYITA SKINNER [id number] - US ABDOMEN COMPLETE [id number] - 10/27/2016 ACCESSION NO: ([id number]) CLINICAL HISTORY: OVERWEIGHT WITH ELEVATED ALT REPORT: SITE READ: 2 CLINICAL HISTORY: Overweight with elevated ALTs The liver is normal in size with increased echogenicity consistent with fatty infiltration and no evidence of a space-occupying lesion. There is no evidence of intra or extrahepatic biliary ductal dilatation. The common bile duct measures 3.6 mm. The gallbladder size and wall thickness are normal and there are no stones visible. The pancreas is well identified and is normal in size and echogenicity. The kidneys and spleen likewise appear normal. The right and left kidneys measure respectively in bipolar dimension 13.4 cm and 13.1 cm. The spleen measures 11.9 cm in sagittal dimension and is homogeneous in echotexture. No abnormal fluid collections are demonstrated. The abdominal aorta and inferior vena cava are unremarkable. IMPRESSION: Fatty infiltration of the liver. Otherwise unremarkable study. PROVIDERS: SIGNATURES: LASHANDA HOGUE CLAUDIA [id number] Exam End: 10/27/16 11:30 Specimen Collected: 10/27/16 09:55 Last Resulted: 10/27/16 11:30 Received From: [facility] Result Received: 11/04/24 12:30 IMPRESSION: 1. OSMAN (nonalcoholic steatohepatitis) 2. Obesity (BMI 30-39.9) PLAN: 29 years old gentleman whose past medical history includes bipolar type I, intellectual delay, type2 diabetes, chronic left knee pain, who last OV presented with elevated liver enzymes, hepatic steatosis, splenomegaly, as well as, hepatomegaly. Blood work done on 08/20/2024 showed total bili of 0.3, AST 25, ALT 49, elevated, alk phos fate 94 normal. Ultrasound on 10/05/2024 showed right large lobe of the liver increased hepatic parenchymal heterogenicity questioning hepatocellular disease/hepatic steatosis. Splenomegaly. OSMAN, hepatomegaly, elevated liver enzymes, obesity His FibroSure showed moderate to severe inflammation of the liver, fibrosis score was 0. Because of this finding, I will put him on Rezdiffra 100 mg daily. We discussed the side effects of medication. Will monitor him. We discussed importance of losing weight, watching his diet, and making sure his diabetes under control. Will see him for follow-up and repeat blood work. Total time of today's encounter is 30 minutes in preparing to see the patient, reviewing labs, diagnostic studies as well as other provider notes, documenting and charting, creating an HPI, performing a medically appropriate exam as well as counseling patient. There was documentation in EMR after visit. None of which time was spend performing separately billable procedures or ancillary services. Jon Ayers [facility] [address] [facility] [address] [facility] [address] [place] [address] documented in this encounter Plan of Treatment Upcoming Encounters Date Type Department Care Team (Late st Contact Info) Description 12/19/2024 9:00 AM EST Appointment [facility] Ultrasound [address] [place] [id number] 02/25/2025 10:40 AM EDT Office Visit Gastroenterology - [place] [address] [facility] [address] [phone] Odilia Escoto PA [address] [address] documented as of this encounter Visit Diagnoses Diagnosis OSMAN (nonalcoholic steatohepatitis)- Primary Other chronic nonalcoholic liver disease Obesity (BMI 30-39.9) documented in this encounter Discontinued Medications Medication Sig Discontinue Reason Start Date End Da te resmetirom (Rezdiffra) 100 mg tabletIndications:OSMAN (nonalcoholic steatohepatitis) Take 100 mg by mouth 1 (one) time each day. Reorder 11/25/2024 11/26/2024 documented as of this encounter Care Teams Grain Processor Relationship Specialty Start Date End Date Renata Barnes PA [address] [place] [address] PCP - General Physician Spine Surgeon 10/07/24 documented as of this encounter
--- OUTSIDE RECORDS SUMMARY | 2024-12-12 15:27 | XMS_ITS | Clinical Summary ---
Author Organization [facility] Address [address] [place] [phone] Phone Care Team Providers Care Rf Manager Name Role Phone Unavailable Primary Care Provider Unavailabl e Allergies Active Allergy Reactions Criticality Noted Date Comments Risperidone Other (see comments),Rash Low 9 tremors Medications polyethylene glycol powderIndications: Constipation, unspecified constipation type Stir and dissolve 1 capful of powder into 4 to 8 ounces of beverage and then drink.give gaytan 500 g 02/28/20 18 Active Additional Information Patient not taking.Reported on 05/01/2019 ibuprofen 600 MG tablet 1 tab every 8 hrs as needed with food 08/17/20 15 Active ondansetron ODT (ondansetron ODT) 8 MG disintegrating tablet Take 8 mg by mouth. 04/05/20 10 Active melatonin tablet Take 6 mg by mouth. Active gemfibrozil 600 MG tabletIndications: Class 1 obesity due to excess calories without serious comorbidity in adult, unspecified BMI Take 1 tablet (600 mg total) by mouth 2 (two) times a day. 60 tablet 2 05/26/20 19 Active guanFACINE 1 MG tabletIndications: Bipolar disorder in partial remission, most recent episode unspecified type Take 1 tablet (1 mg total) by mouth 2 (two) times a day for 7 days. 14 tablet 05/26/20 19 Active propranolol LA 60 MG 24 hr capsuleIndications :Class 1 obesity due to excess calories without serious comorbidity in adult, unspecified BMI Take 1 capsule (60 mg total) by mouth daily. 30 capsule 3 05/26/20 19 Active lithium 300 MG capsuleIndications :Bipolar disorder in partial remission, most recent episode unspecified type Take 3 caps twice daily 42 capsule 05/26/20 19 Active benztropine 0.5 MG tabletIndications: Bipolar disorder in partial remission, most recent episode unspecified type Take 1 tablet (0.5 mg total) by mouth 2 (two) times a day for 7 days. 14 tablet 05/26/20 19 Active ARIPiprazole 30 MG tabletIndications: Bipolar disorder in partial remission, most recent episode unspecified type Take 1 tablet (30 mg total) by mouth daily for 7 days. 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 Bunion 07/10/2012 Other acne 03/11/2012 Other family disruption 04/05/2011 Routine infant or child health check 12/29/2010 Acquired acanthosis nigricans 12/08/2010 Astigmatism 03/24/2009 Overview (12/23/2018): Overview: Astigmatism Constipation 09/24/2008 Attention deficit disorder with hyperactivity Lack of expected normal physiological developmen t 09/29/2007 Bipolar affective disorder Overview (12/23/2018): 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 ( multiple) lithium, guanfacien, Abilify, cogentin Jennifer Parrish Obesity Overview (12/23/2018): with fatty liver changes ( u/s 11/03) , fasting chol 216 and gluc 88 ( 12/30) ALT 52 ( nl to 44) 08/04 Bipolar affective disorder Overview (10/15/2019): 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 ( 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) 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 lithium, guanfacine, Abilify, cogentin, Inderal 05/07 Immunizations Name Administration Dates Next Due DTaP 12/31/2001, 8,08/10/1997,03/30,02/02/1997 HPV Vaccine 9 Valent 12/12/2017,08/21/2016,07/07 Hep A 08/21/2016,07/14/2015 Hep B 08/10/1997,02/02/1997,1996 Hib, unspecified formulation 03/02/1998, 08/10/1997,03/30/1997,02/02 IPV 12/31/2001, 8,08/10/1997,03/30,02/02/1997 Influenza 08/21/2016 Influenza, injectable, quadr ivalent, preservative free 12/12/2017 Influenza, intranasal, trivalent 09/22/2014 MMR 12/31/2001,03/30/1998 Meningococcal B Bexsero 12/12/2017,08/21/2016 Meningococcal Conj (Menactra) MCV4P 06/25/2014,1 11/24/2007 Tdap 05/21/2014,09/29/2007 Varicella 01/29/2003,11/25/1998 Family History Relation Name Status Comments Other 1 mom with diabet es Other 2 mom and MGM wit h diabetes mom with ADHD father and PGM with bipolar disorder Other 3 mom and MGM wit h diabetes Other 4 N/C Social History Tobacco Use Types Packs/Day Years Used Date Smoking Tobacco: Never Smokeless Tobacco: Never Alcohol Use Standard Drinks/Week Comments No 0 (1 standard drink = 0.6 oz pur e alcohol) Sex and Gender Information Value Date Recorded Sex Assigned at Not on file Legal Sex Male 10:07 PM EST Gender Identity Not on file Sexual Orientation Not on file Last Filed Vital Signs Vital Sign Reading Time Taken Comments Blood Pressure 116/72 05/01/2019 4:20 PM EDT Pulse - - Temperature - - Respiratory Rate - - Oxygen Saturation - - Inhaled Oxygen Concentration - - Weight 142 kg (314 lb) 05/01/2019 4:20 PM EDT Height 185.4 cm (6' 1 ) 12/12/2017 4:18 PM EST Body Mass Index 41.43 12/12/2017 4:18 PM EST Plan of Treatment Health Maintenance Due Date Last Done Comments Glucose/HbA1C 05/01/2019 01/18/2011 LDL-C/Cholesterol 05/01/2019 01/17/2011 DTaP,Tdap,and Td Vaccines (8 - Td or Tdap) 05/21/2024 05/21/2014, 09/29/2007, 12/31/2001, Additional history exists Influenza Vaccines (#1) 2024 12/12/19 18, 08/21/2016, 09/22/2014 COVID-19 Vaccine (2023- season) 2024 Hepatitis B Vaccines Completed 08/10/1997, 02/02/1997, 1996 HIB Vaccines Completed 03/02/1998, 07/21, 03/30/1997, Additional history exists IPV Vaccines Completed 12/31/2001, 02/17, 08/10/1997, Additional history exists MMR Vaccines Completed 12/31/2001, 03/30/1998 Varicella Vaccines Completed 01/29/2003, 11/25/1998 Meningococcal Vaccine Completed 06/25/2014, 008 Hepatitis A Vaccines Completed 08/21/2016, 07/14/20 15 HPV Vaccines Completed 12/12/2017, 01/2016, 07/07/2015 Men B Vaccine Completed 12/12/2017, 08/21/2016 Pneumococcal Vaccine Aged Out No long er eligible based on patient's age to complete this topic Procedures * Due to [employer] law, this organization might not be sharing sensitive test results. Procedure Name Priority Date/Time Associated Diagnosis Comments GLUCOSE, FASTING Routine 01/18/2011 12:2 2 PM EST LIPID PANEL Routine 01/17/2011 11:01 AM EST from Last 3 Months or Most Recently Relevant to Health Maintenance Results * Due to [employer] law, this organization might not be sharing sensitive test results. * Glucose, fasting (01/18/2011 12:22 PM EST) BLOOD GLUCOSE, FINGER STICK (CONV) 88.0 70.0 - 110.0 [facility] 01/18/2011 12:2 2 PM EST us Historical Unknown LAB BLOOD ORDERABLES Final Re sult [facility] [address] [place] [address], * (ABNORMAL) Lipid panel (01/17/2011 11:01 AM EST) Cholesterol, Total(Conversion ) 216.0(H) 80.0 - 170.0 mg/dL [facility] HDL CHOLESTEROL, SERUM (CONV) 37.0 35.0 - 85.0 mg/dL [facility] CHOLESTEROL/HDL RATIO, SERUM, PERCENT (CONV) 5.8(H) 0.0 - 5.0 [facility] TRIGLYCERIDE, SERUM, FASTING (CONV) 194.0 30.0 - 200.0 mg/dL [facility] LDL CHOLESTEROL, SERUM (CONV) 140.0(H) 65.0 - 110.0 mg/dL [facility] VERY LOW DENSITY LIPOPROTEINS (CONV) 39.0 0.0 - 40.0 mg/dL [facility] 01/17/2011 11:0 1 AM EST us Historical Unknown LAB BLOOD ORDERABLES Final Re sult [facility] [address] [place] [address], [place] from Last 3 Months or Most Recently Relevant to Health Maintenance
--- OUTSIDE RECORDS SUMMARY | 2024-12-12 15:27 | XMS_ITS | Encounter Summary ---
Author Organization [facility] Address [address] [place] [address] Care Team Providers Care Water/Wastewater Project Manager Name Role Phone Renata Barnes Primary Care Provider [phone] Reason for Visit * Reason Onset Date Comments Provider Call Back 12/03/2024 prior authorization 12/03/2024 Encounter Details Date Type Department Care Team ([facility] st Contact Info) Description 12/03/2024 Telephone Gastroenterology - [place] [address] [place] [phone] Odilia Escoto PA [address] [place] [address] Provider Call Back; prior authorization Social History Tobacco Use Types Packs/Day Years Used Date Smoking Tobacco: Never Assessed Sex and Gender Information Value Date Recorded Sex Assigned at Not on file Gender Identity Not on file Sexual Orientation Not on file Job Start Date Occupation Industry Not on file Not on file Not on file documented as of this encounter Progress Notes * Marilia Corea MA - 12/12/2024 3:21 PM EST You should be able to click this link now, below Lab Managed Result Scan - Scan on 11/14/2024 9:29 AM * Rebeca Deleon MA - 12/12/2024 3:08 PM EST I want to make sure I send the correct results for this request. I'm not finding the fibrosure results. Thank you in advance Please reply back to [facility] [place] EPA Pool (Prior Auth Pool) [facility] Prior Authorization Ext [id number] * Rebeca Deleon MA - 12/12/2024 2:53 PM EST Prior authorization for the rezdiffra was done on the phone with Jewel from [employer] Requesting documentation Faxed today * Rebeca Deleon MA - 12/12/2024 2:46 PM EST Prior authorization for the rezdiffra was completed today on the phone with Jewel from [facility] * Rebeca Deleon MA - 12/08/2024 12:30 PM EST [facility] is closed for the holiday today . Will need to call on Sunday * Marilia Corea MA - 12/05/2024 10:20 AM EST This is a new request new finding with Fibrosure results * Rebeca Deleon MA - 12/05/2024 9:44 AM EST This is a duplicate request. * Marilia Corea MA - 12/03/2024 4:05 PM EST Prior Authorization for Medication-do not complete and send this encounter unless you have the fax from the pharmacy. Is this a Cover My Meds request: Hilton of Medication - Rezdiffra Dose of Medication - 100 mg What is the RX # from the faxed refill? NA How does patient take this med? Daily What Pharmacy did the fax come from: NA Pharmacy fax #: NA [facility] Information from fax: What Prescription Plan does the patient have? 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 TY * Dorinda Donis - 12/03/2024 1:31 PM EST Patient calling states the pharmacy called and stated resmetirom (Rezdiffra) 100 mg tablet was denied. Patient wants to know what they can do now. Please advise. documented in this encounter Plan of Treatment Upcoming Encounters Date Type Department Care Team (Late st Contact Info) Description 12/19/2024 9:00 AM EST Appointment [facility] Ultrasound [address] [place] [phone] 02/25/2025 10:40 AM EDT Office Visit Gastroenterology - [place] 175 [facility] 175 [facility] [address] [place] [phone] Odilia Escoto PA [address] [address] documented as of this encounter Visit Diagnoses Not on filedocumented in this encounter Care Teams Water/Wastewater Project Manager Relationship Specialty Start Date End Date Renata Barnes PA [address] [place] [phone] PCP - General Physician Drilling And Production Superintendent 10/07/24 documented as of this encounter
--- OUTSIDE RECORDS SUMMARY | 2024-12-12 15:27 | XMS_ITS | Clinical Summary ---
Author Organization 175 [facility] Address [address] [place] [address] Phone Care Team Providers Care Senior Caregiver Name Role Phone Renata Barnes Primary Care Provider [phone] Allergies Active Allergy Reactions Criticality Noted Date Comments Aripiprazole Unknown 11/04/2024 TREMORS Divalproex 11/04/2024 Risperidone Unknown 11/04/2024 Medications Medication Sig Dispensed Refills Start Date End Date Status atorvastatin (LIPITOR) 10 mg tablet Take 1 tablet (10 mg total) by mouth 1 (one) time each day. at bedtime Active blood sugar diagnostic (FreeStyle Lite Strips) test strip USE DAILY DIRECTED TO CHECK BLOOD GLUCOSE. Active blood-glucose meter kit Use as instructed to monitor sugars. 04/11/2023 Active capsaicin (ZOSTRIX) 0.025 % cream APPLY TOPICALLY TO THE AFFECTED AREA THREE TIMES DAILY NEEDED FOR KNEE PAIN 03/27/2023 Active lithium (ESKALITH) 450 mg CR tablet Take 1 tablet (450 mg total) by mouth at bedtime. Active melatonin 3 mg tablet Take 1 tablet (3 mg total) by mouth at bedtime as needed for sleep. at bedtime Active meloxicam (MOBIC) 15 mg tablet Take 1 tablet (15 mg total) by mouth 1 (one) time each day. 08/28/2024 Active metFORMIN (GLUCOPHAGE) 1,000 mg tablet Take 1 tablet (1,000 mg total) by mouth 2 (two) times a day with meals. Active propranolol LA (INDERAL LA) 80 mg 24 hr capsule Take 1 capsule (80 mg total) by mouth 1 (one) time each day in the morning. Active traZODone (DESYREL) 100 mg tablet Take 1 tablet (100 mg total) by mouth at bedtime. Active resmetirom (Rezdiffra) 100 mg tabletIndication s:CATES (nonalcoholic steatohepatitis) Take 100 mg by mouth 1 (one) time each day. 30 tablet 3 11/26/2024 12/26/2024 Active resmetirom (Rezdiffra) 100 mg tabletIndication s:CATES (nonalcoholic steatohepatitis) Take 100 mg by mouth 1 (one) time each day. 30 tablet 3 11/25/2024 11/26/2024 Discontinued (Reorder) Encounters Date Type Department Care Team Description 12/03/[address] [place] [address] Odilia Escoto PA Provider Call Back; prior authorization 11/27/[address] [place] [address] Odilia Escoto PA prior auth 11/26/2024 11:00 AM EST Office Visit [address]astroenter[address] [phone] Odilia Escoto PA CATES (nonalcoholic steatohepatitis) (Primary Dx); Obesity (BMI 30-39.9) 11/17/[address] [place] [address] Marilia Corea MA 11/04/2024 12:05 PM EST Lab Draw Station - [address] [place] [address] [address] [place] [address] NAFLD (nonalcoholic fatty liver disease); Elevated LFTs 11/04/2024 11:20 AM EST Consult Gastroenter[address] [place] [phone] Odilia Escoto PA NAFLD (nonalcoholic fatty liver disease) (Primary Dx); Elevated LFTs; Morbid obesity due to excess calories (CMS/HCC) 10/07/2024 Telephone Gastroenterology [facility] [address] [phone] Blaise Burns MD Appointment from Last 3 Months Social History Tobacco Use Types Packs/Day Years Used Date Smoking Tobacco: Never Assessed Sex and Gender Information Value Date Recorded Sex Assigned at Not on file Gender Identity Not on file Sexual Orientation Not on file Job Start Date Occupation Industry Not on file Not on file Not on file Last Filed Vital Signs [...] Mass Index 38 11/26/2024 11:01 AM EST Plan of Treatment Upcoming Encounters Date Type Department Care Team (Late st Contact Info) Description 12/19/2024 9:00 AM EST Appointment [facility] Ultrasound [address] [place] [phone] 02/25/2025 10:40 AM EDT Office Visit Gastroenterology [facility] [address] [phone] Odilia Escoto PA [address] [address] Health Maintenance Due Date Last Done Comments Pneumococcal Vaccine: Pediatrics (0 to 5 Years) and At-Risk Patients (6 to 64 Years) (1 of 2 - PCV) 2002 Diabetes: Annual Foot Exam 2006 Diabetes: Annual Retina Eye Exam 2006 DTaP,Tdap,and Td Vaccines (8 - Td or Tdap) 05/21/2024 05/21/2014, 09/29/2007, 12/31/2001, Additional history exists COVID-19 Vaccine ( - season) 2024 Influenza Vaccine (#1) 2024 8, 08/21/2016, 09/22/2014 Depression Screening 10/07/2024 HIV Screening 10/07/2024 Social Influencers of Health Screening 10/07/2024 Diabetes: Blood Sugar Control Test (HGBA1C) 11/04/2024 01/11/2024 Diabetes: Annual Urine Albumin-Creatinine Ratio (uACR) 01/11/2025 01/11/2024 Diabetes: Annual GFR (Glomerular Filtration Rate) 11/04/2025 11/04/2024, 07/16/2020, 04/06/2019 Cholesterol Screening (Lipid Panel) 01/11/2029 01/11/2024, 07/16/2020, 01/17/2011 Hepatitis B Vaccines Completed 08/10/1997, 02/02/1997, 1996 IPV Vaccines Completed 12/31/2001, 02/17, 08/10/1997, Additional history exists MMR Vaccines Completed 12/31/2001, 03/30/1998 Varicella Vaccines Completed 01/29/2003, 11/25/1998 Meningococcal ACWY Vaccine Completed 06/25/2014, Hepatitis A Vaccines Completed 08/21/2016, 07/14/20 15 HPV Vaccines Completed 12/12/2017, 01/2016, 07/07/2015 Hepatitis C Screening Completed 11/04/2024 HIB Vaccines Aged Out No longer eligi ble based on patient's age to complete this topic RSV Immunization Patients Under 20 months Aged Out No longer eligible based on patient's age to complete this topic Procedures Procedure Name Priority Date/Time Associated Diagnosis Comments HEPATITIS A ANTIBODY IGM Routine 024 12:09 PM EST NAFLD (nonalcoholic fatty liver disease) Elevated LFTs CBC WITH AUTO DIFFERENTIAL Routine 11/04/2024 12:09 PM EST NAFLD (nonalcoholic fatty liver disease) Elevated LFTs HEPATITIS A ANTIBODY TOTAL WITH REFLEX IGM Routine 11/04/2024 12:09 PM EST NAFLD (nonalcoholic fatty liver disease) Elevated LFTs SMOOTH MUSCLE ANTIBODY IGG Routine 11/04/2024 12:09 PM EST NAFLD (nonalcoholic fatty liver disease) Elevated LFTs HEPATITIS B E ANTIBODY Routine 12:09 PM EST NAFLD (nonalcoholic fatty liver disease) Elevated LFTs IRON AND TIBC Routine 11/04/2024 12:09 PM EST NAFLD (nonalcoholic fatty liver disease) Elevated LFTs TANGELA IFA WITH TITER AND PATTERN Routine 11/04/2024 12:09 PM EST NAFLD (nonalcoholic fatty liver disease) Elevated LFTs TISSUE TRANSGLUTAMINASE, IGA Routine 11/04/2024 12:09 PM EST NAFLD (nonalcoholic fatty liver disease) Elevated LFTs CATES FIBROSURE Routine 11/04/2024 12:09 PM EST NAFLD (nonalcoholic fatty liver disease) Elevated LFTs HEPATITIS C ANTIBODY Routine 11/04/2024 12:09 PM EST NAFLD (nonalcoholic fatty liver disease) Elevated LFTs GAMMA GLUTAMYL TRANSFERASE Routine 11/04/2024 12:09 PM EST NAFLD (nonalcoholic fatty liver disease) Elevated LFTs ANTIMITOCHONDRIAL ANTIBODY Routine 11/04/2024 12:09 PM EST NAFLD (nonalcoholic fatty liver disease) Elevated LFTs [id number] Routine 11/04/2024 1 2:09 PM EST NAFLD (nonalcoholic fatty liver disease) Elevated LFTs COMPREHENSIVE METABOLIC PANEL Routine 11/04/2024 12:09 PM EST NAFLD (nonalcoholic fatty liver disease) Elevated LFTs CBC AND DIFFERENTIAL Routine 11/04/2024 12:09 PM EST NAFLD (nonalcoholic fatty liver disease) Elevated LFTs EXTERNAL CLINICAL LAB 11/04/2024 from Last 3 Months Results * Hepatitis C antibody (11/04/2024 12:09 PM EST) Hepatitis C Antibody Negative Negative LAB CHEMISTRY METHOD 11/04/2024 4:22 PM EST [facility] Blood Venous blood specimen / Unknown Venipuncture / Unknown 11/04/2024 12:09 PM EST 11/04/2024 12:09 PM EST Odilia Escoto ME LAB BLOOD ORDERABLES Performing Organization Address [facility] Co de Phone Number [facility] [address] [place] [address], * (ABNORMAL) Hepatitis A antibody total with reflex IgM (11/04/2024 12:09 PM EST) Hep A Total Ab Positive( A) Negative LAB CHEMISTRY METHOD 11/04/2024 4:23 PM EST [facility] Blood Venous blood specimen / Unknown Venipuncture / Unknown 11/04/2024 12:09 PM EST 11/04/2024 12:09 PM EST Narrative [facility] - 11/04/2024 4:23 PM EST Over the counter supplements containing high doses of biotin may interfere with this assay. ??If interference is suspected, patients shoud be retested after refraining from biotin supplements for 72 hours. Odilia Escoto ME LAB BLOOD ORDERABLES Performing Organization Address [facility] Co de Phone Number [facility] [address] [place] [address], * CATES fibrotest liver diease (11/04/2024 12:09 PM EST) CATES FibroSure See Below 11/14/2024 9:29 AM EST [facility] Comment: CATES FibroSure(R) Plus SEE REPORT UNDER SEPARATE COVER. REPORT WILL BE SENT TO THE ORDERING LABORATORY VIA PRINTER OR FAX. ADDITIONAL COPIES OF THE ORIGINAL REPORT MAY ALSO BE OBTAINED BY CALLING [facility] CLIENT SERVICES at [phone] Blood Venous blood specimen / Unknown Venipuncture / Unknown 11/04/2024 12:09 PM EST 11/04/2024 12:09 PM EST Odilia ROUSSEAU LAB BLOOD ORDERABLES [facility] [place] [address] * TANGELA IFA with titer and pattern (11/04/2024 12:09 PM EST) TANGELA Negative Negative 11/05/2024 12:32 PM [facility] Blood Venous blood specimen / Unknown Venipuncture / Unknown 11/04/2024 12:09 PM EST 11/04/2024 12:09 PM EST Odilia ROUSSEAU LAB BLOOD ORDERABLES [facility] [address] [place] [address], * (ABNORMAL) CBC auto differential (11/04/2024 12:09 PM EST) Pathologist [facility] WBC 11.6(H) 4.8 - 10.8 K/mcL LAB HEMETOLOGY METHOD 11/04/2024 2:37 PM [facility] RBC 5.40 4.50 - 5.50 M/mcL LAB HEMETOLOGY METHOD 11/04/2024 2:37 PM [facility] Hemoglobin 14.8 13.5 - 17.5 g/dL LAB HEMETOLOGY METHOD 11/04/2024 2:37 PM [facility] Hematocrit 46.6 42.0 - 54.0 % LAB HEMETOLOGY METHOD 11/04/2024 2:37 PM [facility] MCV 85.7 79.0 - 98.0 FL LAB HEMETOLOGY METHOD 11/04/2024 2:37 PM [facility] MCH 27.2 27.0 - 32.0 pcg LAB HEMETOLOGY METHOD 11/04/2024 2:37 PM [facility] MCHC 31.8(L) 32.0 - 37.0 g/dL LAB HEMETOLOGY METHOD 11/04/2024 2:37 PM [facility] RDW 13.2 11.0 - 15.0 % LAB HEMETOLOGY METHOD 11/04/2024 2:37 PM [facility] Platelets 250 130 - 400 K/mcL LAB HEMETOLOGY METHOD 11/04/2024 2:37 PM [facility] MPV 10.4 7.0 - 11.0 FL LAB HEMETOLOGY METHOD 11/04/2024 2:37 PM [facility] NRBC 0.0 <1.0 % LAB HEMETOLOGY METHOD 11/04/2024 2:37 PM [facility] NRBC Absolute 0.00 <0.10 K/mcL LAB HEMETOLOGY METHOD 11/04/2024 2:37 PM [facility] Neutrophils Relative 59.0 % LAB HEMETOLOGY METHOD 11/04/2024 2:37 PM [facility] Lymphocytes Relative 28.2 % LAB HEMETOLOGY METHOD 11/04/2024 2:37 PM [facility] Monocytes Relative 5.9 % LAB HEMETOLOGY METHOD 11/04/2024 2:37 PM [facility] Eosinophils Relative 5.5 % LAB HEMETOLOGY METHOD 11/04/2024 2:37 PM [facility] Basophils Relative 0.7 % LAB HEMETOLOGY METHOD 11/04/2024 2:37 PM [facility] Immature Granulocytes Relative 0.7 % LAB HEMETOLOGY METHOD 11/04/2024 2:37 PM [facility] Neutrophils Absolute 6.82 1.50 - 7.00 K/mcL LAB HEMETOLOGY METHOD 11/04/2024 2:37 PM EST [facility] Lymphocytes Absolute 3.26 1.00 - 5.00 K/mcL LAB HEMETOLOGY METHOD 11/04/2024 2:37 PM EST [facility] Monocytes Absolute 0.68 0.20 - 1.00 K/mcL LAB HEMETOLOGY METHOD 11/04/2024 2:37 PM EST [facility] Eosinophils Absolute 0.64(H) 0.00 - 0.50 K/mcL LAB HEMETOLOGY METHOD 11/04/2024 2:37 PM EST [facility] Basophils Absolute 0.08 0.00 - 0.20 K/mcL LAB HEMETOLOGY METHOD 11/04/2024 2:37 PM [facility] Immature Granulocytes Absolute 0.08(H) 0.00 - 0.03 K/mcL LAB HEMETOLOGY METHOD 11/04/2024 2:37 PM [facility] Blood Venous blood specimen / Unknown Venipuncture / Unknown 11/04/2024 12:09 PM EST 11/04/2024 12:09 PM EST Odilia ROUSSEAU LAB BLOOD ORDERABLES [facility] [address] [place] [address], * (ABNORMAL) Iron and TIBC (11/04/2024 12:09 PM EST) Iron 75 50 - 160 mcg/dL LAB CHEMISTRY METHOD 11/04/2024 3:35 PM [facility] TIBC 389 250 - 450 mcg/dL LAB CHEMISTRY METHOD 11/04/2024 3:35 PM [facility] Iron Saturation 19(L) 20 - 50 % LAB CHEMISTRY METHOD 11/04/2024 3:35 PM [facility] Blood Venous blood specimen / Unknown Venipuncture / Unknown 11/04/2024 12:09 PM EST 11/04/2024 12:09 PM EST Odilia ROUSSEAU LAB BLOOD ORDERABLES [facility] [address] [place] [address], [place] [phone] * Smooth muscle antibody IgG (11/04/2024 12:09 PM EST) [facility] Smooth Muscle (F-Actin) IgG Ab 2 <20 UNITS 11/07/2024 11:39 AM EST [facility] Comment: Interpretation: Negative Test performed at [facility], [address] , [place], [place] [address] ? [phone] Nydia Castillo MD, PhD - Inspector Water Pollution Control Blood Venous blood specimen / Unknown Venipuncture / Unknown 11/04/2024 12:09 PM EST 11/04/2024 12:09 PM EST Odilia ROUSSEAU LAB BLOOD ORDERABLES Performing Organization Address City/[facility]/ZIP Co de Phone Number [facility] [address] [place] [address] * [id number] (11/04/2024 12:09 PM EST) Pathologist [facility] A-1 Antitrypsin 104 90 - 200 mg/dL LAB CHEMISTRY METHOD 11/04/2024 3:35 PM EST [facility] Blood Venous blood specimen / Unknown Venipuncture / Unknown 11/04/2024 12:09 PM EST 11/04/2024 12:09 PM EST Odilia ROUSSEAU LAB BLOOD ORDERABLES [facility] [address] [place] [address], [place] [phone] * Hepatitis A antibody IgM (11/04/2024 12:09 PM EST) [facility] Hepatitis A Antibody IgM Negative Negative LAB CHEMISTRY METHOD 11/04/2024 5:29 PM EST [facility] Blood Venous blood specimen / Unknown Venipuncture / Unknown 11/04/2024 12:09 PM EST 11/04/2024 12:09 PM EST Narrative [facility] - 11/04/2024 5:29 PM EST Over the counter supplements containing high doses of biotin may interfere with this assay. ??If interference is suspected, patients shoud be retested after refraining from biotin supplements for 72 hours. Odilia ROUSSEAU LAB BLOOD ORDERABLES [facility] [address] [place] [address], * Hepatitis B e antibody (11/04/2024 12:09 PM EST) [facility] Hepatitis Be Antibody Nonreactive Nonreactive 11/07/2024 5:42 AM EST [facility] Comment: Test performed at [facility], [address] , [place], [place] ??[address] ? [phone] Nydia Castillo MD, PhD - Inspector Water Pollution Control Blood Venous blood specimen / Unknown Venipuncture / Unknown 11/04/2024 12:09 PM EST 11/04/2024 12:09 PM EST Odilia ROUSSEAU LAB BLOOD ORDERABLES [facility] [address] [place] [address] * Tissue transglutaminase, IgA (11/04/2024 12:09 PM EST) [facility] Tissue Transglutaminase Ab, IgA Quant 1 <4 unit/mL LAB CHEMISTRY METHOD 11/05/2024 12:37 PM EST [facility] Tissue Transglutaminase Ab, IgA Negative Negative LAB CHEMISTRY METHOD 11/05/2024 12:37 PM EST [facility] Blood Venous blood specimen / Unknown Venipuncture / Unknown 11/04/2024 12:09 PM EST 11/04/2024 12:09 PM EST Odilia ROUSSEAU LAB BLOOD ORDERABLES [facility] [address] [place] [address], [place] [phone] * Antimitochondrial antibody (11/04/2024 12:09 PM EST) Mitochondrial Antibody Quantitative 4.9 <=20.0 units LAB CHEMISTRY METHOD 11/05/2024 1:02 PM [facility] Mitochondrial Antibody Qualitative Negative Negative LAB CHEMISTRY METHOD 11/05/2024 1:02 PM EST [facility] Blood Venous blood specimen / Unknown Venipuncture / Unknown 11/04/2024 12:09 PM EST 11/04/2024 12:09 PM EST Odilia ROUSSEAU LAB BLOOD ORDERABLES Performing Organization Address City/[facility]/ZIP Co de Phone Number [facility] [address] [place] [address], [place] [phone] * GGT (11/04/2024 12:09 PM EST) GGT 46 7 - 64 unit/L LAB CHEMISTRY METHOD 11/04/2024 3:35 PM EST [facility] Blood Venous blood specimen / Unknown Venipuncture / Unknown 11/04/2024 12:09 PM EST 11/04/2024 12:09 PM EST Odilia ROUSSEAU LAB BLOOD ORDERABLES [facility] [address] [place] [address], [place] [phone] * (ABNORMAL) Comprehensive metabolic panel (11/04/2024 12:09 PM EST) [facility] Sodium 139 133 - 145 mmol/L LAB CHEMISTRY METHOD 11/04/2024 3:57 PM [facility] Potassium 4.7 3.5 - 5.5 mmol/L LAB CHEMISTRY METHOD 11/04/2024 3:57 PM [facility] Chloride 111(H) 96 - 110 mmol/L LAB CHEMISTRY METHOD 11/04/2024 3:57 PM [facility] CO2 24 21 - 32 mmol/L LAB CHEMISTRY METHOD 11/04/2024 3:57 PM [facility] Anion Gap 4 3 - 11 LAB CHEMISTRY METHOD 11/04/2024 3:57 PM [facility] Glucose 119(H) 70 - 100 mg/dL LAB CHEMISTRY METHOD 11/04/2024 3:57 PM [facility] BUN 12 5 - 25 mg/dL LAB CHEMISTRY METHOD 11/04/2024 3:57 PM [facility] Creatinine 1.01 0.70 - 1.30 mg/dL LAB CHEMISTRY METHOD 11/04/2024 3:57 PM [facility] eGFR 105 >=60 mL/min/1. 73m2 LAB CHEMISTRY METHOD 11/04/2024 3:57 PM [facility] Comment:Calculation based on the??Chronic Kidney Disease Epidemiology Collaboration (CKD-EPI) equation refit??without adjustment for race. BUN/Creatinine Ratio 11.9 LAB CHEMISTRY METHOD 11/04/2024 3:57 PM [facility] Calcium 10.4 8.5 - 10.5 mg/dL LAB CHEMISTRY METHOD 11/04/2024 3:57 PM [facility] AST (SGOT) 31 10 - 42 unit/L LAB CHEMISTRY METHOD 11/04/2024 3:57 PM [facility] ALT (SGPT) 61(H) 10 - 60 unit/L LAB CHEMISTRY METHOD 11/04/2024 3:57 PM EST [facility] Alkaline Phosphatase 111 42 - 121 unit/L LAB CHEMISTRY METHOD 11/04/2024 3:57 PM EST [facility] Total Protein 7.8 6.0 - 8.0 g/dL LAB CHEMISTRY METHOD 11/04/2024 3:57 PM EST [facility] Albumin 4.6 3.2 - 5.0 g/dL LAB CHEMISTRY METHOD 11/04/2024 3:57 PM [facility] Total Bilirubin 0.4 0.0 - 1.4 mg/dL LAB CHEMISTRY METHOD 11/04/2024 3:57 PM [facility] Blood Venous blood specimen / Unknown Venipuncture / Unknown 11/04/2024 12:09 PM EST 11/04/2024 12:09 PM EST Odilia ROUSSEAU LAB BLOOD ORDERABLES [facility] [address] [place] [address], * External clinical lab (11/04/2024) Provider [facility] BLOOD ORDERA BLES from Last 3 Months Care Teams Senior Caregiver Relationship Specialty Start Date End Date Renata Barnes PA [address] [place] [address] PCP - General Physician Assistant Corporate Controller 10/07/24
--- OUTSIDE RECORDS SUMMARY | 2024-12-12 15:27 | XMS_ITS | Encounter Summary ---
Author Organization [facility] Address [address] [place] [address] Care Team Providers Care Clinical Documentation Improvement Specialist Name Role Phone Renata Barnes Primary Care Provider [phone] Reason for Visit * Reason Onset Date Comments prior auth 11/27/2024 Encounter Details Date Type Department Care Team ([facility] st Contact Info) Description 11/27/2024 Telephone Gastroenterology - [place] [address] [facility] [address] [place] [phone] Odilia Escoto PA [address] [place] [address] prior auth Social History Tobacco Use Types Packs/Day Years Used Date Smoking Tobacco: Never Assessed Sex and Gender Information Value Date Recorded Sex Assigned at Not on file Gender Identity Not on file Sexual Orientation Not on file Job Start Date Occupation Industry Not on file Not on file Not on file documented as of this encounter Progress Notes * Rebeca Deleon MA - 11/27/2024 3:57 PM EST This is a duplicate request. * Rebeca Esposito - 11/27/2024 3:31 PM EST Received covermy meds Lal: [id number] Rezdiffra 100 mg tablets [facility] Ph. [phone] Fax. documented in this encounter Plan of Treatment Upcoming Encounters Date Type Department Care Team (Late st Contact Info) Description 12/19/2024 9:00 AM EST Appointment [facility] Ultrasound [address] [place] [phone] 02/25/2025 10:40 AM EDT Office Visit Gastroenterology - [place] [address] [facility] [address] [place] [phone] Odilia Escoto PA 175 [facility] [address] [place] [address] documented as of this encounter Visit Diagnoses Not on filedocumented in this encounter Care Teams Clinical Documentation Improvement Specialist Relationship Specialty Start Date End Date Renata Barnes PA [address] [place] [address] PCP - General Physician Motor Assembler 10/07/24 documented as of this encounter
--- OUTSIDE RECORDS SUMMARY | 2024-12-12 15:27 | XMS_ITS | Encounter Summary ---
Author Organization [facility] Address [address] [place] [address] Care Team Providers Care Apparatus Operator Name Role Phone Renata Barnes Primary Care Provider [phone] Encounter Details Date Type Department Care Team (Late st Contact Info) Description 11/17/2024 Telephone Gastroenterology [facility] 175 [facility] [address] [phone] Marilia Corea MA Social History Tobacco Use Types Packs/Day Years Used Date Smoking Tobacco: Never Assessed Sex and Gender Information Value Date Recorded Sex Assigned at Not on file Gender Identity Not on file Sexual Orientation Not on file Job Start Date Occupation Industry Not on file Not on file Not on file documented as of this encounter Plan of Treatment Upcoming Encounters Date Type Department Care Team (Late st Contact Info) Description 12/19/2024 9:00 AM EST Appointment [facility] Ultrasound [address] [place] [phone] 02/25/2025 10:40 AM EDT Office Visit Gastroenterology [facility] 175 [facility] [address] [phone] Odilia Escoto PA [address] [address] documented as of this encounter Visit Diagnoses Not on filedocumented in this encounter Care Teams Apparatus Operator Relationship Specialty Start Date End Date Renata Barnes PA [address] [place] [phone] PCP - General Physician Lithograph Press Operator 10/07/24 documented as of this encounter
--- OUTSIDE RECORDS SUMMARY | 2024-12-12 15:28 | XMS_ITS | Encounter Summary ---
Author Organization [facility] Address [address] [place] [address] Phone Care Team Providers Care Weapons Mechanic Name Role Phone Joe Rubin MD Primary Care Provider [phone] Encounter Details Date Type Department Care Team (Late st Contact Info) Description 09/22/2016 [facility] - [address] [address] Social History Tobacco Use Types Packs/Day Years Used Date Smoking Tobacco: Never Smokeless Tobacco: Never Alcohol Use Standard Drinks/Week Comments No 0 (1 standard drink = 0.6 oz pur e alcohol) Sex and Gender Information Value Date Recorded Sex Assigned at Not on file Legal Sex Male 10:07 PM EST Gender Identity Not on file Sexual Orientation Not on file documented as of this encounter Discharge Summaries * Joe Rubin MD - 09/22/2016 12:00 AM EDT [facility] Aftercare Plan and Discharge Imported By: Zenaida Wyatt 10/02/2016 11:33:32 AM External Attachment: Type: Image Comment: External Document documented in this encounter Plan of Treatment Not on file documented as of this encounter Visit Diagnoses Not on filedocumented in this encounter Care Teams Weapons Mechanic Relationship Specialty Start Date End Date Joe Rubin MD [address] [address] PCP - General 01/08/17 11/24/19 documented as of this encounter
[2024-12-12 16:10] VITALS: BP 116/59; PULSE 68; RESP 18; TEMP 37.7; O2SAT 97
[2024-12-12] MEDS: metFORMIN HCl 1,000 MG TABLET 1000 MG PO (17:47)
--- NOTE | 2024-12-12 17:47 | PC.NURSE ---
pt medicated per provider order.
--- NOTE | 2024-12-12 17:58 | PC.NURSE ---
report given to RN on M5 at this time.
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
[2024-12-12 20:10] VITALS: BP 132/80; PULSE 84; RESP 16; TEMP 36.6; O2SAT 97
[2024-12-12 20:11] VITALS: BMI 38.6
[2024-12-12] MEDS: NaPROXEN 500 MG TABLET PO (22:14)
[2024-12-12] MEDS: traZODone HCL 100 MG TABLET PO (22:14)
[2024-12-12] MEDS: Atorvastatin Calcium 10 MG TABLET PO (22:14)
[2024-12-12] MEDS: Lithium Carbonate ER 450 MG TABLET.ER 1350 MG PO (22:15)
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
[2024-12-13 08:00] VITALS: BP 149/95; PULSE 77; RESP 16; TEMP 36.6; O2SAT 98
[2024-12-13] MEDS: NaPROXEN 500 MG TABLET PO ×2 (08:24→22:36)
[2024-12-13] MEDS: Cariprazine HCl 3 MG CAPSULE 6 MG PO (08:24)
[2024-12-13] MEDS: Propranolol HCL LA 80 MG CAP.SA.24H PO (08:25)
[2024-12-13] MEDS: metFORMIN HCl 1,000 MG TABLET 1000 MG PO ×2 (08:26→17:31)
[2024-12-13 08:52] LABS: Estimated Average Glucose 134 mg/dL; Hemoglobin A1C 170.5149 umol/L; Hemoglobin A1c % 6.3 % (<6.0); Total Hemoglobin (HGBA1C) 3725.0982 umol/L
[2024-12-13 08:59] LABS: Cholesterol 142 mg/dL (<200); HDL Cholesterol 29 mg/dL (>40); LDL Cholesterol Calculated 59 mg/dL (<100); Magnesium 1.9 mg/dL (1.6-2.6); Triglycerides 270 mg/dL (<150)
[2024-12-13 09:18] LABS: Free T4 (Free Thyroxine) 0.95 ng/dL (0.71-1.85); Thyroid Stimulating Hormone 2.35 uIU/mL (0.32-4.0)
[2024-12-13 09:29] LABS: Folate 13.2 ng/mL (> or = 4.0); Vitamin B12 747 pg/mL (200-900)
[2024-12-13] MEDS: Acetaminophen 325 MG TABLET 650 MG PO ×2 (10:18→22:36)
[2024-12-13 20:00] VITALS: BP 150/79; PULSE 75; RESP 16; TEMP 36.8; O2SAT 98
[2024-12-13] MEDS: Lithium Carbonate ER 450 MG TABLET.ER 1350 MG PO (22:35)
[2024-12-13] MEDS: Atorvastatin Calcium 10 MG TABLET PO (22:35)
[2024-12-13] MEDS: Melatonin 3 MG TABLET 6 MG PO (22:36)
[2024-12-13] MEDS: traZODone HCL 100 MG TABLET PO (22:36)
[2024-12-14 07:49] VITALS: BP 159/88; PULSE 83; RESP 18; TEMP 36.3; O2SAT 97
[2024-12-14] MEDS: Cariprazine HCl 3 MG CAPSULE 6 MG PO (08:03)
[2024-12-14] MEDS: metFORMIN HCl 1,000 MG TABLET 1000 MG PO ×2 (08:03→17:11)
[2024-12-14] MEDS: NaPROXEN 500 MG TABLET PO ×2 (08:03→22:26)
[2024-12-14] MEDS: Propranolol HCL LA 80 MG CAP.SA.24H PO (08:03)
--- NOTE | 2024-12-14 08:45 | HO.PSYCHPN ---
Subjective Subjective Date of Service: 12/14/24 Reason For Visit: bipolar disorder, intermittent, explosive disorder Subjective Notes: Conditional Voluntary Interim History: Pt seen, discussed with team Visable, with peers, interactive in milieu, participating in activities. I think you will need to find me a place to live, or I could stay here, that would be OK. Medication Compliance: Yes Side effects from medications: No Attending Groups: Yes Review of Systems Acute medical concerns: No Medical Review of Systems: unchanged Review of Systems Review of Systems Denies Mental Status Exam Mental Status Exam Patient Appearance: Fatigued Patient Orientation: Person, Place, Time and Situation Level of Consciousness: Alert Patient Behavior: Appropriate, Talkative, Cooperative and Good Eye Contact Mood Description: Calm and Withdrawn Affect Description: Calm and Withdrawn Patient Cognition Impaired: Yes Ability to Follow Directions: Good Speech Pattern: Spontaneous Speech Memory Description: Episodic Impaired Hallucinations: None Delusions: Not Present Thought Process: Distracted and Rumination Thought Content: positive for Suicidal Ideation (denies) and positive for Homicidal Ideation (denies) Judgement: Poor Diagnostics Vital Signs (24Hr): Vital Signs - 24 hr 12/13/24 20:00 12/14/24 07:49 Temperature 98.3 F 97.4 F Pulse Rate 75 83 Respiratory Rate 16 18 Blood Pressure 150/79 H 159/88 H Pulse Oximetry 98 97 Oxygen Delivery Method Room Air Room Air BMI result Body Mass Index 38.6 Labs 12/12/24 12:36 12/12/24 12:36 Labs: Laboratory Results - last 48 hr 12/12/24 12/12/24 12/12/24 12:18 12:36 13:39 WBC 11.5 H RBC 5.00 Hgb 14.2 Hct 41.9 L MCV 83.8 MCH 28.4 MCHC 33.9 RDW 13.0 Plt Count 226 MPV 9.7 Immature Gran % (Auto) 0.5 H Neut % (Auto) 68.0 Lymph % (Auto) 22.1 Peach % (Auto) 5.1 Eos % (Auto) 3.8 Baso % (Auto) 0.5 Lymph # (Auto) 2.5 Peach # (Auto) 0.6 Eos # (Auto) 0.4 Baso # (Auto) 0.1 Abs Immat Gran (auto) 0.06 H Absolute Neuts (auto) 7.8 Absolute Nucleated RBC 0.000 Nucleated RBC % (auto) 0.0 Sodium 143 Potassium 4.2 Chloride 112 H Carbon Dioxide 24 Anion Gap 11 L BUN 14 Creatinine 0.87 Estim Creat Clear Calc 183.1 Estimated GFR > 60 Random Glucose 132 H Estimat Average Glucose Hemoglobin A1c % Calcium 9.9 D Magnesium 1.9 Total Bilirubin 0.4 Direct Bilirubin 0.1 AST 47 H ALT 70 H Alkaline Phosphatase 88 Total Protein 7.3 Albumin 4.5 Triglycerides Cholesterol LDL Cholesterol, Calc HDL Cholesterol Vitamin B12 Folate TSH Free T4 Urine Color Yellow Urine Appearance Clear Urine pH 5.0 Ur Specific [place] 1.020 Urine Protein Trace Urine Glucose (UA) Negative Urine Ketones Trace Urine Blood Negative Urine Nitrite Negative Ur Leukocyte Esterase Trace H Urine RBC 0-2 Urine WBC 0-5 Ur Squamous Epith Cells 0-2 Urine Bacteria None Seen Hyaline Casts 0-2 Urine Opiates Screen Not Detected Ur Buprenorphine Scrn Not Detected Ur Oxycodone Screen Not Detected Urine Methadone Screen Not Detected Urine Fentanyl Screen Not Detected Ur Barbiturates Screen Not Detected Ur Phencyclidine Scrn Not Detected Ur Amphetamines Screen Not Detected U Benzodiazepines Scrn Not Detected [place] 0.74 Urine Cocaine Screen Not Detected U Marijuana (THC) Screen Not Detected Ethyl Alcohol < 10 12/13/24 08:08 WBC RBC Hgb Hct MCV MCH MCHC RDW Plt Count MPV Immature Gran % (Auto) Neut % (Auto) Lymph % (Auto) Peach % (Auto) Eos % (Auto) Baso % (Auto) Lymph # (Auto) Peach # (Auto) Eos # (Auto) Baso # (Auto) Abs Immat Gran (auto) Absolute Neuts (auto) Absolute Nucleated RBC Nucleated RBC % (auto) Sodium Potassium Chloride Carbon Dioxide Anion Gap BUN Creatinine Estim Creat Clear Calc Estimated GFR Random Glucose Estimat Average Glucose 134 Hemoglobin A1c % 6.3 H Calcium Magnesium 1.9 Total Bilirubin Direct Bilirubin AST ALT Alkaline Phosphatase Total Protein Albumin Triglycerides 270 H Cholesterol 142 LDL Cholesterol, Calc 59 HDL Cholesterol 29 L Vitamin B12 747 Folate 13.2 TSH 2.35 Free T4 0.95 Urine Color Urine Appearance Urine pH Ur Specific [place] Urine Protein Urine Glucose (UA) Urine Ketones Urine Blood Urine Nitrite Ur Leukocyte Esterase Urine RBC Urine WBC Ur Squamous Epith Cells Urine Bacteria Hyaline Casts Urine Opiates Screen Ur Buprenorphine Scrn Ur Oxycodone Screen Urine Methadone Screen Urine Fentanyl Screen Ur Barbiturates Screen Ur Phencyclidine Scrn Ur Amphetamines Screen U Benzodiazepines Scrn Betances Urine Cocaine Screen U Marijuana (THC) Screen Ethyl Alcohol Medications Medications Current Medications Acetaminophen (Acetaminophen 325 Mg Tablet) 650 mg PO Q6H PRN PRN Reason: Headache/Pain Mild Scale (1-3) Last Admin: 12/13/24 22:36 Dose: 650 mg Al Hydroxide/Mg Hydroxide (Magnesium Hydrox/Alum Hydrox 30 Ml Oral.Susp) 30 ml PO Q6H PRN PRN Reason: Heartburn/Nausea Atorvastatin Calcium (Atorvastatin Calcium 10 Mg Tablet) 10 mg PO BEDTIME [facility] Last Admin: 12/13/24 22:35 Dose: 10 mg Cariprazine (Cariprazine Hcl 3 Mg Capsule) 6 mg PO DAILY [facility] Last Admin: 12/14/24 08:03 Dose: 6 mg Hydroxyzine HCl (Hydroxyzine Hcl 25 Mg Tablet) 25 mg PO Q6H PRN PRN Reason: Anxiety Betances Carbonate (Betances Carbonate Er 450 Mg Tablet.Er) 1,350 mg PO BEDTIME [facility] Last Admin: 12/13/24 22:35 Dose: 1,350 mg Magnesium Hydroxide (Milk Of Magnesia 30 Ml Oral.Susp) 30 ml PO DAILY PRN PRN Reason: Constipation Melatonin (Melatonin 3 Mg Tablet) 6 mg PO BEDTIME PRN PRN Reason: sleep Last Admin: 12/13/24 22:36 Dose: 6 mg Metformin HCl (Metformin Hcl 1,000 Mg Tablet) 1,000 mg PO BIDWM [facility] Last Admin: 12/14/24 08:03 Dose: 1,000 mg Naproxen (Naproxen 500 Mg Tablet) 500 mg PO BID [facility] Last Admin: 12/14/24 08:03 Dose: 500 mg Nicotine Polacrilex (Nicotine Polacrilex 2 Mg Gum) 4 mg BUCCAL Q2H PRN PRN Reason: Nicotine Cravings Non-Formulary Medication (Guanfacine) 1 mg PO DAILY [facility] Non-Formulary Medication (Guanfacine) 3 mg PO BEDTIME [facility] Propranolol HCl (Propranolol Hcl La 80 Mg Cap.Sa.24h) 80 mg PO DAILY [facility]; Protocol Last Admin: 12/14/24 08:03 Dose: 80 mg Trazodone HCl (Trazodone Hcl 100 Mg Tablet) 100 mg PO BEDTIME [facility] Last Admin: 12/13/24 22:36 Dose: 100 mg Allergies Allergies Allergy/AdvReac Type Severity Reaction Status Date / Time aripiprazole [From [facility]] Allergy tremors Verified 12/12/24 12:00 divalproex sodium Allergy Agitated Verified 12/12/24 12:00 [From Depakote] risperidone [From Risperdal] Allergy Unknown Verified 12/12/24 12:00 Assessment & Plan Assessment & Plan (1) Intellectual disability: Status: Acute Code(s): F79 - Unspecified intellectual disabilities (2) Bipolar 1 disorder: Status: Acute Code(s): F31.9 - Bipolar disorder, unspecified (3) Intermittent explosive disorder in adult: Status: Acute Code(s): F63.81 - Intermittent explosive disorder Plan Bipolar Disorder, Intellectual Disability, IED Plan: Admit, CV, 15 minute checks Med eval Collateral Contact Diagnostics as needed Discharge aftercare planning. 12/14- continue tx Reason for continued inpatient stay Substantial Risk for: rapid decompensation Time Spent With Patient Time: Total time managing care of this patient today ____ minutes.
[2024-12-14 20:00] VITALS: BP 157/91; PULSE 84; TEMP 36.4; O2SAT 96
[2024-12-14 21:55] VITALS: BP 138/81; PULSE 85; TEMP 37
[2024-12-14] MEDS: Atorvastatin Calcium 10 MG TABLET PO (22:25)
[2024-12-14] MEDS: Lithium Carbonate ER 450 MG TABLET.ER 1350 MG PO (22:27)
[2024-12-14] MEDS: traZODone HCL 100 MG TABLET PO (22:28)
[2024-12-15 08:22] VITALS: BP 142/77; PULSE 87; RESP 18; TEMP 36.8; O2SAT 97
[2024-12-15] MEDS: Propranolol HCL LA 80 MG CAP.SA.24H PO (08:24)
[2024-12-15] MEDS: metFORMIN HCl 1,000 MG TABLET 1000 MG PO ×2 (08:24→17:18)
[2024-12-15] MEDS: NaPROXEN 500 MG TABLET PO ×2 (08:24→21:37)
[2024-12-15] MEDS: Cariprazine HCl 3 MG CAPSULE 6 MG PO (08:24)
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
[2024-12-15 19:44] VITALS: BP 156/91; PULSE 94; RESP 14; TEMP 36.4; O2SAT 97
[2024-12-15] MEDS: Lithium Carbonate ER 450 MG TABLET.ER 1350 MG PO (21:37)
[2024-12-15] MEDS: traZODone HCL 100 MG TABLET PO (21:37)
[2024-12-15] MEDS: Atorvastatin Calcium 10 MG TABLET PO (21:37)
[2024-12-16 08:10] VITALS: BP 131/76; PULSE 64; RESP 18; TEMP 37.5; O2SAT 95
[2024-12-16] MEDS: NaPROXEN 500 MG TABLET PO ×2 (08:37→21:05)
[2024-12-16] MEDS: metFORMIN HCl 1,000 MG TABLET 1000 MG PO ×2 (08:38→17:35)
[2024-12-16] MEDS: Propranolol HCL LA 80 MG CAP.SA.24H PO (08:38)
[2024-12-16] MEDS: Cariprazine HCl 3 MG CAPSULE 6 MG PO (08:38)
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
[2024-12-16 20:00] VITALS: BP 149/90; PULSE 78; RESP 16; TEMP 36.7; O2SAT 99
[2024-12-16] MEDS: Atorvastatin Calcium 10 MG TABLET PO (21:05)
[2024-12-16] MEDS: traZODone HCL 100 MG TABLET PO (21:05)
[2024-12-16] MEDS: Lithium Carbonate ER 450 MG TABLET.ER 1350 MG PO (21:06)
[2024-12-17 08:00] VITALS: BP 151/82; PULSE 88; RESP 18; TEMP 36.7; O2SAT 96
[2024-12-17] MEDS: metFORMIN HCl 1,000 MG TABLET 1000 MG PO ×2 (08:13→16:08)
[2024-12-17] MEDS: Cariprazine HCl 3 MG CAPSULE 6 MG PO (08:13)
[2024-12-17] MEDS: Propranolol HCL LA 80 MG CAP.SA.24H PO (08:14)
[2024-12-17] MEDS: NaPROXEN 500 MG TABLET PO ×2 (08:14→20:39)
[2024-12-17 08:44] LABS: Blood Urea Nitrogen 11 mg/dL (9-16); Creatinine Clr Calc Pharmacy 204.9; Estimated Glomerular Filt Rate > 60
[2024-12-17 09:02] LABS: TSH reflex Free T4 1.85 uIU/mL (0.32-4.0)
[2024-12-17 09:04] LABS: Lithium 0.95 mmol/L (0.60-1.20)
[2024-12-17] MEDS: Dextroamphetamine/Amphetamine XR 5 MG CAP.ER.24H PO (10:27)
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
[2024-12-17 20:00] VITALS: BP 138/69; PULSE 80; RESP 16; TEMP 36.8
[2024-12-17] MEDS: Melatonin 3 MG TABLET 6 MG PO (20:39)
[2024-12-17] MEDS: traZODone HCL 100 MG TABLET PO (20:39)
[2024-12-17] MEDS: Lithium Carbonate ER 450 MG TABLET.ER 1350 MG PO (20:40)
[2024-12-17] MEDS: Atorvastatin Calcium 10 MG TABLET PO (20:40)
[2024-12-18 07:00] VITALS: BMI 38.2
[2024-12-18 07:58] LABS: Creatinine Clr Calc Pharmacy 221.3; Estimated Glomerular Filt Rate > 60
[2024-12-18 08:25] VITALS: BP 144/79; PULSE 88; RESP 18; TEMP 36.7; O2SAT 96
[2024-12-18] MEDS: Propranolol HCL LA 80 MG CAP.SA.24H PO (08:35)
[2024-12-18] MEDS: metFORMIN HCl 1,000 MG TABLET 1000 MG PO ×2 (08:35→17:16)
[2024-12-18] MEDS: Cariprazine HCl 3 MG CAPSULE 6 MG PO (08:35)
[2024-12-18] MEDS: NaPROXEN 500 MG TABLET PO ×2 (08:35→22:40)
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
[2024-12-18] MEDS: Dextroamphetamine/Amphetamine XR 5 MG CAP.ER.24H 15 MG PO (11:00)
[2024-12-18 20:00] VITALS: BP 143/86; PULSE 89; RESP 16; TEMP 36.2; O2SAT 98
[2024-12-18] MEDS: traZODone HCL 100 MG TABLET PO (22:40)
[2024-12-18] MEDS: Atorvastatin Calcium 10 MG TABLET PO (22:40)
[2024-12-18] MEDS: Lithium Carbonate ER 450 MG TABLET.ER 1350 MG PO (22:40)
[2024-12-18] MEDS: Melatonin 3 MG TABLET 6 MG PO (22:40)
[2024-12-19 07:50] VITALS: BP 109/59; PULSE 66; RESP 16; TEMP 36.8; O2SAT 99
[2024-12-19] MEDS: metFORMIN HCl 1,000 MG TABLET 1000 MG PO ×2 (08:43→17:19)
[2024-12-19] MEDS: Cariprazine HCl 3 MG CAPSULE 6 MG PO (08:43)
[2024-12-19] MEDS: Propranolol HCL LA 80 MG CAP.SA.24H PO (08:43)
[2024-12-19] MEDS: NaPROXEN 500 MG TABLET PO ×2 (08:44→21:43)
[2024-12-19] MEDS: Dextroamphetamine/Amphetamine XR 5 MG CAP.ER.24H 15 MG PO (10:13)
[2024-12-19] MEDS: Acetaminophen 325 MG TABLET 650 MG PO (12:58)
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
[2024-12-19 21:00] VITALS: BP 152/73; PULSE 85; RESP 16; TEMP 36.8; O2SAT 98
[2024-12-19] MEDS: Atorvastatin Calcium 10 MG TABLET PO (21:43)
[2024-12-19] MEDS: Lithium Carbonate ER 450 MG TABLET.ER 1350 MG PO (21:43)
[2024-12-19] MEDS: traZODone HCL 100 MG TABLET PO (22:47)
[2024-12-20 08:00] VITALS: BP 133/77; PULSE 78; RESP 20; TEMP 36.9; O2SAT 98
[2024-12-20] MEDS: Cariprazine HCl 3 MG CAPSULE 6 MG PO (08:29)
[2024-12-20] MEDS: NaPROXEN 500 MG TABLET PO ×2 (08:29→22:15)
[2024-12-20] MEDS: Propranolol HCL LA 80 MG CAP.SA.24H PO (08:29)
[2024-12-20] MEDS: metFORMIN HCl 1,000 MG TABLET 1000 MG PO ×2 (08:29→16:34)
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
[2024-12-20] MEDS: Dextroamphetamine/Amphetamine XR 5 MG CAP.ER.24H 15 MG PO (10:52)
[2024-12-20 21:45] VITALS: BP 139/79; PULSE 78; RESP 18; TEMP 37.4; O2SAT 96
[2024-12-20] MEDS: Melatonin 3 MG TABLET 6 MG PO (22:15)
[2024-12-20] MEDS: Atorvastatin Calcium 10 MG TABLET PO (22:15)
[2024-12-20] MEDS: traZODone HCL 100 MG TABLET PO (22:15)
[2024-12-20] MEDS: Lithium Carbonate ER 450 MG TABLET.ER 1350 MG PO (22:15)
[2024-12-21 08:00] VITALS: BP 128/80; PULSE 86; RESP 18; TEMP 36.9; O2SAT 98
[2024-12-21] MEDS: Cariprazine HCl 3 MG CAPSULE 6 MG PO (08:12)
[2024-12-21] MEDS: NaPROXEN 500 MG TABLET PO ×2 (08:12→20:33)
[2024-12-21] MEDS: Propranolol HCL LA 80 MG CAP.SA.24H PO (08:12)
[2024-12-21] MEDS: metFORMIN HCl 1,000 MG TABLET 1000 MG PO ×2 (08:13→16:21)
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
[2024-12-21] MEDS: Dextroamphetamine/Amphetamine XR 5 MG CAP.ER.24H 15 MG PO (10:19)
[2024-12-21 20:00] VITALS: BP 145/82; PULSE 84; RESP 16; TEMP 36.8; O2SAT 97
[2024-12-21] MEDS: Melatonin 3 MG TABLET 6 MG PO (20:33)
[2024-12-21] MEDS: traZODone HCL 100 MG TABLET PO (20:33)
[2024-12-21] MEDS: Atorvastatin Calcium 10 MG TABLET PO (20:33)
[2024-12-21] MEDS: Lithium Carbonate ER 450 MG TABLET.ER 1350 MG PO (20:33)
--- NOTE | 2024-12-22 05:30 | PC.NURSE ---
Patient had unwitnessed emesis at 2330, given gricel-lam to sip. Patient able to go back to sleep, no further issues.
[2024-12-22 09:04] VITALS: BP 166/80; PULSE 110; RESP 16; TEMP 36.9; O2SAT 96
[2024-12-22] MEDS: NaPROXEN 500 MG TABLET PO ×2 (09:08→22:03)
[2024-12-22] MEDS: Cariprazine HCl 3 MG CAPSULE 6 MG PO (09:08)
[2024-12-22] MEDS: Propranolol HCL LA 80 MG CAP.SA.24H PO (09:09)
[2024-12-22] MEDS: metFORMIN HCl 1,000 MG TABLET 1000 MG PO ×2 (09:09→17:21)
[2024-12-22] MEDS: Ondansetron ODT 4 MG TAB.RAPDIS TRANSLINGU (09:39)
[2024-12-22 11:15] LABS: Influenza A PCR NEGATIVE (Negative); Influenza B PCR NEGATIVE (Negative); Resp Syncy Virus RNA Qual PCR NEGATIVE (Negative); SARS COV2 PCR INHOUSE NEGATIVE (Negative)
[2024-12-22] MEDS: Dextroamphetamine/Amphetamine XR 5 MG CAP.ER.24H 15 MG PO (11:21)
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
[2024-12-22 20:00] VITALS: BP 134/80; PULSE 97; TEMP 36.9; O2SAT 97
[2024-12-22] MEDS: traZODone HCL 100 MG TABLET PO (22:02)
[2024-12-22] MEDS: Lithium Carbonate ER 450 MG TABLET.ER 1350 MG PO (22:02)
[2024-12-22] MEDS: Atorvastatin Calcium 10 MG TABLET PO (22:03)
[2024-12-23 08:00] VITALS: BP 140/77; PULSE 88; RESP 18; TEMP 36.5; O2SAT 95
[2024-12-23] MEDS: Propranolol HCL LA 80 MG CAP.SA.24H PO (08:27)
[2024-12-23] MEDS: metFORMIN HCl 1,000 MG TABLET 1000 MG PO (08:27)
[2024-12-23] MEDS: NaPROXEN 500 MG TABLET PO (08:27)
[2024-12-23] MEDS: Cariprazine HCl 3 MG CAPSULE 6 MG PO (08:27)
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
[2024-12-23] MEDS: Dextroamphetamine/Amphetamine XR 5 MG CAP.ER.24H 15 MG PO (10:59)
== END 2024-12-23 11:50 | disposition home or self-care (01) | DRG 753 ==
LOC: HO.ED 14:06 → HO.PM5 16:21
PROVIDERS: Psychiatry & Neurology Psychiatry; Admitting Provider Clinical Nurse Specialist Psychiatric/Mental Health, Adult; Emergency Provider Emergency Medicine; Visit Provider Clinical Nurse Specialist Psychiatric/Mental Health, Adult
DX: F31.9 Bipolar disorder, unspecified (principal); F79 Unspecified intellectual disabilities; F63.81 Intermittent explosive disorder; Z20.822 Contact with and (suspected) exposure to COVID-19; Z63.4 Disappearance and death of family member; Z79.84 Long term (current) use of oral hypoglycemic drugs; Z79.899 Other long term (current) drug therapy
CPT/HCPCS: 0241U; 36415; 80048; 80061; 80076; 80178; 80307; 81001; 82565; 82607; 82746; 83036; 83735; 84439; 84443; 84520; 85025; 93005; 99285; S9485

== ENCOUNTER → 2024-12-12 15:21 | Outpatient (BNV) | payer OTHER, SELFPAY | PROVIDERS: Admitting Provider Clinical Nurse Specialist Psychiatric/Mental Health, Adult; Emergency Provider Emergency Medicine; Visit Provider Internal Medicine Cardiovascular Disease | DX: R94.31 Abnormal electrocardiogram [ECG] [EKG] (principal) | CPT/HCPCS: 93010 ==

== ENCOUNTER → 2024-12-12 15:59 | Outpatient (BNV) | payer OTHER, SELFPAY | PROVIDERS: Admitting Provider Clinical Nurse Specialist Psychiatric/Mental Health, Adult; Emergency Provider Emergency Medicine; Visit Provider Clinical Nurse Specialist Psychiatric/Mental Health, Adult | DX: F63.81 Intermittent explosive disorder (principal); F31.9 Bipolar disorder, unspecified; F79 Unspecified intellectual disabilities | CPT/HCPCS: 99232 ==

== ENCOUNTER → 2024-12-12 15:59 | Outpatient (BNV) | payer OTHER, SELFPAY | PROVIDERS: Admitting Provider Clinical Nurse Specialist Psychiatric/Mental Health, Adult; Emergency Provider Emergency Medicine; Visit Provider Psychiatry & Neurology Psychiatry | DX: F79 Unspecified intellectual disabilities (principal); F31.9 Bipolar disorder, unspecified; F63.81 Intermittent explosive disorder | CPT/HCPCS: 90792 ==

== ENCOUNTER 2025-06-29 14:02 | Inpatient (IN) | payer OTHER, SELFPAY ==
--- NOTE | ~2025-06-29 | XR_ITS ---
CLINICAL HISTORY: Limping, in pain, ?ACL 6 view left knee Comparison: DX/SR - XR KNEE 1-2 VIEWS LEFT - 08/26/24 13:42 EDT DX/SR - XR KNEE 1 VIEW RIGHT - 08/26/24 13:42 EDT CR/SR - XR KNEE 3 VIEWS LEFT - 08/20/24 08:50 EDT Findings: No acute fracture or dislocation. Tricompartmental osteoarthritis. Stable sclerotic lesion in the distal femur, likely benign such as a healed nonossifying fibroma. Small joint effusion. No radiopaque foreign body. IMPRESSION: 1. No acute osseous injury. 2. Small joint effusion. This document has been electronically signed by: Birgit Alvarado MD on 06/30/2025 21:58:33
--- NOTE | 2025-06-29 14:12 | ED_ITS ---
HPI - General Adult General Chief complaint: Psychiatric Symptoms Stated complaint: DEPRESSION Time Seen by Provider: 06/29/25 14:12 History of Present Illness ED Provider: Juan F CASTANEDA narrative: The patient is a 29-year-old male with a history of intellectual disability and bipolar disorder who says that he felt rather abruptly suicidal this morning. He had the idea that he might cut his throat with a knife. He told his brother that he was having these feelings. The brother called 911 and the patient was brought to the hospital. The patient says that the feeling is came on rather suddenly today. He denies feeling depressed over the last few days. He denies having done anything to harm himself at all. He can not think of any precipitating factors for why he felt like committing suicide today. He does not feel sick. He denies headache, chest pain, abdominal pain, nausea, vomiting, cough, sputum. Related Data Home Medications ?Medication ?Instructions ?Recorded ?Confirmed cariprazine 6 mg capsule (Vraylar) 6 mg PO BEDTIME 10/1306/29/25 dextroamphetamine-amphetamine ER 1 cap PO QAM 06/29/25 06/29/25 20 mg 24hr capsule,extend release (Adderall XR) Previous Rx's ?Medication ?Instructions ?Recorded metformin 1,000 mg tablet 1,000 mg PO BIDWM #180 tabs 09/18/24 lithium carbonate 450 mg 1,350 mg (3 x 450 mg) PO BED TIME 12/23/24 tablet,extended release 30 days #90 tabs melatonin 3 mg capsule 6 mg (2 x 3 mg) PO BEDTIME P RN 12/23/24 sleep 30 days #60 caps propranolol 80 mg capsule,24 80 mg PO DAILY 30 days #3 0 caps 12/23/24 hr,extended release trazodone 100 mg tablet 100 mg PO BEDTIME 30 days #3 0 tabs 12/23/24 meloxicam 15 mg tablet 15 mg PO DAILY #90 tabs 03/13 Allergies Allergy/AdvReac Type Severity Reaction Status Date / Time aripiprazole (From Abilify) Allergy tremors Verified 06/29/25 14:24 divalproex sodium (From Allergy Agitated Verified 06/29/25 14:24 Depakote) risperidone (From Risperdal) Allergy Unknown Verified 06/29/25 14:24 Review of Systems 2 Review of Systems: Yes all other systems are reviewed and are negative [facility] Past Medical History Medical History Superficial laceration of finger Intellectual disability Intermittent explosive disorder in adult Social History Social History Household Members: Family Housing: House Do you presently have visiting nurse or other home services: No Alcohol intake: current Alcohol intake frequency: holidays/special occasions only Alcohol type: wine Patient Tobacco Use Status: Never used Tobacco e-Cigarette/Vaping Use: Never Used Second Hand Smoke Exposure: No service: No Current occupational status: unemployed Sexual orientation: Unable to collect Cognitive needs: Yes Hearing needs: No Vision needs: No Physical Exam ED Vital Signs: Vital Signs - 24 hr 06/29/25 14:21 06/29/25 15:05 06/29/25 20:32 Temperature 98.6 F 97.9 F 97.8 F Pulse Rate 76 62 104 H Respiratory Rate 18 16 20 Blood Pressure 149/86 H 109/73 122/76 Pulse Oximetry 97 98 99 Oxygen Delivery Method Room Air Room Air Room Air 06/30/25 06:26 Temperature 98.0 F Pulse Rate 75 Respiratory Rate 16 Blood Pressure 107/57 L Pulse Oximetry 98 Oxygen Delivery Method Room Air BMI result Body Mass Index 27.5 Const Other: The patient has a large 29-year-old who was awake, alert, pleasant, cooperative. He does not appear in any distress. He is very pleasant. Orientation/consciousness: patient oriented x3 [facility] Other: Face is symmetrical. Mucous membranes moist. Eyes Other: Pupils are round equal, conjunctivae are clear, extraocular movements intact Neck Neck: Yes normal visual inspection and Yes full ROM Resp Effort & Inspection: normal respiratory effort Auscultation: clear to auscultation bilaterally Cardio Rate: regular rate Rhythm: regular rhythm Heart sounds: S1 normal heart sound present and S2 normal heart sound present GI Other: Abdomen is soft and nontender Skin General skin exam: no rashes or lesions noted Neuro General: patient oriented x3, gait normal, tone normal, moves all extremities, no focal motor deficits and CN's II-XI intact bilaterally Extrem Other: There is no calf swelling or tenderness. No asymmetry. No peripheral edema. Psych Other: The patient is awake, alert, very pleasant and cooperative. Course Reevaluation(s) Reevaluation #1: Time: 06:42 Date: 06/30/25 Provider: Chandan Chapin MD Patient in physician observation for psychiatric evaluation.? No acute events reported overnight. No current complaints. VS stable.? Patient is in bed search status/pending CARE team evaluation. Will continue to monitor. Medications Administered Discontinued Medications Generic Name Dose Route Start Last Admin Trade Name Freq PRN Reason Stop Dose Admin Amphetamine/Dextroamphetamine 20 mg 06/30/25 09:00 07/03/25 08:55 Dextroamphetamine/Amphetamine Xr 10 Mg Cap.Er.24h PO 20 mg DAILY LOLA Administration Cariprazine 6 mg 06/29/25 21:00 07/02/25 20:17 Cariprazine Hcl 3 Mg Capsule PO 6 mg BEDTIME LOLA Administration Stonewall Carbonate 1,350 mg 06/29/25 21:00 07/02/25 20:17 Stonewall Carbonate Er 450 Mg Tablet.Er PO 1,350 mg BEDTIME LOLA Administration Melatonin 6 mg 06/29/25 19:28 06/29/25 20:26 Melatonin 3 Mg Tablet PO 6 mg BEDTIME PRN Administration Sleep Metformin HCl 1,000 mg 06/29/25 19:30 07/03/25 08:55 Metformin Hcl 1,000 Mg Tablet PO 1,000 mg BIDWM LOLA Administration Naproxen 500 mg 06/30/25 08:00 07/03/25 08:55 Naproxen 500 Mg Tablet PO 500 mg BIDWM LOLA Administration Propranolol HCl 80 mg 06/30/25 09:00 07/03/25 08:55 Propranolol Hcl La 80 Mg Cap.Sa.24h PO 80 mg DAILY LOLA Administration Protocol Trazodone HCl 100 mg 06/29/25 21:00 07/02/25 21:35 Trazodone Hcl 100 Mg Tablet PO 100 mg BEDTIME LOLA Administration Medical Decision Making Medical Decision Making MDM Narrative: The patient is a 29-year-old with a history of bipolar disorder and intellectual the disability who presents with the acute suicidal thoughts. He is calm and cooperative here. He is medically clear. He will be placed in physician observation for a care team evaluation. He is placed in physician observation as of 1700 on 06/29/2025 Lab Data 06/29/25 14:26 07/01/25 08:18 Labs: Lab Results 06/29/25 06/29/25 Range/Units 14:26 14:30 WBC 11.0 H (4.8-10.8) X10*3/uL RBC 5.35 (4.60-5.80) X10*6/uL Hgb 14.9 (14.0-18.0) g/dl Hct 43.6 (42.0-52.0) % MCV 81.5 (80.0-98.0) fL MCH 27.9 (27.0-33.0) pg MCHC 34.2 (31.0-36.0) g/dl RDW 13.2 (11.0-16.0) % Plt Count 257 (160-400) X10*3/uL MPV 9.3 L (9.4-12.4) fL Immature Gran % (Auto) 0.6 H (0.0-0.4) % Neut % (Auto) 59.6 (45-73) % Lymph % (Auto) 28.6 (20-40) % [place] % (Auto) 5.4 (2-11) % Eos % (Auto) 5.1 H (0-4) % Baso % (Auto) 0.7 (0-2) % Lymph # (Auto) 3.2 (1.2-4.9) X10*3/uL [place] # (Auto) 0.6 (0.1-1.2) X10*3/uL Eos # (Auto) 0.6 H (0.0-0.4) X10*3/uL Baso # (Auto) 0.1 (0.0-0.2) X10*3/uL Abs Immat Gran (auto) 0.07 H (0.00-0.03) X10*3/uL Absolute Neuts (auto) 6.6 (2.0-8.3) x10*3/uL Absolute Nucleated RBC 0.000 (0.0-0.012) X10*3/uL Nucleated RBC % (auto) 0.0 (0.0-0.2) /100WBC Sodium 140 (135-145) mmol/L Potassium 4.3 (3.3-5.1) mmol/L Chloride 104 (96-108) mmol/L Carbon Dioxide 27 (22-29) mmol/L Anion Gap 13 (12-20) BUN 16 (9-16) mg/dL Creatinine 0.95 (0.5-1.4) mg/dL Estim Creat Clear Calc 138.3 Estimated GFR > 60 Random Glucose 90 (60-115) mg/dL Calcium 10.7 H D (8.4-10.2) mg/dL Total Bilirubin 0.6 (0.0-1.0) mg/dL AST 52 H (5-37) U/L ALT 89 H (0-40) U/L Alkaline Phosphatase 85 (39-117) U/L Total Protein 7.7 (6.5-8.0) g/dL Albumin 5.2 H (3.5-5.0) g/dL Urine Color Yellow Urine Appearance Clear Urine pH 5.5 (5.0-9.0) Ur Specific [place] 1.015 (1.005-1.025) Urine Protein Trace (Neg-Trace) mg/dL Urine Glucose (UA) Negative (Negative) mg/dL Urine Ketones Negative (Negative) mg/dL Urine Blood Negative (Negative) Urine Nitrite Negative (Negative) Ur Leukocyte Esterase Trace H (Negative) Urine RBC 0-2 (0-2) /HPF Urine WBC 0-5 (0-5) /HPF Ur Squamous Epith Cells 0-2 (0-2) /HPF Urine Bacteria None Seen (None Seen) Hyaline Casts 3-5 (0-2) /LPF Salicylates < 5.0 L (15-30) mg/dL Urine Opiates Screen Not Detected (Not Detect) Ur Buprenorphine Scrn Not Detected (Not Detect) ng/mL Ur Oxycodone Screen Not Detected (Not Detect) ng/mL Urine Methadone Screen Not Detected (Not Detect) ng/mL Urine Fentanyl Screen Not Detected (Not Detect) Acetaminophen < 3 (<30) mcg/mL Ur Barbiturates Screen Not Detected (Not Detect) Ur Phencyclidine Scrn Not Detected (Not Detect) Ur Amphetamines Screen POSITIVE H (Not Detect) U Benzodiazepines Scrn Not Detected (Not Detect) Urine Cocaine Screen Not Detected (Not Detect) U Marijuana (THC) Screen Not Detected (Not Detect) Ethyl Alcohol 10 mg/dL Discharge Plan Discharge Clinical Impression: Bipolar disorder Patient Disposition: Admitted As Inpatient Interventions: Admission Worksheet (ED) Last Done: 06/30/25 16:34 Discharge Date/Time: 06/30/25 16:37
[2025-06-29 14:21] VITALS: BP 140/100; BP 149/86; PULSE 76; PULSE 81; RESP 18; TEMP 37; O2SAT 97; BMI 27.5
[2025-06-29 14:36] LABS: MANUAL DIFF FLAG NO
[2025-06-29 14:38] LABS: Hematocrit 43.6 % (42.0-52.0); Hemoglobin 14.9 g/dl (14.0-18.0); Imm Gran Abs Auto 0.07 X10*3/uL (0.00-0.03); Imm Gran Pct Auto 0.6 % (0.0-0.4); Lymphocytes Absolute Auto 3.2 X10*3/uL (1.2-4.9); Mean Corpuscular HGB Conc 34.2 g/dl (31.0-36.0); Mean Corpuscular Hemoglobin 27.9 pg (27.0-33.0); Mean Corpuscular Volume 81.5 fL (80.0-98.0); NRBC Abs Auto 0.000 X10*3/uL (0.0-0.012); NRBC Pct Auto 0.0 /100WBC (0.0-0.2); Platelet Count 257 X10*3/uL (160-400); Red Blood Count 5.35 X10*6/uL (4.60-5.80); White Blood Count 11.0 X10*3/uL (4.8-10.8)
[2025-06-29 14:41] LABS: Appearance Urine Clear; Glucose Urine UA Negative (Negative); PH 5.5 (5.0-9.0); Specific Gravity - Urine 1.015 (1.005-1.025); UMIC TRIGGER UACC YES
--- NOTE | 2025-06-29 14:42 | MHC.EDTECH ---
Pt has a deck of plastic cards at their bedside RN is aware.
[2025-06-29 14:48] LABS: Cannabinoid Screen Urine Not Detected (Not Detect)
[2025-06-29 14:52] LABS: Acetaminophen LAB < 3 mcg/mL (<30); Salicylate < 5.0 mg/dL (15-30)
[2025-06-29 14:58] LABS: Albumin Level 5.2 g/dL (3.5-5.0); Anion Gap 13 (12-20); Calcium 10.7 mg/dL (8.4-10.2); Carbon Dioxide 27 mmol/L (22-29); Chloride 104 mmol/L (96-108); Potassium 4.3 mmol/L (3.3-5.1); Sodium 140 mmol/L (135-145); Total Protein 7.7 g/dL (6.5-8.0)
[2025-06-29 15:00] LABS: Alanine Aminotransferase 89 U/L (0-40); Alkaline Phosphatase 85 U/L (39-117); Aspartate Amino Transferase 52 U/L (5-37); Blood Urea Nitrogen 16 mg/dL (9-16); Creatinine Clr Calc Pharmacy 138.3; Estimated Glomerular Filt Rate > 60
[2025-06-29 15:05] VITALS: BP 109/73; PULSE 62; RESP 16; TEMP 36.6; O2SAT 98
--- NOTE | 2025-06-29 15:23 | PC.NURSE ---
Pt arrived to ED with med list from home. Med list differ from list of home medications in computer/pharmacy- per [facility] pharmacy, last prescriptions filled in 2023 no recent prescriptions. This RN attempted to call secondary Pharmacy [facility] [phone]. Placed on hold for >15 min, will reattempt. Per pt, took all medications this AM.
--- OUTSIDE RECORDS SUMMARY | 2025-06-29 15:57 | XMS_ITS | Encounter Summary ---
Author Organization [facility] Address [address] [place] [address] Phone Care Team Providers Care Finish Sander Name Role Phone Pcp, Not Required Primary Care Provider Unavaila ble Encounter Details Date Type Department Care Team (Late st Contact Info) Description 04/09/2022 Procedure [facility] Emergency Department, [facility] [address] [place] [address] Social History Tobacco Use Types Packs/Day Years Used Date Smoking Tobacco: Never Sex and Gender Information Value Date Recorded Sex Assigned at Not on file Legal Sex Male 7:20 PM EST Gender Identity Not on file Sexual Orientation Not on file documented as of this encounter Plan of Treatment Not on file documented as of this encounter Visit Diagnoses Not on filedocumented in this encounter Care Teams Finish Sander Relationship Specialty Start Date End Date Pcp, Not Required [address] [place] [id number] PCP - General 08/09/21 documented as of this encounter Additional Source Comments The information contained in this document represents components of the legal health record. It is not the complete legal health record.[facility]
--- OUTSIDE RECORDS SUMMARY | 2025-06-29 15:57 | XMS_ITS | Clinical Summary ---
Author Organization [facility] Address [address] [place] [phone] Phone Care Team Providers Care Sliver Chopper Name Role Phone Unavailable Primary Care Provider [...] (12/23/2018): 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 ( multiple) lithium, guanfacien, Abimargo reza Obesity Overview (12/23/2018): with fatty liver changes ( u/s 11/03) , fasting chol 216 and gluc 88 ( 12/30) ALT 52 ( nl to 44) 08/04 Bipolar affective disorder Overview (10/15/2019): 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 ( multiple) [employer] 37 hrs/wk lithium, guanfacine, Abilify, cogentin, Inderal 05/07 Immunizations Immunization Administration Dates Next Due DTaP 12/31/2001, 8,08/10/1997,03/30,02/02/1997 [...] 09/29/2007, 12/31/2001, Additional history exists COVID-19 Vaccine (2023- season) 2024 Influenza Vaccines (#1) 2025 12/12/19 18, 08/21/2016, 09/22/2014 Hepatitis B Vaccines Completed 08/10/1997, 02/02/1997, 1996 [...] complete this topic Procedures * Due to [place] [employer] law, this organization might not be sharing sensitive test results. Procedure Name Priority Date/Time Associated Diagnosis Comments GLUCOSE, FASTING Routine 01/18/2011 12:2 2 PM EST LIPID PANEL Routine 01/17/2011 11:01 AM EST from Last 3 Months or Most Recently Relevant to Health Maintenance Results * Due to [place] [employer] law, this organization might not be sharing sensitive test results. * Glucose, fasting (01/18/2011 12:22 PM EST) BLOOD GLUCOSE, FINGER STICK (CONV) 88.0 70.0 - 110.0 [facility] 01/18/2011 12:2 2 PM EST us Historical Unknown LAB BLOOD ORDERABLES Final Re sult [facility] [address] [place] [address], * (ABNORMAL) Lipid panel (01/17/2011 11:01 AM EST) Cholesterol, Total(Conversion ) 216.0(H) 80.0 - 170.0 mg/dL [facility] HDL CHOLESTEROL, SERUM (CONV) 37.0 35.0 - 85.0 mg/dL [facility] CHOLESTEROL/HDL RATIO, SERUM, PERCENT (CONV) 5.8(H) 0.0 - 5.0 [facility] TRIGLYCERIDE, SERUM, FASTING (CONV) 194.0 30.0 - 200.0 mg/dL [facility] LDL CHOLESTEROL, SERUM (CONV) 140.0(H) 65.0 - 110.0 mg/dL [facility] VERY LOW DENSITY LIPOPROTEINS (CONV) 39.0 0.0 - 40.0 mg/dL [facility] 01/17/2011 11:0 1 AM EST us Historical Unknown LAB BLOOD ORDERABLES Final Re sult [facility] [address] [place] [address], [place] from Last 3 Months or Most Recently Relevant to Health Maintenance
--- OUTSIDE RECORDS SUMMARY | 2025-06-29 15:57 | XMS_ITS | Clinical Summary ---
Author Organization [facility] Address [address] [place] [address] Phone Care Team Providers Care Shingle Grader Name Role Phone Renata Barnes Primary Care Provider [phone] Allergies Active Allergy Reactions Criticality Noted Date Comments Aripiprazole Unknown 11/04/2024 TREMORS Divalproex 11/04/2024 Risperidone Unknown 11/04/2024 Medications atorvastatin (LIPITOR) 10 mg tablet Take 1 tablet (10 mg total) by mouth 1 (one) time each day. at bedtime Active blood sugar diagnostic (FreeStyle Lite Strips) test strip USE DAILY DIRECTED TO CHECK BLOOD GLUCOSE. Active blood-glucose meter kit Use as instructed to monitor sugars. 3 Active capsaicin (ZOSTRIX) 0.025 % cream APPLY TOPICALLY TO THE AFFECTED AREA THREE TIMES DAILY NEEDED FOR KNEE PAIN 3 Active lithium (ESKALITH) 450 mg CR tablet Take 1 tablet (450 mg total) by mouth at bedtime. Active melatonin 3 mg tablet Take 1 tablet (3 mg total) by mouth at bedtime as needed for sleep. at bedtime Active meloxicam (MOBIC) 15 mg tablet Take 1 tablet (15 mg total) by mouth 1 (one) time each day. 4 Active metFORMIN (GLUCOPHAGE) 1,000 mg tablet Take [...] mg total) by mouth at bedtime. Active amphetamine-dex troamphetamine XR (ADDERALL XR) 5 mg 24 hr capsule Take 1 capsule (5 mg total) by mouth 1 (one) time each day in the morning. Do not crush or chew. Max Daily Amount: 5 mg Active resmetirom (Rezdiffra) 100 mg tabletIndicatio ns:NAFLD (nonalcoholic fatty liver disease),CATES (nonalcoholic steatohepatitis ),Obesity (BMI 30-39.9) Take 100 mg by mouth 1 (one) time each day. 90 tablet 3 Active Social History Tobacco Use Types Packs/Day Years Used Date Smoking Tobacco: Never Assessed Sex and Gender Information Value Date Recorded Sex Assigned at Not on file Legal Sex Male 8:12 AM EST Gender Identity Not on file Sexual Orientation Not on file Last Filed Vital Signs Vital Sign Reading Time Taken Comments Blood Pressure 140/80 02/25/2025 11:01 AM EDT Pulse 85 11/26/2024 11:01 AM EST Temperature - - Respiratory Rate - - Oxygen Saturation 98% 11/26/2024 11:01 AM EST Inhaled Oxygen Concentration - - Weight 140 kg (308 lb) 02/25/2025 11:01 AM EDT Height 190.5 cm (6' 3 ) 02/25/2025 11:01 AM EDT Body Mass Index 38.5 02/25/2025 11:01 AM EDT Plan of Treatment Upcoming Encounters Date Type Department Care Team (Late st Contact Info) Description 07/06/2025 3:30 PM EDT Consult Bariatric Surgery - [place] [address] [facility] [address] [place] [address] Deb East PA 175 [facility] [address] [place] [address] 08/27/2025 11:10 AM EDT Office Visit Gastroenterology - [place] [facility] [address] [facility] [address] [place] [phone] Odilia Escoto PA 175 [facility] [address] [place] [address] Health Maintenance Due Date Last Done Comments Diabetes: Annual Foot Exam 2006 Diabetes: Annual Retina Eye Exam 2006 Pneumococcal Vaccine: Pediatrics (0 to 5 Years) and At-Risk Patients (6 to 49 Years) (1 of 2 - PCV) 2015 DTaP,Tdap,and Td Vaccines (8 - Td or Tdap) 05/21/2024 05/21/2014, 09/29/2007, 12/31/2001, Additional history exists COVID-19 Vaccine () 07/20/2024 HIV Screening 10/07/2024 Social Influencers of Health Screening 10/07/2024 Diabetes: Blood Sugar Control Test (HGBA1C) 11/04/2024 01/11/2024 Depression Screening 11/19/2024 Diabetes: Annual Urine Albumin-Creatinine Ratio (uACR) 01/11/2025 01/11/2024 Influenza Vaccine (#1) 2025 8, 08/21/2016, 09/22/2014 Diabetes: Annual GFR (Glomerular Filtration Rate) 11/04/2025 11/04/2024, 07/16/2020, 04/06/2019 Cholesterol Screening (Lipid Panel) 01/11/2029 01/11/2024, 07/16/2020, 01/17/2011 Hepatitis B Vaccines Completed 08/10/1997, 02/02/1997, 1996 IPV Vaccines Completed 12/31/2001, 02/17, 08/10/1997, Additional history exists MMR Vaccines Completed 12/31/2001, 03/30/1998 Varicella Vaccines Completed 01/29/2003, 11/25/1998 Meningococcal ACWY Vaccine Completed 06/25/2014, Hepatitis A Vaccines Completed 08/21/2016, 07/14/20 15 HPV Vaccines Completed 12/12/2017, 01/2016, 07/07/2015 Meningococcal B Vaccine Completed 12/12/2017, 08/21 Hepatitis C Screening Completed 11/04/2024 HIB Vaccines Aged Out No longer eligi ble based on patient's age to complete this topic RSV Immunization Patients Under 20 months Aged Out No longer eligible based on patient's age to complete this topic Procedures Procedure Name Priority Date/Time Associated Diagnosis Comments HEPATITIS C ANTIBODY Routine 11/04/2024 12:09 PM EST NAFLD (nonalcoholic fatty liver disease) Elevated LFTs COMPREHENSIVE METABOLIC PANEL Routine 11/04/2024 12:09 PM EST NAFLD (nonalcoholic fatty liver disease) Elevated LFTs from Last 3 Months or Most Recently Relevant to Health Maintenance Results * Hepatitis C antibody (11/04/2024 12:09 PM EST) Pathologist [facility] Hepatitis C Antibody Negative Negative LAB CHEMISTRY METHOD 11/04/2024 4:22 PM [facility] Blood Venous blood specimen / Unknown Venipuncture / Unknown 11/04/2024 12:09 PM EST 11/04/2024 12:09 PM EST Odilia ROUSSEAU LAB BLOOD ORDERABLES Final Re sult [facility] [address] [place] [address], * (ABNORMAL) Comprehensive metabolic panel (11/04/2024 12:09 PM EST) Pathologist [facility] Sodium 139 133 - 145 mmol/L LAB CHEMISTRY METHOD 11/04/2024 3:57 PM [facility] Potassium 4.7 3.5 - 5.5 mmol/L LAB CHEMISTRY METHOD 11/04/2024 3:57 PM [facility] Chloride 111(H) 96 - 110 mmol/L LAB CHEMISTRY METHOD 11/04/2024 3:57 PM [facility] CO2 24 21 - 32 mmol/L LAB CHEMISTRY METHOD 11/04/2024 3:57 PM [facility] Anion Gap 4 3 - 11 LAB CHEMISTRY METHOD 11/04/2024 3:57 PM [facility] Glucose 119(H) 70 - 100 mg/dL LAB CHEMISTRY METHOD 11/04/2024 3:57 PM [facility] BUN 12 5 - 25 mg/dL LAB CHEMISTRY METHOD 11/04/2024 3:57 PM [facility] Creatinine 1.01 0.70 - 1.30 mg/dL LAB CHEMISTRY METHOD 11/04/2024 3:57 PM [facility] eGFR 105 >=60 mL/min/1. 73m2 LAB CHEMISTRY METHOD 11/04/2024 3:57 PM [facility] Comment:Calculation based on the Chronic Kidney Disease Epidemiology Collaboration (CKD-EPI) equation refit without adjustment for race. BUN/Creatinine Ratio 11.9 LAB CHEMISTRY METHOD 11/04/2024 3:57 PM [facility] Calcium 10.4 8.5 - 10.5 mg/dL LAB CHEMISTRY METHOD 11/04/2024 3:57 PM [facility] AST (SGOT) 31 10 - 42 unit/L LAB CHEMISTRY METHOD 11/04/2024 3:57 PM [facility] ALT (SGPT) 61(H) 10 - 60 unit/L LAB CHEMISTRY METHOD 11/04/2024 3:57 PM [facility] Alkaline Phosphatase 111 42 - 121 unit/L LAB CHEMISTRY METHOD 11/04/2024 3:57 PM [facility] Total Protein 7.8 6.0 - 8.0 g/dL LAB CHEMISTRY METHOD 11/04/2024 3:57 PM [facility] Albumin 4.6 3.2 - 5.0 g/dL LAB CHEMISTRY METHOD 11/04/2024 3:57 PM [facility] Total Bilirubin 0.4 0.0 - 1.4 mg/dL LAB CHEMISTRY METHOD 11/04/2024 3:57 PM [facility] Blood Venous blood specimen / Unknown Venipuncture / Unknown 11/04/2024 12:09 PM EST 11/04/2024 12:09 PM EST Odilia ROUSSEAU LAB BLOOD ORDERABLES Final Re sult [facility] [address] [place] [address], [place] [phone] from Last 3 Months or Most Recently Relevant to Health Maintenance Insurance [facility] Care Teams Shingle Grader Relationship Specialty Start Date End Date Renata Barnes PA [address] [place] [phone] PCP - General Physician Jewish History Professor 10/07/24
[2025-06-29 20:32] VITALS: BP 122/76; PULSE 104; RESP 20; TEMP 36.6; O2SAT 99
--- NOTE | 2025-06-30 | ECG_ITS ---
Test Reason : CHECK PROLONGED QT Blood Pressure : */* mmHG Vent. Rate : 75 BPM Atrial Rate : 75 BPM P-R Int : 182 ms QRS Dur : 106 ms QT Int : 398 ms P-R-T Axes : 17 3 50 degrees QTcB Int : 444 ms Normal sinus rhythm Nonspecific T wave abnormality Abnormal ECG When compared with ECG of 12-Dec-2024 15:21, Nonspecific T wave abnormality, improved in Lateral leads Referred By: Aaron Rogel Electronically Signed By: Paul Calle
[2025-06-30 06:26] VITALS: BP 107/57; PULSE 75; RESP 16; TEMP 36.7; O2SAT 98
[2025-06-30 07:29] VITALS: BP 133/74; PULSE 92; RESP 16; TEMP 36.4; O2SAT 95
--- NOTE | 2025-06-30 07:39 | PC.NURSE ---
Assumed care of patient at 0645, patient appears to be in no apparent distress this am, calm and cooperative, resting in common area, conversing with other patients. Continue plan of care for IPLOC
[2025-06-30] MEDS: Dextroamphetamine/Amphetamine XR 10 MG CAP.ER.24H 20 MG PO (08:19)
[2025-06-30] MEDS: Propranolol HCL LA 80 MG CAP.SA.24H PO (09:26)
--- NOTE | 2025-06-30 10:16 | MHC.EDTECH ---
This tech attempted to have patient shower and complete ADL's. Patient stated No, I don't want to shower or brush my teeth, I'll maybe do it tonight
--- NOTE | 2025-06-30 14:39 | PC.NURSE ---
Pt resting in room, coloring and working on math sheets at this time, no apparent distress is noted
[2025-06-30 14:58] VITALS: BP 166/91; PULSE 86; RESP 17; TEMP 36.2; O2SAT 98
[2025-06-30 16:42] VITALS: BP 139/82; PULSE 85; RESP 16; TEMP 36.2; O2SAT 99
--- NOTE | 2025-06-30 17:54 | PC.NURSE ---
Lit was admitted to M3 at 1645 from [facility] Pod on CV for treatment of mood disorder with SI.? Prior to admission pt reports poor sleep with nightmares and recent depressed mood as well as new onset SI with plan to cut his own throat with a knife. Lit is alert, fully oriented, calm and cooperative with admission assessment. Pt reports mood is depressed but affect is not congruent. He appears bright and in appropriate in his interactions on the unit. Thought Process is organized but pt is forgetful i.e. he could not remember his provider's names. This may be baseline due to intellectual disability. That's a question for my mom. I can't remember those things. However, pt is able to remember mom's 10 digit phone number. He denies ideation, plan or intent to harm self or others at present. Appetite is good with no recent weight loss or gain Sleep is poor with nightmares. Pt denies trauma history but has experienced 2 recent deaths in his family. Focus is good. He denies substance use history and tox screen was negative ( except for prescribed amphetamines) Medical Issues?include left knee acl/ mcl tear and pre-diabetes. Safety Checks are q 15 minutes.
[2025-06-30 18:19] VITALS: BMI 38.5
--- NOTE | 2025-06-30 19:56 | P.HPPS_ITS ---
HPI Date of Service: 06/30/25 Chief Complaint: SI Sources of Information: patient interviewed, chart reviewed and crisis/core team assessment reviewed HPI Subjective Notes: Fleming Warning and Conditional Voluntary Healthcare Proxy: No Guardianship: No Medical Problems Affecting Mental Status: No Narrative: Per care team note, patient is a 21 years old single black Guamanian speaking male who was transported by ambulance after expressing suicidal thought with stated plan to cut his throat with a knife. Precipitant: Unable to identify the triggers/precipitants for his suicidal ideation. To be honest I do not know . He does not know how long he has been feeling suicidal. He states reason for being here is basically I told my brother to call 911 SI making threats to kill myself . Reports this is his 2nd time in his life having suicidal thoughts. Denies suicide attempts. Denies substance use. Denies current legal issues. Reports history of aggressive to his brother, reported he was arrested related to the behavior outburst at home he was charged with property instruction and assault and battery on his brother a couple of months ago. Currently denies suicidal thoughts, denies self-harm thoughts, denies AVH. Mood is good, but feels depressed and anxious sometimes, having trouble staying asleep, and low energy. However good appetite. He he is aware that he is overweight and plan to eat healthier. He does not appear to be psychotic. Reports he sometimes forgets to take medications, sometimes in the morning when the bus arrives early to take him to the day program, he has not able to manage himself to take medication. Reports his brother managing his medication at home. He has poor knowledge about medications that he has been taking at home, only able to recall metformin for his prediabetic. He walks with a limping gait, reports pain on the left knee 2/10, could have history of ACL Goals: To work on my anger and take medication consistently. He would love to continue with his day program at [facility] in [place]. Reported that he is going to this facility 5 days a week. Per history: History of bipolar 1 disorder, ADHD, intermittently explosive disorder in adult. Past Psychiatric History: Multiple inpatient hospitalizations by history. >3 H[place] of living [place] [facility] [place], in [place]. He left in 2021 to return home Psychiatric prescriber: Xiomara Parrish in [place], at [phone] therapist: Júnior Reynolds WALKER Masters [phone] DDS worker: Frieda [phone] Denies hx of SIB or SA. PCP Dr. Carrillo [phone] SA: Denies hx Medical Evaluation Reviewed: Yes [facility] Medical History Superficial laceration of finger Intellectual disability Intermittent explosive disorder in adult Narrative: Dental surgery history Family History: Patient lives at home with parents, the older brother, there is a sister who independent living. Denies mental health illnesses in the family. Denies substance use in the family Social History: Pt currently lives with father, mother and brother. Pt used [facility] live [facility] [place] [facility] [place]. Single, no children. aspires to work with animals. Has 2 dogs/1cat and sometimes taking care of 2 dogs of his sister. Born in [place], raised in [place] by both parents. Pt is the second of three children. Older brother is his DIRECTOR [employer]. Graduated [employer] high school program Substance History: Denies. Reports socialize drinking sometimes with last drink was long time ago Trauma History: denies. However, reports that lost of his grandparents (3) seems emotionally traumatized to him. Does not like the Diagnostics Vital Signs (24Hr): Vital Signs - 24 hr 06/29/25 20:32 06/30/25 06:26 06/30/25 07:29 Temperature 97.8 F 98.0 F 97.6 F Pulse Rate 104 H 75 92 Respiratory Rate 20 16 16 Blood Pressure 122/76 107/57 L 133/74 Pulse Oximetry 99 98 95 Oxygen Delivery Method Room Air Room Air Room Air 06/30/25 14:58 06/30/25 16:42 Temperature 97.2 F 97.1 F Pulse Rate 86 85 Respiratory Rate 17 16 Blood Pressure 166/91 H 139/82 Pulse Oximetry 98 99 Oxygen Delivery Method Room Air Room Air BMI result Body Mass Index 38.5 Labs 06/29/25 14:26 06/29/25 14:26 Labs: Laboratory Results - last 48 hr 06/29/25 06/29/25 14:26 14:30 WBC 11.0 H RBC 5.35 Hgb 14.9 Hct 43.6 MCV 81.5 MCH 27.9 MCHC 34.2 RDW 13.2 Plt Count 257 MPV 9.3 L Immature Gran % (Auto) 0.6 H Neut % (Auto) 59.6 Lymph % (Auto) 28.6 [place] % (Auto) 5.4 Eos % (Auto) 5.1 H Baso % (Auto) 0.7 Lymph # (Auto) 3.2 [place] # (Auto) 0.6 Eos # (Auto) 0.6 H Baso # (Auto) 0.1 Abs Immat Gran (auto) 0.07 H Absolute Neuts (auto) 6.6 Absolute Nucleated RBC 0.000 Nucleated RBC % (auto) 0.0 Sodium 140 Potassium 4.3 Chloride 104 Carbon Dioxide 27 Anion Gap 13 BUN 16 Creatinine 0.95 Estim Creat Clear Calc 138.3 Estimated GFR > 60 Random Glucose 90 Calcium 10.7 H D Total Bilirubin 0.6 AST 52 H ALT 89 H Alkaline Phosphatase 85 Total Protein 7.7 Albumin 5.2 H Urine Color Yellow Urine Appearance Clear Urine pH 5.5 Ur Specific [place] 1.015 Urine Protein Trace Urine Glucose (UA) Negative Urine Ketones Negative Urine Blood Negative Urine Nitrite Negative Ur Leukocyte Esterase Trace H Urine RBC 0-2 Urine WBC 0-5 Ur Squamous Epith Cells 0-2 Urine Bacteria None Seen Hyaline Casts 3-5 Salicylates < 5.0 L Urine Opiates Screen Not Detected Ur Buprenorphine Scrn Not Detected Ur Oxycodone Screen Not Detected Urine Methadone Screen Not Detected Urine Fentanyl Screen Not Detected Acetaminophen < 3 Ur Barbiturates Screen Not Detected Ur Phencyclidine Scrn Not Detected Ur Amphetamines Screen POSITIVE H U Benzodiazepines Scrn Not Detected Urine Cocaine Screen Not Detected U Marijuana (THC) Screen Not Detected Ethyl Alcohol 10 Meds/Allergies Meds Home Medications ?Medication ?Instructions ?Recorded ?Confirmed ?Type cariprazine 6 mg capsule (Vraylar) 6 mg PO BEDTIME 10/1306/29/25 History dextroamphetamine-amphetamine ER 1 cap PO QAM 06/29/25 06/29/25 History 20 mg 24hr capsule,extend release (Adderall XR) Allergies Allergies Allergy/AdvReac Type Severity Reaction Status Date / Time aripiprazole (From Abilify) Allergy tremors Verified 06/29/25 14:24 divalproex sodium (From Allergy Agitated Verified 06/29/25 14:24 Depakote) risperidone (From Risperdal) Allergy Unknown Verified 06/29/25 14:24 Mental Status Exam Mental Status Exam Narrative: Patient is alert and oriented; behavior is cooperative, friendly with mild to moderate anxiety; patient is not in distress; dressed in hospital attire with kempt hair and with adequate hygiene; mood is described as good and affect congruent; eye contact appropriate; Speech is normal rate, volume and prosody and not pressured; no psychomotor agitation/retardation present; thought process is disorganized and goal directed; Thought content is WNL, future oriented, pertinent to relevant topics and without any delusional content, paranoid ideation or grandiosity; denies any SI/SIB/HI. Denies AH and there is no evidence of perceptual disturbance. Patient's insight and judgment poor. Appeared to have some delay in development.. 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 This is his 2nd time having suicidal thoughts. 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 Given the above information, patient would be safe in the restrictive environment to monitor for his safety, medication management/adjustment, and provide therapeutic environment. We will refer patient back to outpatient psychiatric services as aftercare. Hospital course: 06/30/25: Continue with all home medications. We will order x-ray on his left knee. We will check blood sugar twice a day for a couple of days. Monitor for liver functions which was elevated. We will also check lithium level, and basic lab work. Plan Patient on 15 minute checks for safety. Admitted to M3. CV. Work with treatment team to do collateral and refer patient to OP psychiatric services for aftercare. Will order xray on L knee- limping when ambulating. Patient educated on: diagnosis, medication risk/benefits and therapeutic strategies Informed Consent: understands and further education needed Reason for continued inpatient stay Substantial Risk for: med/psych decompensation Statement Statement: I have reviewed the history and physical and performed a pertinent examination on my patient. No changes have occurred unless specified. If the History and Physical was not performed prior to admission, the Hospitalist's service will be consulted for completing the admission physical. Time Spent With Patient Time: Total time managing care of this patient today ____ minutes.
[2025-06-30 20:00] VITALS: BP 164/92; PULSE 82; RESP 16; TEMP 36.4; O2SAT 98
[2025-06-30 20:28] LABS: Lithium 0.38 mmol/L (0.60-1.20)
[2025-06-30 20:37] LABS: Blood Urea Nitrogen 20 mg/dL (9-16); Creatinine Clr Calc Pharmacy 170.9; Estimated Glomerular Filt Rate > 60
[2025-06-30 21:16] LABS: Glucose, Whole Blood 121 mg/dL (60-115)
[2025-06-30 21:28] LABS: Free T4 (Free Thyroxine) 1.07 ng/dL (0.71-1.85)
[2025-07-01 07:39] VITALS: BP 103/56; PULSE 80; RESP 16; TEMP 36.7; O2SAT 97
[2025-07-01 08:20] LABS: Glucose, Whole Blood 164 mg/dL (60-115)
[2025-07-01] MEDS: Dextroamphetamine/Amphetamine XR 10 MG CAP.ER.24H 20 MG PO (08:30)
[2025-07-01] MEDS: Propranolol HCL LA 80 MG CAP.SA.24H PO (08:31)
[2025-07-01 09:11] LABS: Alanine Aminotransferase 81 U/L (0-40); Albumin Level 5.1 g/dL (3.5-5.0); Alkaline Phosphatase 85 U/L (39-117); Anion Gap 14 (12-20); Aspartate Amino Transferase 54 U/L (5-37); Blood Urea Nitrogen 16 mg/dL (9-16); Calcium 10.2 mg/dL (8.4-10.2); Carbon Dioxide 27 mmol/L (22-29); Chloride 104 mmol/L (96-108); Cholesterol 200 mg/dL (<200); Creatinine Clr Calc Pharmacy 192.7; Estimated Glomerular Filt Rate > 60; HDL Cholesterol 29 mg/dL (>40); Potassium 4.1 mmol/L (3.3-5.1); Sodium 141 mmol/L (135-145); Total Protein 7.8 g/dL (6.5-8.0); Triglycerides 463 mg/dL (<150)
--- NOTE | 2025-07-01 09:34 | HO.PSYCHPN ---
Subjective Subjective Date of Service: 07/01/25 Reason For Visit: SI Subjective Notes: Conditional Voluntary Interim History: Active on unit. social with peers. attending groups. medication compliant. Patient reports he is no longer feeling suicidal ; pt stated, I don't know what changed. I think meeting new people here helped . denies SI/HI/VH/AH. [place] level 0.38 on 06/30/25. Continue current tx plan. Medication Compliance: Yes Side effects from medications: No Attending Groups: Yes Mental Status Exam Mental Status Exam Narrative: Pt is alert and oriented; behavior is cooperative and calm; dressed in casual attire, malodorous; mood is described as fine ; eye contact appropriate; Speech is normal rate, volume and not pressured; thought process is organized; Thought content is on tx; denies SI/HI/VH/AH. Diagnostics Vital Signs (24Hr): Vital Signs - 24 hr 06/30/25 14:58 06/30/25 16:42 06/30/25 20:00 Temperature 97.2 F 97.1 F 97.6 F Pulse Rate 86 85 82 Respiratory Rate 17 16 16 Blood Pressure 166/91 H 139/82 164/92 H Pulse Oximetry 98 99 98 Oxygen Delivery Method Room Air Room Air Room Air 07/01/25 07:39 Temperature 98.0 F Pulse Rate 80 Respiratory Rate 16 Blood Pressure 103/56 L Pulse Oximetry 97 Oxygen Delivery Method Room Air BMI result Body Mass Index 38.5 Labs 06/29/25 14:26 07/01/25 08:18 Labs: Laboratory Results - last 48 hr 06/29/25 06/29/25 06/30/25 14:26 14:30 20:03 WBC 11.0 H RBC 5.35 Hgb 14.9 Hct 43.6 MCV 81.5 MCH 27.9 MCHC 34.2 RDW 13.2 Plt Count 257 MPV 9.3 L Immature Gran % (Auto) 0.6 H Neut % (Auto) 59.6 Lymph % (Auto) 28.6 [place] % (Auto) 5.4 Eos % (Auto) 5.1 H Baso % (Auto) 0.7 Lymph # (Auto) 3.2 [place] # (Auto) 0.6 Eos # (Auto) 0.6 H Baso # (Auto) 0.1 Abs Immat Gran (auto) 0.07 H Absolute Neuts (auto) 6.6 Absolute Nucleated RBC 0.000 Nucleated RBC % (auto) 0.0 Sodium 140 Potassium 4.3 Chloride 104 Carbon Dioxide 27 Anion Gap 13 BUN 16 20 H Creatinine 0.95 0.97 Estim Creat Clear Calc 138.3 170.9 Estimated GFR > 60 > 60 POC Glucose Random Glucose 90 Calcium 10.7 H D Total Bilirubin 0.6 AST 52 H ALT 89 H Alkaline Phosphatase 85 Total Protein 7.7 Albumin 5.2 H Triglycerides Cholesterol LDL Cholesterol, Calc HDL Cholesterol TSH 4.17 H Free T4 1.07 Urine Color Yellow Urine Appearance Clear Urine pH 5.5 Ur Specific [place] 1.015 Urine Protein Trace Urine Glucose (UA) Negative Urine Ketones Negative Urine Blood Negative Urine Nitrite Negative Ur Leukocyte Esterase Trace H Urine RBC 0-2 Urine WBC 0-5 Ur Squamous Epith Cells 0-2 Urine Bacteria None Seen Hyaline Casts 3-5 Salicylates < 5.0 L Urine Opiates Screen Not Detected Ur Buprenorphine Scrn Not Detected Ur Oxycodone Screen Not Detected Urine Methadone Screen Not Detected Urine Fentanyl Screen Not Detected Acetaminophen < 3 Ur Barbiturates Screen Not Detected Ur Phencyclidine Scrn Not Detected Ur Amphetamines Screen POSITIVE H U Benzodiazepines Scrn Not Detected [place] 0.38 L Urine Cocaine Screen Not Detected U Marijuana (THC) Screen Not Detected Ethyl Alcohol 10 06/30/25 07/01/25 07/01/25 21:11 08:14 08:18 WBC RBC Hgb Hct MCV MCH MCHC RDW Plt Count MPV Immature Gran % (Auto) Neut % (Auto) Lymph % (Auto) [place] % (Auto) Eos % (Auto) Baso % (Auto) Lymph # (Auto) [place] # (Auto) Eos # (Auto) Baso # (Auto) Abs Immat Gran (auto) Absolute Neuts (auto) Absolute Nucleated RBC Nucleated RBC % (auto) Sodium 141 Potassium 4.1 Chloride 104 Carbon Dioxide 27 Anion Gap 14 BUN 16 Creatinine 0.86 Estim Creat Clear Calc 192.7 Estimated GFR > 60 POC Glucose 121 H 164 H Random Glucose 154 H Calcium 10.2 Total Bilirubin 0.5 AST 54 H ALT 81 H Alkaline Phosphatase 85 Total Protein 7.8 Albumin 5.1 H Triglycerides 463 H Cholesterol 200 H LDL Cholesterol, Calc TNP HDL Cholesterol 29 L TSH Free T4 Urine Color Urine Appearance Urine pH Ur Specific [place] Urine Protein Urine Glucose (UA) Urine Ketones Urine Blood Urine Nitrite Ur Leukocyte Esterase Urine RBC Urine WBC Ur Squamous Epith Cells Urine Bacteria Hyaline Casts Salicylates Urine Opiates Screen Ur Buprenorphine Scrn Ur Oxycodone Screen Urine Methadone Screen Urine Fentanyl Screen Acetaminophen Ur Barbiturates Screen Ur Phencyclidine Scrn Ur Amphetamines Screen U Benzodiazepines Scrn [place] Urine Cocaine Screen U Marijuana (THC) Screen Ethyl Alcohol Medications Medications Current Medications Acetaminophen (Acetaminophen 325 Mg Tablet) 650 mg PO Q6H PRN PRN Reason: Headache/Pain, Scale 1-10 Al Hydroxide/Mg Hydroxide (Magnesium Hydrox/Alum Hydrox 30 Ml Oral.Susp) 30 ml PO Q6H PRN PRN Reason: Heartburn/Nausea Amphetamine/Dextroamphetamine (Dextroamphetamine/Amphetamine Xr 10 Mg Cap.Er.24h) 20 mg PO DAILY [facility] Last Admin: 07/01/25 08:30 Dose: 20 mg Cariprazine (Cariprazine Hcl 3 Mg Capsule) 6 mg PO BEDTIME LOLA Last Admin: 06/30/25 21:40 Dose: 6 mg Hydroxyzine HCl (Hydroxyzine Hcl 25 Mg Tablet) 25 mg PO Q6H PRN PRN Reason: mild anxiety [place] Carbonate ([place] Carbonate Er 450 Mg Tablet.Er) 1,350 mg PO BEDTIME [facility] Last Admin: 06/30/25 21:40 Dose: 1,350 mg Magnesium Hydroxide (Milk Of Magnesia 30 Ml Oral.Susp) 30 ml PO DAILY PRN PRN Reason: Constipation Melatonin (Melatonin 3 Mg Tablet) 6 mg PO BEDTIME PRN PRN Reason: Sleep Last Admin: 06/29/25 20:26 Dose: 6 mg Metformin HCl (Metformin Hcl 1,000 Mg Tablet) 1,000 mg PO BIDWM [facility] Last Admin: 07/01/25 08:31 Dose: 1,000 mg Naproxen (Naproxen 500 Mg Tablet) 500 mg PO BIDWM [facility] Last Admin: 07/01/25 08:30 Dose: 500 mg Nicotine Polacrilex (Nicotine Polacrilex 2 Mg Gum) 4 mg BUCCAL Q2H PRN PRN Reason: Nicotine Cravings Propranolol HCl (Propranolol Hcl La 80 Mg Cap.Sa.24h) 80 mg PO DAILY [facility]; Protocol Last Admin: 07/01/25 08:31 Dose: 80 mg Trazodone HCl (Trazodone Hcl 100 Mg Tablet) 100 mg PO BEDTIME [facility] Last Admin: 06/30/25 22:42 Dose: 100 mg Allergies Allergies Allergy/AdvReac Type Severity Reaction Status Date / Time aripiprazole (From Abilify) Allergy tremors Verified 06/29/25 14:24 divalproex sodium (From Allergy Agitated Verified 06/29/25 14:24 Depakote) risperidone (From Risperdal) Allergy Unknown Verified 06/29/25 14:24 Assessment & Plan Assessment & Plan (1) Bipolar 1 disorder: Status: Acute Code(s): F31.9 - Bipolar disorder, unspecified (2) Intermittent explosive disorder in adult: Status: Acute Code(s): F63.81 - Intermittent explosive disorder Plan patient is a 21 years old single black [place]er speaking male with past history of bipolar 1, 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 This is his 2nd time having suicidal thoughts. 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 Given the above information, patient would be safe in the restrictive environment to monitor for his safety, medication management/adjustment, and provide therapeutic environment. We will refer patient back to outpatient psychiatric services as aftercare. Plan: Patient on 15 minute checks for safety. Admitted to M3. CV. Work with treatment team to do collateral and refer patient to OP psychiatric services for aftercare. Will order xray on L knee- limping when ambulating. 06/30: Continue with all home medications. We will order x-ray on his left knee. We will check blood sugar twice a day for a couple of days. Monitor for liver functions which was elevated. We will also check lithium level, and basic lab work. 07/01: Active on unit. social with peers. attending groups. medication compliant. Patient reports he is no longer feeling suicidal ; pt stated, I don't know what changed. I think meeting new people here helped . denies SI/HI/VH/AH. [place] level 0.38 on 06/30/25. Continue current tx plan. Patient educated on: diagnosis and medication risk/benefits Reason for continued inpatient stay Substantial Risk for: med/psych decompensation Time Spent With Patient Time: Total time managing care of this patient today _20___ minutes.
[2025-07-01 11:28] LABS: Hemoglobin A1C 192.4096 umol/L; Total Hemoglobin (HGBA1C) 4879.3336 umol/L
[2025-07-01 16:54] LABS: Glucose, Whole Blood 83 mg/dL (60-115)
[2025-07-01 20:00] VITALS: BP 127/66; PULSE 65; RESP 16; TEMP 36.9; O2SAT 97
[2025-07-02 07:00] VITALS: BMI 38.7
[2025-07-02 07:40] VITALS: BP 116/59; PULSE 74; RESP 16; TEMP 36.5; O2SAT 98
[2025-07-02 07:43] LABS: Glucose, Whole Blood 140 mg/dL (60-115)
[2025-07-02 08:45] VITALS: BP 116/62; PULSE 100
[2025-07-02] MEDS: Propranolol HCL LA 80 MG CAP.SA.24H PO (08:48)
[2025-07-02] MEDS: Dextroamphetamine/Amphetamine XR 10 MG CAP.ER.24H 20 MG PO (08:48)
--- NOTE | 2025-07-02 09:01 | HO.PSYCHPN ---
Subjective Subjective Date of Service: 07/02/25 Reason For Visit: SI Subjective Notes: Conditional Voluntary Interim History: Active on unit. social with peers. attending groups. medication compliant. laughing and joking with peers. Patient reports feeling good and ready to go home ; denies any issues at this time. denies SI/HI/VH/AH. Patient reports he plans on being medication compliant and following up with his outpatient providers. Medication Compliance: Yes Side effects from medications: No Attending Groups: Yes Mental Status Exam Mental Status Exam Narrative: Pt is alert and oriented; behavior is cooperative and calm; dressed in casual attire, malodorous; mood is described as good ; eye contact appropriate; Speech is normal rate, volume and not pressured; thought process is organized; Thought content is on discharge; denies SI/HI/VH/AH. Diagnostics Vital Signs (24Hr): Vital Signs - 24 hr 07/01/25 20:00 07/02/25 07:40 Temperature 98.5 F 97.7 F Pulse Rate 65 74 Respiratory Rate 16 16 Blood Pressure 127/66 116/59 L Pulse Oximetry 97 98 Oxygen Delivery Method Room Air Room Air BMI result Body Mass Index 38.5 Labs 06/29/25 14:26 07/01/25 08:18 Labs: Laboratory Results - last 48 hr 06/30/25 06/30/25 07/01/25 20:03 21:11 08:14 Sodium Potassium Chloride Carbon Dioxide Anion Gap BUN 20 H Creatinine 0.97 Estim Creat Clear Calc 170.9 Estimated GFR > 60 POC Glucose 121 H 164 H Random Glucose Estimat Average Glucose Hemoglobin A1c % Calcium Total Bilirubin AST ALT Alkaline Phosphatase Total Protein Albumin Triglycerides Cholesterol LDL Cholesterol, Calc HDL Cholesterol TSH 4.17 H Free T4 1.07 [place] 0.38 L 07/01/25 07/01/25 07/02/25 08:18 16:49 07:40 Sodium 141 Potassium 4.1 Chloride 104 Carbon Dioxide 27 Anion Gap 14 BUN 16 Creatinine 0.86 Estim Creat Clear Calc 192.7 Estimated GFR > 60 POC Glucose 83 140 H Random Glucose 154 H Estimat Average Glucose 120 Hemoglobin A1c % 5.8 Calcium 10.2 Total Bilirubin 0.5 AST 54 H ALT 81 H Alkaline Phosphatase 85 Total Protein 7.8 Albumin 5.1 H Triglycerides 463 H Cholesterol 200 H LDL Cholesterol, Calc TNP HDL Cholesterol 29 L TSH Free T4 [place] Medications Medications Current Medications Acetaminophen (Acetaminophen 325 Mg Tablet) 650 mg PO Q6H PRN PRN Reason: Headache/Pain, Scale 1-10 Al Hydroxide/Mg Hydroxide (Magnesium Hydrox/Alum Hydrox 30 Ml Oral.Susp) 30 ml PO Q6H PRN PRN Reason: Heartburn/Nausea Amphetamine/Dextroamphetamine (Dextroamphetamine/Amphetamine Xr 10 Mg Cap.Er.24h) 20 mg PO DAILY [facility] Last Admin: 07/02/25 08:48 Dose: 20 mg Cariprazine (Cariprazine Hcl 3 Mg Capsule) 6 mg PO BEDTIME [facility] Last Admin: 07/01/25 20:25 Dose: 6 mg Hydroxyzine HCl (Hydroxyzine Hcl 25 Mg Tablet) 25 mg PO Q6H PRN PRN Reason: mild anxiety [place] Carbonate ([place] Carbonate Er 450 Mg Tablet.Er) 1,350 mg PO BEDTIME [facility] Last Admin: 07/01/25 20:24 Dose: 1,350 mg Magnesium Hydroxide (Milk Of Magnesia 30 Ml Oral.Susp) 30 ml PO DAILY PRN PRN Reason: Constipation Melatonin (Melatonin 3 Mg Tablet) 6 mg PO BEDTIME PRN PRN Reason: Sleep Last Admin: 06/29/25 20:26 Dose: 6 mg Metformin HCl (Metformin Hcl 1,000 Mg Tablet) 1,000 mg PO BIDWM [facility] Last Admin: 07/02/25 08:48 Dose: 1,000 mg Naproxen (Naproxen 500 Mg Tablet) 500 mg PO BIDWM [facility] Last Admin: 07/02/25 08:48 Dose: 500 mg Nicotine Polacrilex (Nicotine Polacrilex 2 Mg Gum) 4 mg BUCCAL Q2H PRN PRN Reason: Nicotine Cravings Propranolol HCl (Propranolol Hcl La 80 Mg Cap.Sa.24h) 80 mg PO DAILY [facility]; Protocol Last Admin: 07/02/25 08:48 Dose: 80 mg Trazodone HCl (Trazodone Hcl 100 Mg Tablet) 100 mg PO BEDTIME [facility] Last Admin: 07/01/25 21:30 Dose: 100 mg Allergies Allergies Allergy/AdvReac Type Severity Reaction Status Date / Time aripiprazole (From Abilify) Allergy tremors Verified 06/29/25 14:24 divalproex sodium (From Allergy Agitated Verified 06/29/25 14:24 Depakote) risperidone (From Risperdal) Allergy Unknown Verified 06/29/25 14:24 Assessment & Plan Assessment & Plan (1) Bipolar 1 disorder: Status: Acute Code(s): F31.9 - Bipolar disorder, unspecified (2) Intermittent explosive disorder in adult: Status: Acute Code(s): F63.81 - Intermittent explosive disorder Plan patient is a 21 years old single black Greek speaking male with past history of bipolar 1, 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 This is his 2nd time having suicidal thoughts. 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 Given the above information, patient would be safe in the restrictive environment to monitor for his safety, medication management/adjustment, and provide therapeutic environment. We will refer patient back to outpatient psychiatric services as aftercare. Plan: Patient on 15 minute checks for safety. Admitted to M3. CV. Work with treatment team to do collateral and refer patient to OP psychiatric services for aftercare. Will order xray on L knee- limping when ambulating. 06/30: Continue with all home medications. We will order x-ray on his left knee. We will check blood sugar twice a day for a couple of days. Monitor for liver functions which was elevated. We will also check lithium level, and basic lab work. 07/01: Active on unit. social with peers. attending groups. medication compliant. Patient reports he is no longer feeling suicidal ; pt stated, I don't know what changed. I think meeting new people here helped . denies SI/HI/VH/AH. [place] level 0.38 on 06/30/25. Continue current tx plan. 07/02: Active on unit. social with peers. attending groups. medication compliant. laughing and joking with peers. Patient reports feeling good and ready to go home ; denies any issues at this time. denies SI/HI/VH/AH. Patient reports he plans on being medication compliant and following up with his outpatient providers. Patient educated on: diagnosis and medication risk/benefits Reason for continued inpatient stay Substantial Risk for: stable for discharge Time Spent With Patient Time: Total time managing care of this patient today _20___ minutes.
[2025-07-02 11:57] LABS: Glucose, Whole Blood 101 mg/dL (60-115)
[2025-07-02 20:00] VITALS: BP 158/70; PULSE 76; RESP 18; TEMP 37.2; O2SAT 97
[2025-07-03 07:20] VITALS: BP 151/71; PULSE 75; RESP 18; TEMP 36.2; O2SAT 97
[2025-07-03 07:50] LABS: Glucose, Whole Blood 118 mg/dL (60-115)
[2025-07-03 08:54] VITALS: BP 139/78; PULSE 79
[2025-07-03] MEDS: Propranolol HCL LA 80 MG CAP.SA.24H PO (08:55)
[2025-07-03] MEDS: Dextroamphetamine/Amphetamine XR 10 MG CAP.ER.24H 20 MG PO (08:55)
--- NOTE | 2025-07-03 08:55 | P.PNPSI_ITS ---
Subjective Subjective Reason For Visit: SI Diagnostics Vital Signs (24Hr): Vital Signs - 24 hr 07/02/25 20:00 07/03/25 07:20 07/03/25 08:54 Temperature 98.9 F 97.1 F Pulse Rate 76 75 79 Respiratory Rate 18 18 Blood Pressure 158/70 H 151/71 H 139/78 Pulse Oximetry 97 97 Oxygen Delivery Method Room Air Room Air BMI result Body Mass Index 38.7 Labs 06/29/25 14:26 07/01/25 08:18 Labs: Laboratory Results - last 48 hr 07/01/25 07/01/25 07/02/25 08:18 16:49 07:40 Sodium 141 Potassium 4.1 Chloride 104 Carbon Dioxide 27 Anion Gap 14 BUN 16 Creatinine 0.86 Estim Creat Clear Calc 192.7 Estimated GFR > 60 POC Glucose 83 140 H Random Glucose 154 H Estimat Average Glucose 120 Hemoglobin A1c % 5.8 Calcium 10.2 Total Bilirubin 0.5 AST 54 H ALT 81 H Alkaline Phosphatase 85 Total Protein 7.8 Albumin 5.1 H Triglycerides 463 H Cholesterol 200 H LDL Cholesterol, Calc TNP HDL Cholesterol 29 L 07/02/25 07/03/25 11:53 07:46 Sodium Potassium Chloride Carbon Dioxide Anion Gap BUN Creatinine Estim Creat Clear Calc Estimated GFR POC Glucose 101 118 H Random Glucose Estimat Average Glucose Hemoglobin A1c % Calcium Total Bilirubin AST ALT Alkaline Phosphatase Total Protein Albumin Triglycerides Cholesterol LDL Cholesterol, Calc HDL Cholesterol Medications Medications Current Medications Acetaminophen (Acetaminophen 325 Mg Tablet) 650 mg PO Q6H PRN PRN Reason: Headache/Pain, Scale 1-10 Al Hydroxide/Mg Hydroxide (Magnesium Hydrox/Alum Hydrox 30 Ml Oral.Susp) 30 ml PO Q6H PRN PRN Reason: Heartburn/Nausea Amphetamine/Dextroamphetamine (Dextroamphetamine/Amphetamine Xr 10 Mg Cap.Er.24h) 20 mg PO DAILY [facility] Last Admin: 07/02/25 08:48 Dose: 20 mg Capsaicin (Capsaicin 0.025% Cream 60 Gm Tube) 1 appl TOPICAL TID PRN; Protocol PRN Reason: Left knee pain Cariprazine (Cariprazine Hcl 3 Mg Capsule) 6 mg PO BEDTIME [facility] Last Admin: 07/02/25 20:17 Dose: 6 mg Hydroxyzine HCl (Hydroxyzine Hcl 25 Mg Tablet) 25 mg PO Q6H PRN PRN Reason: mild anxiety [place] Carbonate ([place] Carbonate Er 450 Mg Tablet.Er) 1,350 mg PO BEDTIME [facility] Last Admin: 07/02/25 20:17 Dose: 1,350 mg Magnesium Hydroxide (Milk Of Magnesia 30 Ml Oral.Susp) 30 ml PO DAILY PRN PRN Reason: Constipation Melatonin (Melatonin 3 Mg Tablet) 6 mg PO BEDTIME PRN PRN Reason: Sleep Last Admin: 06/29/25 20:26 Dose: 6 mg Metformin HCl (Metformin Hcl 1,000 Mg Tablet) 1,000 mg PO BIDWM [facility] Last Admin: 07/02/25 16:41 Dose: 1,000 mg Naproxen (Naproxen 500 Mg Tablet) 500 mg PO BIDWM [facility] Last Admin: 07/02/25 16:41 Dose: 500 mg Nicotine Polacrilex (Nicotine Polacrilex 2 Mg Gum) 4 mg BUCCAL Q2H PRN PRN Reason: Nicotine Cravings Propranolol HCl (Propranolol Hcl La 80 Mg Cap.Sa.24h) 80 mg PO DAILY [facility]; Protocol Last Admin: 07/02/25 08:48 Dose: 80 mg Trazodone HCl (Trazodone Hcl 100 Mg Tablet) 100 mg PO BEDTIME [facility] Last Admin: 07/02/25 21:35 Dose: 100 mg Allergies Allergies Allergy/AdvReac Type Severity Reaction Status Date / Time aripiprazole (From Abilify) Allergy tremors Verified 06/29/25 14:24 divalproex sodium (From Allergy Agitated Verified 06/29/25 14:24 Depakote) risperidone (From Risperdal) Allergy Unknown Verified 06/29/25 14:24 Assessment & Plan Assessment & Plan (1) Bipolar 1 disorder: Status: Acute Code(s): F31.9 - Bipolar disorder, unspecified (2) Intermittent explosive disorder in adult: Status: Acute Code(s): F63.81 - Intermittent explosive disorder Plan patient is a 21 years old single black American speaking male with past history of bipolar 1, 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 This is his 2nd time having suicidal thoughts. 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 Given the above information, patient would be safe in the restrictive environment to monitor for his safety, medication management/adjustment, and provide therapeutic environment. We will refer patient back to outpatient psychiatric services as aftercare. Plan: Patient on 15 minute checks for safety. Admitted to M3. CV. Work with treatment team to do collateral and refer patient to OP psychiatric services for aftercare. Will order xray on L knee- limping when ambulating. 06/30: Continue with all home medications. We will order x-ray on his left knee. We will check blood sugar twice a day for a couple of days. Monitor for liver functions which was elevated. We will also check lithium level, and basic lab work. 07/01: Active on unit. social with peers. attending groups. medication compliant. Patient reports he is no longer feeling suicidal ; pt stated, I don't know what changed. I think meeting new people here helped . denies SI/HI/VH/AH. [place] level 0.38 on 06/30/25. Continue current tx plan. 07/02: Active on unit. social with peers. attending groups. medication compliant. laughing and joking with peers. Patient reports feeling good and ready to go home ; denies any issues at this time. denies SI/HI/VH/AH. Patient reports he plans on being medication compliant and following up with his outpatient providers. Time Spent With Patient Time: Total time managing care of this patient today ____ minutes.
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
== END 2025-07-03 10:40 | disposition home or self-care (01) | DRG 753 ==
LOC: HO.ED 17:16 → HO.PADLT16 06-30 16:13
PROVIDERS: Admitting Provider Registered Nurse; Emergency Provider Emergency Medicine; Responsible Provider Registered Nurse; Visit Provider Psychiatry & Neurology Psychiatry
DX: F31.9 Bipolar disorder, unspecified (principal); R45.851 Suicidal ideations; F63.81 Intermittent explosive disorder; Z79.84 Long term (current) use of oral hypoglycemic drugs; Z79.899 Other long term (current) drug therapy
CPT/HCPCS: 36415; 73564; 80053; 80061; 80143; 80178; 80179; 80307; 81001; 82565; 82947; 83036; 84439; 84443; 84520; 85025; 93005; 99285; S9485

== ENCOUNTER → 2025-06-30 08:36 | Outpatient (BNV) | payer OTHER, SELFPAY | PROVIDERS: Emergency Provider Emergency Medicine; Visit Provider Internal Medicine Cardiovascular Disease | DX: Z13.6 Encounter for screening for cardiovascular disorders (principal) | CPT/HCPCS: 93010 ==

== ENCOUNTER 2025-06-30 16:06 | Outpatient (BNV) | payer OTHER, SELFPAY | END 2025-06-30 20:01 | PROVIDERS: Admitting Provider Registered Nurse; Emergency Provider Emergency Medicine; Visit Provider Radiology Diagnostic Radiology | DX: M25.462 Effusion, left knee (principal) | CPT/HCPCS: 73564 ==

== ENCOUNTER → 2025-06-30 16:06 | Outpatient (BNV) | payer OTHER, SELFPAY | PROVIDERS: Admitting Provider Registered Nurse; Emergency Provider Emergency Medicine; Visit Provider Nurse Practitioner Psychiatric/Mental Health | DX: F31.4 Bipolar disorder, current episode depressed, severe, without psychotic features (principal); F63.81 Intermittent explosive disorder | CPT/HCPCS: 99231; 99238 ==

== ENCOUNTER 2025-08-13 17:58 | Inpatient (IN) | payer OTHER, SELFPAY ==
[2025-08-13 18:23] VITALS: BP 176/84; BP 190/96; PULSE 104; PULSE 84; RESP 16; TEMP 36.7; O2SAT 94; O2SAT 98; BMI 38.0
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
[2025-08-13 18:37] LABS: MANUAL DIFF FLAG NO
[2025-08-13 18:42] LABS: Hematocrit 42.3 % (42.0-52.0); Hemoglobin 14.1 g/dl (14.0-18.0); Imm Gran Abs Auto 0.08 X10*3/uL (0.00-0.03); Imm Gran Pct Auto 0.6 % (0.0-0.4); Lymphocytes Absolute Auto 3.7 X10*3/uL (1.2-4.9); Mean Corpuscular HGB Conc 33.3 g/dl (31.0-36.0); Mean Corpuscular Hemoglobin 27.8 pg (27.0-33.0); Mean Corpuscular Volume 83.4 fL (80.0-98.0); NRBC Abs Auto 0.000 X10*3/uL (0.0-0.012); NRBC Pct Auto 0.0 /100WBC (0.0-0.2); Platelet Count 229 X10*3/uL (160-400); Red Blood Count 5.07 X10*6/uL (4.60-5.80); White Blood Count 12.6 X10*3/uL (4.8-10.8)
[2025-08-13 18:45] LABS: Appearance Urine Clear; Glucose Urine UA Negative (Negative); PH 5.0 (5.0-9.0); Specific Gravity - Urine 1.020 (1.005-1.025); UMIC TRIGGER UACC YES
[2025-08-13 18:48] LABS: UACC Culture Trigger YES
[2025-08-13 18:49] LABS: Cannabinoid Screen Urine Not Detected (Not Detect)
[2025-08-13 18:58] LABS: Alanine Aminotransferase 77 U/L (0-40); Albumin Level 5.0 g/dL (3.5-5.0); Alkaline Phosphatase 82 U/L (39-117); Anion Gap 15 (12-20); Aspartate Amino Transferase 48 U/L (5-37); Blood Urea Nitrogen 17 mg/dL (9-16); Calcium 10.0 mg/dL (8.4-10.2); Carbon Dioxide 22 mmol/L (22-29); Chloride 110 mmol/L (96-108); Creatinine Clr Calc Pharmacy 152.9; Estimated Glomerular Filt Rate > 60; Potassium 3.8 mmol/L (3.3-5.1); Sodium 143 mmol/L (135-145); Total Protein 7.4 g/dL (6.5-8.0)
--- OUTSIDE RECORDS SUMMARY | 2025-08-13 20:06 | XMS_ITS | Encounter Summary ---
Author Organization [facility] Address [address] [place] [address] Phone Care Team Providers Care Land Survey Technician Name Role Phone Meagan Caraballo MD, JAVIER Primary Care Provider [phone] Pcp, Not Required Primary Care Provider Unavaila ble Encounter Details Date Type Department Care Team (Late st Contact Info) Description 07/17/2020 Transcribe Orders [facility] Specimen Processing [address] [place] [address] Bren Social History Tobacco Use Types Packs/Day Years [...] on filedocumented in this encounter Care Teams Land Survey Technician Relationship Specialty Start Date End Date Meagan Caraballo MD, JAVIER [address] [place] [address] PCP - General Internal Medicine 09/25/19 08/08/21 Pcp, Not Required [address] [place] [id number] PCP - General 08/09/21 documented as of this encounter Additional Source Comments The information contained in this document represents components of the legal health record. It is not the complete legal health record.[facility]
--- OUTSIDE RECORDS SUMMARY | 2025-08-13 20:06 | XMS_ITS | Encounter Summary ---
Author Organization [facility] Address [address] [place] [address] Phone Care Team Providers Care Mis Director Name Role Phone Pcp, Not Required Primary Care Provider Unavaila ble Encounter Details Date Type Department Care Team (Late st Contact Info) Description 04/09/2022 Procedure [facility] Emergency Department, [facility] [address] [place] [address] Social History Tobacco Use Types Packs/Day Years [...] on filedocumented in this encounter Care Teams Mis Director Relationship Specialty Start Date End Date Pcp, Not Required [address] [place] [id number] PCP - General 08/09/21 documented as of this encounter Additional Source Comments The information contained in this document represents components of the legal health record. It is not the complete legal health record.[facility]
--- OUTSIDE RECORDS SUMMARY | 2025-08-13 20:06 | XMS_ITS | Clinical Summary ---
Author Organization [facility] Address [address] [place] [address] Phone Care Team Providers Care Drive Tester Name Role Phone Pcp, Not Required Primary Care Provider Unavaila ble Allergies Active Allergy Reactions Criticality Noted Date Comments Risperdal (Risperidone) Other (See Comments) tremors Risperidone Rash,Other (See Comments),Unknown Low 11/29/2008 tremors tremors tremors Medications ARIPiprazole (ABILIFY) 30 MG tablet Take 30 mg by mouth nightly at bedtime. at bedtime. 12/06/2021 Active lithium carbonate 300 mg tablet Take 900 mg by mouth 2 (two) times a day. Active propranoloL (INDERAL LA) 80 mg 24 hr capsule 12/06/2021 Active guanFACINE (INTUNIV ER) 2 mg Tb24 ER tablet Take 2 mg by mouth daily. Active metFORMIN (GLUCOPHAGE) 1000 MG tablet Take 1,000 mg by mouth 2 (two) times a day with meals. 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 lithium, guanfacine, Abilify, cogentin, Inderal 05/07 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 ( multiple) lithium, guanfacien, Abilibrian, margo Parrish Left ACL tear 10/05/2021 Fatty liver 02/20/2021 Elevated BP without diagnosis of hypertension Hypertriglyceridemia 01/30/2020 Obesity 12/31/2019 Overview (12/13/2021): Overview: with fatty liver changes ( u/s 11/03) , fasting chol 216 and gluc 88 ( 2) ALT 52 ( nl to 44) 08/04 with fatty liver changes ( u/s 11/03) , fasting chol 216 and gluc 88 ( 2) ALT 52 ( nl to 44) 08/04 Type 2 diabetes mellitus wit hout complication, without long-term current use of insulin 12/31/2019 Acquired acanthosis nigricans 12/08/2010 Astigmatism 03/24/2009 Overview (01/09/2015): Astigmatism Attention deficit hyperactivity disorder (ADHD) 01/20/2008 Family History Medical History Relation Comments Type 2 Diabetes Maternal Grandmother diabetes me llitus type 2 Relation Status Comments Maternal Grandmother Social History Tobacco Use Types Packs/Day Years Used Date Smoking Tobacco: Never Education Answer Date Recorded Are you interested in more education? Not on vesta e 03/15/2023 Are you concerned about learning? Not on file 03/15/2023 No 03/15/2023 No 03/15/2023 Digital Access Answer Date Recorded No 04/16/2023 No 04/16/2023 No 04/16/2023 Reliable internet access at home? Not on file 04/16/2023 Device with a working camera? Not on file Sex and Gender Information Value Date Recorded Sex Assigned at Not on file Legal Sex Male 7:20 PM EST Gender Identity Not on file Sexual Orientation Not on file Last Filed Vital Signs Vital Sign Reading Time Taken Comments Blood Pressure 161/89 04/10/2022 12:42 AM EDT Pulse 92 04/10/2022 12:42 AM EDT Temperature 36.3 C (97.4 F) 04/10/2022 12:32 AM EDT Respiratory Rate 16 04/10/2022 12:32 AM EDT Oxygen Saturation 98% 04/10/2022 12:42 AM EDT Inhaled Oxygen Concentration - - Weight 104.3 kg (230 lb) 04/10/2022 12:32 AM EDT Height 190.5 cm (6' 3 ) 08/09/2021 9:16 PM EDT Body Mass Index 28.75 08/09/2021 9:16 PM EDT Plan of Treatment Health Maintenance Due Date Last Done Comments BLOOD PRESSURE 1996 DEPRESSION SCREENING 2008 HEPATITIS C SCREENING 2014 HIV ONE-TIME SCREENING (18-6 5 YEARS) 2014 PNEUMOCOCCAL VACCINES (0-49 years) (1 of 2 - PCV) 2015 HEMOGLOBIN A1C 08/20/2021 02/18/2021, 08/20, 07/16/2020, Additional history exists TSH LEVEL 09/14/2021 09/14/2020, 06/20, 07/16/2020, Additional history exists DIABETIC EYE EXAM 12/13/2021 URINE MICROALBUMIN/CREATININ E RATIO 12/13/2021 LIPID PANEL 02/18/2022 02/18/2021, 08/20, 07/16/2020, Additional history exists SMOKING STATUS SCREENING (On ce After 26 Yrs) 2022 CREATININE LEVEL 02/15/2023 02/15/2022, , 07/16/2020, Additional history exists LITHIUM LEVEL 02/15/2023 02/15/2022, 11/20, 07/16/2020, Additional history exists INFLUENZA VACCINE (#1) 2025 8, 08/21/2016, 09/22/2014 COVID-19 VACCINE (2 - 2024-2 6 season) 2025 08/23/2021 Adult Td,Tdap Booster 03/26/2030 03/26/2020 , 05/21/2014, 09/29/2007 HIB VACCINES Completed 03/02/1998, 07/21, 03/30/1997, Additional history exists MENINGOCOCCAL VACCINES (ACWY) Completed 06/25/2014, 09/24/2008 HEPATITIS A VACCINES Completed 08/21/2016, 07/14/20 15 MENINGOCOCCAL VACCINES (B) Completed 12/12/2017, Medical Devices Not on file Procedures Procedure Name Priority Date/Time Associated Diagnosis Comments LITHIUM LEVEL STAT 02/15/2022 9:44 AM EDT BASIC METABOLIC PANEL STAT 02/15/2022 9:44 AM EDT HEMOGLOBIN A1C Routine 07/16/2020 10:23 AM EDT LIPID PANEL Routine 07/16/2020 10:23 AM EDT TSH Routine 07/16/2020 10:23 AM EDT from Last 3 Months or Most Recently Relevant to Health Maintenance Results * [place] level (02/15/2022 9:44 AM EDT) LITHIUM 1.14 0.50 - 1.20 mmol/L [facility] Blood 02/15/2022 9:44 AM EDT 02/15/2022 9:59 AM EDT us Aldo Kulkarni MD LAB BLOOD ORDERABLES Final Result Performing Organization Address City/State/[facility] Co de Phone Number [facility] [address] [place] [address] * (ABNORMAL) Basic metabolic panel (02/15/2022 9:44 AM EDT) SODIUM 143 136 - 145 mmol/L [facility] CHLORIDE 106 95 - 106 mmol/L [facility] POTASSIUM 4.2 3.5 - 5.2 mmol/L [facility] CO2 26 20 - 31 mmol/L [facility] BUN 12 9 - 23 mg/dL [facility] CREATININE 0.92 0.50 - 1.30 mg/dL [facility] GLUCOSE 111(H) 74 - 106 mg/dL [facility] CALCIUM 10.5(H) 8.7 - 10.4 mg/dL [facility] EGFR 118 >60 mL/min/1.7 3m2 [facility] Comment:Estimated glomerular filtration rate calculated using the CKD-EPI refit equation. ANION GAP 11 3 - 17 mmol/L [facility] Blood 02/15/2022 9:44 AM EDT 02/15/2022 9:59 AM EDT us Aldo Kulkarni MD LAB BLOOD ORDERABLES Final Result [facility] [address] [place] [address] * TSH (07/16/2020 10:23 AM EDT) TSH 3.16 0.34 - 5.00 uIU/mL [facility] 07/16/2020 10:2 3 AM EDT 07/16/2020 1:10 PM EDT us Xiomara Parrish NP LAB BLOOD ORDERABLES Edited R [facility] - Final Performing Organization Address [facility] Co de Phone Number [address] [phone] * Hemoglobin A1c (07/16/2020 10:23 AM EDT) HEMOGLOBIN A1C 4.4 4.2 - 5.6 % [facility] Comment:Hemoglobin A1c value s between 5.7 and 6.4% indicate an increased risk for diabetes.Values of 6.5% or greater are diagnostic of diabetes CALC MEAN BLD GLUC 80 mg/dL [facility] 07/16/2020 10:2 3 AM EDT 07/16/2020 1:10 PM EDT us Xiomara Parrish NP LAB BLOOD ORDERABLES Edited R ult - Final Performing Organization Address City/[facility]/ZIP Co de Phone Number [address] [phone] * (ABNORMAL) Lipid panel (07/16/2020 10:23 AM EDT) HDL 29(L) >39 mg/dL [facility] CHOLESTEROL 158 0 - 200 mg/dL [facility] TRIGLYCERIDES 312(H) 0 - 150 mg/dL [facility] LDL 67 40 - 130 mg/dL [facility] CARDIAC RISK RATIO 5.4(H) <5 N [facility] NON-HDL CHOLESTEROL 129 mg/dL [facility] Comment:Reference Range: The non-HDL Cholesterol value should not exceed the desired LDL-C by more than 30 mg/dl. 07/16/2020 10:2 3 AM EDT 07/16/2020 1:10 PM EDT us Xiomara Parrish NP LAB BLOOD ORDERABLES Edited R esult - Final [place] [id number], [facility] [phone] from Last 3 Months or Most Recently Relevant to Health Maintenance Insurance [employer] [facility] new [facility] [employer] [facility] new test [facility] [employer] Care Teams Drive Tester Relationship Specialty Start Date End Date Pcp, Not Required [address] [place] [id number] PCP - General 08/09/21 Additional Source Comments The information contained in this document represents components of the legal health record. It is not the complete legal health record.[facility]
--- OUTSIDE RECORDS SUMMARY | 2025-08-13 20:06 | XMS_ITS | Encounter Summary ---
Author Organization [facility] Address [address] [place] [address] Phone Care Team Providers Care Elementary School Teacher'S Aide Name Role Phone Pcp, Not Required Primary Care Provider Unavaila ble Encounter Details Date Type Department Care Team (Late st Contact Info) Description 04/09/2022 Procedure [facility] Emergency Department, [facility] [address] [place] [address] Social History Tobacco Use Types Packs/Day Years [...] on filedocumented in this encounter Care Teams Elementary [employer] Teacher'S Aide Relationship Specialty Start Date End Date Pcp, Not Required [address] [place] [id number] PCP - General 08/09/21 documented as of this encounter Additional Source Comments The information contained in this document represents components of the legal health record. It is not the complete legal health record.[facility]
--- OUTSIDE RECORDS SUMMARY | 2025-08-13 20:06 | XMS_ITS | Clinical Summary ---
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 Procedure Name Priority Date/Time Associated Diagnosis Comments GLUCOSE, FASTING Routine 01/18/2011 12:2 2 PM EST LIPID PANEL Routine 01/17/2011 11:01 AM EST from Last 3 Months or Most Recently Relevant to Health Maintenance Results * Due to [employer] law, this organization might not be sharing sensitive test results. * Glucose, fasting (01/18/2011 12:22 PM EST) BLOOD GLUCOSE, FINGER STICK (CONV) 88.0 70.0 - 110.0 [facility] 01/18/2011 12:2 2 PM EST us Historical Unknown LAB BLOOD ORDERABLES Final Re sult [facility] [address] [place] [address], * (ABNORMAL) Lipid panel (01/17/2011 11:01 AM EST) Cholesterol, Total(Conversion ) 216.0(H) 80.0 - 170.0 mg/dL [facility] HDL CHOLESTEROL, SERUM (CONV) 37.0 35.0 - 85.0 mg/dL [facility] CHOLESTEROL/HDL RATIO, SERUM, PERCENT (CONV) 5.8(H) 0.0 - 5.0 [facility] TRIGLYCERIDE, SERUM, FASTING (CONV) 194.0 30.0 - 200.0 mg/dL [facility] LDL CHOLESTEROL, SERUM (CONV) 140.0(H) 65.0 - 110.0 mg/dL [facility] VERY LOW DENSITY LIPOPROTEINS (CONV) 39.0 0.0 - 40.0 mg/dL [facility] 01/17/2011 11:0 1 AM EST us Historical Unknown LAB BLOOD ORDERABLES Final Re sult [facility] [address] [place] [address], [place] from Last 3 Months or Most Recently Relevant to Health Maintenance
--- OUTSIDE RECORDS SUMMARY | 2025-08-13 20:06 | XMS_ITS | Encounter Summary ---
Author Organization [facility] Address [address] [place] [id number] Phone Care Team Providers Care Roll Inspector Name Role Phone Joe Rubin MD Primary Care Provider [phone] Encounter Details Date Type Department Care Team (Late st Contact Info) Description 09/22/2016 [facility] - [address] [address] Social History Tobacco Use Types [...] Rubin MD - 09/22/2016 12:00 AM EDT [facility] Aftercare Plan and Discharge Imported By: Zenaida Wyatt 10/02/2016 11:33:32 AM External Attachment: Type: Image Comment: External Document documented in this encounter Plan of Treatment Not on file documented as of this encounter Visit Diagnoses Not on filedocumented in this encounter Care Teams Roll Inspector Relationship Specialty Start Date End Date Joe Rubin MD [address] [address] PCP - General 01/08/17 11/24/19 documented as of this encounter
--- NOTE | 2025-08-13 20:45 | ECG_ITS ---
Test Reason : CLEARANCE Blood Pressure : */* mmHG Vent. Rate : 70 BPM Atrial Rate : 70 BPM P-R Int : 174 ms QRS Dur : 104 ms QT Int : 402 ms P-R-T Axes : 12 -5 54 degrees QTcB Int : 434 ms Normal sinus rhythm Nonspecific T wave abnormality Abnormal ECG When compared with ECG of 30-Jun-2025 08:36, No significant change was found Referred By: Generic ED Physician Electronically Signed By: Paul Calle
--- NOTE | 2025-08-13 20:45 | PC.NURSE ---
Assumed care of this patient at 19:00. Patient is calm, cooperative, watching TV at this time, no sx of distress noted.
--- NOTE | 2025-08-13 22:38 | ED.PSYCH ---
HPI - Psych General Chief Complaint: Psychiatric Symptoms Stated Complaint: [email or web address] prediabetic kneepain Time Seen by Provider: 08/13/25 21:11 Source: patient and EMS Mode of arrival: EMS Limitations: no limitations History of Present Illness ED Provider: Dr. Criselda Ward HPI Narrative: Patient comes to the emergency room via ambulance. Patient arrived on a Section 12. According to EMS, patient had an argument with his brother about some food choices. Patient admits that he has unable to control his emotions and he can not become physically violent or very angry. Patient states that he does not feel safe at home. Patient states that he takes medications, but frequently forgets to take them. At this time, patient denies SI or HI. At this time, patient states that he feels well, tired, denies feeling upset. Related Data Home Medications ?Medication ?Instructions ?Recorded ?Confirmed cariprazine 6 mg capsule (Vraylar) 6 mg PO BEDTIME 06/29/25 06/29/25 dextroamphetamine-amphetamine ER 1 cap PO QAM 06/29/25 06/29/25 20 mg 24hr capsule,extend release (Adderall XR) Previous Rx's ?Medication ?Instructions ?Recorded metformin 1,000 mg tablet 1,000 mg PO BIDWM #180 tabs 09/18/24 lithium carbonate 450 mg 1,350 mg (3 x 450 mg) PO BEDTIME 12/23/24 tablet,extended release 30 days #90 tabs melatonin 3 mg capsule 6 mg (2 x 3 mg) PO BEDTIME PRN 12/23/24 sleep 30 days #60 caps propranolol 80 mg capsule,24 80 mg PO DAILY 30 days #30 caps 12/23/24 hr,extended release trazodone 100 mg tablet 100 mg PO BEDTIME 30 days #30 tabs 12/23/24 meloxicam 15 mg tablet 15 mg PO DAILY #90 tabs 06/22/25 Allergies Allergy/AdvReac Type Severity Reaction Status Date / Time aripiprazole (From Abilify) Allergy tremors Verified 08/13/25 18:25 divalproex sodium (From Allergy Agitated Verified 08/13/25 18:25 Depakote) risperidone (From Risperdal) Allergy Unknown Verified 08/13/25 18:25 Review of Systems Review of Systems: Constitutional : No Weight loss, No Fever, No Chills, No Night Sweats, No Fatigue, No Malaise ENT/Mouth : No Hearing loss, No Ear Pain, No Nasal Congestion, No Sinus Pain, No Hoarseness, No sore throat, No Rhinorrhea, No Swallowing Difficulty Eyes: No Eye Pain, No Swelling, No Redness, No Foreign Body, No Discharge, No Vision Changes Cardiovascular : No Chest Pain, No SOB, No Dyspnea on Exertion, No Orthopnea, No Edema, No Palpitations Respiratory : No Cough, No Sputum, No Wheezing, No Smoke Exposure, No Dyspnea Gastrointestinal : No Nausea, No Vomiting, No Diarrhea, No Constipation, No abdominal Pain, No Hematochezia, No Melena Genitourinary : no irregular bleeding, No Dysuria, No Urinary Frequency, No Hematuria, No Urinary Incontinence, No Urgency, No Flank Pain, No Urinary Flow Changes, No Hesitancy Musculoskeletal : No joint pain, No Myalgias, No Joint Swelling Skin : No Skin Lesions, No rash Neuro : No Weakness, No Numbness, No Paresthesias, No Loss of Consciousness, No Dizziness, No Headache Psych : Denies SI or HI, denies feeling anxious or depressed. Patient admits that he has trouble controlling his emotions and can have outburst of anger Heme/Lymph: No Bruising, No Bleeding,No Lymphadenopathy Endocrine : No Polyuria, No Polydipsia, No Temperature Intolerance PMFSH Past Medical History Medical History Superficial laceration of finger Intellectual disability Intermittent explosive disorder in adult Social History Social History Household Members: Family Housing: House Do you presently have visiting nurse or other home services: No Alcohol intake: current Alcohol intake frequency: holidays/special occasions only Alcohol type: wine Patient Tobacco Use Status: Never used Tobacco Smoked in Last 30 Days: No e-Cigarette/Vaping Use: Never Used Second Hand Smoke Exposure: No Use of substances other than those prescribed or required for medical reasons: No Advance Directives: No Advance Directives Information Provided: Yes service: No Current occupational status: unemployed Sexual orientation: Unable to collect Cognitive needs: Yes Hearing needs: No Vision needs: No Physical Exam Exam: Exam: Appearance: Alert. Oriented X3. No acute distress. Coherent, does not seem to be intoxicated or under the influence of drugs Eyes: Pupils equal, round and reactive to light. ENT: Pharynx normal. Neck: Normal inspection. Neck supple. No lymph nodes noted. No crepitus CVS: Normal heart rate and rhythm. Pulses normal. Normal S1 and S2 Respiratory: No respiratory distress. Breath sounds normal. No Wheezing. No rales Abdomen: Soft and nontender. No rigidity. No distention. Skin: Skin warm and dry. Normal skin color. Normal skin turgor. Extremities: No lower extremity edema. No Lacerations. No Rash Neuro: Oriented X 3. No motor deficit. No sensory deficit. Moving all extremities. No slurred speech. CN 2 through 12 grossly intact Psych: calm, cooperative, Vital Signs: Vital Signs: Last Vital Signs Temp 98.0 F 08/13/25 18:23 Pulse 84 08/13/25 18:23 Resp 16 08/13/25 18:23 BP 176/84 H 08/13/25 18:23 Pulse Ox 94 08/13/25 18:23 O2 Del Method Room Air 08/13/25 18:23 BMI result Body Mass Index 38.0 Course Course Course Narrative: Patient came to the emergency room via ambulance on a Section 12 Seems that he had an argument with family/brother over something vlad such as food choices, patient had an anger outburst Medical Decision Making Medical Decision Making MDM Narrative: My interpretation of labs: Patient's white blood cell count 12.6. Patient denies any URI or UTI symptoms, denies any recent illnesses. Patient's electrolytes within normal limits, no significant abnormality. AST and ALT slightly elevated at baseline Patient's urinalysis shows protein, leukocyte esterase, WBCs. Patient's urine looks very similar to the urine of September of 2024, microbiology report: No bacterial growth. Urine toxicology positive for amphetamines, negative for ETOH I reviewed patient's previous admissions. Patient was discharged over a month ago on 07/03/2025 from the in-patient unit. Patient was treated for bipolar disorder, intermittent explosive disorder In September, patient's medications that worsens the pharmacy: Bipolar, Adderall, lithium Patient came on a Section 12. The care team evaluated the patient, recommendations: Inpatient level of care, patient to be admitted tonight Pending labs: [place], lipid panel TSH with reflex free T4 Differential Diagnosis Differential Diagnoses: The differential diagnosis associated with the presentation includes Admission/Observation Consideration of admission/observation: Escalation of care including admission/observation considered (Patient will need inpatient level of care) Consult Healthcare Provider Management of the patient was discussed with: Behavioral Health Provider Lab Data [facility] Lab Attestation statement: I reviewed the patient's lab results. 08/13/25 18:31 08/13/25 18:31 Labs: Lab Results 08/13/25 Range/Units 18:31 WBC 12.6 H (4.8-10.8) X10*3/uL RBC 5.07 (4.60-5.80) X10*6/uL Hgb 14.1 (14.0-18.0) g/dl Hct 42.3 (42.0-52.0) % MCV 83.4 (80.0-98.0) fL MCH 27.8 (27.0-33.0) pg MCHC 33.3 (31.0-36.0) g/dl RDW 13.4 (11.0-16.0) % Plt Count 229 (160-400) X10*3/uL MPV 9.7 (9.4-12.4) fL Immature Gran % (Auto) 0.6 H (0.0-0.4) % Neut % (Auto) 61.4 (45-73) % Lymph % (Auto) 29.0 (20-40) % [place] % (Auto) 4.9 (2-11) % Eos % (Auto) 3.5 (0-4) % Baso % (Auto) 0.6 (0-2) % Lymph # (Auto) 3.7 (1.2-4.9) X10*3/uL [place] # (Auto) 0.6 (0.1-1.2) X10*3/uL Eos # (Auto) 0.4 (0.0-0.4) X10*3/uL Baso # (Auto) 0.1 (0.0-0.2) X10*3/uL Abs Immat Gran (auto) 0.08 H (0.00-0.03) X10*3/uL Absolute Neuts (auto) 7.8 (2.0-8.3) x10*3/uL Absolute Nucleated RBC 0.000 (0.0-0.012) X10*3/uL Nucleated RBC % (auto) 0.0 (0.0-0.2) /100WBC Sodium 143 (135-145) mmol/L Potassium 3.8 (3.3-5.1) mmol/L Chloride 110 H (96-108) mmol/L Carbon Dioxide 22 (22-29) mmol/L Anion Gap 15 (12-20) BUN 17 H (9-16) mg/dL Creatinine 0.99 (0.5-1.4) mg/dL Estim Creat Clear Calc 152.9 Estimated GFR > 60 Random Glucose 122 H (60-115) mg/dL Calcium 10.0 (8.4-10.2) mg/dL Total Bilirubin 0.3 (0.0-1.0) mg/dL AST 48 H (5-37) U/L ALT 77 H (0-40) U/L Alkaline Phosphatase 82 (39-117) U/L Total Protein 7.4 (6.5-8.0) g/dL Albumin 5.0 (3.5-5.0) g/dL Urine Color Yellow Urine Appearance Clear Urine pH 5.0 (5.0-9.0) Ur Specific [place] 1.020 (1.005-1.025) Urine Protein 30 (1+) H (Neg-Trace) mg/dL Urine Glucose (UA) Negative (Negative) mg/dL Urine Ketones Negative (Negative) mg/dL Urine Blood Negative (Negative) Urine Nitrite Negative (Negative) Ur Leukocyte Esterase Trace H (Negative) Urine RBC 0-2 (0-2) /HPF Urine WBC 6-10 H (0-5) /HPF Ur Squamous Epith Cells 0-2 (0-2) /HPF Urine Bacteria None Seen (None Seen) Hyaline Casts 3-5 (0-2) /LPF Urine Opiates Screen Not Detected (Not Detect) Ur Buprenorphine Scrn Not Detected (Not Detect) ng/mL Ur Oxycodone Screen Not Detected (Not Detect) ng/mL Urine Methadone Screen Not Detected (Not Detect) ng/mL Urine Fentanyl Screen Not Detected (Not Detect) Ur Barbiturates Screen Not Detected (Not Detect) Ur Phencyclidine Scrn Not Detected (Not Detect) Ur Amphetamines Screen POSITIVE H (Not Detect) U Benzodiazepines Scrn Not Detected (Not Detect) Urine Cocaine Screen Not Detected (Not Detect) U Marijuana (THC) Screen Not Detected (Not Detect) Ethyl Alcohol < 10 mg/dL Independent Historian Clinical information obtained from an independent historian. History obtained from or confirmed by: Other (Patient's nurse) External Record Review External record reviewed: Inpatient record Critical Care Time Critical Care Time Critical Care Time: Yes Total Critical Care Time: 35 Attestation: I have personally provided critical care time. Time includes review of lab data, radiology results, discussion with consultants, and monitoring for potential decompensation. Intervention performed as documented. Discharge Plan Discharge Clinical Impression: Intermittent explosive disorder in adult Patient Disposition: Admitted As Inpatient Interventions: [place]-Suicide Risk Severity Scale Last Done: 08/13/25 18:28
--- NOTE | 2025-08-13 23:55 | PC.NURSE ---
Patient transported to [facility].
[2025-08-14 01:32] VITALS: BP 133/80; PULSE 79; RESP 17; TEMP 36.7; O2SAT 97
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
[2025-08-14 05:23] VITALS: BMI 42.0
[2025-08-14 07:34] VITALS: BP 136/62; PULSE 82; RESP 16; TEMP 36.4; O2SAT 96
--- NOTE | 2025-08-14 08:15 | HO.PM.IMCN ---
History of Present Illness Data of Consult Service Date: 08/14/25 Primary Care Provider: Unknown Physician HPI Reason for consult: Medical consultation 29-year-old male with a past medical history of bipolar disorder intellectual disability and intermittent explosive disorder as well as an old ACL injury that was not surgically repaired. He presented to the ED via EMS after an argument with his brother about food choices. He reported that he did not feel safe at home and had not been taking his medications. Patient with mild leukocytosis on workup, no evidence of infection or recent illness. Electrolytes within normal limits. AST and ALT slightly elevated at baseline. Patient urinalysis cultures pending. Urine toxicology positive for amphetamines, negative for ETOH. On exam he has a significant gait disturbance. He otherwise feels well, denies any shortness of breath, dizziness lightheadedness dysuria headache or any other concerning symptoms. He does report that his knee is very painful at times and feel like it is going to give out . Denies any recent falls. Review of Systems Review of Systems: Denies any shortness of breath, chest pain, dizziness, lightheadedness, abdominal pain or discomfort, nausea vomiting or diarrhea. + left knee pain. [facility] Medical History Superficial laceration of finger Intellectual disability Intermittent explosive disorder in adult Social History Household Members: Family Housing: House Do you presently have visiting nurse or other home services: No Alcohol intake: current Alcohol intake frequency: holidays/special occasions only Alcohol type: wine Patient Tobacco Use Status: Never used Tobacco Smoked in Last 30 Days: No e-Cigarette/Vaping Use: Never Used Second Hand Smoke Exposure: No Use of substances other than those prescribed or required for medical reasons: No Currently Displaying Signs/Symptoms of Drug Intoxication Withdrawal: No Advance Directives: No Advance Directives Information Provided: Yes Do you have thoughts of harming others: None Do you have a plan to hurt others: No Plan service: No Current occupational status: unemployed Sexual orientation: Unable to collect Cognitive needs: Yes Hearing needs: No Vision needs: No Meds Allergies Allergy/AdvReac Type Severity Reaction Status Date / Time aripiprazole (From Abilify) Allergy tremors Verified 08/13/25 18:25 divalproex sodium (From Allergy Agitated Verified 08/13/25 18:25 Depakote) risperidone (From Risperdal) Allergy Unknown Verified 08/13/25 18:25 Active Medications: Current Medications Acetaminophen (Acetaminophen 325 Mg Tablet) 650 mg PO Q6H PRN PRN Reason: Headache/Pain, Scale 1-10 Last Admin: 08/14/25 01:07 Dose: 650 mg Al Hydroxide/Mg Hydroxide (Magnesium Hydrox/Alum Hydrox 30 Ml Oral.Susp) 30 ml PO Q6H PRN PRN Reason: Heartburn/Nausea Cariprazine (Cariprazine Hcl 3 Mg Capsule) 6 mg PO BEDTIME LOLA Last Admin: 08/13/25 22:39 Dose: 6 mg Hydroxyzine HCl (Hydroxyzine Hcl 25 Mg Tablet) 25 mg PO Q6H PRN PRN Reason: mild anxiety Magnesium Hydroxide (Milk Of Magnesia 30 Ml Oral.Susp) 30 ml PO DAILY PRN PRN Reason: Constipation Nicotine (Nicotine 21 Mg Patch.Td24) 21 mg TRANSDERMA DAILY PRN PRN Reason: smoking cessation Nicotine Polacrilex (Nicotine Polacrilex 2 Mg Gum) 4 mg BUCCAL Q2H PRN PRN Reason: Nicotine Cravings Olanzapine (Olanzapine 5 Mg Tablet) 5 mg PO TID PRN PRN Reason: agitation Trazodone HCl (Trazodone Hcl 50 Mg Tablet) 50 mg PO BEDTIME MRX1 PRN PRN Reason: Insomnia Home Medications ?Medication ?Instructions ?Recorded ?Confirmed ?Last Taken ?Type cariprazine 6 mg capsule (Vraylar) 6 mg PO BEDTIME 08/14/25 08/14/25 Unknown History dextroamphetamine-amphetamine ER 1 cap PO QAM 08/14/25 08/14/25 Unknown History 20 mg 24hr capsule,extend release (Adderall XR) lithium carbonate 450 mg 1,350 mg PO BEDTIME depressive 08/14/25 08/14/25 Unknown History tablet,extended release disorder melatonin 3 mg tablet 3 - 6 mg PO BEDTIME PRN Sleep 08/14/25 08/14/25 Unknown History meloxicam 15 mg tablet 15 mg PO DAILY 08/14/25 08/14/25 Unknown History metformin 1,000 mg tablet 1,000 mg PO BID 08/14/25 08/14/25 Unknown History propranolol 80 mg capsule,24 80 mg PO QAM 08/14/25 08/14/25 Unknown History hr,extended release trazodone 100 mg tablet 100 mg PO BEDTIME PRN insomnia 08/14/25 08/14/25 Unknown History Physical Exam Vital Signs and Narrative: Vital Signs: Last Vital Signs Temp 97.6 F 08/14/25 07:34 Pulse 82 08/14/25 07:34 Resp 16 08/14/25 07:34 BP 136/62 08/14/25 07:34 Pulse Ox 96 08/14/25 07:34 O2 Del Method Room Air 08/14/25 07:34 BMI result Body Mass Index 42.0 CONST: Alert and oriented, in NAD. Well nourished. Cooperative. HEENT: Normocephalic, atraumatic, MMM, Eyes clear RESP: Lungs clear, RRR even and regular HEART:,RRR, S1, S2. No edema GI:Abdomen Soft NT, ND. + BS times four :Deferred SKIN: Warm dry and intact, no visible lesions or rashes NEURO:CN II-XII Intact bilaterally, Sensation intact. Speech clear. Gait disturbance due to arthritis and old ACL tear PSYCH: Cooperative. Results Labs 08/13/25 18:31 08/14/25 09:05 Labs: Laboratory Results - last 24 hr 08/13/25 18:31 MCV 83.4 MCH 27.8 MCHC 33.3 RDW 13.4 Plt Count 229 MPV 9.7 Immature Gran % (Auto) 0.6 H Neut % (Auto) 61.4 Lymph % (Auto) 29.0 [place] % (Auto) 4.9 Eos % (Auto) 3.5 Baso % (Auto) 0.6 Lymph # (Auto) 3.7 [place] # (Auto) 0.6 Eos # (Auto) 0.4 Baso # (Auto) 0.1 Abs Immat Gran (auto) 0.08 H Absolute Neuts (auto) 7.8 Absolute Nucleated RBC 0.000 Nucleated RBC % (auto) 0.0 Anion Gap 15 Estim Creat Clear Calc 152.9 Estimated GFR > 60 Random Glucose 122 H Calcium 10.0 Total Bilirubin 0.3 AST 48 H ALT 77 H Alkaline Phosphatase 82 Total Protein 7.4 Albumin 5.0 Urine Color Yellow Urine Appearance Clear Urine pH 5.0 Ur Specific [place] 1.020 Urine Protein 30 (1+) H Urine Glucose (UA) Negative Urine Ketones Negative Urine Blood Negative Urine Nitrite Negative Ur Leukocyte Esterase Trace H Urine RBC 0-2 Urine WBC 6-10 H Ur Squamous Epith Cells 0-2 Urine Bacteria None Seen Hyaline Casts 3-5 Urine Opiates Screen Not Detected Ur Buprenorphine Scrn Not Detected Ur Oxycodone Screen Not Detected Urine Methadone Screen Not Detected Urine Fentanyl Screen Not Detected Ur Barbiturates Screen Not Detected Ur Phencyclidine Scrn Not Detected Ur Amphetamines Screen POSITIVE H U Benzodiazepines Scrn Not Detected Urine Cocaine Screen Not Detected U Marijuana (THC) Screen Not Detected Ethyl Alcohol < 10 Assessment and Plan (1) Type 2 diabetes mellitus: Status: Acute (2) Osteoarthritis of left knee: Status: Acute Plan 29-year-old male with bipolar disorder, intellectual disability, intermittent explosive disorder in adult, hepatic steatosis, obesity with a body mass index of greater than 40, dyslipidemia, osteoarthritis of left knee, meniscus and ACL tears of left knee, chondromalacia of left patella, chronic knee pain, and type 2 diabetes admitted for mood stabilization after presented to the ED on a section 12 for explosive behavior. Bipolar disorder/intermittent explosive disorder adult/intellectual disability Treatment per psychiatric team Chronic left knee pain/osteoarthritis ACL and meniscus tear in 2022 with conservative management Has been seen by Orthopedics with no surgery recommended. Encourage use of knee brace. Tylenol as needed Type 2 diabetes Continue metformin Recent A1c 5.9 Hepatic steatosis LFTs at baseline Hyperlipidemia Encourage weight loss, ADA diet and exercise as tolerated. Thank you for allowing me to participate in the care of this patient. Will follow as needed, please notify medical provider with any changes in condition or concerns.
[2025-08-14 09:59] LABS: Lithium 0.25 mmol/L (0.60-1.20)
[2025-08-14 10:10] LABS: Hemoglobin A1C 151.7644 umol/L; Total Hemoglobin (HGBA1C) 3748.9326 umol/L
[2025-08-14 10:16] LABS: Alanine Aminotransferase 85 U/L (0-40); Albumin Level 5.2 g/dL (3.5-5.0); Alkaline Phosphatase 86 U/L (39-117); Aspartate Amino Transferase 48 U/L (5-37); Blood Urea Nitrogen 15 mg/dL (9-16); Calcium 10.6 mg/dL (8.4-10.2); Cholesterol 210 mg/dL (<200); Creatinine Clr Calc Pharmacy 168.3; Estimated Glomerular Filt Rate > 60; HDL Cholesterol 32 mg/dL (>40); Total Protein 7.6 g/dL (6.5-8.0); Triglycerides 448 mg/dL (<150)
--- NOTE | 2025-08-14 10:20 | HO.PSYADMNOT ---
HPI Date of Service: 08/14/25 Chief Complaint: bipolar d/o, intermittent explosive disorder Sources of Information: patient interviewed, chart reviewed and crisis/core team assessment reviewed HPI Subjective Notes: Conditional Voluntary Narrative: is a 29 yo M with h/o bipolar d/o, intellectual disabilities and intermittent explosive disorder who was brought to the [facility] ED via ambulance on due to dysregulated and aggressive behavior, and property destruction. Per CARE assessment, pt has been in behavioral control since arriving in the ED. He had not been adherent w/ his meds consistently in the community. Pt reports that he had gotten into an argument with his brother and started throwing things, then the police were called. He reports that he had thoughts of harming himself during the episode but denies current SI or thoughts of nonsuicidal self harm. He denies violent ideation. Denies AH/VH or paranoia. He reports feeling safe here on the unit. Pt reports that his current psychiatric regimen is helpful in managing his anger and he denies any SE. He reports that he sometimes forgets to take his meds when he goes to his day program. He would like for his mom to be involved in any decision making w/ new med changes. Pt reports difficulty with sleep maintenance and some nightmares. He did a sleep study but didn't have sleep apnea per his report Past Psychiatric History: Multiple inpatient hospitalizations by history. >3 Hx of living in a assisted with DDS, in [place]. He left in 2021 to return home Psychiatric prescriber: Xiomara Parrish in [place], [place], at [phone] therapist: Júnior Reynolds WALKER Masters [phone] DDS worker: Frieda [phone] Denies hx of SIB or SA. PCP Dr. Carrillo [phone] SA: Denies hx Medical Evaluation Reviewed: Yes [facility] Medical History Superficial laceration of finger Intellectual disability Intermittent explosive disorder in adult Family History: No known FHx of psychiatric or substance use issues Social History: Pt currently lives with father, mother and brother. Pt used to live at [facility] assisted. Single, no children. aspires to work with animals. Has 2 dogs/1cat and sometimes taking care of 2 dogs of his sister. Born in [place], raised in [place] by both parents. Pt is the second of three children. Older brother is his HOUSE ADMIN. Graduated [employer] high school program Substance History: Denies Trauma History: denies. However, reports that lost of his grandparents (3) seems emotionally traumatized to him. Does not like the Diagnostics Vital Signs (24Hr): Vital Signs - 24 hr 08/13/25 18:23 08/14/25 01:32 08/14/25 07:34 Temperature 98.0 F 98.0 F 97.6 F Pulse Rate 84 79 82 Respiratory Rate 16 17 16 Blood Pressure 176/84 H 133/80 136/62 Pulse Oximetry 94 97 96 Oxygen Delivery Method Room Air Room Air Room Air BMI result Body Mass Index 42.0 Labs 08/13/25 18:31 08/14/25 09:05 Labs: Laboratory Results - last 48 hr 08/13/25 08/14/25 18:31 09:05 WBC 12.6 H RBC 5.07 Hgb 14.1 Hct 42.3 MCV 83.4 MCH 27.8 MCHC 33.3 RDW 13.4 Plt Count 229 MPV 9.7 Immature Gran % (Auto) 0.6 H Neut % (Auto) 61.4 Lymph % (Auto) 29.0 [place] % (Auto) 4.9 Eos % (Auto) 3.5 Baso % (Auto) 0.6 Lymph # (Auto) 3.7 [place] # (Auto) 0.6 Eos # (Auto) 0.4 Baso # (Auto) 0.1 Abs Immat Gran (auto) 0.08 H Absolute Neuts (auto) 7.8 Absolute Nucleated RBC 0.000 Nucleated RBC % (auto) 0.0 Sodium 143 Potassium 3.8 Chloride 110 H Carbon Dioxide 22 Anion Gap 15 BUN 17 H 15 Creatinine 0.99 0.95 Estim Creat Clear Calc 152.9 168.3 Estimated GFR > 60 > 60 Random Glucose 122 H 199 H Estimat Average Glucose 123 Hemoglobin A1c % 5.9 Calcium 10.0 10.6 H Total Bilirubin 0.3 0.5 AST 48 H 48 H ALT 77 H 85 H Alkaline Phosphatase 82 86 Total Protein 7.4 7.6 Albumin 5.0 5.2 H Triglycerides 448 H Cholesterol 210 H LDL Cholesterol, Calc TNP HDL Cholesterol 32 L Urine Color Yellow Urine Appearance Clear Urine pH 5.0 Ur Specific [place] 1.020 Urine Protein 30 (1+) H Urine Glucose (UA) Negative Urine Ketones Negative Urine Blood Negative Urine Nitrite Negative Ur Leukocyte Esterase Trace H Urine RBC 0-2 Urine WBC 6-10 H Ur Squamous Epith Cells 0-2 Urine Bacteria None Seen Hyaline Casts 3-5 Urine Opiates Screen Not Detected Ur Buprenorphine Scrn Not Detected Ur Oxycodone Screen Not Detected Urine Methadone Screen Not Detected Urine Fentanyl Screen Not Detected Ur Barbiturates Screen Not Detected Ur Phencyclidine Scrn Not Detected Ur Amphetamines Screen POSITIVE H U Benzodiazepines Scrn Not Detected [place] 0.25 L Urine Cocaine Screen Not Detected U Marijuana (THC) Screen Not Detected Ethyl Alcohol < 10 EKG EKG: reviewed (NSR, QTc wnl) Meds/Allergies Meds Home Medications ?Medication ?Instructions ?Recorded ?Confirmed ?Type cariprazine 6 mg capsule (Vraylar) 6 mg PO BEDTIME 08/14/25 08/14/25 History dextroamphetamine-amphetamine ER 1 cap PO QAM 08/14/25 08/14/25 History 20 mg 24hr capsule,extend release (Adderall XR) lithium carbonate 450 mg 1,350 mg PO BEDTIME depressive 08/14/25 08/14/25 History tablet,extended release disorder melatonin 3 mg tablet 3 - 6 mg PO BEDTIME PRN Sleep 08/14/25 08/14/25 History meloxicam 15 mg tablet 15 mg PO DAILY 08/14/25 08/14/25 History metformin 1,000 mg tablet 1,000 mg PO BID 08/14/25 08/14/25 History propranolol 80 mg capsule,24 80 mg PO QAM 08/14/25 08/14/25 History hr,extended release trazodone 100 mg tablet 100 mg PO BEDTIME PRN insomnia 08/14/25 08/14/25 History Allergies Allergies Allergy/AdvReac Type Severity Reaction Status Date / Time aripiprazole (From Abilify) Allergy tremors Verified 08/13/25 18:25 divalproex sodium (From Allergy Agitated Verified 08/13/25 18:25 Depakote) risperidone (From Risperdal) Allergy Unknown Verified 08/13/25 18:25 Mental Status Exam Mental Status Exam Narrative: Appearance: Dressed in [facility]. Grooming, eye contact wnl Attitude:Cooperative Speech: Fluent and wnl in regard to volume, tone, prosody Motor activity: Calm and without any tics, tremors or dyskinesias. Steady gait Mood: 'okay' Affect: appropriate, reactive Thought process: generally goal directed Thought content: denies current SI or thoughts to harm others. Perception: Denies AH/VH and does not appear to respond to internal stimuli Cognition- recall for recent events is grossly intact Insight: fair Judgment: fair Assessment & Plan Assessment & Plan (1) Intermittent explosive disorder in adult: Status: Acute Code(s): F63.81 - Intermittent explosive disorder (2) Bipolar disorder: Status: Acute Code(s): F31.9 - Bipolar disorder, unspecified (3) Intellectual disability: Status: Acute Code(s): F79 - Unspecified intellectual disabilities Plan Admit to [facility] Legal Status: CV 15 min safety checks Continue home medications Milieu therapy Discharge planning Patient educated on: diagnosis and medication risk/benefits Informed Consent: understands Reason for continued inpatient stay Substantial Risk for: harm to self, inability to function and med/psych decompensation Statement Statement: I have reviewed the history and physical and performed a pertinent examination on my patient. No changes have occurred unless specified. If the History and Physical was not performed prior to admission, the Hospitalist's service will be consulted for completing the admission physical. Time Spent With Patient Time: Total time managing care of this patient today _50___ minutes.
[2025-08-14] MEDS: Dextroamphetamine/Amphetamine XR 10 MG CAP.ER.24H 20 MG PO (10:46)
[2025-08-14] MEDS: Propranolol HCL LA 80 MG CAP.SA.24H PO (10:46)
[2025-08-14 10:49] LABS: Anion Gap 14 (12-20); Carbon Dioxide 25 mmol/L (22-29); Chloride 106 mmol/L (96-108); Potassium 4.3 mmol/L (3.3-5.1); Sodium 141 mmol/L (135-145)
[2025-08-14 19:43] VITALS: BP 155/93; PULSE 90; RESP 18; TEMP 36.8; O2SAT 96
[2025-08-15 07:36] VITALS: BP 133/67; PULSE 71; RESP 16; TEMP 36.4; O2SAT 98
[2025-08-15] MEDS: Propranolol HCL LA 80 MG CAP.SA.24H PO (09:36)
[2025-08-15] MEDS: Dextroamphetamine/Amphetamine XR 10 MG CAP.ER.24H 20 MG PO (09:37)
[2025-08-15 19:11] VITALS: BP 133/83; PULSE 87; RESP 18; TEMP 36.5; O2SAT 98
--- NOTE | 2025-08-15 20:10 | P.PNPSI_ITS ---
Subjective Subjective Date of Service: 08/15/25 Reason For Visit: bipolar d/o, intermittent explosive disorder Interim History: no concerns. feling well. per staff, eating meals and taking meds. cooperative. denies Sx. showered. visible. social. LFTs trending up. urine pending. lithium 0.25. slept 6 hours. Mental Status Exam Mental Status Exam Narrative: Appearance: Dressed in [facility]. Grooming, eye contact wnl Attitude:Cooperative Speech: Fluent and wnl in regard to volume, tone, prosody Motor activity: Calm and without any tics, tremors or dyskinesias. Steady gait Mood: 'okay' Affect: appropriate, reactive Thought process: generally goal directed Thought content: denies current SI or thoughts to harm others. Perception: Denies AH/VH and does not appear to respond to internal stimuli Cognition- recall for recent events is grossly intact Insight: fair Judgment: fair Diagnostics Vital Signs (24Hr): Vital Signs - 24 hr 08/15/25 07:36 Temperature 97.5 F Pulse Rate 71 Respiratory Rate 16 Blood Pressure 133/67 Pulse Oximetry 98 Oxygen Delivery Method Room Air BMI result Body Mass Index 42.0 Labs 08/13/25 18:31 08/14/25 09:05 Labs: Laboratory Results - last 48 hr 08/13/25 08/14/25 18:31 09:05 Sodium 141 Potassium 4.3 Chloride 106 Carbon Dioxide 25 Anion Gap 14 BUN 15 Creatinine 0.95 Estim Creat Clear Calc 168.3 Estimated GFR > 60 Random Glucose 199 H Estimat Average Glucose 123 Hemoglobin A1c % 5.9 Calcium 10.6 H Total Bilirubin 0.5 AST 48 H ALT 85 H Alkaline Phosphatase 86 Total Protein 7.6 Albumin 5.2 H Triglycerides 448 H Cholesterol 210 H LDL Cholesterol, Calc TNP HDL Cholesterol 32 L TSH 2.10 Urine Color Yellow Urine Appearance Clear Urine pH 5.0 Ur Specific [place] 1.020 Urine Protein 30 (1+) H Urine Glucose (UA) Negative Urine Ketones Negative Urine Blood Negative Urine Nitrite Negative Ur Leukocyte Esterase Trace H Urine RBC 0-2 Urine WBC 6-10 H Ur Squamous Epith Cells 0-2 Urine Bacteria None Seen Hyaline Casts 3-5 [place] 0.25 L Medications Medications Current Medications Acetaminophen (Acetaminophen 325 Mg Tablet) 650 mg PO Q6H PRN PRN Reason: Headache/Pain, Scale 1-10 Last Admin: 08/15/25 09:46 Dose: 650 mg Al Hydroxide/Mg Hydroxide (Magnesium Hydrox/Alum Hydrox 30 Ml Oral.Susp) 30 ml PO Q6H PRN PRN Reason: Heartburn/Nausea Amphetamine/Dextroamphetamine (Dextroamphetamine/Amphetamine Xr 10 Mg Cap.Er.24h) 20 mg PO DAILY [facility] Last Admin: 08/15/25 09:37 Dose: 20 mg Cariprazine (Cariprazine Hcl 3 Mg Capsule) 6 mg PO BEDTIME LOLA Last Admin: 08/14/25 21:42 Dose: 6 mg Hydroxyzine HCl (Hydroxyzine Hcl 25 Mg Tablet) 25 mg PO Q6H PRN PRN Reason: mild anxiety Last Admin: 08/14/25 23:15 Dose: 25 mg [place] Carbonate ([place] Carbonate Er 450 Mg Tablet.Er) 1,350 mg PO BEDTIME LOLA Last Admin: 08/14/25 21:41 Dose: 1,350 mg Magnesium Hydroxide (Milk Of Magnesia 30 Ml Oral.Susp) 30 ml PO DAILY PRN PRN Reason: Constipation Melatonin (Melatonin 3 Mg Tablet) 6 mg PO BEDTIME PRN PRN Reason: Sleep Last Admin: 08/14/25 23:15 Dose: 6 mg Metformin HCl (Metformin Hcl 1,000 Mg Tablet) 1,000 mg PO BID [facility] Last Admin: 08/15/25 09:36 Dose: 1,000 mg Nicotine (Nicotine 21 Mg Patch.Td24) 21 mg TRANSDERMA DAILY PRN PRN Reason: smoking cessation Nicotine Polacrilex (Nicotine Polacrilex 2 Mg Gum) 4 mg BUCCAL Q2H PRN PRN Reason: Nicotine Cravings Olanzapine (Olanzapine 5 Mg Tablet) 5 mg PO TID PRN PRN Reason: agitation Propranolol HCl (Propranolol Hcl [place] 80 Mg Cap.Sa.24h) 80 mg PO DAILY [facility]; Protocol Last Admin: 08/15/25 09:36 Dose: 80 mg Trazodone HCl (Trazodone Hcl 50 Mg Tablet) 50 mg PO BEDTIME MRX1 PRN PRN Reason: Insomnia Last Admin: 08/14/25 23:15 Dose: 50 mg Trazodone HCl (Trazodone Hcl 100 Mg Tablet) 100 mg PO BEDTIME PRN PRN Reason: Insomnia Allergies Allergies Allergy/AdvReac Type Severity Reaction Status Date / Time aripiprazole (From [facility]) Allergy tremors Verified 08/13/25 18:25 divalproex sodium (From Allergy Agitated Verified 08/13/25 18:25 Depakote) risperidone (From Risperdal) Allergy Unknown Verified 08/13/25 18:25 Assessment & Plan Assessment & Plan (1) Intermittent explosive disorder in adult: Status: Acute Code(s): F63.81 - Intermittent explosive disorder (2) Bipolar disorder: Status: Acute Code(s): F31.9 - Bipolar disorder, unspecified (3) Intellectual disability: Status: Acute Code(s): F79 - Unspecified intellectual disabilities Plan Admit to [facility] Legal Status: CV 15 min safety checks Continue home medications Milieu therapy Discharge planning 08/15: reports he is feeling quite well. per staff, no issues. continue current mgmt. Reason for continued inpatient stay Substantial Risk for: harm to others Time Spent With Patient Time: Total time managing care of this patient today ____ minutes.
[2025-08-16 08:00] VITALS: BP 109/53; PULSE 73; RESP 16; TEMP 36.8; O2SAT 96
[2025-08-16] MEDS: Propranolol HCL LA 80 MG CAP.SA.24H PO (08:12)
[2025-08-16] MEDS: Dextroamphetamine/Amphetamine XR 10 MG CAP.ER.24H 20 MG PO (08:12)
--- NOTE | 2025-08-16 16:04 | P.PNPSI_ITS ---
Subjective Subjective Date of Service: 08/16/25 Reason For Visit: bipolar d/o, intermittent explosive disorder Interim History: calm, pleasant, cooperative. no complaints or requests. per staff, calm, visible, social. slept 7 hours. Mental Status Exam Mental Status Exam Narrative: Appearance: Dressed in [facility]. Grooming, eye contact wnl Attitude:Cooperative Speech: Fluent and wnl in regard to volume, tone, prosody Motor activity: Calm and without any tics, tremors or dyskinesias. Steady gait Mood: 'okay' Affect: appropriate, reactive Thought process: generally goal directed Thought content: denies current SI or thoughts to harm others. Perception: Denies AH/VH and does not appear to respond to internal stimuli Cognition- recall for recent events is grossly intact Insight: fair Judgment: fair Diagnostics Vital Signs (24Hr): Vital Signs - 24 hr 08/15/25 19:11 08/16/25 08:00 Temperature 97.7 F 98.3 F Pulse Rate 87 73 Respiratory Rate 18 16 Blood Pressure 133/83 109/53 L Pulse Oximetry 98 96 Oxygen Delivery Method Room Air Room Air BMI result Body Mass Index 42.0 Labs 08/13/25 18:31 08/14/25 09:05 Medications Medications Current Medications Acetaminophen (Acetaminophen 325 Mg Tablet) 650 mg PO Q6H PRN PRN Reason: Headache/Pain, Scale 1-10 Last Admin: 08/16/25 09:50 Dose: 650 mg Al Hydroxide/Mg Hydroxide (Magnesium Hydrox/Alum Hydrox 30 Ml Oral.Susp) 30 ml PO Q6H PRN PRN Reason: Heartburn/Nausea Amphetamine/Dextroamphetamine (Dextroamphetamine/Amphetamine Xr 10 Mg Cap.Er.24h) 20 mg PO DAILY [facility] Last Admin: 08/16/25 08:12 Dose: 20 mg Cariprazine (Cariprazine Hcl 3 Mg Capsule) 6 mg PO BEDTIME LOLA Last Admin: 08/15/25 22:06 Dose: 6 mg Hydroxyzine HCl (Hydroxyzine Hcl 25 Mg Tablet) 25 mg PO Q6H PRN PRN Reason: mild anxiety Last Admin: 08/15/25 23:09 Dose: 25 mg [place] Carbonate ([place] Carbonate Er 450 Mg Tablet.Er) 1,350 mg PO BEDTIME LOLA Last Admin: 08/15/25 22:06 Dose: 1,350 mg Magnesium Hydroxide (Milk Of Magnesia 30 Ml Oral.Susp) 30 ml PO DAILY PRN PRN Reason: Constipation Melatonin (Melatonin 3 Mg Tablet) 6 mg PO BEDTIME PRN PRN Reason: Sleep Last Admin: 08/15/25 23:09 Dose: 6 mg Metformin HCl (Metformin Hcl 1,000 Mg Tablet) 1,000 mg PO BID LOLA Last Admin: 08/16/25 08:12 Dose: 1,000 mg Nicotine (Nicotine 21 Mg Patch.Td24) 21 mg TRANSDERMA DAILY PRN PRN Reason: smoking cessation Nicotine Polacrilex (Nicotine Polacrilex 2 Mg Gum) 4 mg BUCCAL Q2H PRN PRN Reason: Nicotine Cravings Olanzapine (Olanzapine 5 Mg Tablet) 5 mg PO TID PRN PRN Reason: agitation Propranolol HCl (Propranolol Hcl La 80 Mg Cap.Sa.24h) 80 mg PO DAILY [facility]A; Protocol Last Admin: 08/16/25 08:12 Dose: 80 mg Trazodone HCl (Trazodone Hcl 50 Mg Tablet) 50 mg PO BEDTIME MRX1 PRN PRN Reason: Insomnia Last Admin: 08/14/25 23:15 Dose: 50 mg Trazodone HCl (Trazodone Hcl 100 Mg Tablet) 100 mg PO BEDTIME PRN PRN Reason: Insomnia Last Admin: 08/15/25 23:09 Dose: 100 mg Allergies Allergies Allergy/AdvReac Type Severity Reaction Status Date / Time aripiprazole (From Abilify) Allergy tremors Verified 08/13/25 18:25 divalproex sodium (From Allergy Agitated Verified 08/13/25 18:25 Depakote) risperidone (From Risperdal) Allergy Unknown Verified 08/13/25 18:25 Assessment & Plan Assessment & Plan (1) Intermittent explosive disorder in adult: Status: Acute Code(s): F63.81 - Intermittent explosive disorder (2) Bipolar disorder: Status: Acute Code(s): F31.9 - Bipolar disorder, unspecified (3) Intellectual disability: Status: Acute Code(s): F79 - Unspecified intellectual disabilities Plan Admit to [facility] [place] Legal Status: CV 15 min safety checks Continue home medications Milieu therapy Discharge planning 08/15: reports he is feeling quite well. per staff, no issues. continue current mgmt. 08/16: as for yesterday. received knee brace, Q5s while wearing it. continue current mgmt. Reason for continued inpatient stay Substantial Risk for: inability to function and rapid decompensation Time Spent With Patient Time: Total time managing care of this patient today ____ minutes.
[2025-08-16 19:45] VITALS: BP 123/62; PULSE 72; RESP 16; TEMP 36.4; O2SAT 98
[2025-08-17 07:51] VITALS: BP 123/65; PULSE 75; RESP 14; TEMP 36.7; O2SAT 98
[2025-08-17] MEDS: Propranolol HCL LA 80 MG CAP.SA.24H PO (08:08)
[2025-08-17] MEDS: Dextroamphetamine/Amphetamine XR 10 MG CAP.ER.24H 20 MG PO (08:08)
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
[2025-08-17 20:00] VITALS: BP 135/69; PULSE 78; RESP 18; TEMP 36.6; O2SAT 97
[2025-08-18 07:46] VITALS: BP 138/84; PULSE 85; RESP 18; TEMP 36.7; O2SAT 99
[2025-08-18] MEDS: Propranolol HCL LA 80 MG CAP.SA.24H PO (08:26)
[2025-08-18] MEDS: Dextroamphetamine/Amphetamine XR 10 MG CAP.ER.24H 20 MG PO (08:26)
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
[2025-08-18 19:07] VITALS: BP 134/84; PULSE 75; RESP 18; TEMP 36.6; O2SAT 98
[2025-08-19 07:46] VITALS: BP 96/51; PULSE 71; RESP 16; TEMP 36.8; O2SAT 98
[2025-08-19] MEDS: Dextroamphetamine/Amphetamine XR 10 MG CAP.ER.24H 20 MG PO (08:24)
[2025-08-19 08:27] VITALS: BP 135/63; PULSE 79
[2025-08-19] MEDS: Propranolol HCL LA 80 MG CAP.SA.24H PO (08:28)
[2025-08-19 08:55] LABS: Lithium 0.76 mmol/L (0.60-1.20)
[2025-08-19 09:00] LABS: Blood Urea Nitrogen 11 mg/dL (9-16)
--- NOTE | 2025-08-19 18:08 | P.PNPSI_ITS ---
Subjective Subjective Date of Service: 08/19/25 Reason For Visit: bipolar d/o, intermittent explosive disorder Subjective Notes: Conditional Voluntary Interim History: case discussed with tx team, chart reviewed, met with pt No behavioral issues throughout this hospitalization Pt reports feeling 'good'. Denies SI/violent ideation, AH/VH or any other physical/psychiatric concerns Reports good sleep & appetite. Taking meds as rx'd. Denies med SE [place] level in therapeutic range at 0.76 Pt is looking forward to being d/c'd tomorrow Mental Status Exam Mental Status Exam Narrative: Appearance: Casually dressed. Grooming wnl. Good eye contact Attitude:Cooperative Speech: Fluent and wnl Motor activity: Calm and without any tics, tremors or dyskinesias. Steady gait Mood: as noted above Affect: blunted Thought process: goal directed Thought content: as noted above. Future oriented Perception: Denies AH/VH and does not appear to respond to internal stimuli Alert/oriented in all spheres Insight: intact Judgment: intact Diagnostics Vital Signs (24Hr): Vital Signs - 24 hr 08/18/25 19:07 08/19/25 07:46 08/19/25 08:27 Temperature 97.9 F 98.2 F Pulse Rate 75 71 79 Respiratory Rate 18 16 Blood Pressure 134/84 96/51 L 135/63 Pulse Oximetry 98 98 Oxygen Delivery Method Room Air Room Air BMI result Body Mass Index 42.0 Labs 08/13/25 18:31 08/19/25 07:40 Labs: Laboratory Results - last 48 hr 08/19/25 08/19/25 07:39 07:40 BUN 11 [place] 0.76 Medications Medications Current Medications Acetaminophen (Acetaminophen 325 Mg Tablet) 650 mg PO Q6H PRN PRN Reason: Headache/Pain, Scale 1-10 Last Admin: 08/18/25 14:34 Dose: 650 mg Al Hydroxide/Mg Hydroxide (Magnesium Hydrox/Alum Hydrox 30 Ml Oral.Susp) 30 ml PO Q6H PRN PRN Reason: Heartburn/Nausea Amphetamine/Dextroamphetamine (Dextroamphetamine/Amphetamine Xr 10 Mg Cap.Er.24h) 20 mg PO DAILY [facility] Last Admin: 08/19/25 08:24 Dose: 20 mg Cariprazine (Cariprazine Hcl 3 Mg Capsule) 6 mg PO BEDTIME [facility] Last Admin: 08/18/25 21:14 Dose: 6 mg Hydroxyzine HCl (Hydroxyzine Hcl 25 Mg Tablet) 25 mg PO Q6H PRN PRN Reason: mild anxiety Last Admin: 08/18/25 21:50 Dose: 25 mg [place] Carbonate ([place] Carbonate Er 450 Mg Tablet.Er) 1,350 mg PO BEDTIME [facility] Last Admin: 08/18/25 21:14 Dose: 1,350 mg Magnesium Hydroxide (Milk Of Magnesia 30 Ml Oral.Susp) 30 ml PO DAILY PRN PRN Reason: Constipation Melatonin (Melatonin 3 Mg Tablet) 6 mg PO BEDTIME PRN PRN Reason: Sleep Last Admin: 08/18/25 21:50 Dose: 6 mg Metformin HCl (Metformin Hcl 1,000 Mg Tablet) 1,000 mg PO BID [facility] Last Admin: 08/19/25 08:24 Dose: 1,000 mg Nicotine (Nicotine 21 Mg Patch.Td24) 21 mg TRANSDERMA DAILY PRN PRN Reason: smoking cessation Nicotine Polacrilex (Nicotine Polacrilex 2 Mg Gum) 4 mg BUCCAL Q2H PRN PRN Reason: Nicotine Cravings Olanzapine (Olanzapine 5 Mg Tablet) 5 mg PO TID PRN PRN Reason: agitation Propranolol HCl (Propranolol Hcl La 80 Mg Cap.Sa.24h) 80 mg PO DAILY [facility]; Protocol Last Admin: 08/19/25 08:28 Dose: 80 mg Trazodone HCl (Trazodone Hcl 50 Mg Tablet) 50 mg PO BEDTIME MRX1 PRN PRN Reason: Insomnia Last Admin: 08/14/25 23:15 Dose: 50 mg Trazodone HCl (Trazodone Hcl 100 Mg Tablet) 100 mg PO BEDTIME PRN PRN Reason: Insomnia Last Admin: 08/18/25 21:50 Dose: 100 mg Allergies Allergies Allergy/AdvReac Type Severity Reaction Status Date / Time aripiprazole (From Abilify) Allergy tremors Verified 08/13/25 18:25 divalproex sodium (From Allergy Agitated Verified 08/13/25 18:25 Depakote) risperidone (From Risperdal) Allergy Unknown Verified 08/13/25 18:25 Assessment & Plan Assessment & Plan (1) Intermittent explosive disorder in adult: Status: Acute Code(s): F63.81 - Intermittent explosive disorder (2) Bipolar disorder: Status: Acute Code(s): F31.9 - Bipolar disorder, unspecified (3) Intellectual disability: Status: Acute Code(s): F79 - Unspecified intellectual disabilities Plan Admit [place] [facility] [place] Legal Status: CV 15 min safety checks Continue home medications Milieu therapy Discharge planning 08/15: reports he is feeling quite well. per staff, no issues. continue current mgmt. 08/16: as for yesterday. received knee brace, Q5s while wearing it. continue current mgmt. 08/17: Continue current med regimen/tx plan. Check lithium level on 08/19 08/18: Pt has maintained good behavioral control. Med adherent. Continue current tx plan. Will plan to d/c on , 08/20 if stable. Check lithium level tomorrow am 08/19: [place] level within therapeutic range. Stable, no behavioral issues. Continue current tx plan and d/c home tomorrow Reason for continued inpatient stay Substantial Risk for: other (further stabilization. Will d/c home tomorrow if pt remains stable) Time Spent With Patient Time: Total time managing care of this patient today __30__ minutes.
[2025-08-19 19:11] VITALS: BP 147/65; PULSE 86; RESP 16; TEMP 36.8; O2SAT 98
[2025-08-19 19:33] LABS: Creatinine Clr Calc Pharmacy 177.7; Estimated Glomerular Filt Rate > 60
[2025-08-20 07:00] VITALS: BMI 41.3
[2025-08-20 07:40] VITALS: BP 125/66; PULSE 75; RESP 16; TEMP 36.4; O2SAT 98
[2025-08-20] MEDS: Propranolol HCL LA 80 MG CAP.SA.24H PO (09:06)
[2025-08-20] MEDS: Dextroamphetamine/Amphetamine XR 10 MG CAP.ER.24H 20 MG PO (09:07)
--- NOTE | 2025-08-20 17:47 | PM.PSYDC ---
DS: Providers Provider Date of Service: 08/20/25 Date of admission: 08/13/25 21:32 Date of discharge: 08/20/25 Primary care physician: Unknown Physician Admitting clinician: Jordyn Watkins Attending physician on admission: Jordyn Watkins DS: Diagnosis Discharge Diagnosis (1) Intermittent explosive disorder in adult: Status: Acute (2) Bipolar disorder: Status: Acute (3) Intellectual disability: Status: Acute DS: Medications Discharge Medications Home Medications: Previous Rx's ?Medication ?Instructions ?Recorded acetaminophen 325 mg tablet 650 mg (2 x 325 mg) PO Q6H PRN 08/20/25 Headache/Pain, Scale 1-10 #0 tabs cariprazine 6 mg capsule (Vraylar) 6 mg PO BEDTIME 30 days #30 caps 08/20/25 dextroamphetamine-amphetamine ER 20 mg PO DAILY 30 days #30 caps 08/20/25 20 mg 24hr capsule,extend release (Adderall XR) hydroxyzine HCl 25 mg tablet 25 mg PO TID PRN mild anxiety 30 08/20/25 days #90 tabs lithium carbonate 450 mg 1,350 mg (3 x 450 mg) PO BEDTIME 08/20/25 tablet,extended release 30 days #90 tabs melatonin 3 mg tablet 3 - 6 mg (1 - 2 x 3 mg) PO BEDTIME 08/20/25 PRN Sleep 30 days #60 tabs metformin 1,000 mg tablet 1,000 mg PO BID 30 days #60 tabs 08/20/25 propranolol 80 mg capsule,24 80 mg PO QAM 30 days #30 caps 08/20/25 hr,extended release trazodone 100 mg tablet 100 mg PO BEDTIME PRN insomnia 30 08/20/25 days #30 tabs Data Data Completed and Pending Completed studies during hospitalization [Text1]: 08/13/25 08/14/25 08/19/25 18:31 09:05 07:39 WBC 12.6 H RBC 5.07 Hgb 14.1 Hct 42.3 MCV 83.4 MCH 27.8 MCHC 33.3 RDW 13.4 Plt Count 229 MPV 9.7 Immature Gran % (Auto) 0.6 H Neut % (Auto) 61.4 Lymph % (Auto) 29.0 [place] % (Auto) 4.9 Eos % (Auto) 3.5 Baso % (Auto) 0.6 Lymph # (Auto) 3.7 [place] # (Auto) 0.6 Eos # (Auto) 0.4 Baso # (Auto) 0.1 Abs Immat Gran (auto) 0.08 H Absolute Neuts (auto) 7.8 Absolute Nucleated RBC 0.000 Nucleated RBC % (auto) 0.0 Sodium 143 141 Potassium 3.8 4.3 Chloride 110 H 106 Carbon Dioxide 22 25 Anion Gap 15 14 BUN 17 H 15 Creatinine 0.99 0.95 Estim Creat Clear Calc 152.9 168.3 Estimated GFR > 60 > 60 Random Glucose 122 H 199 H Estimat Average Glucose 123 Hemoglobin A1c % 5.9 Calcium 10.0 10.6 H Total Bilirubin 0.3 0.5 AST 48 H 48 H ALT 77 H 85 H Alkaline Phosphatase 82 86 Total Protein 7.4 7.6 Albumin 5.0 5.2 H Triglycerides 448 H Cholesterol 210 H LDL Cholesterol, Calc TNP HDL Cholesterol 32 L TSH 2.10 Urine Color Yellow Urine Appearance Clear Urine pH 5.0 Ur Specific [place] 1.020 Urine Protein 30 (1+) H Urine Glucose (UA) Negative Urine Ketones Negative Urine Blood Negative Urine Nitrite Negative Ur Leukocyte Esterase Trace H Urine RBC 0-2 Urine WBC 6-10 H Ur Squamous Epith Cells 0-2 Urine Bacteria None Seen Hyaline Casts 3-5 Urine Opiates Screen Not Detected Ur Buprenorphine Scrn Not Detected Ur Oxycodone Screen Not Detected Urine Methadone Screen Not Detected Urine Fentanyl Screen Not Detected Ur Barbiturates Screen Not Detected Ur Phencyclidine Scrn Not Detected Ur Amphetamines Screen POSITIVE H U Benzodiazepines Scrn Not Detected [employer] 0.25 L 0.76 Urine Cocaine Screen Not Detected U Marijuana (THC) Screen Not Detected Ethyl Alcohol < 10 08/19/25 07:40 WBC RBC Hgb Hct MCV MCH MCHC RDW Plt Count MPV Immature Gran % (Auto) Neut % (Auto) Lymph % (Auto) [place] % (Auto) Eos % (Auto) Baso % (Auto) Lymph # (Auto) [place] # (Auto) Eos # (Auto) Baso # (Auto) Abs Immat Gran (auto) Absolute Neuts (auto) Absolute Nucleated RBC Nucleated RBC % (auto) Sodium Potassium Chloride Carbon Dioxide Anion Gap BUN 11 Creatinine 0.90 Estim Creat Clear Calc 177.7 Estimated GFR > 60 Random Glucose Estimat Average Glucose Hemoglobin A1c % Calcium Total Bilirubin AST ALT Alkaline Phosphatase Total Protein Albumin Triglycerides Cholesterol LDL Cholesterol, Calc HDL Cholesterol TSH Urine Color Urine Appearance Urine pH Ur Specific [place] Urine Protein Urine Glucose (UA) Urine Ketones Urine Blood Urine Nitrite Ur Leukocyte Esterase Urine RBC Urine WBC Ur Squamous Epith Cells Urine Bacteria Hyaline Casts Urine Opiates Screen Ur Buprenorphine Scrn Ur Oxycodone Screen Urine Methadone Screen Urine Fentanyl Screen Ur Barbiturates Screen Ur Phencyclidine Scrn Ur Amphetamines Screen U Benzodiazepines Scrn [employer] Urine Cocaine Screen U Marijuana (THC) Screen Ethyl Alcohol 08/13/25 Unknown Urine clean catch - Clean Catch Midstream Urine Culture - Final DS: Summary Time Spent with Patient Time attestation: Total time managing care of this patient today ____ minutes. Discharge Plan Discharge Anticipated Discharge Date/Time: 08/20/25 10:50 Patient Disposition: Home, Self-Care Discharge Diagnosis: Intermittent explosive disorder Referrals: Joe Reynolds (therapist) [Other] - 08/26/25 2:00 pm Referral Note: In person appointment Alisson Jacobo (psychiatrist) [Other] - 09/17/25 2:10 pm Referral Note: Telehealth appointment [facility] [Other] - 1 Week Referral Note: If you need help finding a primary care provider please call the number above Discharge Medications: New acetaminophen 325 mg Tablet 650 mg PO Q6H PRN (Reason: Headache/Pain, Scale 1-10) Qty: 0 0RF hydroxyzine HCl 25 mg Tablet 25 mg PO TID PRN (Reason: mild anxiety) 30 Days Qty: 90 0RF dextroamphetamine-amphetamine [Adderall XR] 20 mg capsule,extended release 24hr 20 mg PO DAILY 30 Days Qty: 30 0RF Rx Instructions: Partial Fill upon patient request. Continued melatonin 3 mg tablet 3 - 6 mg PO BEDTIME PRN (Reason: Sleep) 30 Days Qty: 60 0RF lithium carbonate 450 mg tablet extended release 1,350 mg PO BEDTIME 30 Days Qty: 90 0RF trazodone 100 mg tablet 100 mg PO BEDTIME PRN (Reason: insomnia) 30 Days Qty: 30 0RF metformin 1,000 mg tablet 1,000 mg PO BID 30 Days Qty: 60 0RF propranolol 80 mg capsule,extended release 24 hr 80 mg PO QAM 30 Days Qty: 30 0RF Vraylar 6 mg capsule 6 mg PO BEDTIME 30 Days Qty: 30 0RF Discontinued meloxicam 15 mg tablet 15 mg PO DAILY dextroamphetamine-amphetamine [Adderall XR] 20 mg capsule,extended release 24hr 1 cap PO QAM Discharge Orders: Discharge Order (Routine); Ordered 08/20/25 Ordered By: Jordyn Watkins Diet: Regular diet Activity on Discharge: As tolerated Stand Alone Forms: Patient Portal Discharge page, Community Support Print Language: Hungarian Care Plan Goals: Take your medications as prescribed. Maintain safe behaviors Practice coping skills Follow up with your outpatient providers and reach out to them as needed Health Concerns: Mood stability and behaviors Plan of Treatment: Follow up with your psychiatric provider, PCP and other outpatient providers Take your medication as prescribed Assessment: Risk assessment at the time of discharge: Patient was interviewed on the day of discharge and found to be fully oriented, without any SI or violent ideation. Pt has improved insight and judgment and plans to continue treatment Pt is not at imminent risk of harm to self or others and has a safety plan that includes presenting to the closest ER or calling 911 if feeling unsafe. Pt has been observed closely by unit staff and has not engaged in any behaviors that suggest dangerous to self or others and has demonstrated appropriate bheaviors and impulse control. Discharge Date/Time: 08/20/25 11:05
== END 2025-08-20 11:05 | disposition home or self-care (01) | DRG 758 ==
LOC: HO.ED 21:11 → HO.PADLT16 21:42
PROVIDERS: Admitting Provider Psychiatry & Neurology Psychiatry; Emergency Provider Emergency Medicine; Visit Provider Psychiatry & Neurology Psychiatry
DX: F63.81 Intermittent explosive disorder (principal); K76.0 Fatty (change of) liver, not elsewhere classified; F79 Unspecified intellectual disabilities; F31.9 Bipolar disorder, unspecified; E11.9 Type 2 diabetes mellitus without complications; E78.5 Hyperlipidemia, unspecified; Z79.84 Long term (current) use of oral hypoglycemic drugs; Z79.899 Other long term (current) drug therapy
CPT/HCPCS: 36415; 80053; 80061; 80178; 80307; 81001; 82565; 83036; 84443; 84520; 85025; 87086; 93005; 99285; S9485

== ENCOUNTER → 2025-08-13 20:45 | Outpatient (BNV) | payer OTHER, SELFPAY | PROVIDERS: Admitting Provider Psychiatry & Neurology Psychiatry; Emergency Provider Emergency Medicine; Visit Provider Internal Medicine Cardiovascular Disease | DX: R94.31 Abnormal electrocardiogram [ECG] [EKG] (principal); Z13.6 Encounter for screening for cardiovascular disorders | CPT/HCPCS: 93010 ==

== ENCOUNTER → 2025-08-13 21:32 | Outpatient (BNV) | payer OTHER, SELFPAY | PROVIDERS: Admitting Provider Psychiatry & Neurology Psychiatry; Emergency Provider Emergency Medicine; Visit Provider Nurse Practitioner Family | DX: E11.9 Type 2 diabetes mellitus without complications (principal); M17.12 Unilateral primary osteoarthritis, left knee | CPT/HCPCS: 99221 ==

== ENCOUNTER → 2025-08-13 21:32 | Outpatient (BNV) | payer OTHER, SELFPAY | PROVIDERS: Admitting Provider Psychiatry & Neurology Psychiatry; Emergency Provider Emergency Medicine; Visit Provider Psychiatry & Neurology Psychiatry | DX: F63.81 Intermittent explosive disorder (principal); F31.9 Bipolar disorder, unspecified; F79 Unspecified intellectual disabilities | CPT/HCPCS: 90792; 99231 ==

== ENCOUNTER 2025-11-02 16:15 | Emergency (ER) | payer OTHER, SELFPAY ==
[2025-11-02 16:32] VITALS: BP 148/86; PULSE 105; O2SAT 98
[2025-11-02 16:39] VITALS: BP 132/90; PULSE 85; RESP 16; TEMP 36.8; O2SAT 98; BMI 32.1
[2025-11-02 16:42] VITALS: RESP 16
[2025-11-02 19:03] VITALS: BP 118/63; PULSE 74; RESP 18; TEMP 36.6; O2SAT 97
--- NOTE | 2025-11-02 19:10 | ED_ITS ---
HPI - General Adult General Chief complaint: Behavioral Concerns Stated complaint: DISABLED PATIENT OUTBURST @ HOME WANTS TO BE SEEN Time Seen by Provider: 11/02/25 19:10 History of Present Illness ED Provider: Juan F CASTANEDA narrative: The patient is a 29-year-old male with a history of chronic mental illness on lithium and Vraylar who lives at home with his mother. Apparently he had an argument with his brother. He became upset and started breaking things. At that point his mother called 911 and he was brought to the hospital. The moment he is feeling calmer. He is not suicidal or homicidal. His any injuries. He has not felt ill. He has had no fever, sweats, chills. He believes he has been taking his medications regularly because his mother gives him his regular medications. Related Data Previous Rx's ?Medication ?Instructions ?Recorded acetaminophen 325 mg tablet 650 mg (2 x 325 mg) PO Q6H PRN 08/20/25 Headache/Pain, Scale 1-10 #0 tabs cariprazine 6 mg capsule (Vraylar) 6 mg PO BEDTIME 30 days #30 caps 08/20/25 dextroamphetamine-amphetamine ER 20 mg PO DAILY 30 day s #30 caps 08/20/25 20 mg 24hr capsule,extend release (Adderall XR) hydroxyzine HCl 25 mg tablet 25 mg PO TID PRN mild anx iety 30 08/20/25 days #90 tabs lithium carbonate 450 mg 1,350 mg (3 x 450 mg) PO BED TIME 08/20/25 tablet,extended release 30 days #90 tabs melatonin 3 mg tablet 3 - 6 mg (1 - 2 x 3 mg) PO B EDTIME 08/20/25 PRN Sleep 30 days #60 tabs propranolol 80 mg capsule,24 80 mg PO QAM 30 days #30 caps 08/20/25 hr,extended release trazodone 100 mg tablet 100 mg PO BEDTIME PRN insomn ia 30 08/20/25 days #30 tabs metformin 1,000 mg tablet 1,000 mg PO BID #180 tabs Allergies Allergy/AdvReac Type Severity Reaction Status Date / Time aripiprazole (From Abilify) Allergy tremors Verified 11/02/25 16:41 divalproex sodium (From Allergy Agitated Verified 11/02/25 16:41 Depakote) risperidone (From Risperdal) Allergy Unknown Verified 11/02/25 16:41 Review of Systems 2 Review of Systems: Yes all other systems are reviewed and are negative [facility] Past Medical History Medical History Superficial laceration of finger Intellectual disability Intermittent explosive disorder in adult Social History Social History Household Members: Family Housing: House Do you presently have visiting nurse or other home services: No Alcohol intake: current Alcohol intake frequency: holidays/special occasions only Alcohol type: wine Patient Tobacco Use Status: Never used Tobacco Smoked in Last 30 Days: No e-Cigarette/Vaping Use: Never Used Second Hand Smoke Exposure: No Use of substances other than those prescribed or required for medical reasons: No Advance Directives: No Advance Directives Information Provided: Yes service: No Current occupational status: unemployed Sexual orientation: Decline to Answer Cognitive needs: Yes Hearing needs: No Vision needs: No Physical Exam ED Vital Signs: Vital Signs - 24 hr 11/02/25 16:39 11/02/25 16:42 11/02/25 19:03 Temperature 98.3 F 97.9 F Pulse Rate 85 74 Respiratory Rate 16 16 18 Blood Pressure 132/90 H 118/63 Pulse Oximetry 98 97 Oxygen Delivery Method Room Air Room Air 11/02/25 22:20 11/03/25 05:30 11/03/25 05:33 Temperature 97.8 F 98.1 F Pulse Rate 70 71 Respiratory Rate 18 16 18 Blood Pressure 112/62 122/55 L Pulse Oximetry 98 97 Oxygen Delivery Method Room Air Room Air BMI result Body Mass Index 32.1 Const Other: The patient is a large young man. He is awake and alert. He does not seem in any distress. He was pleasant and cooperative. Orientation/consciousness: patient oriented x3 HENMT Other: The face is symmetrical. Mucous membranes moist. Eyes Other: Pupils are round equal, conjunctivae are clear, extraocular movements intact Neck Neck: Yes normal visual inspection and Yes full ROM Resp Effort & Inspection: normal respiratory effort Auscultation: clear to auscultation bilaterally Cardio Rate: regular rate Rhythm: regular rhythm Heart sounds: S1 normal heart sound present and S2 normal heart sound present GI Other: Abdomen is soft and nontender Skin Other: The skin is dry and unremarkable Neuro General: patient oriented x3, gait normal, tone normal, moves all extremities, no focal motor deficits and CN's II-XI intact bilaterally Extrem Other: There is no calf swelling or tenderness. No asymmetry. No peripheral edema. Psych Other: The patient is awake and alert. He seems to have a somewhat simple demeanor. He is currently denying any suicidality or homicidality or any desire to hurt himself or anyone else or damage any property. Course Reevaluation(s) Reevaluation #1: Time: 05:14 Date: 11/03/25 Provider: Jacob Taveras MD Patient in physician observation for psychiatric evaluation.? ht. No current complaints. VS stable.? Patient was evaluated by the CARE team evaluation. Care team plan was to observe the patient overnight and if he remains stable, then consider discharge to home. No acute events reported overnight. We will continue to monitor Time: 11:18 Date: 11/03/25 Provider: Jacob Taveras MD Physician observation ended at 11:18 hours. Patient's brother came to the emergency department in his willing to take the patient home. The patient is currently calm and cooperative and will be discharged in the care of his brother. Medical Decision Making Medical Decision Making MDM Narrative: The patient is a 29-year-old male with a history of bipolar disorder and some degree of intellectual disability who became upset at home and broke a lot of things in his room. His mother called 911. On arrival here the patient is calm and cooperative and denies any sense that he will do anything else that his dangerous. He seems medically clear. He was seen by the care team. The patient will be kept in the emergency room overnight for re-evaluation in the morning and possible return home to his mother in the morning. the patient will be placed in physician observation. Lab Data 11/02/25 19:53 11/02/25 19:53 Labs: Lab Results 11/02/25 11/02/25 Range/Units 19:53 19:53 WBC 10.0 (4.8-10.8) X10*3/uL RBC 5.16 (4.60-5.80) X10*6/uL Hgb 14.2 (14.0-18.0) g/dl Hct 42.9 (42.0-52.0) % MCV 83.1 (80.0-98.0) fL MCH 27.5 (27.0-33.0) pg MCHC 33.1 (31.0-36.0) g/dl RDW 13.1 (11.0-16.0) % Plt Count 222 (160-400) X10*3/uL MPV 9.0 L (9.4-12.4) fL Immature Gran % (Auto) 0.5 H (0.0-0.4) % Neut % (Auto) 51.4 (45-73) % Lymph % (Auto) 37.8 (20-40) % [place] % (Auto) 5.0 (2-11) % Eos % (Auto) 4.8 H (0-4) % Baso % (Auto) 0.5 (0-2) % Lymph # (Auto) 3.8 (1.2-4.9) X10*3/uL [place] # (Auto) 0.5 (0.1-1.2) X10*3/uL Eos # (Auto) 0.5 H (0.0-0.4) X10*3/uL Baso # (Auto) 0.1 (0.0-0.2) X10*3/uL Abs Immat Gran (auto) 0.05 H (0.00-0.03) X10*3/uL Absolute Neuts (auto) 5.2 (2.0-8.3) x10*3/uL Absolute Nucleated RBC 0.000 (0.0-0.012) X10*3/uL Nucleated RBC % (auto) 0.0 (0.0-0.2) /100WBC Sodium 141 (135-145) mmol/L Potassium 4.1 (3.3-5.1) mmol/L Chloride 109 H (96-108) mmol/L Carbon Dioxide 25 (22-29) mmol/L Anion Gap 11 L (12-20) BUN 17 H (9-16) mg/dL Creatinine 0.99 (0.5-1.4) mg/dL Estim Creat Clear Calc 148.7 Estimated GFR > 60 Random Glucose 107 (60-115) mg/dL Calcium 10.8 H (8.4-10.2) mg/dL Total Bilirubin 0.3 (0.0-1.0) mg/dL AST 32 (5-37) U/L ALT 63 H (0-40) U/L Alkaline Phosphatase 78 (39-117) U/L Total Protein 7.2 (6.5-8.0) g/dL Albumin 4.8 (3.5-5.0) g/dL Acetaminophen < 3 (<30) mcg/mL [place] 0.41 L (0.60-1.20) mmol/L Ethyl Alcohol < 10 Cancelled mg/dL Discharge Plan Discharge Clinical Impression: Outbursts of explosive behavior, Bipolar disorder Patient Disposition: Home, Self-Care Additional Instructions: Please follow the care team instructions. Continue taking medications as prescribed by your providers. Follow-up with your doctor in 2 days. Please return to the emergency department if your symptoms get worse or if you develop any symptoms that are concerning to you. Behavioral health instructions You were seen in our Emergency Department today for treatment of a behavioral health issue. It is important after your visit that you follow up with either your behavioral health provider or a primary care doctor within 7 days.? If you have trouble finding a therapist you can reach out to [place] [phone] The National Suicide and Crisis Lifeline can be reached 7 days a week 24 hours a day.? Call 988 to speak with someone.? Return for any worsening symptoms or concerns such as thoughts of self harm or harm to others. Please call 911 if you feel your mental health is worsening.? Prescriptions: No Action metformin 1,000 mg tablet 1,000 mg PO BID Qty: 180 0RF melatonin 3 mg tablet 3 - 6 mg PO BEDTIME PRN (Reason: Sleep) 30 Days Qty: 60 0RF lithium carbonate 450 mg tablet extended release 1,350 mg PO BEDTIME 30 Days Qty: 90 0RF trazodone 100 mg tablet 100 mg PO BEDTIME PRN (Reason: insomnia) 30 Days Qty: 30 0RF propranolol 80 mg capsule,extended release 24 hr 80 mg PO QAM 30 Days Qty: 30 0RF Vraylar 6 mg capsule 6 mg PO BEDTIME 30 Days Qty: 30 0RF acetaminophen 325 mg Tablet 650 mg PO Q6H PRN (Reason: Headache/Pain, Scale 1-10) Qty: 0 0RF hydroxyzine HCl 25 mg Tablet 25 mg PO TID PRN (Reason: mild anxiety) 30 Days Qty: 90 0RF dextroamphetamine-amphetamine [Adderall XR] 20 mg capsule,extended release 24hr 20 mg PO DAILY 30 Days Qty: 30 0RF Rx Instructions: Partial Fill upon patient request. Print Language: Maori
[2025-11-02 19:59] LABS: Hematocrit 42.9 % (42.0-52.0); Hemoglobin 14.2 g/dl (14.0-18.0); Imm Gran Abs Auto 0.05 X10*3/uL (0.00-0.03); Imm Gran Pct Auto 0.5 % (0.0-0.4); Lymphocytes Absolute Auto 3.8 X10*3/uL (1.2-4.9); MANUAL DIFF FLAG NO; Mean Corpuscular HGB Conc 33.1 g/dl (31.0-36.0); Mean Corpuscular Hemoglobin 27.5 pg (27.0-33.0); Mean Corpuscular Volume 83.1 fL (80.0-98.0); NRBC Abs Auto 0.000 X10*3/uL (0.0-0.012); NRBC Pct Auto 0.0 /100WBC (0.0-0.2); Platelet Count 222 X10*3/uL (160-400); Red Blood Count 5.16 X10*6/uL (4.60-5.80); White Blood Count 10.0 X10*3/uL (4.8-10.8)
[2025-11-02 20:15] LABS: Acetaminophen LAB < 3 mcg/mL (<30)
[2025-11-02 20:16] LABS: Alanine Aminotransferase 63 U/L (0-40); Albumin Level 4.8 g/dL (3.5-5.0); Alkaline Phosphatase 78 U/L (39-117); Anion Gap 11 (12-20); Aspartate Amino Transferase 32 U/L (5-37); Blood Urea Nitrogen 17 mg/dL (9-16); Calcium 10.8 mg/dL (8.4-10.2); Carbon Dioxide 25 mmol/L (22-29); Chloride 109 mmol/L (96-108); Creatinine Clr Calc Pharmacy 148.7; Estimated Glomerular Filt Rate > 60; Potassium 4.1 mmol/L (3.3-5.1); Sodium 141 mmol/L (135-145); Total Protein 7.2 g/dL (6.5-8.0)
[2025-11-02 20:22] LABS: Lithium 0.41 mmol/L (0.60-1.20)
--- NOTE | 2025-11-02 22:00 | PC.NURSE ---
Pt resting quietly on stretcher, eyes closed, equal chest rise and fall. Call dawson within reach. Pt remains in behavioral health attire.
--- NOTE | 2025-11-02 22:01 | PC.NURSE ---
This RN spoke to pt's mother on the phone. Mom was concerned about pt coming home because she stated, He destroyed his bedroom, it is not safe for him to sleep there tonight. There is broken furniture everywhere. Consulted with MD Rogel, plan is for safe discharge in the morning back home. telephone assembler aware.
[2025-11-02 22:20] VITALS: BP 112/62; PULSE 70; RESP 18; TEMP 36.6; O2SAT 98
--- OUTSIDE RECORDS SUMMARY | 2025-11-02 22:42 | XMS_ITS | Encounter Summary ---
Author Organization [facility] Address [address] [place] [address] Phone Care Team Providers Care Information Technology Assistant Name Role Phone Pcp, Not Required Primary Care Provider Unavaila ble Encounter Details Date Type Department Care Team (Late st Contact Info) Description 04/09/2022 Procedure [facility] Emergency Department, [facility] [address] [place] [address] Social History Tobacco Use Types Packs/Day Years [...] on filedocumented in this encounter Care Teams Information Technology Assistant Relationship Specialty Start Date End Date Pcp, Not Required PCP - General 08/09/21 documented as of this encounter Additional Source Comments The information contained in this document represents components of the legal health record. It is not the complete legal health record.[facility]
--- OUTSIDE RECORDS SUMMARY | 2025-11-02 22:42 | XMS_ITS | Clinical Summary ---
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 Procedure Name Priority Date/Time Associated Diagnosis Comments GLUCOSE, FASTING Routine 01/18/2011 12:2 2 PM EST LIPID PANEL Routine 01/17/2011 11:01 AM EST from Last 3 Months or Most Recently Relevant to Health Maintenance Results * Due to [place] Better Walk law, this organization might not be sharing sensitive test results. * Glucose, fasting (01/18/2011 12:22 PM EST) BLOOD GLUCOSE, FINGER STICK (CONV) 88.0 70.0 - 110.0 [facility] 01/18/2011 12:2 2 PM EST us Historical Unknown LAB BLOOD ORDERABLES Final Re sult [facility] [address] [place] [address], * (ABNORMAL) Lipid panel (01/17/2011 11:01 AM EST) Cholesterol, Total(Conversion ) 216.0(H) 80.0 - 170.0 mg/dL [facility] HDL CHOLESTEROL, SERUM (CONV) 37.0 35.0 - 85.0 mg/dL [facility] CHOLESTEROL/HDL RATIO, SERUM, PERCENT (CONV) 5.8(H) 0.0 - 5.0 [facility] TRIGLYCERIDE, SERUM, FASTING (CONV) 194.0 30.0 - 200.0 mg/dL [facility] LDL CHOLESTEROL, SERUM (CONV) 140.0(H) 65.0 - 110.0 mg/dL [facility] VERY LOW DENSITY LIPOPROTEINS (CONV) 39.0 0.0 - 40.0 mg/dL [facility] 01/17/2011 11:0 1 AM EST us Historical Unknown LAB BLOOD ORDERABLES Final Re sult [facility] [address] [place] [address], [place] from Last 3 Months or Most Recently Relevant to Health Maintenance
--- OUTSIDE RECORDS SUMMARY | 2025-11-02 22:42 | XMS_ITS | Encounter Summary ---
Author Organization [facility] Address [address] [place] [address] Phone Care Team Providers Care Fish Flipper Name Role Phone Meagan Caraballo MD, JAVIER Primary Care Provider [phone] Pcp, Not Required Primary Care Provider Unavaila ble Encounter Details Date Type Department Care Team (Late st Contact Info) Description 07/17/2020 Transcribe Orders [facility] Specimen Processing [address] [place] [address] [place] Social History Tobacco Use Types Packs/Day [...] on filedocumented in this encounter Care Teams Fish Flipper Relationship Specialty Start Date End Date Meagan Caraballo MD, JAVIER [address] [place] [address] PCP - General Internal Medicine 09/25/19 08/08/21 Pcp, Not Required [address] [place] [address] PCP - General 08/09/21 documented as of this encounter Additional Source Comments The information contained in this document represents components of the legal health record. It is not the complete legal health record.[facility]
--- OUTSIDE RECORDS SUMMARY | 2025-11-02 22:42 | XMS_ITS | Clinical Summary ---
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, guanfacine, Abilify, cogentin, Inderal [...] 02/15/2022 9:44 AM EDT BASIC METABOLIC PANEL (BMP) STAT 02/15/2022 9:44 AM EDT HEMOGLOBIN A1C Routine 07/16/2020 10:23 AM EDT LIPID PANEL Routine 07/16/2020 10:23 AM EDT THYROID STIMULATING HORMONE (TSH) Routine 07/16/2020 10:23 AM EDT from Last 3 Months or Most Recently Relevant to Health Maintenance Results * [place] level (02/15/2022 9:44 AM EDT) LITHIUM 1.14 0.50 - 1.20 mmol/L [facility] Blood 02/15/2022 9:44 AM EDT 02/15/2022 9:59 AM EDT us Aldo Kulkarni MD LAB BLOOD BKR ORDERABLES F inal Result [facility] [address] [place] [address] * (ABNORMAL) Basic metabolic panel (02/15/2022 9:44 AM EDT) SODIUM 143 136 - 145 mmol/L [facility] CHLORIDE 106 95 - 106 mmol/L [facility] POTASSIUM 4.2 3.5 - 5.2 mmol/L [facility] CO2 26 20 - 31 mmol/L [facility] BUN 12 9 - 23 mg/dL [facility] CREATININE 0.92 0.50 - 1.30 mg/dL [facility] GLUCOSE 111(H) 74 - 106 mg/dL [facility] CALCIUM 10.5(H) 8.7 - 10.4 mg/dL [facility] EGFR 118 >60 mL/min/1.7 3m2 [facility] Comment:Estimated glomerular filtration rate calculated using the CKD-EPI refit equation. ANION GAP 11 3 - 17 mmol/L [facility] Blood 02/15/2022 9:44 AM EDT 02/15/2022 9:59 AM EDT us Aldo Kulkarni MD LAB BLOOD BKR ORDERABLES F inal Result [facility] [address] [place] [address] * TSH (07/16/2020 10:23 AM EDT) TSH 3.16 0.34 - 5.00 uIU/mL [facility] 07/16/2020 10:2 3 AM EDT 07/16/2020 1:10 PM EDT us Xiomara Parrish NP LAB BLOOD BKR ORDERABLES Edit ed Result - Final Performing Organization Address [facility] [place] [address], [facility] [phone] * Hemoglobin A1c (07/16/2020 10:23 AM EDT) HEMOGLOBIN A1C 4.4 4.2 - 5.6 % [facility] Comment:Hemoglobin A1c value s between 5.7 and 6.4% indicate an increased risk for diabetes.Values of 6.5% or greater are diagnostic of diabetes CALC MEAN BLD GLUC 80 mg/dL [facility] 07/16/2020 10:2 3 AM EDT 07/16/2020 1:10 PM EDT us Xiomara Parrish NP LAB BLOOD BKR ORDERABLES Edit ed Result - Final Performing Organization Address City/[facility]/[place] [address], [facility] [phone] * (ABNORMAL) Lipid panel (07/16/2020 10:23 AM EDT) HDL 29(L) >39 mg/dL [facility] CHOLESTEROL 158 0 - 200 mg/dL [facility] TRIGLYCERIDES 312(H) 0 - 150 mg/dL [facility] LDL 67 40 - 130 mg/dL [facility] CARDIAC RISK RATIO 5.4(H) <5 N [facility] NON-HDL CHOLESTEROL 129 mg/dL [facility] Comment:Reference Range: The non-HDL Cholesterol value should not exceed the desired LDL-C by more than 30 mg/dl. 07/16/2020 10:2 3 AM EDT 07/16/2020 1:10 PM EDT Xiomara Parrish NP LAB BLOOD BKR ORDERABLES Edit ed Result - Final [address] [address], [facility] [phone] from Last 3 Months or Most Recently Relevant to Health Maintenance [facility] [employer] [facility] [facility] [facility] [facility] [facility] [employer] TO[facility] [facility] Care Teams Electron Gun Inspector Relationship Specialty Start Date End Date Pcp, Not Required PCP - General 08/09/21 Additional Source Comments The information contained in this document represents components of the legal health record. It is not the complete legal health record.[facility]
--- OUTSIDE RECORDS SUMMARY | 2025-11-02 22:42 | XMS_ITS | Encounter Summary ---
Author Organization [facility] Address [address] [place] [phone] Phone Care Team Providers Care Data Processing Systems Project Planner Name Role Phone Joe Rubin MD Primary Care Provider [phone] Encounter Details Date Type Department Care Team (Late st Contact Info) Description 09/22/2016 [facility] - [address] [address] Social History Tobacco Use Types [...] Rubin MD - 09/22/2016 12:00 AM EDT [facility] Aftercare Plan and Discharge Imported By: Zenaida Wyatt 10/02/2016 11:33:32 AM External Attachment: Type: Image Comment: External Document documented in this encounter Plan of Treatment Not on file documented as of this encounter Visit Diagnoses Not on filedocumented in this encounter Care Teams Data Processing Systems Project Planner Relationship Specialty Start Date End Date Joe Rubin MD [address] [address] PCP - General 01/08/17 11/24/19 documented as of this encounter
--- OUTSIDE RECORDS SUMMARY | 2025-11-02 22:42 | XMS_ITS | Encounter Summary ---
Author Organization [facility] Address [address] [place] [address] Phone Care Team Providers Care Food Service Order Clerk Name Role Phone Pcp, Not Required Primary Care Provider Unavaila ble Encounter Details Date Type Department Care Team (Late st Contact Info) Description 04/09/2022 Procedure [facility] Emergency Department, [facility] [address] [place] [address] Social History Tobacco Use Types Packs/Day Years [...] on filedocumented in this encounter Care Teams Food Service Order Clerk Relationship Specialty Start Date End Date Pcp, Not Required PCP - General 08/09/21 documented as of this encounter Additional Source Comments The information contained in this document represents components of the legal health record. It is not the complete legal health record.[facility]
--- OUTSIDE RECORDS SUMMARY | 2025-11-02 22:42 | XMS_ITS | Clinical Summary ---
Author Organization [address] [facility] Address [address] [place] [address] Phone Care Team Providers Care Weighmaster Name Role Phone Renata Barnes Primary Care Provider [phone] Allergies Active Allergy Reactions Criticality Noted Date [...] (one) time each day. 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 lithium, guanfacine, Abilify, cogentin, Inderal 05/07 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 ( multiple) lithium, guanfacien, Abilify, cogentin Jennifer Parrish Left ACL tear 10/05/2021 Voice disturbance 08/19/2021 Fatty liver 02/20/2021 Elevated BP without diagnosis of hypertension Hypertriglyceridemia 01/30/2020 Tremor due to multiple drugs 01/30/2020 Obesity 12/31/2019 Overview (07/10/2025): with fatty liver changes ( u/s 11/03) , fasting chol 216 and gluc 88 ( 12/30) ALT 52 ( nl to 44) 08/04 with fatty liver changes ( u/s 11/03) , fasting chol 216 and gluc 88 ( 12/30) ALT 52 ( nl to 44) 08/04 Type 2 diabetes mellitus wit hout complication, without long-term current use of insulin 12/31/2019 Snoring 12/12/2017 Backache 08/24/2016 Sprain of ankle 12/09/2015 Dermatophytosis of body 06/25/2014 Bunion 07/10/2012 Other acne 03/11/2012 Acquired acanthosis nigricans 12/08/2010 Astigmatism 03/24/2009 Overview (07/10/2025): Astigmatism Astigmatism Constipation 09/24/2008 Attention deficit hyperactivity disorder (ADHD) 01/20/2008 Lack of expected normal physiological developmen t 09/29/2007 Encounters Date Type Department Care Team Description 08/20/2025 Telephone Gastroenterology - [place] [address] [place] [phone] Odilia Escoto PA from Last 3 Months Social History Tobacco Use Types Packs/Day Years Used Date Smoking Tobacco: Never Assessed Sex and Gender Information Value Date Recorded Sex Assigned at Not on file Legal Sex Male 8:12 AM EST Gender Identity Not on file Sexual Orientation Not on file Last Filed Vital Signs Vital Sign Reading Time Taken Comments Blood Pressure 145/75 07/06/2025 3:31 PM EDT Pulse 78 07/06/2025 3:31 PM EDT Temperature - - Respiratory Rate - - Oxygen Saturation 98% 11/26/2024 11:01 AM EST Inhaled Oxygen Concentration - - Weight 140 kg (309 lb) 07/06/2025 3:31 PM EDT Height 190.5 cm (6' 3 ) 07/06/2025 3:31 PM EDT Body Mass Index 38.62 07/06/2025 3:31 PM EDT Plan of Treatment Upcoming Encounters Date Type Department Care Team (Late st Contact Info) Description 03/01/2026 8:30 AM EDT Office Visit Gastroenterology - [address] [place] [id number] Odilia Escoto PA [address] [place] [address] Health Maintenance Due Date Last Done Comments Diabetes: Annual Foot Exam 2006 Diabetes: Annual Retina Eye Exam 2006 Pneumococcal Vaccine: Pediatrics (0 to 5 Years) and At-Risk Patients (6 to 49 Years) (1 of 2 - PCV) 2015 HIV Screening 10/07/2024 Social Influencers of Health Screening 10/07/2024 Diabetes: Blood Sugar Control Test (HGBA1C) 11/04/2024 01/11/2024 Depression Screening 11/19/2024 Diabetes: Annual Urine Albumin-Creatinine Ratio (uACR) 01/11/2025 01/11/2024 COVID-19 Vaccine ( season) 2025 08/23/2021 Influenza Vaccine (#1) 2025 8, 08/21/2016, 09/22/2014 Diabetes: Annual GFR (Glomerular Filtration Rate) 11/04/2025 11/04/2024, 07/16/2020, 04/06/2019 Cholesterol Screening (Lipid Panel) 01/11/2029 01/11/2024, 07/16/2020, 01/17/2011 DTaP,Tdap,and Td Vaccines (9 - Td or Tdap) 03/26/2030 03/26/2020, 05/21/2014, 09/29/2007, Additional history exists RSV Immunization Adult Patients (1 - 1-dose 75+ series) 2071 Hepatitis B Vaccines Completed 08/10/1997, 02/02/1997, 1996 [...] 12/12/2017, 08/21 Hepatitis C Screening Completed 11/04/2024 RSV Immunization Patients Under 20 months Aged [...] Hepatitis C antibody (11/04/2024 12:09 PM EST) [facility] Hepatitis C Antibody Negative Negative LAB CHEMISTRY METHOD 11/04/2024 4:22 PM [facility] Blood Venous blood specimen / Unknown Venipuncture / Unknown 11/04/2024 12:09 PM EST 11/04/2024 12:09 PM EST us Odilia ROUSSEAU LAB BLOOD ORDERABLES Final Re sult [facility] [address] [place] [address], * (ABNORMAL) Comprehensive metabolic panel (11/04/2024 12:09 PM EST) [facility] Sodium 139 133 - 145 mmol/L LAB CHEMISTRY METHOD 11/04/2024 3:57 PM [facility] Potassium 4.7 3.5 - 5.5 mmol/L LAB CHEMISTRY METHOD 11/04/2024 3:57 PM [facility] Chloride 111(H) 96 - 110 mmol/L LAB CHEMISTRY METHOD 11/04/2024 3:57 PM [facility] CO2 24 21 - 32 mmol/L LAB CHEMISTRY METHOD 11/04/2024 3:57 PM [facility] Anion Gap 4 3 - 11 LAB CHEMISTRY METHOD 11/04/2024 3:57 PM [facility] Glucose 119(H) 70 - 100 mg/dL LAB CHEMISTRY METHOD 11/04/2024 3:57 PM [facility] BUN 12 5 - 25 mg/dL LAB CHEMISTRY METHOD 11/04/2024 3:57 PM [facility] Creatinine 1.01 0.70 - 1.30 mg/dL LAB CHEMISTRY METHOD 11/04/2024 3:57 PM [facility] eGFR 105 >=60 mL/min/1. 73m2 LAB CHEMISTRY METHOD 11/04/2024 3:57 PM [facility] Comment:Calculation based on the Chronic Kidney Disease Epidemiology Collaboration (CKD-EPI) equation refit without adjustment for race. BUN/Creatinine Ratio 11.9 LAB CHEMISTRY METHOD 11/04/2024 3:57 PM [facility] Calcium 10.4 8.5 - 10.5 mg/dL LAB CHEMISTRY METHOD 11/04/2024 3:57 PM [facility] AST (SGOT) 31 10 - 42 unit/L LAB CHEMISTRY METHOD 11/04/2024 3:57 PM [facility] ALT (SGPT) 61(H) 10 - 60 unit/L LAB CHEMISTRY METHOD 11/04/2024 3:57 PM [facility] Alkaline Phosphatase 111 42 - 121 unit/L LAB CHEMISTRY METHOD 11/04/2024 3:57 PM [facility] Total Protein 7.8 6.0 - 8.0 g/dL LAB CHEMISTRY METHOD 11/04/2024 3:57 PM [facility] Albumin 4.6 3.2 - 5.0 g/dL LAB CHEMISTRY METHOD 11/04/2024 3:57 PM [facility] Total Bilirubin 0.4 0.0 - 1.4 mg/dL LAB CHEMISTRY METHOD 11/04/2024 3:57 PM [facility] Blood Venous blood specimen / Unknown Venipuncture / Unknown 11/04/2024 12:09 PM EST 11/04/2024 12:09 PM EST us Odilia ROUSSEAU LAB BLOOD ORDERABLES Final Re sult [facility] [address] [place] [address], [place] [phone] from Last 3 Months or Most Recently Relevant to Health Maintenance Insurance [facility] Care Teams Weighmaster Relationship Specialty Start Date End Date Renata Barnes PA [address] [place] [phone] PCP - General Physician Concrete Journeyman 10/07/24
--- NOTE | 2025-11-02 22:43 | PC.NURSE ---
Pt continues to deny SI/HI. Not disclosing details about outburst at home.
[2025-11-03 05:30] VITALS: RESP 16
[2025-11-03 05:33] VITALS: BP 122/55; PULSE 71; RESP 18; TEMP 36.7; O2SAT 97
--- NOTE | 2025-11-03 05:38 | PC.NURSE ---
Assumed care at approximately 05:30. Report received from AGUSTINA Oneill. Initially presented with irritable edge d/t being woken up and moved to POD. Refused VS, but compliant minutes later. Denies current pain/discomfort. Refused liquids/snacks when offered. 15 minute safety checks in place. Plan for f/u in AM.
--- NOTE | 2025-11-03 06:54 | MHC.CARE ---
Called Mother this morning, pt?s brother will be picking him up at or around 10:30/11:00 today 11/03.
--- NOTE | 2025-11-03 07:18 | PC.NURSE ---
Assumed care, report received. Pt is currently sleeping, he is brought breakfast. safety is maintained.
[2025-11-03 11:25] VITALS: BP 122/55; PULSE 71; RESP 18; TEMP 36.7
== END 2025-11-03 11:26 | disposition home or self-care (01) ==
PROVIDERS: Emergency Provider Emergency Medicine
DX: F63.81 Intermittent explosive disorder (principal); F31.9 Bipolar disorder, unspecified; F79 Unspecified intellectual disabilities; E11.9 Type 2 diabetes mellitus without complications; E78.5 Hyperlipidemia, unspecified; Z79.899 Other long term (current) drug therapy; Z79.84 Long term (current) use of oral hypoglycemic drugs
CPT/HCPCS: 36415; 80053; 80143; 80178; 80307; 85025; 99284; S9485

== ENCOUNTER 2025-11-12 14:33 | Emergency (ER) | payer OTHER, SELFPAY ==
[2025-11-12 14:44] VITALS: RESP 16; BMI 31.2
[2025-11-12 14:52] VITALS: BP 139/81; PULSE 93; RESP 14; TEMP 36.7; O2SAT 96
[2025-11-12 15:23] LABS: MANUAL DIFF FLAG NO
[2025-11-12 15:27] LABS: Hematocrit 43.8 % (42.0-52.0); Hemoglobin 14.7 g/dl (14.0-18.0); Imm Gran Abs Auto 0.07 X10*3/uL (0.00-0.03); Imm Gran Pct Auto 0.8 % (0.0-0.4); Lymphocytes Absolute Auto 3.1 X10*3/uL (1.2-4.9); Mean Corpuscular HGB Conc 33.6 g/dl (31.0-36.0); Mean Corpuscular Hemoglobin 27.7 pg (27.0-33.0); Mean Corpuscular Volume 82.6 fL (80.0-98.0); NRBC Abs Auto 0.000 X10*3/uL (0.0-0.012); NRBC Pct Auto 0.0 /100WBC (0.0-0.2); Platelet Count 237 X10*3/uL (160-400); Red Blood Count 5.30 X10*6/uL (4.60-5.80); White Blood Count 9.2 X10*3/uL (4.8-10.8)
[2025-11-12 15:33] LABS: Cannabinoid Screen Urine Not Detected (Not Detect)
--- NOTE | 2025-11-12 15:35 | ED.PSYCH ---
HPI - Psych General Chief Complaint: Psychiatric Symptoms Stated Complaint: SECTION 12 Time Seen by Provider: 11/12/25 14:39 History of Present Illness ED Provider: Radha Clark NP HPI Narrative: 21-year-old male sick for the last 3 significant for bipolar disorder, intellectual disabilities, intermittent explosive disorder seen at our hospital several times by psychiatric providers presents to the ED via EMS for an explosive episode. The patient also reported some suicidal statements, made threats with cutting movements he was throat. This began after he got upset with his mother because she would not give him something for lunch that he wanted. He denies any homicidal ideation actively. No medical complaints. Related Data Home Medications ?Medication ?Instructions ?Recorded ?Confirmed dextroamphetamine-amphetamine ER 1 cap PO QAM 11/12/25 11/12/25 10 mg 24hr capsule,extend release (Adderall XR) dextroamphetamine-amphetamine ER 1 cap PO QAM 11/12/25 11/12/25 15 mg 24hr capsule,extend release (Adderall XR) hydroxyzine HCl 10 mg tablet 10 mg PO BEDTIME PRN insomnia 11/12/25 11/12/25 melatonin 3 mg tablet 3 mg PO BEDTIME PRN Sleep 11/12/25 11/12/25 meloxicam 15 mg tablet 15 mg PO DAILY 11/12/25 11/12/25 Previous Rx's ?Medication ?Instructions ?Recorded cariprazine 6 mg capsule (Vraylar) 6 mg PO BEDTIME 30 days #30 caps 08/20/25 lithium carbonate 450 mg 1,350 mg (3 x 450 mg) PO BEDTIME 08/20/25 tablet,extended release 30 days #90 tabs propranolol 80 mg capsule,24 80 mg PO QAM 30 days #30 caps 08/20/25 hr,extended release trazodone 100 mg tablet 100 mg PO BEDTIME PRN insomnia 30 08/20/25 days #30 tabs metformin 1,000 mg tablet 1,000 mg PO BID #180 tabs 09/17/25 Allergies Allergy/AdvReac Type Severity Reaction Status Date / Time aripiprazole (From Abilify) Allergy tremors Verified 11/12/25 14:46 divalproex sodium (From Allergy Agitated Verified 11/12/25 14:46 Depakote) risperidone (From Risperdal) Allergy Unknown Verified 11/12/25 14:46 Review of Systems Review of Systems: ROS is otherwise negative unless mentioned in HPI. [facility] Past Medical History Medical History Superficial laceration of finger Intellectual disability Intermittent explosive disorder in adult Social History Social History Household Members: Family Housing: House Do you presently have visiting nurse or other home services: No Alcohol intake: current Alcohol intake frequency: holidays/special occasions only Alcohol type: wine Patient Tobacco Use Status: Never used Tobacco Smoked in Last 30 Days: No e-Cigarette/Vaping Use: Never Used Second Hand Smoke Exposure: No Use of substances other than those prescribed or required for medical reasons: No Advance Directives: No Advance Directives Information Provided: No service: No Current occupational status: unemployed Sexual orientation: Decline to Answer Cognitive needs: Yes Hearing needs: No Vision needs: No Physical Exam Exam: Exam: Nursing notes and vital signs reviewed. Constitutional: Well-appearing, NAD. Alert. Oriented X3. ENT: Pharynx normal. Neck: Normal inspection. Neck supple. Respiratory: No respiratory distress. Skin: Skin warm and dry. Normal skin color. Extremities: No lower extremity edema. Neuro: Oriented X 3. No motor deficit. Vital Signs: Vital Signs: Last Vital Signs Temp 98.1 F 11/13/25 06:45 Pulse 72 11/13/25 06:45 Resp 16 11/13/25 06:45 BP 135/62 11/13/25 06:45 Pulse Ox 98 11/13/25 06:45 O2 Del Method Room Air 11/13/25 06:45 BMI result Body Mass Index 31.2 Course Reevaluation(s) Reevaluation #1: Time: : Date: 11/13/25 Provider: Heath Hernandez DO Physician observation ended Patient has been cleared for discharge by the CARE team. Medications Administered Generic Name Dose Route Start Last Admin Trade Name Freq PRN Reason Stop Dose Admin Amphetamine/Dextroamphetamine 10 mg 11/13/25 09:00 11/13/25 08:01 Dextroamphetamine/Amphetamine Xr 10 Mg Cap.Er.24h PO 10 mg DAILY LOLA Administration Amphetamine/Dextroamphetamine 15 mg 11/13/25 09:00 11/13/25 07:59 Dextroamphetamine/Amphetamine Xr 5 Mg Cap.Er.24h PO 15 mg DAILY LOLA Administration Cariprazine 6 mg 11/12/25 21:00 11/12/25 21:20 Cariprazine Hcl 3 Mg Capsule PO 6 mg BEDTIME LOLA Administration [place] Carbonate 1,350 mg 11/12/25 21:00 11/12/25 21:20 [place] Carbonate Er 450 Mg Tablet.Er PO 1,350 mg BEDTIME LOLA Administration Melatonin 3 mg 11/12/25 20:44 11/12/25 21:20 Melatonin 3 Mg Tablet PO 3 mg BEDTIME PRN Administration Sleep Metformin HCl 1,000 mg 11/13/25 08:00 11/13/25 08:03 Metformin Hcl 1,000 Mg Tablet PO 1,000 mg BIDWM LOLA Administration Naproxen 500 mg 11/13/25 08:00 11/13/25 07:58 Naproxen 500 Mg Tablet PO 500 mg BIDWM LOLA Administration Propranolol HCl 80 mg 11/13/25 09:00 11/13/25 09:14 Propranolol Hcl La 80 Mg Cap.Sa.24h PO 80 mg DAILY LOLA Administration Protocol Trazodone HCl 100 mg 11/12/25 20:44 11/12/25 21:20 Trazodone Hcl 100 Mg Tablet PO 100 mg BEDTIME PRN Administration Insomnia Medical Decision Making Medical Decision Making [facility] Narrative: Well-appearing male, presents with suicidal statements, and an explosive outbursts. He denies any homicidal ideations. Resting comfortably in the ED. We will obtain basic labs, patient does arrive on a section 12. We [address] place care evaluation. Differential Diagnosis Differential Diagnoses: The differential diagnosis associated with the presentation includes SI, HI, depression Admission/Observation Consideration of admission/observation: Escalation of care including admission/observation considered Consult Healthcare Provider Management of the patient was discussed with: Behavioral Health Provider Lab Data MDM Lab Attestation statement: I reviewed the patient's lab results. Reassuring overall 11/12/25 15:17 11/12/25 15:17 Labs: Lab Results 11/12/25 Range/Units 15:17 WBC 9.2 (4.8-10.8) X10*3/uL RBC 5.30 (4.60-5.80) X10*6/uL Hgb 14.7 (14.0-18.0) g/dl Hct 43.8 (42.0-52.0) % MCV 82.6 (80.0-98.0) fL MCH 27.7 (27.0-33.0) pg MCHC 33.6 (31.0-36.0) g/dl RDW 13.2 (11.0-16.0) % Plt Count 237 (160-400) X10*3/uL MPV 9.6 (9.4-12.4) fL Immature Gran % (Auto) 0.8 H (0.0-0.4) % Neut % (Auto) 54.9 (45-73) % Lymph % (Auto) 33.1 (20-40) % [place] % (Auto) 5.7 (2-11) % Eos % (Auto) 4.9 H (0-4) % Baso % (Auto) 0.6 (0-2) % Lymph # (Auto) 3.1 (1.2-4.9) X10*3/uL [place] # (Auto) 0.5 (0.1-1.2) X10*3/uL Eos # (Auto) 0.5 H (0.0-0.4) X10*3/uL Baso # (Auto) 0.1 (0.0-0.2) X10*3/uL Abs Immat Gran (auto) 0.07 H (0.00-0.03) X10*3/uL Absolute Neuts (auto) 5.1 (2.0-8.3) x10*3/uL Absolute Nucleated RBC 0.000 (0.0-0.012) X10*3/uL Nucleated RBC % (auto) 0.0 (0.0-0.2) /100WBC Sodium 144 (135-145) mmol/L Potassium 4.2 (3.3-5.1) mmol/L Chloride 111 H (96-108) mmol/L Carbon Dioxide 23 (22-29) mmol/L Anion Gap 14 (12-20) BUN 17 H (9-16) mg/dL Creatinine 0.90 (0.5-1.4) mg/dL Estim Creat Clear Calc 152.6 Estimated GFR > 60 Random Glucose 129 H (60-115) mg/dL Calcium 10.4 H (8.4-10.2) mg/dL Total Bilirubin 0.3 (0.0-1.0) mg/dL AST 38 H (5-37) U/L ALT 71 H (0-40) U/L Alkaline Phosphatase 88 (39-117) U/L Total Protein 7.7 (6.5-8.0) g/dL Albumin 5.1 H (3.5-5.0) g/dL Urine Color Yellow Urine Appearance Clear Urine pH 5.0 (5.0-9.0) Ur Specific [place] 1.020 (1.005-1.025) Urine Protein 30 (1+) H (Neg-Trace) mg/dL Urine Glucose (UA) Negative (Negative) mg/dL Urine Ketones Negative (Negative) mg/dL Urine Blood Negative (Negative) Urine Nitrite Negative (Negative) Ur Leukocyte Esterase Trace H (Negative) Urine RBC 0-2 (0-2) /HPF Urine WBC 6-10 H (0-5) /HPF Ur Squamous Epith Cells 0-2 (0-2) /HPF Urine Bacteria None Seen (None Seen) Hyaline Casts 3-5 (0-2) /LPF Salicylates < 5.0 L (15-30) mg/dL Urine Opiates Screen Not Detected (Not Detect) Ur Buprenorphine Scrn Not Detected (Not Detect) ng/mL Ur Oxycodone Screen Not Detected (Not Detect) ng/mL Urine Methadone Screen Not Detected (Not Detect) ng/mL Urine Fentanyl Screen Not Detected (Not Detect) Acetaminophen < 3 (<30) mcg/mL Ur Barbiturates Screen Not Detected (Not Detect) Ur Phencyclidine Scrn Not Detected (Not Detect) Ur Amphetamines Screen POSITIVE H (Not Detect) U Benzodiazepines Scrn Not Detected (Not Detect) [place] 0.28 L (0.60-1.20) mmol/L Urine Cocaine Screen Not Detected (Not Detect) U Marijuana (THC) Screen Not Detected (Not Detect) Ethyl Alcohol < 10 mg/dL Independent Historian Clinical information obtained from an independent historian. History obtained from or confirmed by: EMS External Record Review External record reviewed: Inpatient record and Outside ED record Chronic Conditions Patient?s care impacted by: Other (Psychiatric illnesses) Social Determinants Patient?s care significantly limited by Social Determinants of Health including: Problems related to primary support group Discharge Plan Discharge Clinical Impression: Behavioral problems Patient Disposition: Home, Self-Care Additional Instructions: You were seen in our Emergency Department today for treatment of a behavioral health issue. It is important after your visit that you follow up with either your behavioral health provider or a primary care doctor within 7 days.? If you have trouble finding a therapist you can reach out to [address] [phone] The National Suicide and Crisis Lifeline can be reached 7 days a week 24 hours a day.? Call 988 to speak with someone.? Return for any worsening symptoms or concerns such as thoughts of self harm or harm to others. Please call 911 if you feel your mental health is worsening.? Prescriptions: No Action metformin 1,000 mg tablet 1,000 mg PO BID Qty: 180 0RF lithium carbonate 450 mg tablet extended release 1,350 mg PO BEDTIME 30 Days Qty: 90 0RF trazodone 100 mg tablet 100 mg PO BEDTIME PRN (Reason: insomnia) 30 Days Qty: 30 0RF propranolol 80 mg capsule,extended release 24 hr 80 mg PO QAM 30 Days Qty: 30 0RF Vraylar 6 mg capsule 6 mg PO BEDTIME 30 Days Qty: 30 0RF melatonin 3 mg tablet 3 mg PO BEDTIME PRN (Reason: Sleep) meloxicam 15 mg tablet 15 mg PO DAILY dextroamphetamine-amphetamine [Adderall XR] 10 mg capsule,extended release 24hr 1 cap PO QAM hydroxyzine HCl 10 mg tablet 10 mg PO BEDTIME PRN (Reason: insomnia) dextroamphetamine-amphetamine [Adderall XR] 15 mg capsule,extended release 24hr 1 cap PO QAM Interventions: [place]-Suicide Risk Severity Scale Last Done: 11/12/25 14:47 Print Language: Malay
[2025-11-12 15:38] LABS: Appearance Urine Clear; Glucose Urine UA Negative (Negative); PH 5.0 (5.0-9.0); Specific Gravity - Urine 1.020 (1.005-1.025); UMIC TRIGGER UACC YES
[2025-11-12 15:43] LABS: Lithium 0.28 mmol/L (0.60-1.20); UACC Culture Trigger YES
[2025-11-12 15:47] LABS: Acetaminophen LAB < 3 mcg/mL (<30); Alanine Aminotransferase 71 U/L (0-40); Albumin Level 5.1 g/dL (3.5-5.0); Alkaline Phosphatase 88 U/L (39-117); Anion Gap 14 (12-20); Aspartate Amino Transferase 38 U/L (5-37); Blood Urea Nitrogen 17 mg/dL (9-16); Calcium 10.4 mg/dL (8.4-10.2); Carbon Dioxide 23 mmol/L (22-29); Chloride 111 mmol/L (96-108); Creatinine Clr Calc Pharmacy 152.6; Estimated Glomerular Filt Rate > 60; Potassium 4.2 mmol/L (3.3-5.1); Salicylate < 5.0 mg/dL (15-30); Sodium 144 mmol/L (135-145); Total Protein 7.7 g/dL (6.5-8.0)
--- OUTSIDE RECORDS SUMMARY | 2025-11-12 16:37 | XMS_ITS | Clinical Summary ---
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, Abilify, cogentin, Inderal [...] Recently Relevant to Health Maintenance Results * [facility] level (02/15/2022 9:44 AM EDT) LITHIUM 1.14 0.50 - 1.20 mmol/L [facility] Blood 02/15/2022 9:44 AM EDT 02/15/2022 9:59 AM EDT us Aldo Kulkarni MD LAB BLOOD BKR ORDERABLES F inal Result [facility] [address] [place] [address] * (ABNORMAL) Basic metabolic panel (02/15/2022 9:44 AM EDT) SODIUM 143 136 - 145 mmol/L [facility] CHLORIDE 106 95 - 106 mmol/L [facility] POTASSIUM 4.2 3.5 - 5.2 mmol/L [facility] CO2 26 20 - 31 mmol/L [facility] BUN 12 9 - 23 mg/dL [facility] CREATININE 0.92 0.50 - 1.30 mg/dL [facility] GLUCOSE 111(H) 74 - 106 mg/dL [facility] CALCIUM 10.5(H) 8.7 - 10.4 mg/dL [facility] EGFR 118 >60 mL/min/1.7 3m2 [facility] Comment:Estimated glomerular filtration rate calculated using the CKD-EPI refit equation. ANION GAP 11 3 - 17 mmol/L [facility] Blood 02/15/2022 9:44 AM EDT 02/15/2022 9:59 AM EDT us Aldo Kulkarni MD LAB BLOOD BKR ORDERABLES F inal Result [facility] [address] [place] [address] * TSH (07/16/2020 10:23 AM EDT) TSH 3.16 0.34 - 5.00 uIU/mL [facility] 07/16/2020 10:2 3 AM EDT 07/16/2020 1:10 PM EDT us Xiomara Parrish NP LAB BLOOD BKR ORDERABLES Edit ed Result - Final Performing Organization Address [facility] [place] [address], [facility] [[email or web address]] [phone] * Hemoglobin A1c (07/16/2020 10:23 AM EDT) HEMOGLOBIN A1C 4.4 4.2 - 5.6 % [facility] Comment:Hemoglobin A1c value s between 5.7 and 6.4% indicate an increased risk for diabetes.Values of 6.5% or greater are diagnostic of diabetes CALC MEAN BLD GLUC 80 mg/dL [facility] 07/16/2020 10:2 3 AM EDT 07/16/2020 1:10 PM EDT us Xiomara Parrish NP LAB BLOOD BKR ORDERABLES Edit ed Result - Final Performing Organization Address City/[facility]/[place] [address], [facility] [[email or web address]] [phone] * (ABNORMAL) Lipid panel (07/16/2020 10:23 AM EDT) HDL 29(L) >39 mg/dL [facility] CHOLESTEROL 158 0 - 200 mg/dL [facility] TRIGLYCERIDES 312(H) 0 - 150 mg/dL [facility] LDL 67 40 - 130 mg/dL [facility] CARDIAC RISK RATIO 5.4(H) <5 N [facility] NON-HDL CHOLESTEROL 129 mg/dL [facility] Comment:Reference Range: The non-HDL Cholesterol value should not exceed the desired LDL-C by more than 30 mg/dl. 07/16/2020 10:2 3 AM EDT 07/16/2020 1:10 PM EDT Xiomara Parrish NP LAB BLOOD BKR ORDERABLES Edit ed Result - Final [address] [address], [facility] [[email or web address]] [phone] from Last 3 Months or Most Recently Relevant to Health Maintenance [facility] [employer] TOGETHER [employer] TOGETHER [facility] Care Teams Tool And Die Technician Relationship Specialty Start Date End Date Pcp, Not Required PCP - General 08/09/21 Additional Source Comments The information contained in this document represents components of the legal health record. It is not the complete legal health record.[facility]
--- OUTSIDE RECORDS SUMMARY | 2025-11-12 16:37 | XMS_ITS | Encounter Summary ---
Author Organization [facility] Address [address] [place] [address] Phone Care Team Providers Care Life Sciences Manager Name Role Phone Meagan Caraballo MD, JAVIER Primary Care Provider [phone] Pcp, Not Required Primary Care Provider Unavaila ble Encounter Details Date Type Department Care Team (Late st Contact Info) Description 07/17/2020 Transcribe Orders [facility] Specimen Processing [address] [place] [address] Bren Social History Tobacco Use Types Packs/Day [...] on filedocumented in this encounter Care Teams Life Sciences Manager Relationship Specialty Start Date End Date Meagan Caraballo MD, JAVIER [address] [place] [address] PCP - General Internal Medicine 09/25/19 08/08/21 Pcp, Not Required [address] [place] [address] PCP - General 08/09/21 documented as of this encounter Additional Source Comments The information contained in this document represents components of the legal health record. It is not the complete legal health record.[facility]
--- OUTSIDE RECORDS SUMMARY | 2025-11-12 16:37 | XMS_ITS | Encounter Summary ---
Author Organization [facility] Address [address] [place] [address] Care Team Providers Care Supervisor Home Energy Consultant Name Role Phone Gigi Carrillo MD Primary Care Provider [phone] Briana Norton MD Unavailable [phone] Briana Norton MD Primary Care Provider + [phone] Gigi Carrillo MD Primary Care Provider [phone] Gigi Carrillo MD Unavailable [phone] Encounter Details Date Type Department Care Team (Late st Contact Info) Description 08/13/2020 Telephone [facility] ACC[facility] [address] [address] Jacquie Talamantes, DO [address] [place] [id number] Social History Tobacco Use Types Packs/Day Years Used Date Smoking Tobacco: Never Smokeless Tobacco: Never Alcohol Use Standard Drinks/Week Comments Yes 1 (1 standard drink = 0.6 oz pur e alcohol) once a while AUDIT-C Answer Date Recorded Q1: How often do you have a drink containing alc ohol? Never 07/07/2020 Average Number of Drinks Not on file 020 Frequency of Binge Drinking Not on file 06/19 Sex and Gender Information Value Date Recorded Sex Assigned at Male 04/06/2019 5:52 AM EDT Legal Sex Male 7:02 PM EDT Gender Identity Male 04/06/2019 5:52 AM EDT Sexual Orientation Not on file Occupation Industry Job Start Date Job End Date disabled Not on file Not on file Not on file documented as of this encounter Plan of Treatment Not on file documented as of this encounter Visit Diagnoses Not on filedocumented in this encounter Care Teams Supervisor Home Energy Consultant Relationship Specialty Start Date End Date Gigi Carrillo MD [address] [place] [address] PCP - General Internal Medicine 12/01/20 01/16/22 Briana Norton MD [address] [place] [address] PCP - Insurance Assigned PCP 01/22/23 01/28/23 Briana Norton MD [address] [place] [address] PCP - General Family Practice 01/17/22 01/28/23 Gigi Carrillo MD [address] [place] [address] PCP - General Internal Medicine 01/29/23 Gigi Carrillo MD [address] [place] [address] PCP - Insurance Assigned PCP 03/27/23 documented as of this encounter
--- OUTSIDE RECORDS SUMMARY | 2025-11-12 16:37 | XMS_ITS | Encounter Summary ---
Author Organization [facility] Address [address] [place] [address] Phone Care Team Providers Care Batch Dumper Name Role Phone Pcp, Not Required Primary Care Provider Unavaila ble Encounter Details Date Type Department Care Team (Late st Contact Info) Description 04/09/2022 Procedure [facility] Emergency Department, [facility] [address] [place] [address] Social History Tobacco Use Types Packs/Day Years [...] on filedocumented in this encounter Care Teams Batch Dumper Relationship Specialty Start Date End Date Pcp, Not Required PCP - General 08/09/21 documented as of this encounter Additional Source Comments The information contained in this document represents components of the legal health record. It is not the complete legal health record.[facility]
--- OUTSIDE RECORDS SUMMARY | 2025-11-12 16:37 | XMS_ITS | Clinical Summary ---
Author Organization [facility] Address [address] [place] [address] Phone Care Team Providers Care Lithograph Press Operator Tinware Name Role Phone Unavailable Primary Care Provider [...] disorder Overview (10/15/2019): 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 ( multiple) PATTERN DRAFTER 37 hrs/wk lithium, guanfacine, Abilify, cogentin, Inderal [...] complete this topic Procedures * Due to [place] [employer] law, this organization might not be sharing sensitive test results. Procedure Name Priority Date/Time Associated Diagnosis Comments GLUCOSE, FASTING Routine 01/18/2011 12:2 2 PM EST LIPID PANEL Routine 01/17/2011 11:01 AM EST from Last 3 Months or Most Recently Relevant to Health Maintenance Results * Due to [place] [employer] law, this organization might not be sharing sensitive test results. * Glucose, fasting (01/18/2011 12:22 PM EST) BLOOD GLUCOSE, FINGER STICK (CONV) 88.0 70.0 - 110.0 [facility] 01/18/2011 12:2 2 PM EST us Historical Unknown LAB BLOOD ORDERABLES Final Re sult [facility] [address] [place] [address], * (ABNORMAL) Lipid panel (01/17/2011 11:01 AM EST) Cholesterol, Total(Conversion ) 216.0(H) 80.0 - 170.0 mg/dL [facility] HDL CHOLESTEROL, SERUM (CONV) 37.0 35.0 - 85.0 mg/dL [facility] CHOLESTEROL/HDL RATIO, SERUM, PERCENT (CONV) 5.8(H) 0.0 - 5.0 [facility] TRIGLYCERIDE, SERUM, FASTING (CONV) 194.0 30.0 - 200.0 mg/dL [facility] LDL CHOLESTEROL, SERUM (CONV) 140.0(H) 65.0 - 110.0 mg/dL [facility] VERY LOW DENSITY LIPOPROTEINS (CONV) 39.0 0.0 - 40.0 mg/dL [facility] 01/17/2011 11:0 1 AM EST us Historical Unknown LAB BLOOD ORDERABLES Final Re sult [facility] [address] [place] [address], [place] from Last 3 Months or Most Recently Relevant to Health Maintenance
--- OUTSIDE RECORDS SUMMARY | 2025-11-12 16:37 | XMS_ITS | Clinical Summary ---
Author Organization [facility] Address [address] [place] [address] Care Team Providers Care Reinforcing Rod Layer Name Role Phone Gigi Carrillo MD Primary Care Provider [phone] Gigi Carrillo MD Unavailable [phone] Allergies Active Allergy Reactions Criticality Noted Date Comments Risperidone Unknown,Other (See Comments),Rash Low 11/29/2008 tremors tremors Medications ibuprofen (ADVIL,MOTRIN) 200 MG tablet Take 1 tablet (200 mg total) by mouth every 6 hours as needed for pain. Active VRAYLAR 6 mg cap 3 Active propranolol ER (INDERAL LA) 80 MG 24 hr capsule 3 Active blood glucose monitoring (FREESTYLE LITE METER) kit Use as instructed to monitor sugars. 1 each 1 3 Active lancets (freestyle) 28 gauge Misc Test glucose daily. 100 each 3 3 Active blood sugar diagnostic (FREESTYLE LITE STRIPS) Strp Use As Directed. 100 strip 3 3 Active capsaicin (ZOSTRIX) 0.025 % cream APPLY TOPICALLY TO THE AFFECTED AREA THREE TIMES DAILY NEEDED FOR KNEE PAIN 3 Active lithium ER (ESKALITH) 450 MG ER tablet Take 3 tablets (1,350 mg total) by mouth. 3 Active melatonin 3 mg Tab tablet Take 1-2 tablets (3-6 mg total) by mouth at bedtime as needed for insomnia. 4 Active traZODone (DESYREL) 100 MG tablet TAKE 1 TABLET BY MOUTH AT BEDTIME NEEDED FOR INSOMNIA (DOSE INCREASED) 3 Active guanfacine (Intuniv) 1 mg Tb24 Take 1 tablet (1 mg total) by mouth every morning. 4 Active metFORMIN (GLUCOPHAGE) 1000 MG tablet Take 1 tablet (1,000 mg total) by mouth 2 times a day with breakfast & dinner. 180 tablet 1 4 Active atorvaSTATin (LIPITOR) 20 MG tablet Take 1 tablet (20 mg total) by mouth daily. 30 tablet 11 4 Active Active Problems Problem Noted Date Diagnosed Date Left ACL tear 10/05/2021 Voice disturbance 08/19/2021 Fatty liver 02/20/2021 History of suicidal ideation 08/19/2020 Overview (08/19/2020): March 2019 - evaluated in [facility] and subsequently discharged home Elevated BP without diagnosis of hypertension Tremor due to multiple drugs 01/30/2020 Obesity 12/31/2019 Overview (12/31/2019): Overview: with fatty liver changes ( u/s 11/03) , fasting chol 216 and gluc 88 ( 12/30) ALT 52 ( nl to 44) 08/04 Type 2 diabetes mellitus wit hout complication, without long-term current use of insulin 12/31/2019 Mixed hyperlipidemia 12/31/2019 Snoring 12/12/2017 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 Other acne 03/11/2012 Acquired acanthosis nigricans 12/08/2010 Astigmatism 03/24/2009 Overview (12/31/2019): Overview: Astigmatism Astigmatism Constipation 09/24/2008 Developmental delay Bipolar affective disorder ADHD (attention deficit hyperactivity disorder) Resolved Problems Problem Noted Date Diagnosed Date Resolved Date Lumbar strain, initial encounter 01/26/2021 04/11/2023 Chronic laryngitis 01/26/2021 1 Hypertriglyceridemia 01/30/2020 024 Weight gain 08/19/2020 Immunizations Immunization Administration Dates Next Due COVID-19 Vaccine - (JENNIFER / EDEN AND EDEN) 08/23/2021 DTaP Vaccine (INFANRIX/DAPTA RYLEE) PEDIATRIC 12/31/2001,03/02/1998,08/10/1997,03/30,02/02/1997 HPV 9-valent (GARDASIL 9) 12/12/2017,08/21/2016, 07/07/2015 Haemophilus B Vaccine - Hib (PRP-T) (ACTHIB/HIBERIX 4-dose) 03/02/1998,08/10/1997,03/30/1997,02/02 Hep A, Unspecified 08/21/2016,07/14/2015 Hep B, Unspecified 08/10/1997,02/02/1997, 997 Influenza Vaccine - LIVE ATT ENUATED (FLUMIST) 09/22/2014 Influenza Vaccine - STANDARD - SDV (FLUZONE/FLUARIX/FLULAVAL/AFLURIA) 12/12/2017 Influenza, Unspecified 08/21/2016 MMR Live vaccine 12/31/2001,03/30/1998 Meningococcal B - Recombinan t (BEXSERO) 12/12/2017,08/21/2016 Meningococcal Quadrivalent V accine (MENACTRA) 06/25/2014,09/24/2008 Poliovirus vaccine IPV (IPOL) 12/31/2001 ,03/02/1998,08/10/1997,03/30,02/02/1997 Tdap Vaccine (BOOSTRIX/ADACEL) 03/26/2020,2013,09/29/2007 Varicella Vaccine (VARIVAX) 01/29/2003, 9 Family History Medical History Relation Comments Diabetes Father Diabetes Mother type 2 Hypothyroidism Mother Sleep apnea Mother Relation Status Comments Father Alive Mother Alive Social History Tobacco Use Types Packs/Day Years [...] Sign Reading Time Taken Comments Blood Pressure 128/68 01/11/2024 6:20 PM EST Pulse 80 01/11/2024 2:32 PM EST Temperature 36.9 C (98.4 F) 01/29/2023 1:34 PM EDT Respiratory Rate 18 03/28/2020 8:05 AM EDT Oxygen Saturation 97% 01/11/2024 2:32 PM EST Inhaled Oxygen Concentration - - Weight 141 kg (310 lb) 01/11/2024 2:32 PM EST Height 182.9 cm (6') 01/11/2024 2:32 PM EST Body Mass Index 42.04 01/11/2024 2:32 PM EST Plan of Treatment Health Maintenance Due Date Last Done Comments Diabetic Eye Exam 1996 Depression Screening 2008 Hepatitis C Screening 2014 Pneumococcal Vaccine (1 of 2 - PCV) 2015 Hemoglobin A1c 07/11/2024 01/11/2024, 01/17, 02/18/2021, Additional history exists Blood Pressure 01/11/2025 01/11/2024 Lipid Panel 01/11/2025 01/11/2024, 12/21, 01/29/2023, Additional history exists Urine Microalbumin 01/11/2025 01/11/2024, 01/29/2023 COVID-19 Vaccine (2 - 2024-2 6 season) 2025 08/23/2021 Influenza Vaccine (#1) 2025 8, 08/21/2016, 09/22/2014 DTaP,Tdap,and Td Vaccines (9 - Td or Tdap) 03/26/2030 03/26/2020, 05/21/2014, 09/29/2007, Additional history exists Meningococcal Vaccines Completed 06/25/2014, 2007 Meningococcal B Vaccines Completed 12/12/2017, 01/2016 Procedures Procedure Name Priority Date/Time Associated Diagnosis Comments ALBUMIN, URINE, RANDOM Routine 01/11/2024 2:38 PM EST Fatty liver Type 2 diabetes mellitus without complication, without long-term current use of insulin (HCC) HEMOGLOBIN A1C Routine 01/11/2024 1:07 PM EST Fatty liver Type 2 diabetes mellitus without complication, without long-term current use of insulin (HCC) LIPID PANEL Routine 01/11/2024 1:07 PM EST Fatty liver Type 2 diabetes mellitus without complication, without long-term current use of insulin (HCC) from Last 3 Months or Most Recently Relevant to Health Maintenance Results * (ABNORMAL) Albumin, Urine, Random (01/11/2024 2:38 PM EST) Albumin/Creati nine Ratio, Urine 167(H) 0 - 30 mg/g [facility] [id number] 01/11/2024 8:29 PM EST [facility] Creatinine, Perez Urine 157.8 >=15 mg/dL [facility] [id number] 01/11/2024 8:29 PM EST [facility] Microalbumin, Random Urine 26.32(H) <3.2 mg/dL [facility] [id number] 01/11/2024 8:29 PM EST [facility] Urine 01/11/2024 2:38 PM EST 01/11/2024 2:38 PM EST us Gigi Carrillo MD URINE ORDERABLES Final Result [address] [address] * (ABNORMAL) Hemoglobin A1C (01/11/2024 1:07 PM EST) Hemoglobin A1C 6.5(H) 4.6 - 5.6 % 01/11/2024 2:36 PM EST [facility] Comment: 4.6 to 5.6% Normal 5.7 to 6.4% Pre-diabetes, increased risk for diabetes >= 6.5% Diabetes mellitus Blood Venipuncture / Unknown 01/11/2024 1:07 PM EST 01/11/2024 1:10 PM EST us Gigi Carrillo MD LAB BLOOD ORDERABLES Final Res ult Performing Organization Address City/[facility]/ZIP Co de Phone Number [address] [address] * (ABNORMAL) Lipid Panel (01/11/2024 1:07 PM EST) [facility] Cholesterol 256(H) 125 - 200 mg/dL [address] 01/11/2024 6:21 PM EST [facility] Triglycerides 429(H) 55 - 150 mg/dL [address] 01/11/2024 6:21 PM EST [facility] Comment:Use non-HDL choleste rol or Apolipoprotein B to monitor cardiovascular risk and cholesterol-lowering therapy. HDL Cholesterol 35(L) 40 - 65 mg/dL [address] 01/11/2024 6:21 PM [facility] Non-HDL Cholesterol 221(H) <190 mg/dL [address] 01/11/2024 6:21 PM [facility] Comment: Normal primary prevention <190 mg/dL High risk primary prevention <160 mg/dL Secondary prevention <130 mg/dL High risk secondary prevention <100 mg/dL Ratio Chol/HDL 7.3(H) 2.0 - [address] 01/11/2024 6:21 PM [facility] Patient Fasting No 6:21 PM EST [facility] Blood Venipuncture / Unknown 01/11/2024 1:07 PM EST 01/11/2024 1:10 PM EST us Gigi Carrillo MD LAB BLOOD ORDERABLES Final Res ult [address] [address] from Last 3 Months or Most Recently Relevant to Health Maintenance [place] [place] [address] [facility] Advance Directives Documents on File Type Date Recorded Patient Napper Runner Expl anation Health Care Proxy 01/09/2020 3:22 PM Healt h Care Proxy Health Care Proxy 12/30/2019 3:48 PM Healt h Care Proxy Care Teams Reinforcing Rod Layer Relationship Specialty Start Date End Date Gigi Carrillo MD [address] [place] [address] PCP - General Internal Medicine 01/29/23 Gigi Carrillo MD [address] [place] [address] PCP - Insurance Assigned PCP 03/27/23
--- OUTSIDE RECORDS SUMMARY | 2025-11-12 16:37 | XMS_ITS | Clinical Summary ---
Author Organization [address] [facility] Address [address] [place] [address] Phone Care Team Providers Care Rescue Worker Name Role Phone Renata Barnes Primary Care Provider [phone] Allergies Active Allergy Reactions Criticality Noted Date [...] 12/13/2021 Overview (07/10/2025): 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 ( multiple) FIELD EDUCATION DIRECTOR 37 hrs/wk lithium, guanfacine, Abilify, cogentin, Inderal [...] Care Team Description 08/20/2025 Telephone Gastroenterology - [place] [address] [facility] [address] [place] [phone] Odilia Escoto PA from Last 3 Months [...] Office Visit Gastroenterology - [address] [facility] [address] [place] [phone] Odilia Escoto PA [address] [facility] [address] [place] [address] Health Maintenance Due Date Last Done Comments Drug Screen 1996 Non-Opioid Controlled Substance Agreement 1996 Diabetes: Annual Foot Exam 2006 Diabetes: Annual [...] Hepatitis C antibody (11/04/2024 12:09 PM EST) [facility] Hepatitis C Antibody Negative Negative LAB CHEMISTRY METHOD 11/04/2024 4:22 PM EST [facility] Blood Venous blood specimen / Unknown Venipuncture / Unknown 11/04/2024 12:09 PM EST 11/04/2024 12:09 PM EST us Odilia ROUSSEAU LAB BLOOD ORDERABLES Final Re sult [facility] [address] [place] [address], [place] [phone] * (ABNORMAL) Comprehensive metabolic panel (11/04/2024 12:09 PM EST) [facility] Sodium 139 133 - 145 mmol/L LAB CHEMISTRY METHOD 11/04/2024 3:57 PM [facility] Potassium 4.7 3.5 - 5.5 mmol/L LAB CHEMISTRY METHOD 11/04/2024 3:57 PM [facility] Chloride 111(H) 96 - 110 mmol/L LAB CHEMISTRY METHOD 11/04/2024 3:57 PM [facility] CO2 24 21 - 32 mmol/L LAB CHEMISTRY METHOD 11/04/2024 3:57 PM [facility] Anion Gap 4 3 - 11 LAB CHEMISTRY METHOD 11/04/2024 3:57 PM [facility] Glucose 119(H) 70 - 100 mg/dL LAB CHEMISTRY METHOD 11/04/2024 3:57 PM [facility] BUN 12 5 - 25 mg/dL LAB CHEMISTRY METHOD 11/04/2024 3:57 PM [facility] Creatinine 1.01 0.70 - 1.30 mg/dL LAB CHEMISTRY METHOD 11/04/2024 3:57 PM [facility] eGFR 105 >=60 mL/min/1. 73m2 LAB CHEMISTRY METHOD 11/04/2024 3:57 PM [facility] Comment:Calculation based on the Chronic Kidney Disease Epidemiology Collaboration (CKD-EPI) equation refit without adjustment for race. BUN/Creatinine Ratio 11.9 LAB CHEMISTRY METHOD 11/04/2024 3:57 PM [facility] Calcium 10.4 8.5 - 10.5 mg/dL LAB CHEMISTRY METHOD 11/04/2024 3:57 PM [facility] AST (SGOT) 31 10 - 42 unit/L LAB CHEMISTRY METHOD 11/04/2024 3:57 PM [facility] ALT (SGPT) 61(H) 10 - 60 unit/L LAB CHEMISTRY METHOD 11/04/2024 3:57 PM [facility] Alkaline Phosphatase 111 42 - 121 unit/L LAB CHEMISTRY METHOD 11/04/2024 3:57 PM [facility] Total Protein 7.8 6.0 - 8.0 g/dL LAB CHEMISTRY METHOD 11/04/2024 3:57 PM [facility] Albumin 4.6 3.2 - 5.0 g/dL LAB CHEMISTRY METHOD 11/04/2024 3:57 PM [facility] Total Bilirubin 0.4 0.0 - 1.4 mg/dL LAB CHEMISTRY METHOD 11/04/2024 3:57 PM [facility] Blood Venous blood specimen / Unknown Venipuncture / Unknown 11/04/2024 12:09 PM EST 11/04/2024 12:09 PM EST us Odilia ROUSSEAU LAB BLOOD ORDERABLES Final Re sult [facility] [address] [place] [address], [place] [phone] from Last 3 Months or Most Recently Relevant to Health Maintenance Insurance [employer] Care Teams Rescue Worker Relationship Specialty Start Date End Date Renata Barnes PA [address] [place] [phone] PCP - General Physician Diving Judge 10/07/24
--- OUTSIDE RECORDS SUMMARY | 2025-11-12 16:37 | XMS_ITS | Encounter Summary ---
Author Organization [facility] Address [address] [facility] [place] [address] Phone Care Team Providers Care Machine Sand Mixer Name Role Phone Pcp, Not Required Primary Care Provider Unavaila ble Encounter Details Date Type Department Care Team (Late st Contact Info) Description 04/09/2022 Procedure [facility] Emergency Department, [facility] [address] [place] [address] Social History Tobacco Use Types Packs/Day Years [...] on filedocumented in this encounter Care Teams Machine Sand Mixer Relationship Specialty Start Date End Date Pcp, Not Required PCP - General 08/09/21 documented as of this encounter Additional Source Comments The information contained in this document represents components of the legal health record. It is not the complete legal health record.[facility]
--- OUTSIDE RECORDS SUMMARY | 2025-11-12 16:37 | XMS_ITS | Encounter Summary ---
Author Organization [facility] Address [address] [place] [phone] Phone Care Team Providers Care Tobacco Curer Name Role Phone Joe Rubin MD Primary Care Provider [phone] Encounter Details Date Type Department Care Team (Late st Contact Info) Description 09/22/2016 [facility] - [address] [address] Social History Tobacco Use Types [...] Rubin MD - 09/22/2016 12:00 AM EDT [facility] Aftercare Plan and Discharge Imported By: Zenaida Wyatt 10/02/2016 11:33:32 AM External Attachment: Type: Image Comment: External Document documented in this encounter Plan of Treatment Not on file documented as of this encounter Visit Diagnoses Not on filedocumented in this encounter Care Teams Tobacco Curer Relationship Specialty Start Date End Date Joe Rubin MD [address] [address] PCP - General 01/08/17 11/24/19 documented as of this encounter
[2025-11-12 18:31] VITALS: BP 141/86; PULSE 84; RESP 16; TEMP 37.2; O2SAT 98
--- NOTE | 2025-11-12 18:32 | PC.NURSE ---
Pt showering at this time
[2025-11-13 06:45] VITALS: BP 135/62; PULSE 72; RESP 16; TEMP 36.7; O2SAT 98
--- NOTE | 2025-11-13 07:37 | PHA.MEDREC ---
Pharmacy Consult ? Medication Reconciliation Pharmacy has reviewed the medication reconciliation. Matches pharmacy claims.
[2025-11-13] MEDS: Dextroamphetamine/Amphetamine XR 5 MG CAP.ER.24H 15 MG PO (07:59)
[2025-11-13] MEDS: Dextroamphetamine/Amphetamine XR 10 MG CAP.ER.24H PO (08:01)
[2025-11-13] MEDS: Propranolol HCL LA 80 MG CAP.SA.24H PO (09:14)
--- NOTE | 2025-11-13 09:40 | PC.NURSE ---
This Rn assumed care of patient @ 0700 Patient calm and cooperative Denies SI HI Medications administered per MAR Care Team looking to discharge patient Care Team following up with family to arrange transportation Plan of care on going
[2025-11-13 09:56] LABS: Creatinine Clr Calc Pharmacy 171.6; Estimated Glomerular Filt Rate > 60
--- NOTE | 2025-11-13 11:14 | MHC.CARE ---
Pt has been placed on alert with [facility] and a 3 day follow up has been requested.
[2025-11-13 11:38] VITALS: BP 135/62; PULSE 72; RESP 16; TEMP 36.7; O2SAT 98
--- NOTE | 2025-11-13 21:41 | MHC.CARE ---
CARE team was contacted by [facility] crisis counselor regarding the referral for a 3 day follow up. Counselor advised that she called the pt's mother for the first check in and reported that the mother refused to let the counselor speak with the pt andstated that the pt didn't need any services. Counselor reported that she attempted to explain that the follow up calls are just for support however the mother continued to decline and asked them not to call again.
== END 2025-11-13 11:42 | disposition home or self-care (01) ==
PROVIDERS: Emergency Provider Emergency Medicine; PCP Physician Assistant
DX: F63.81 Intermittent explosive disorder (principal); F91.9 Conduct disorder, unspecified; F31.9 Bipolar disorder, unspecified; Z79.899 Other long term (current) drug therapy; Z51.81 Encounter for therapeutic drug level monitoring
CPT/HCPCS: 36415; 80053; 80143; 80178; 80179; 80307; 81001; 82565; 85025; 87086; 99285; S9485